=== PATIENT | female | born 1945 | race Caucasian/White ===

== ENCOUNTER → 2017-12-15 | Outpatient (CLI) | payer MEDICARE, OTHER, MEDICAID | END | disposition home or self-care (01) | LOC: C/S 12:53 | DX: J96.90 Respiratory failure, unspecified, unspecified whether with hypoxia or hypercapnia (principal) | CPT/HCPCS: 70490 ==

== ENCOUNTER 2018-02-14 10:29 | Inpatient (IN) | payer MEDICARE, OTHER ==
[2018-02-14 11:18] LABS: ADD MAN DIFF? NO
[2018-02-14 11:20] LABS: WHITE BLOOD COUNT 5.8 10^3/ul (4.8-10.8)
[2018-02-14 11:20] LABS: BASOPHILS % 0.3 % (0.0-2.0); EOSINOPHILS # 0.1 10^3/ul (0.0-0.5); EOSINOPHILS % 2.4 % (0.0-7.0); HEMATOCRIT 27.5 % (37.0-47.0); HEMOGLOBIN 8.3 g/dl (12.0-16.0); LYMPHOCYTES # 1.5 10^3/ul (0.8-2.9); LYMPHOCYTES % 25.7 % (15.0-51.0); MEAN CORPUSCULAR HEMOGLOBIN 30.4 pg (29.0-33.0); MEAN CORPUSCULAR HGB CONC 30.2 g/dl (32.0-37.0); MEAN CORPUSCULAR VOLUME 100.7 fl (82.0-101.0); MEAN PLATELET VOLUME 8.3 fl (7.4-10.4); MONOCYTE # 0.4 10^3/ul (0.3-0.9); MONOCYTES % 7.1 % (0.0-11.0); NEUTROPHIL # 3.7 10^3/ul (1.6-7.5); PLATELET COUNT 342 10^3/UL (140-415); RED BLOOD COUNT 2.73 10^6/ul (4.20-5.40); RED CELL DISTRIBUTION WIDTH 16.8 % (11.5-14.5)
[2018-02-14] MEDS: ALBUTEROL 0.083% (NEB) 2.5 MG/3 ML AMP HHN (11:27)
[2018-02-14 11:41] LABS: ALANINE AMINOTRANSFERASE 24 IU/L (13-69); ALBUMIN/GLOBULIN RATIO 0.83; ALKALINE PHOSPHATASE 114 IU/L (42-121); ANION GAP 11 (8-16); ASPARTATE AMINO TRANSFERASE 12 IU/L (15-46); BILIRUBIN,INDIRECT 0.3 mg/dl (0-1.1); BILIRUBIN,TOTAL 0.3 mg/dl (0.2-1.3); BLOOD UREA NITROGEN 40 mg/dl (7-20); CALCIUM 8.8 mg/dl (8.4-10.2); CARBON DIOXIDE 29 mmol/L (21-31); CHLORIDE 106 mmol/L (97-110); CREATININE 1.46 mg/dl (0.44-1.00); GLUCOSE 114 mg/dl (70-220); POTASSIUM 5.1 mmol/L (3.5-5.1); SODIUM 141 mmol/L (135-144); TOTAL PROTEIN 6.6 g/dl (6.1-8.1)
[2018-02-14 11:51] LABS: B-TYPE NATRIURETIC PEPTIDE 2060 PG/ML (0-125)
[2018-02-14 11:52] LABS: TROPONIN-I < 0.012 ng/ml (0.00-0.12)
[2018-02-14] MEDS ORDERED: ONDANSETRON 4 MG INJ IV ×2 (13:30→17:30)
[2018-02-14] MEDS ORDERED: ACETAMINOPHEN 325 MG TAB PO ×2 (13:30→17:30)
[2018-02-14] MEDS: FUROSEMIDE 40 MG INJ IV (15:36)
[2018-02-14] MEDS ORDERED: NACL 0.9% 3 ML SYG IV (17:30)
[2018-02-14] MEDS ORDERED: morphine 2 MG INJ IV (17:30)
[2018-02-14] MEDS ORDERED: ACETAMINOPHEN 325 MG TAB GTB (17:30)
[2018-02-14] MEDS: RIVAROXABAN 20 MG TABLET GTB (18:50)
[2018-02-14] MEDS: ACETYLCYSTEINE 20% 4 ML VIAL NEB (20:27)
[2018-02-14] MEDS: ALBUTEROL 0.083% (NEB) 2.5 MG/3 ML AMP NEB (20:28)
[2018-02-14] MEDS: METOPROLOL 50 MG TAB GTB (21:00)
[2018-02-14] MEDS: ATORVASTATIN 20 MG TAB PO (21:22)
[2018-02-14] MEDS: DOCUSATE SODIUM 100 MG CAP PO (21:22)
[2018-02-15] MEDS: PANTOPRAZOLE (EC) 40 MG TAB PO (05:25)
[2018-02-15] MEDS: MULTIVITAMINS 30 ML CUP GTB (09:00)
[2018-02-15] MEDS: ACETYLCYSTEINE 20% 4 ML VIAL NEB ×2 (09:06→19:47)
[2018-02-15 09:25] LABS: ADD MAN DIFF? NO
[2018-02-15] MEDS: ASCORBIC ACID 500 MG TAB GTB (09:31)
[2018-02-15] MEDS: METOPROLOL 50 MG TAB GTB ×2 (09:31→21:02)
[2018-02-15] MEDS: FERROUS SULFATE (EC) 325 MG TAB PO (09:31)
[2018-02-15 09:33] LABS: BASOPHILS % 0.3 % (0.0-2.0); EOSINOPHILS # 0.2 10^3/ul (0.0-0.5); EOSINOPHILS % 2.9 % (0.0-7.0); HEMATOCRIT 29.4 % (37.0-47.0); HEMOGLOBIN 8.7 g/dl (12.0-16.0); LYMPHOCYTES # 1.5 10^3/ul (0.8-2.9); LYMPHOCYTES % 23.9 % (15.0-51.0); MEAN CORPUSCULAR HEMOGLOBIN 30.1 pg (29.0-33.0); MEAN CORPUSCULAR HGB CONC 29.6 g/dl (32.0-37.0); MEAN CORPUSCULAR VOLUME 101.7 fl (82.0-101.0); MEAN PLATELET VOLUME 8.4 fl (7.4-10.4); MONOCYTE # 0.5 10^3/ul (0.3-0.9); MONOCYTES % 7.1 % (0.0-11.0); NEUTROPHIL # 4.1 10^3/ul (1.6-7.5); NEUTROPHILS % 65.2 % (39.0-77.0); NUCLEATED RED BLOOD CELLS% 0.3 /100WBC (0.0-0.0); PLATELET COUNT 390 10^3/UL (140-415); RED BLOOD COUNT 2.89 10^6/ul (4.20-5.40); RED CELL DISTRIBUTION WIDTH 16.5 % (11.5-14.5)
[2018-02-15 09:33] LABS: WHITE BLOOD COUNT 6.3 10^3/ul (4.8-10.8)
[2018-02-15] MEDS: LEVALBUTEROL (NEB) 1.25 MG/0.5 ML AMP HHN ×3 (11:00→19:39)
[2018-02-15 11:55] LABS: ALANINE AMINOTRANSFERASE 20 IU/L (13-69); ALBUMIN 3.4 g/dl (3.3-4.9); ALBUMIN/GLOBULIN RATIO 0.87; ALKALINE PHOSPHATASE 134 IU/L (42-121); ANION GAP 15 (8-16); ASPARTATE AMINO TRANSFERASE 15 IU/L (15-46); BILIRUBIN,INDIRECT 0.2 mg/dl (0-1.1); BILIRUBIN,TOTAL 0.2 mg/dl (0.2-1.3); BLOOD UREA NITROGEN 38 mg/dl (7-20); CALCIUM 9.1 mg/dl (8.4-10.2); CARBON DIOXIDE 29 mmol/L (21-31); CHLORIDE 102 mmol/L (97-110); CREATININE 1.63 mg/dl (0.44-1.00); GLUCOSE 109 mg/dl (70-220); MAGNESIUM 1.8 mg/dl (1.7-2.5); POTASSIUM 5.1 mmol/L (3.5-5.1); SODIUM 141 mmol/L (135-144); TOTAL PROTEIN 7.3 g/dl (6.1-8.1)
[2018-02-15 12:14] LABS: AADO2 Arterial 93.9 mmHg (7.0-24.0); Allen Test ACCEPTAB; Arterial Base Excess -0.8 mmol/L (-3.0-3); Arterial Blood Gas Oxygen Sat 98.1 mmHG (95.0-100.0); Arterial COHb 0.9 % (0.0-3.0); Arterial HCO3 24.1 mmol/L (22.0-26.0); Arterial MetHb 0.2 % (0.0-1.5); Arterial Total Hemglobin 9.7 g/dl (12.0-18.0); Arterial pCO2 40.7 mmhg (35-45); MODE TRACH COLLAR; Site Right Radial
[2018-02-15] MEDS: IPRATROPIUM (NEB) 0.5 MG/2.5 ML AMP HHN ×2 (13:20→19:39)
[2018-02-15] MEDS: FUROSEMIDE 20 MG INJ IV (17:49)
[2018-02-15] MEDS: CEFTRIAXONE 1 GM/50 ML (PMX) 50 ML IVPB (18:46)
[2018-02-15] MEDS: RIVAROXABAN 20 MG TABLET GTB (18:46)
[2018-02-15 19:14] LABS: CREATINE KINASE < 20 IU/L (23-200)
[2018-02-15 19:20] LABS: CK-MB 0.51 ng/ml (0.0-2.4)
[2018-02-15 19:24] LABS: TROPONIN-I < 0.012 ng/ml (0.00-0.12)
[2018-02-15] MEDS: DOCUSATE SODIUM 100 MG CAP PO (21:02)
[2018-02-15] MEDS: ATORVASTATIN 20 MG TAB PO (21:02)
[2018-02-16] MEDS: LEVALBUTEROL (NEB) 1.25 MG/0.5 ML AMP HHN ×4 (01:23→20:05)
[2018-02-16 01:47] LABS: CK-MB 0.38 ng/ml (0.0-2.4)
[2018-02-16 01:50] LABS: CREATINE KINASE < 20 IU/L (23-200); TROPONIN-I < 0.012 ng/ml (0.00-0.12)
[2018-02-16] MEDS: FUROSEMIDE 20 MG INJ IV ×2 (05:49→17:53)
[2018-02-16] MEDS: PANTOPRAZOLE (EC) 40 MG TAB PO (05:49)
[2018-02-16] MEDS: IPRATROPIUM (NEB) 0.5 MG/2.5 ML AMP HHN ×3 (07:30→20:05)
[2018-02-16 07:57] LABS: ADD MAN DIFF? NO
[2018-02-16 08:05] LABS: WHITE BLOOD COUNT 6.9 10^3/ul (4.8-10.8)
[2018-02-16 08:05] LABS: BASOPHILS % 0.4 % (0.0-2.0); EOSINOPHILS # 0.2 10^3/ul (0.0-0.5); EOSINOPHILS % 2.6 % (0.0-7.0); HEMOGLOBIN 8.5 g/dl (12.0-16.0); LYMPHOCYTES % 29.8 % (15.0-51.0); MEAN CORPUSCULAR HGB CONC 29.3 g/dl (32.0-37.0); MEAN CORPUSCULAR VOLUME 102.5 fl (82.0-101.0); MEAN PLATELET VOLUME 8.4 fl (7.4-10.4); MONOCYTE # 0.5 10^3/ul (0.3-0.9); MONOCYTES % 7.2 % (0.0-11.0); NEUTROPHILS % 58.8 % (39.0-77.0); PLATELET COUNT 379 10^3/UL (140-415); RED BLOOD COUNT 2.83 10^6/ul (4.20-5.40); RED CELL DISTRIBUTION WIDTH 16.5 % (11.5-14.5)
[2018-02-16 08:20] LABS: CHOL/HDL RATIO 4.5 RATIO; HDL CHOLESTEROL 26 mg/dl (33-92); LDL CHOLESTEROL,CALCULATED 53 mg/dl; TRIGLYCERIDES 192 mg/dl (0-149)
[2018-02-16 08:20] LABS: CHOLESTEROL 117 mg/dl (100-200)
[2018-02-16 08:21] LABS: ANION GAP 14 (8-16); BLOOD UREA NITROGEN 44 mg/dl (7-20); CALCIUM 9.2 mg/dl (8.4-10.2); CARBON DIOXIDE 30 mmol/L (21-31); CHLORIDE 103 mmol/L (97-110); CREATININE 1.67 mg/dl (0.44-1.00); GLUCOSE 104 mg/dl (70-220); POTASSIUM 4.9 mmol/L (3.5-5.1); SODIUM 142 mmol/L (135-144)
[2018-02-16] MEDS: ASCORBIC ACID 500 MG TAB GTB (08:37)
[2018-02-16] MEDS: FERROUS SULFATE (EC) 325 MG TAB PO (08:37)
[2018-02-16] MEDS: MULTIVITAMINS 30 ML CUP GTB (08:37)
[2018-02-16] MEDS: METOPROLOL 50 MG TAB GTB ×2 (08:38→20:50)
[2018-02-16] MEDS: ACETYLCYSTEINE 20% 4 ML VIAL NEB ×2 (09:00→20:05)
[2018-02-16] MEDS: CEFTRIAXONE 1 GM/50 ML (PMX) 50 ML IVPB (17:01)
[2018-02-16] MEDS: RIVAROXABAN 20 MG TABLET GTB (17:53)
[2018-02-16] MEDS: ATORVASTATIN 20 MG TAB PO (20:49)
[2018-02-16] MEDS: DOCUSATE SODIUM 100 MG CAP PO (20:50)
[2018-02-17] MEDS: LEVALBUTEROL (NEB) 1.25 MG/0.5 ML AMP HHN ×3 (02:56→19:27)
[2018-02-17] MEDS: PANTOPRAZOLE (EC) 40 MG TAB PO (05:37)
[2018-02-17] MEDS: FUROSEMIDE 20 MG INJ IV ×2 (05:37→17:00)
[2018-02-17 07:11] LABS: ADD MAN DIFF? NO
[2018-02-17 07:16] LABS: BASOPHILS % 0.5 % (0.0-2.0); EOSINOPHILS # 0.2 10^3/ul (0.0-0.5); EOSINOPHILS % 3.5 % (0.0-7.0); HEMATOCRIT 29.4 % (37.0-47.0); HEMOGLOBIN 8.8 g/dl (12.0-16.0); LYMPHOCYTES # 1.6 10^3/ul (0.8-2.9); LYMPHOCYTES % 25.7 % (15.0-51.0); MEAN CORPUSCULAR HEMOGLOBIN 30.2 pg (29.0-33.0); MEAN CORPUSCULAR HGB CONC 29.9 g/dl (32.0-37.0); MEAN PLATELET VOLUME 8.4 fl (7.4-10.4); MONOCYTE # 0.4 10^3/ul (0.3-0.9); MONOCYTES % 6.1 % (0.0-11.0); NEUTROPHIL # 3.9 10^3/ul (1.6-7.5); NEUTROPHILS % 63.2 % (39.0-77.0); PLATELET COUNT 376 10^3/UL (140-415); RED BLOOD COUNT 2.91 10^6/ul (4.20-5.40)
[2018-02-17 07:16] LABS: WHITE BLOOD COUNT 6.2 10^3/ul (4.8-10.8)
[2018-02-17 08:01] LABS: ANION GAP 17 (8-16); BLOOD UREA NITROGEN 49 mg/dl (7-20); CALCIUM 9.2 mg/dl (8.4-10.2); CARBON DIOXIDE 28 mmol/L (21-31); CHLORIDE 102 mmol/L (97-110); CREATININE 1.75 mg/dl (0.44-1.00); GLUCOSE 110 mg/dl (70-220); POTASSIUM 4.7 mmol/L (3.5-5.1); SODIUM 142 mmol/L (135-144)
[2018-02-17] MEDS: IPRATROPIUM (NEB) 0.5 MG/2.5 ML AMP HHN ×3 (08:17→19:27)
[2018-02-17] MEDS: ACETYLCYSTEINE 20% 4 ML VIAL NEB ×2 (08:28→19:27)
[2018-02-17] MEDS: METOPROLOL 50 MG TAB GTB ×2 (08:58→22:26)
[2018-02-17] MEDS: FERROUS SULFATE (EC) 325 MG TAB PO (08:58)
[2018-02-17] MEDS: ASCORBIC ACID 500 MG TAB GTB (08:58)
[2018-02-17] MEDS: MULTIVITAMINS 30 ML CUP GTB (08:59)
[2018-02-17 15:40] LABS: THYROID STIMULATING HORMONE 0.972 MIU/L (0.465-4.680)
[2018-02-17] MEDS: CEFTRIAXONE 1 GM/50 ML (PMX) 50 ML IVPB (16:52)
[2018-02-17] MEDS: RIVAROXABAN 20 MG TABLET GTB (17:05)
[2018-02-17] MEDS: DOCUSATE SODIUM 100 MG CAP PO (22:25)
[2018-02-17] MEDS: ATORVASTATIN 20 MG TAB PO (22:25)
[2018-02-18] MEDS: PANTOPRAZOLE (EC) 40 MG TAB PO (06:07)
[2018-02-18] MEDS: FUROSEMIDE 20 MG INJ IV ×2 (06:08→17:24)
[2018-02-18 06:52] LABS: ADD MAN DIFF? NO
[2018-02-18 07:36] LABS: ANION GAP 16 (8-16); BLOOD UREA NITROGEN 57 mg/dl (7-20); CALCIUM 9.4 mg/dl (8.4-10.2); CARBON DIOXIDE 29 mmol/L (21-31); CHLORIDE 102 mmol/L (97-110); CREATININE 1.64 mg/dl (0.44-1.00); GLUCOSE 116 mg/dl (70-220); POTASSIUM 5.1 mmol/L (3.5-5.1); SODIUM 142 mmol/L (135-144)
[2018-02-18] MEDS: IPRATROPIUM (NEB) 0.5 MG/2.5 ML AMP HHN ×3 (08:02→19:54)
[2018-02-18] MEDS: ACETYLCYSTEINE 20% 4 ML VIAL NEB ×2 (08:02→19:54)
[2018-02-18 08:30] LABS: BASOPHILS % 0.3 % (0.0-2.0); EOSINOPHILS # 0.3 10^3/ul (0.0-0.5); EOSINOPHILS % 3.5 % (0.0-7.0); HEMATOCRIT 30.7 % (37.0-47.0); HEMOGLOBIN 9.1 g/dl (12.0-16.0); LYMPHOCYTES # 1.9 10^3/ul (0.8-2.9); LYMPHOCYTES % 24.1 % (15.0-51.0); MEAN CORPUSCULAR HEMOGLOBIN 30.5 pg (29.0-33.0); MEAN CORPUSCULAR HGB CONC 29.6 g/dl (32.0-37.0); MEAN PLATELET VOLUME 8.6 fl (7.4-10.4); MONOCYTE # 0.6 10^3/ul (0.3-0.9); MONOCYTES % 6.9 % (0.0-11.0); NEUTROPHIL # 5.1 10^3/ul (1.6-7.5); NEUTROPHILS % 64.2 % (39.0-77.0); NUCLEATED RED BLOOD CELLS% 0.3 /100WBC (0.0-0.0); PLATELET COUNT 395 10^3/UL (140-415); RED BLOOD COUNT 2.98 10^6/ul (4.20-5.40)
[2018-02-18 08:30] LABS: WHITE BLOOD COUNT 7.9 10^3/ul (4.8-10.8)
[2018-02-18] MEDS: MULTIVITAMINS 30 ML CUP GTB (08:40)
[2018-02-18] MEDS: FERROUS SULFATE (EC) 325 MG TAB PO (08:40)
[2018-02-18] MEDS: ASCORBIC ACID 500 MG TAB GTB (08:40)
[2018-02-18] MEDS: METOPROLOL 50 MG TAB GTB ×2 (08:40→21:45)
[2018-02-18] MEDS: CEFEPIME 1GM/50 ML (PMX) 50 ML IVPB ×2 (12:16→21:45)
[2018-02-18] MEDS: LEVALBUTEROL (NEB) 1.25 MG/0.5 ML AMP HHN (13:22)
[2018-02-18] MEDS: RIVAROXABAN 20 MG TABLET GTB (17:24)
[2018-02-18] MEDS: CEFTRIAXONE 1 GM/50 ML (PMX) 50 ML IVPB (17:24)
[2018-02-18] MEDS: ATORVASTATIN 20 MG TAB PO (21:45)
[2018-02-18] MEDS: DOCUSATE SODIUM 100 MG CAP PO (21:45)
[2018-02-19] MEDS: PANTOPRAZOLE (EC) 40 MG TAB PO (06:01)
[2018-02-19] MEDS: FUROSEMIDE 20 MG INJ IV ×2 (06:02→17:43)
[2018-02-19] MEDS: IPRATROPIUM (NEB) 0.5 MG/2.5 ML AMP HHN ×3 (07:55→19:50)
[2018-02-19] MEDS: ACETYLCYSTEINE 20% 4 ML VIAL NEB ×2 (07:56→19:50)
[2018-02-19] MEDS: ASCORBIC ACID 500 MG TAB GTB (08:31)
[2018-02-19] MEDS: MULTIVITAMINS 30 ML CUP GTB (08:31)
[2018-02-19] MEDS: CEFEPIME 1GM/50 ML (PMX) 50 ML IVPB ×2 (08:31→21:30)
[2018-02-19] MEDS: FERROUS SULFATE (EC) 325 MG TAB PO (08:31)
[2018-02-19] MEDS: METOPROLOL 50 MG TAB GTB ×2 (08:32→21:29)
[2018-02-19] MEDS: RIVAROXABAN 20 MG TABLET GTB (17:43)
[2018-02-19] MEDS: ATORVASTATIN 20 MG TAB PO (21:29)
[2018-02-19] MEDS: DOCUSATE SODIUM 100 MG CAP PO (21:29)
[2018-02-20] MEDS: FUROSEMIDE 20 MG INJ IV ×2 (06:53→18:03)
[2018-02-20] MEDS: PANTOPRAZOLE (EC) 40 MG TAB PO (06:53)
[2018-02-20] MEDS: LEVALBUTEROL (NEB) 1.25 MG/0.5 ML AMP HHN ×3 (08:18→20:09)
[2018-02-20] MEDS: ACETYLCYSTEINE 20% 4 ML VIAL NEB ×2 (08:18→20:09)
[2018-02-20] MEDS: IPRATROPIUM (NEB) 0.5 MG/2.5 ML AMP HHN ×3 (08:18→20:12)
[2018-02-20] MEDS: FERROUS SULFATE (EC) 325 MG TAB PO (09:49)
[2018-02-20] MEDS: METOPROLOL 50 MG TAB GTB ×2 (09:49→21:06)
[2018-02-20] MEDS: ASCORBIC ACID 500 MG TAB GTB (09:49)
[2018-02-20] MEDS: MULTIVITAMINS 30 ML CUP GTB (09:49)
[2018-02-20] MEDS: CEFEPIME 1GM/50 ML (PMX) 50 ML IVPB ×2 (09:51→21:05)
[2018-02-20 10:50] LABS: ADD MAN DIFF? NO
[2018-02-20 10:58] LABS: BASOPHILS % 0.2 % (0.0-2.0); EOSINOPHILS # 0.3 10^3/ul (0.0-0.5); EOSINOPHILS % 3.7 % (0.0-7.0); HEMATOCRIT 30.7 % (37.0-47.0); LYMPHOCYTES # 1.7 10^3/ul (0.8-2.9); LYMPHOCYTES % 19.6 % (15.0-51.0); MEAN CORPUSCULAR HEMOGLOBIN 29.8 pg (29.0-33.0); MEAN CORPUSCULAR HGB CONC 29.3 g/dl (32.0-37.0); MEAN CORPUSCULAR VOLUME 101.7 fl (82.0-101.0); MEAN PLATELET VOLUME 8.2 fl (7.4-10.4); MONOCYTE # 0.5 10^3/ul (0.3-0.9); NEUTROPHIL # 6.1 10^3/ul (1.6-7.5); NEUTROPHILS % 69.9 % (39.0-77.0); PLATELET COUNT 329 10^3/UL (140-415); RED BLOOD COUNT 3.02 10^6/ul (4.20-5.40); RED CELL DISTRIBUTION WIDTH 16.6 % (11.5-14.5)
[2018-02-20 10:58] LABS: WHITE BLOOD COUNT 8.7 10^3/ul (4.8-10.8)
[2018-02-20 11:16] LABS: ANION GAP 17 (8-16); BLOOD UREA NITROGEN 63 mg/dl (7-20); CALCIUM 9.1 mg/dl (8.4-10.2); CARBON DIOXIDE 29 mmol/L (21-31); CHLORIDE 99 mmol/L (97-110); GLUCOSE 165 mg/dl (70-220); POTASSIUM 4.4 mmol/L (3.5-5.1); SODIUM 141 mmol/L (135-144)
[2018-02-20 17:58] LABS: FOLATE > 20.0 ng/ml (2.8-20.0)
[2018-02-20] MEDS: RIVAROXABAN 20 MG TABLET GTB (18:02)
[2018-02-20] MEDS: ATORVASTATIN 20 MG TAB PO (21:05)
[2018-02-20] MEDS: DOCUSATE SODIUM 100 MG CAP PO (21:05)
[2018-02-21] MEDS: PANTOPRAZOLE (EC) 40 MG TAB PO (05:46)
[2018-02-21] MEDS: FUROSEMIDE 20 MG INJ IV (05:48)
[2018-02-21 07:07] LABS: ADD MAN DIFF? NO
[2018-02-21 07:12] LABS: BASOPHILS % 0.3 % (0.0-2.0); EOSINOPHILS # 0.4 10^3/ul (0.0-0.5); EOSINOPHILS % 4.1 % (0.0-7.0); HEMATOCRIT 29.6 % (37.0-47.0); HEMOGLOBIN 8.9 g/dl (12.0-16.0); LYMPHOCYTES # 1.9 10^3/ul (0.8-2.9); LYMPHOCYTES % 18.5 % (15.0-51.0); MEAN CORPUSCULAR HEMOGLOBIN 30.1 pg (29.0-33.0); MEAN CORPUSCULAR HGB CONC 30.1 g/dl (32.0-37.0); MEAN PLATELET VOLUME 8.6 fl (7.4-10.4); MONOCYTE # 0.6 10^3/ul (0.3-0.9); MONOCYTES % 5.9 % (0.0-11.0); NEUTROPHIL # 7.1 10^3/ul (1.6-7.5); NEUTROPHILS % 70.5 % (39.0-77.0); PLATELET COUNT 336 10^3/UL (140-415); RED BLOOD COUNT 2.96 10^6/ul (4.20-5.40); RED CELL DISTRIBUTION WIDTH 16.7 % (11.5-14.5)
[2018-02-21 07:12] LABS: WHITE BLOOD COUNT 10.1 10^3/ul (4.8-10.8)
[2018-02-21 07:33] LABS: URIC ACID 12.1 mg/dl (3.1-7.9)
[2018-02-21 07:33] LABS: ANION GAP 17 (8-16); BLOOD UREA NITROGEN 72 mg/dl (7-20); CALCIUM 9.5 mg/dl (8.4-10.2); CARBON DIOXIDE 28 mmol/L (21-31); CHLORIDE 101 mmol/L (97-110); CREATINE KINASE < 20 IU/L (23-200); CREATININE 1.45 mg/dl (0.44-1.00); GLUCOSE 120 mg/dl (70-220); POTASSIUM 4.8 mmol/L (3.5-5.1); SODIUM 141 mmol/L (135-144)
[2018-02-21] MEDS: IPRATROPIUM (NEB) 0.5 MG/2.5 ML AMP HHN ×2 (08:03→19:28)
[2018-02-21] MEDS: ACETYLCYSTEINE 20% 4 ML VIAL NEB ×2 (08:03→19:28)
[2018-02-21] MEDS: LEVALBUTEROL (NEB) 1.25 MG/0.5 ML AMP HHN ×2 (08:08→19:29)
[2018-02-21] MEDS: CEFEPIME 1GM/50 ML (PMX) 50 ML IVPB ×2 (09:04→20:21)
[2018-02-21] MEDS: MULTIVITAMINS 30 ML CUP GTB (09:05)
[2018-02-21] MEDS: FERROUS SULFATE (EC) 325 MG TAB PO (09:05)
[2018-02-21] MEDS: METOPROLOL 50 MG TAB GTB ×2 (09:05→20:32)
[2018-02-21] MEDS: ASCORBIC ACID 500 MG TAB GTB (09:05)
[2018-02-21 09:41] LABS: SODIUM,URINE RANDOM 91 mmol/L (30-90)
[2018-02-21 09:45] LABS: PROTEIN/CREAT RATIO 2.21 RATIO
[2018-02-21] MEDS: RIVAROXABAN 20 MG TABLET GTB (17:42)
[2018-02-21] MEDS: ATORVASTATIN 20 MG TAB PO (20:21)
[2018-02-21] MEDS: DOCUSATE SODIUM 100 MG CAP PO (20:21)
[2018-02-21] MEDS: ALLOPURINOL 100 MG TAB PO (23:12)
[2018-02-22] MEDS: PANTOPRAZOLE (EC) 40 MG TAB PO (05:14)
[2018-02-22] MEDS: IPRATROPIUM (NEB) 0.5 MG/2.5 ML AMP HHN ×3 (08:31→20:35)
[2018-02-22] MEDS: ASCORBIC ACID 500 MG TAB GTB (08:54)
[2018-02-22] MEDS: METOPROLOL 50 MG TAB GTB ×2 (08:54→21:29)
[2018-02-22] MEDS: MULTIVITAMINS 30 ML CUP GTB (08:54)
[2018-02-22] MEDS: CEFEPIME 1GM/50 ML (PMX) 50 ML IVPB ×2 (08:54→21:30)
[2018-02-22] MEDS: ALLOPURINOL 100 MG TAB PO ×2 (08:54→21:30)
[2018-02-22] MEDS: FERROUS SULFATE (EC) 325 MG TAB PO (08:54)
[2018-02-22] MEDS: FUROSEMIDE 20 MG INJ IV (08:55)
[2018-02-22] MEDS: ACETYLCYSTEINE 20% 4 ML VIAL NEB ×2 (09:00→20:35)
[2018-02-22 13:02] LABS: HAPTOGLOBIN 335 mg/dL (43-212)
[2018-02-22] MEDS: RIVAROXABAN 20 MG TABLET GTB (17:25)
[2018-02-22] MEDS: DOCUSATE SODIUM 100 MG CAP PO (21:29)
[2018-02-22] MEDS: ATORVASTATIN 20 MG TAB PO (21:29)
[2018-02-23] MEDS: LEVALBUTEROL (NEB) 1.25 MG/0.5 ML AMP HHN ×2 (05:08→20:32)
[2018-02-23] MEDS: PANTOPRAZOLE (EC) 40 MG TAB PO (06:06)
[2018-02-23 06:23] LABS: ADD MAN DIFF? NO
[2018-02-23 06:24] LABS: BASOPHILS % 0.3 % (0.0-2.0); EOSINOPHILS # 0.3 10^3/ul (0.0-0.5); EOSINOPHILS % 4.2 % (0.0-7.0); HEMATOCRIT 28.6 % (37.0-47.0); HEMOGLOBIN 8.6 g/dl (12.0-16.0); LYMPHOCYTES # 2.1 10^3/ul (0.8-2.9); LYMPHOCYTES % 28.3 % (15.0-51.0); MEAN CORPUSCULAR HEMOGLOBIN 30.2 pg (29.0-33.0); MEAN CORPUSCULAR HGB CONC 30.1 g/dl (32.0-37.0); MEAN CORPUSCULAR VOLUME 100.4 fl (82.0-101.0); MEAN PLATELET VOLUME 8.8 fl (7.4-10.4); MONOCYTE # 0.4 10^3/ul (0.3-0.9); MONOCYTES % 5.5 % (0.0-11.0); NEUTROPHIL # 4.6 10^3/ul (1.6-7.5); NEUTROPHILS % 61.2 % (39.0-77.0); PLATELET COUNT 311 10^3/UL (140-415); RED BLOOD COUNT 2.85 10^6/ul (4.20-5.40); RED CELL DISTRIBUTION WIDTH 16.4 % (11.5-14.5)
[2018-02-23 06:24] LABS: WHITE BLOOD COUNT 7.5 10^3/ul (4.8-10.8)
[2018-02-23 06:45] LABS: ALANINE AMINOTRANSFERASE 21 IU/L (13-69); ALBUMIN 3.4 g/dl (3.3-4.9); ALBUMIN/GLOBULIN RATIO 0.89; ALKALINE PHOSPHATASE 115 IU/L (42-121); ANION GAP 12 (8-16); ASPARTATE AMINO TRANSFERASE 14 IU/L (15-46); BILIRUBIN,INDIRECT 0.1 mg/dl (0-1.1); BILIRUBIN,TOTAL 0.1 mg/dl (0.2-1.3); BLOOD UREA NITROGEN 73 mg/dl (7-20); CALCIUM 9.7 mg/dl (8.4-10.2); CARBON DIOXIDE 30 mmol/L (21-31); CHLORIDE 104 mmol/L (97-110); CREATININE 1.64 mg/dl (0.44-1.00); GLUCOSE 116 mg/dl (70-220); POTASSIUM 4.4 mmol/L (3.5-5.1); SODIUM 142 mmol/L (135-144); TOTAL PROTEIN 7.2 g/dl (6.1-8.1)
[2018-02-23 06:50] LABS: MAGNESIUM 2.4 mg/dl (1.7-2.5)
[2018-02-23 06:50] LABS: PHOSPHORUS 4.7 mg/dl (2.5-4.9)
[2018-02-23 07:15] LABS: PARTIAL THROMBOPLASTIN TIME 40.7 Sec (25.0-35.0)
[2018-02-23 07:38] LABS: INR 1.37; PROTIME 17.1 Sec (11.9-14.9); PT RATIO 1.3
[2018-02-23] MEDS: IPRATROPIUM (NEB) 0.5 MG/2.5 ML AMP HHN ×3 (07:52→20:32)
[2018-02-23] MEDS: ACETYLCYSTEINE 20% 4 ML VIAL NEB ×2 (08:00→20:32)
[2018-02-23 08:22] LABS: B-TYPE NATRIURETIC PEPTIDE 1190 PG/ML (0-125)
[2018-02-23] MEDS: FUROSEMIDE 20 MG INJ IV (09:46)
[2018-02-23] MEDS: MULTIVITAMINS 30 ML CUP GTB (09:46)
[2018-02-23] MEDS: METOPROLOL 50 MG TAB GTB ×2 (09:47→22:20)
[2018-02-23] MEDS: ALLOPURINOL 100 MG TAB PO ×2 (09:47→22:19)
[2018-02-23] MEDS: FERROUS SULFATE (EC) 325 MG TAB PO (09:47)
[2018-02-23] MEDS: ASCORBIC ACID 500 MG TAB GTB (09:47)
[2018-02-23] MEDS: CEFEPIME 1GM/50 ML (PMX) 50 ML IVPB ×2 (09:50→22:19)
[2018-02-23] MEDS: DEXTROSE 5%-0.45% NACL 1,000 ML IV (13:23)
[2018-02-23] MEDS: RIVAROXABAN 20 MG TABLET GTB (18:06)
[2018-02-23] MEDS: ATORVASTATIN 20 MG TAB PO (22:19)
[2018-02-23] MEDS: DOCUSATE SODIUM 100 MG CAP PO (22:20)
[2018-02-24] MEDS: PANTOPRAZOLE (EC) 40 MG TAB PO (06:16)
[2018-02-24] MEDS: DEXTROSE 5%-0.45% NACL 1,000 ML IV ×2 (06:17→23:16)
[2018-02-24] MEDS: IPRATROPIUM (NEB) 0.5 MG/2.5 ML AMP HHN ×3 (08:03→19:28)
[2018-02-24] MEDS: ACETYLCYSTEINE 20% 4 ML VIAL NEB ×2 (08:14→19:28)
[2018-02-24 08:43] LABS: ADD MAN DIFF? NO
[2018-02-24 08:45] LABS: WHITE BLOOD COUNT 7.2 10^3/ul (4.8-10.8)
[2018-02-24 08:45] LABS: BASOPHILS % 0.3 % (0.0-2.0); EOSINOPHILS # 0.3 10^3/ul (0.0-0.5); EOSINOPHILS % 3.5 % (0.0-7.0); HEMATOCRIT 27.8 % (37.0-47.0); HEMOGLOBIN 8.3 g/dl (12.0-16.0); LYMPHOCYTES # 1.9 10^3/ul (0.8-2.9); LYMPHOCYTES % 26.8 % (15.0-51.0); MEAN CORPUSCULAR HEMOGLOBIN 30.4 pg (29.0-33.0); MEAN CORPUSCULAR HGB CONC 29.9 g/dl (32.0-37.0); MEAN CORPUSCULAR VOLUME 101.8 fl (82.0-101.0); MEAN PLATELET VOLUME 8.8 fl (7.4-10.4); MONOCYTE # 0.4 10^3/ul (0.3-0.9); MONOCYTES % 6.1 % (0.0-11.0); NEUTROPHIL # 4.5 10^3/ul (1.6-7.5); NEUTROPHILS % 62.9 % (39.0-77.0); PLATELET COUNT 286 10^3/UL (140-415); RED BLOOD COUNT 2.73 10^6/ul (4.20-5.40); RED CELL DISTRIBUTION WIDTH 16.2 % (11.5-14.5)
[2018-02-24] MEDS: CEFEPIME 1GM/50 ML (PMX) 50 ML IVPB ×2 (08:48→21:47)
[2018-02-24] MEDS: MULTIVITAMINS 30 ML CUP GTB (08:49)
[2018-02-24] MEDS: ALLOPURINOL 100 MG TAB PO ×2 (08:49→21:47)
[2018-02-24] MEDS: FERROUS SULFATE (EC) 325 MG TAB PO (08:49)
[2018-02-24] MEDS: ASCORBIC ACID 500 MG TAB GTB (08:49)
[2018-02-24] MEDS: METOPROLOL 50 MG TAB GTB ×2 (09:00→21:48)
[2018-02-24 09:21] LABS: ANION GAP 15 (8-16); BLOOD UREA NITROGEN 68 mg/dl (7-20); CALCIUM 9.4 mg/dl (8.4-10.2); CARBON DIOXIDE 27 mmol/L (21-31); CHLORIDE 103 mmol/L (97-110); CREATININE 1.41 mg/dl (0.44-1.00); GLUCOSE 121 mg/dl (70-220); POTASSIUM 4.8 mmol/L (3.5-5.1); SODIUM 140 mmol/L (135-144)
[2018-02-24] MEDS: RIVAROXABAN 20 MG TABLET GTB (18:08)
[2018-02-24] MEDS: DOCUSATE SODIUM 100 MG CAP PO (21:47)
[2018-02-24] MEDS: ATORVASTATIN 20 MG TAB PO (21:47)
[2018-02-25] MEDS: PANTOPRAZOLE (EC) 40 MG TAB PO (06:07)
[2018-02-25] MEDS: IPRATROPIUM (NEB) 0.5 MG/2.5 ML AMP HHN ×3 (07:23→19:59)
[2018-02-25] MEDS: ACETYLCYSTEINE 20% 4 ML VIAL NEB ×2 (07:35→19:59)
[2018-02-25] MEDS: MULTIVITAMINS 30 ML CUP GTB (09:07)
[2018-02-25] MEDS: METOPROLOL 50 MG TAB GTB ×2 (09:07→20:31)
[2018-02-25] MEDS: FERROUS SULFATE (EC) 325 MG TAB PO (09:07)
[2018-02-25] MEDS: ALLOPURINOL 100 MG TAB PO ×2 (09:07→20:30)
[2018-02-25] MEDS: ASCORBIC ACID 500 MG TAB GTB (09:07)
[2018-02-25] MEDS: CEFEPIME 1GM/50 ML (PMX) 50 ML IVPB ×2 (09:07→20:31)
[2018-02-25] MEDS: DEXTROSE 5%-0.45% NACL 1,000 ML IV (16:25)
[2018-02-25] MEDS: RIVAROXABAN 20 MG TABLET GTB (18:32)
[2018-02-25] MEDS: DOCUSATE SODIUM 100 MG CAP PO (20:30)
[2018-02-25] MEDS: ATORVASTATIN 20 MG TAB PO (20:30)
[2018-02-26] MEDS: PANTOPRAZOLE (EC) 40 MG TAB PO (05:12)
[2018-02-26] MEDS: DEXTROSE 5%-0.45% NACL 1,000 ML IV ×3 (05:12→21:50)
[2018-02-26 06:15] LABS: ADD MAN DIFF? NO
[2018-02-26 06:18] LABS: BASOPHILS % 0.3 % (0.0-2.0); EOSINOPHILS # 0.3 10^3/ul (0.0-0.5); EOSINOPHILS % 4.5 % (0.0-7.0); HEMATOCRIT 27.7 % (37.0-47.0); HEMOGLOBIN 8.3 g/dl (12.0-16.0); LYMPHOCYTES # 1.9 10^3/ul (0.8-2.9); LYMPHOCYTES % 27.2 % (15.0-51.0); MEAN CORPUSCULAR HEMOGLOBIN 30.9 pg (29.0-33.0); MEAN PLATELET VOLUME 9.1 fl (7.4-10.4); MONOCYTE # 0.5 10^3/ul (0.3-0.9); MONOCYTES % 6.3 % (0.0-11.0); NEUTROPHIL # 4.4 10^3/ul (1.6-7.5); NEUTROPHILS % 61.4 % (39.0-77.0); PLATELET COUNT 260 10^3/UL (140-415); RED BLOOD COUNT 2.69 10^6/ul (4.20-5.40); RED CELL DISTRIBUTION WIDTH 15.9 % (11.5-14.5)
[2018-02-26 06:18] LABS: WHITE BLOOD COUNT 7.1 10^3/ul (4.8-10.8)
[2018-02-26 06:42] LABS: ANION GAP 13 (8-16); BLOOD UREA NITROGEN 50 mg/dl (7-20); CALCIUM 9.3 mg/dl (8.4-10.2); CARBON DIOXIDE 25 mmol/L (21-31); CHLORIDE 106 mmol/L (97-110); CREATININE 1.18 mg/dl (0.44-1.00); GLUCOSE 114 mg/dl (70-220); POTASSIUM 4.7 mmol/L (3.5-5.1); SODIUM 139 mmol/L (135-144)
[2018-02-26] MEDS: IPRATROPIUM (NEB) 0.5 MG/2.5 ML AMP HHN ×3 (07:22→20:05)
[2018-02-26] MEDS: ACETYLCYSTEINE 20% 4 ML VIAL NEB ×2 (07:36→20:05)
[2018-02-26] MEDS: METOPROLOL 50 MG TAB GTB ×2 (08:57→20:15)
[2018-02-26] MEDS: ALLOPURINOL 100 MG TAB PO ×2 (08:57→20:15)
[2018-02-26] MEDS: FERROUS SULFATE (EC) 325 MG TAB PO (08:57)
[2018-02-26] MEDS: ASCORBIC ACID 500 MG TAB GTB (08:57)
[2018-02-26] MEDS: MULTIVITAMINS 30 ML CUP GTB (08:57)
[2018-02-26] MEDS: CEFEPIME 1GM/50 ML (PMX) 50 ML IVPB ×2 (08:58→20:16)
[2018-02-26] MEDS: RIVAROXABAN 20 MG TABLET GTB (17:36)
[2018-02-26] MEDS: LEVALBUTEROL (NEB) 1.25 MG/0.5 ML AMP HHN (20:05)
[2018-02-26] MEDS: ATORVASTATIN 20 MG TAB PO (20:15)
[2018-02-26] MEDS: DOCUSATE SODIUM 100 MG CAP PO (20:16)
[2018-02-27] MEDS: PANTOPRAZOLE (EC) 40 MG TAB PO (05:48)
[2018-02-27] MEDS: IPRATROPIUM (NEB) 0.5 MG/2.5 ML AMP HHN ×3 (07:43→20:00)
[2018-02-27] MEDS: ACETYLCYSTEINE 20% 4 ML VIAL NEB ×2 (07:43→20:00)
[2018-02-27 08:48] LABS: ADD MAN DIFF? NO
[2018-02-27 08:53] LABS: WHITE BLOOD COUNT 6.4 10^3/ul (4.8-10.8)
[2018-02-27 08:53] LABS: BASOPHILS % 0.5 % (0.0-2.0); EOSINOPHILS # 0.3 10^3/ul (0.0-0.5); EOSINOPHILS % 4.6 % (0.0-7.0); HEMATOCRIT 28.1 % (37.0-47.0); HEMOGLOBIN 8.2 g/dl (12.0-16.0); LYMPHOCYTES # 1.8 10^3/ul (0.8-2.9); LYMPHOCYTES % 27.8 % (15.0-51.0); MEAN CORPUSCULAR HEMOGLOBIN 29.8 pg (29.0-33.0); MEAN CORPUSCULAR HGB CONC 29.2 g/dl (32.0-37.0); MEAN CORPUSCULAR VOLUME 102.2 fl (82.0-101.0); MEAN PLATELET VOLUME 9.2 fl (7.4-10.4); MONOCYTE # 0.4 10^3/ul (0.3-0.9); NEUTROPHIL # 3.9 10^3/ul (1.6-7.5); NEUTROPHILS % 60.6 % (39.0-77.0); PLATELET COUNT 258 10^3/UL (140-415); RED BLOOD COUNT 2.75 10^6/ul (4.20-5.40); RED CELL DISTRIBUTION WIDTH 15.9 % (11.5-14.5)
[2018-02-27 09:22] LABS: ANION GAP 14 (8-16); BLOOD UREA NITROGEN 40 mg/dl (7-20); CALCIUM 9.3 mg/dl (8.4-10.2); CARBON DIOXIDE 25 mmol/L (21-31); CHLORIDE 107 mmol/L (97-110); GLUCOSE 117 mg/dl (70-220); POTASSIUM 4.8 mmol/L (3.5-5.1); SODIUM 141 mmol/L (135-144)
[2018-02-27] MEDS: MULTIVITAMINS 30 ML CUP GTB (09:26)
[2018-02-27] MEDS: METOPROLOL 50 MG TAB GTB ×2 (09:27→21:00)
[2018-02-27] MEDS: ALLOPURINOL 100 MG TAB PO ×2 (09:27→21:30)
[2018-02-27] MEDS: CEFEPIME 1GM/50 ML (PMX) 50 ML IVPB ×2 (09:27→21:35)
[2018-02-27] MEDS: FERROUS SULFATE (EC) 325 MG TAB PO (09:27)
[2018-02-27] MEDS: ASCORBIC ACID 500 MG TAB GTB (09:27)
[2018-02-27] MEDS: DEXTROSE 5%-0.45% NACL 1,000 ML IV (14:30)
[2018-02-27] MEDS: RIVAROXABAN 20 MG TABLET GTB (18:36)
[2018-02-27] MEDS: ATORVASTATIN 20 MG TAB PO (21:30)
[2018-02-27] MEDS: DOCUSATE SODIUM 100 MG CAP PO (21:30)
[2018-02-28] MEDS: PANTOPRAZOLE (EC) 40 MG TAB PO (05:32)
[2018-02-28] MEDS: IPRATROPIUM (NEB) 0.5 MG/2.5 ML AMP HHN ×3 (08:11→19:43)
[2018-02-28] MEDS: ACETYLCYSTEINE 20% 4 ML VIAL NEB ×2 (08:13→19:43)
[2018-02-28] MEDS: METOPROLOL 50 MG TAB GTB (08:34)
[2018-02-28] MEDS: CEFEPIME 1GM/50 ML (PMX) 50 ML IVPB (08:34)
[2018-02-28] MEDS: MULTIVITAMINS 30 ML CUP GTB (08:34)
[2018-02-28] MEDS: ALLOPURINOL 100 MG TAB PO (08:34)
[2018-02-28] MEDS: ASCORBIC ACID 500 MG TAB GTB (08:34)
[2018-02-28] MEDS: FERROUS SULFATE (EC) 325 MG TAB PO (08:34)
[2018-02-28 09:02] LABS: ADD MAN DIFF? NO
[2018-02-28 09:10] LABS: BASOPHILS % 0.5 % (0.0-2.0); EOSINOPHILS # 0.4 10^3/ul (0.0-0.5); EOSINOPHILS % 6.1 % (0.0-7.0); HEMATOCRIT 27.7 % (37.0-47.0); HEMOGLOBIN 8.1 g/dl (12.0-16.0); LYMPHOCYTES # 1.7 10^3/ul (0.8-2.9); LYMPHOCYTES % 29.7 % (15.0-51.0); MEAN CORPUSCULAR HEMOGLOBIN 30.2 pg (29.0-33.0); MEAN CORPUSCULAR HGB CONC 29.2 g/dl (32.0-37.0); MEAN CORPUSCULAR VOLUME 103.4 fl (82.0-101.0); MEAN PLATELET VOLUME 9.3 fl (7.4-10.4); MONOCYTE # 0.4 10^3/ul (0.3-0.9); MONOCYTES % 6.6 % (0.0-11.0); NEUTROPHIL # 3.2 10^3/ul (1.6-7.5); NEUTROPHILS % 56.6 % (39.0-77.0); PLATELET COUNT 251 10^3/UL (140-415); RED BLOOD COUNT 2.68 10^6/ul (4.20-5.40)
[2018-02-28 09:10] LABS: WHITE BLOOD COUNT 5.7 10^3/ul (4.8-10.8)
[2018-02-28 11:18] LABS: ANION GAP 11 (8-16); BLOOD UREA NITROGEN 40 mg/dl (7-20); CALCIUM 9.4 mg/dl (8.4-10.2); CARBON DIOXIDE 26 mmol/L (21-31); CHLORIDE 111 mmol/L (97-110); CREATININE 1.16 mg/dl (0.44-1.00); GLUCOSE 103 mg/dl (70-220); POTASSIUM 4.9 mmol/L (3.5-5.1); SODIUM 143 mmol/L (135-144)
[2018-02-28] MEDS: RIVAROXABAN 20 MG TABLET GTB (17:13)
== END 2018-02-28 20:50 | DRG 177 ==
LOC: E/R 10:29 → MS4 13:12
DX: J15.1 Pneumonia due to Pseudomonas (principal); I50.33 Acute on chronic diastolic (congestive) heart failure; J96.21 Acute and chronic respiratory failure with hypoxia; I13.0 Hypertensive heart and chronic kidney disease with heart failure and stage 1 through stage 4 chronic kidney disease, or unspecified chronic kidney disease; J44.1 Chronic obstructive pulmonary disease with (acute) exacerbation; J96.10 Chronic respiratory failure, unspecified whether with hypoxia or hypercapnia; J44.0 Chronic obstructive pulmonary disease with (acute) lower respiratory infection; I47.1 Supraventricular tachycardia; N17.9 Acute kidney failure, unspecified; J20.9 Acute bronchitis, unspecified; N18.9 Chronic kidney disease, unspecified; Z93.0 Tracheostomy status; J84.10 Pulmonary fibrosis, unspecified; Z87.891 Personal history of nicotine dependence; I27.20 Pulmonary hypertension, unspecified
CPT/HCPCS: 36415; 36600; 71045; 71250; 76775; 80048; 80053; 80061; 81003; 82550; 82553; 82570; 82607; 82746; 82803; 82962; 83010; 83735; 83880; 84100; 84300; 84443; 84484; 84560; 85025; 85610; 85730; 86880; 87070; 89190; 89220; 93005; 93306; 94640; 94664; 96374; 97110; 97116; 97162; 97530; 99285-25

== ENCOUNTER 2018-04-21 12:54 | Inpatient (IN) | payer MEDICARE, OTHER ==
[2018-04-21] MEDS: METHYLPREDNISOLONE 125 MG INJ IV (13:31)
[2018-04-21] MEDS: SOD CHLORIDE 0.9% 500 ML IV (13:31)
[2018-04-21 13:38] LABS: ADD MAN DIFF? NO
[2018-04-21 13:39] LABS: WHITE BLOOD COUNT 7.1 10^3/ul (4.8-10.8)
[2018-04-21 13:39] LABS: ABNORMAL IP MESSAGE 1; BASOPHILS % 0.3 % (0.0-2.0); EOSINOPHILS # 0.1 10^3/ul (0.0-0.5); EOSINOPHILS % 1.3 % (0.0-7.0); HEMATOCRIT 27.3 % (37.0-47.0); HEMOGLOBIN 7.7 g/dl (12.0-16.0); LYMPHOCYTES # 1.3 10^3/ul (0.8-2.9); LYMPHOCYTES % 17.7 % (15.0-51.0); MEAN CORPUSCULAR HEMOGLOBIN 28.9 pg (29.0-33.0); MEAN CORPUSCULAR HGB CONC 28.2 g/dl (32.0-37.0); MEAN CORPUSCULAR VOLUME 102.6 fl (82.0-101.0); MEAN PLATELET VOLUME 9.1 fl (7.4-10.4); MONOCYTE # 0.4 10^3/ul (0.3-0.9); MONOCYTES % 5.2 % (0.0-11.0); NEUTROPHIL # 5.4 10^3/ul (1.6-7.5); NEUTROPHILS % 75.1 % (39.0-77.0); NUCLEATED RED BLOOD CELLS% 0.3 /100WBC (0.0-0.0); PLATELET COUNT 295 10^3/UL (140-415); RED BLOOD COUNT 2.66 10^6/ul (4.20-5.40)
[2018-04-21 13:41] LABS: POSITIVE DIFF @See below
[2018-04-21 13:46] LABS: ALANINE AMINOTRANSFERASE 18 IU/L (13-69); ALBUMIN 3.2 g/dl (3.3-4.9); ALBUMIN/GLOBULIN RATIO 0.86; ALKALINE PHOSPHATASE 92 IU/L (42-121); ANION GAP 14 (8-16); ASPARTATE AMINO TRANSFERASE 12 IU/L (15-46); BILIRUBIN,INDIRECT 0.2 mg/dl (0-1.1); BILIRUBIN,TOTAL 0.2 mg/dl (0.2-1.3); BLOOD UREA NITROGEN 51 mg/dl (7-20); CALCIUM 8.9 mg/dl (8.4-10.2); CARBON DIOXIDE 29 mmol/L (21-31); CHLORIDE 105 mmol/L (97-110); GLUCOSE 112 mg/dl (70-220); LIPASE 29 U/L (23-300); SODIUM 142 mmol/L (135-144); TOTAL PROTEIN 6.9 g/dl (6.1-8.1)
[2018-04-21] MEDS: ALBUTEROL 0.5% (NEB) 2.5 MG/0.5 ML AMP INH (13:47)
[2018-04-21] MEDS: IPRATROPIUM (NEB) 0.5 MG/2.5 ML AMP INH (13:48)
[2018-04-21 13:52] LABS: POTASSIUM 5.8 mmol/L (3.5-5.1)
[2018-04-21 13:57] LABS: TROPONIN-I 0.015 ng/ml (0.000-0.120)
[2018-04-21 14:24] LABS: B-TYPE NATRIURETIC PEPTIDE 11300 PG/ML (0-125)
[2018-04-21 14:56] LABS: INR 1.09; PROTIME 14.3 Sec (11.9-14.9); PT RATIO 1.1
[2018-04-21 14:57] LABS: PARTIAL THROMBOPLASTIN TIME 34.1 Sec (25.0-35.0)
[2018-04-21] MEDS: FUROSEMIDE 40 MG INJ IV (17:31)
[2018-04-21] MEDS ORDERED: ONDANSETRON 4 MG TAB PO (19:30)
[2018-04-21] MEDS ORDERED: MAGNESIUM HYDROXIDE 30ML CUP PO (19:30)
[2018-04-21] MEDS ORDERED: ACETAMINOPHEN 325 MG TAB PO (19:30)
[2018-04-21 19:54] LABS: IMMEDIATE SPIN CROSSMATCH 1 1
[2018-04-21] MEDS ORDERED: FUROSEMIDE 40 MG INJ IV (20:00)
[2018-04-21] MEDS: CYANOCOBALAMIN 500 MCG TAB PO (21:23)
[2018-04-21] MEDS: RIVAROXABAN 20 MG TABLET PO (21:23)
[2018-04-21] MEDS: ATORVASTATIN 20 MG TAB PO (21:23)
[2018-04-21] MEDS: ALLOPURINOL 100 MG TAB PO (21:23)
[2018-04-21] MEDS: DOCUSATE SODIUM 100 MG CAP PO (21:26)
[2018-04-21] MEDS: BISACODYL 10 MG SUPP PR (21:26)
[2018-04-21] MEDS: METOPROLOL 50 MG TAB PO (21:26)
[2018-04-22 05:35] LABS: ADD MAN DIFF? NO
[2018-04-22 05:45] LABS: WHITE BLOOD COUNT 4.6 10^3/ul (4.8-10.8)
[2018-04-22 05:45] LABS: HEMATOCRIT 28.2 % (37.0-47.0); HEMOGLOBIN 8.5 g/dl (12.0-16.0); LYMPHOCYTES # 0.7 10^3/ul (0.8-2.9); MEAN CORPUSCULAR HEMOGLOBIN 29.4 pg (29.0-33.0); MEAN CORPUSCULAR HGB CONC 30.1 g/dl (32.0-37.0); MEAN CORPUSCULAR VOLUME 97.6 fl (82.0-101.0); MEAN PLATELET VOLUME 9.1 fl (7.4-10.4); MONOCYTE # 0.1 10^3/ul (0.3-0.9); MONOCYTES % 2.6 % (0.0-11.0); NEUTROPHIL # 3.8 10^3/ul (1.6-7.5); NUCLEATED RED BLOOD CELLS% 0.4 /100WBC (0.0-0.0); PLATELET COUNT 283 10^3/UL (140-415); RED BLOOD COUNT 2.89 10^6/ul (4.20-5.40); RED CELL DISTRIBUTION WIDTH 16.7 % (11.5-14.5)
[2018-04-22 06:12] LABS: ALANINE AMINOTRANSFERASE 19 IU/L (13-69); ALBUMIN 3.2 g/dl (3.3-4.9); ALBUMIN/GLOBULIN RATIO 0.86; ALKALINE PHOSPHATASE 96 IU/L (42-121); ANION GAP 16 (8-16); ASPARTATE AMINO TRANSFERASE < 8 IU/L (15-46); BILIRUBIN,INDIRECT 0.4 mg/dl (0-1.1); BILIRUBIN,TOTAL 0.4 mg/dl (0.2-1.3); BLOOD UREA NITROGEN 50 mg/dl (7-20); CALCIUM 8.8 mg/dl (8.4-10.2); CARBON DIOXIDE 27 mmol/L (21-31); CHLORIDE 103 mmol/L (97-110); CREATININE 1.36 mg/dl (0.44-1.00); GLUCOSE 132 mg/dl (70-220); MAGNESIUM 1.9 mg/dl (1.7-2.5); PHOSPHORUS 5.1 mg/dl (2.5-4.9); POTASSIUM 5.2 mmol/L (3.5-5.1); SODIUM 141 mmol/L (135-144); TOTAL PROTEIN 6.9 g/dl (6.1-8.1)
[2018-04-22] MEDS: MULTIVITAMINS THERAPEUTIC TAB PO (08:06)
[2018-04-22] MEDS: ALLOPURINOL 100 MG TAB PO ×2 (08:07→20:50)
[2018-04-22] MEDS: FERROUS SULFATE (EC) 325 MG TAB PO (08:07)
[2018-04-22] MEDS: FOLIC ACID 1 MG TAB PO (08:07)
[2018-04-22] MEDS: BISACODYL 10 MG SUPP PR (08:07)
[2018-04-22] MEDS: ASCORBIC ACID 500 MG TAB PO (08:07)
[2018-04-22] MEDS: CYANOCOBALAMIN 500 MCG TAB PO ×2 (08:08→20:50)
[2018-04-22] MEDS: METOPROLOL 50 MG TAB PO ×2 (08:09→20:49)
[2018-04-22] MEDS: DOCUSATE SODIUM 10 MG/ML (10ML CUP) PO ×2 (08:21→20:49)
[2018-04-22] MEDS: LANSOPRAZOLE 30 MG CAP PO (08:21)
[2018-04-22] MEDS: L ACIDOPHIL/B LACTIS/B LONGUM CAPSULE PO (08:26)
[2018-04-22] MEDS ORDERED: PANTOPRAZOLE (EC) 40 MG TAB PO (09:00)
[2018-04-22] MEDS ORDERED: [UNRECOGNIZED DRUG - OTHER] PO (09:00)
[2018-04-22 09:59] LABS: AADO2 Arterial 48.3 mmHg (7.0-24.0); Allen Test ACCEPTAB; Arterial Base Excess 3.2 mmol/L (-3.0-3); Arterial Blood Gas Oxygen Sat 98.3 mmHG (95.0-100.0); Arterial COHb 0.7 % (0.0-3.0); Arterial Fraction of Oxyhgb 97.4 % (93.0-99.0); Arterial HCO3 28.1 mmol/L (22.0-26.0); Arterial MetHb 0.2 % (0.0-1.5); Arterial Total Hemglobin 10.1 g/dl (12.0-18.0); Arterial pCO2 44.5 mmhg (35-45); MODE VENT - AC; Site Right Radial
[2018-04-22] MEDS: RIVAROXABAN 20 MG TABLET PO (17:31)
[2018-04-22] MEDS: ATORVASTATIN 20 MG TAB PO (20:49)
[2018-04-22] MEDS: FUROSEMIDE 40 MG INJ IV (20:49)
[2018-04-23] MEDS: LANSOPRAZOLE 30 MG CAP PO (05:02)
[2018-04-23 05:34] LABS: ADD MAN DIFF? NO
[2018-04-23 05:43] LABS: WHITE BLOOD COUNT 7.3 10^3/ul (4.8-10.8)
[2018-04-23 05:43] LABS: BASOPHILS % 0.1 % (0.0-2.0); EOSINOPHILS % 0.4 % (0.0-7.0); HEMATOCRIT 27.6 % (37.0-47.0); HEMOGLOBIN 8.3 g/dl (12.0-16.0); LYMPHOCYTES # 1.6 10^3/ul (0.8-2.9); LYMPHOCYTES % 22.1 % (15.0-51.0); MEAN CORPUSCULAR HEMOGLOBIN 29.4 pg (29.0-33.0); MEAN CORPUSCULAR HGB CONC 30.1 g/dl (32.0-37.0); MEAN CORPUSCULAR VOLUME 97.9 fl (82.0-101.0); MEAN PLATELET VOLUME 9.1 fl (7.4-10.4); MONOCYTE # 0.4 10^3/ul (0.3-0.9); MONOCYTES % 5.9 % (0.0-11.0); NEUTROPHIL # 5.2 10^3/ul (1.6-7.5); NEUTROPHILS % 70.8 % (39.0-77.0); PLATELET COUNT 296 10^3/UL (140-415); RED BLOOD COUNT 2.82 10^6/ul (4.20-5.40); RED CELL DISTRIBUTION WIDTH 16.5 % (11.5-14.5)
[2018-04-23 06:03] LABS: MAGNESIUM 1.8 mg/dl (1.7-2.5)
[2018-04-23 06:26] LABS: ANION GAP 14 (8-16); BLOOD UREA NITROGEN 56 mg/dl (7-20); CALCIUM 8.6 mg/dl (8.4-10.2); CARBON DIOXIDE 28 mmol/L (21-31); CHLORIDE 102 mmol/L (97-110); CREATININE 1.39 mg/dl (0.44-1.00); GLUCOSE 98 mg/dl (70-220); POTASSIUM 4.3 mmol/L (3.5-5.1); SODIUM 140 mmol/L (135-144)
[2018-04-23] MEDS: L ACIDOPHIL/B LACTIS/B LONGUM CAPSULE PO (08:51)
[2018-04-23] MEDS: DOCUSATE SODIUM 10 MG/ML (10ML CUP) PO ×2 (08:51→20:53)
[2018-04-23] MEDS: FERROUS SULFATE (EC) 325 MG TAB PO (08:52)
[2018-04-23] MEDS: FUROSEMIDE 40 MG INJ IV (08:52)
[2018-04-23] MEDS: CYANOCOBALAMIN 500 MCG TAB PO ×2 (08:52→20:54)
[2018-04-23] MEDS: MULTIVITAMINS THERAPEUTIC TAB PO (08:52)
[2018-04-23] MEDS: BISACODYL 10 MG SUPP PR (08:52)
[2018-04-23] MEDS: ASCORBIC ACID 500 MG TAB PO (08:52)
[2018-04-23] MEDS: FOLIC ACID 1 MG TAB PO (08:52)
[2018-04-23] MEDS: ALLOPURINOL 100 MG TAB PO ×2 (08:54→20:54)
[2018-04-23] MEDS: METOPROLOL 50 MG TAB PO ×2 (09:14→20:55)
[2018-04-23] MEDS: RIVAROXABAN 20 MG TABLET PO (17:55)
[2018-04-23] MEDS: ATORVASTATIN 20 MG TAB PO (20:54)
[2018-04-24 05:40] LABS: ADD MAN DIFF? NO
[2018-04-24 05:47] LABS: BASOPHILS % 0.1 % (0.0-2.0); EOSINOPHILS % 0.4 % (0.0-7.0); HEMATOCRIT 29.5 % (37.0-47.0); HEMOGLOBIN 8.7 g/dl (12.0-16.0); LYMPHOCYTES # 1.3 10^3/ul (0.8-2.9); LYMPHOCYTES % 17.3 % (15.0-51.0); MEAN CORPUSCULAR HEMOGLOBIN 28.7 pg (29.0-33.0); MEAN CORPUSCULAR HGB CONC 29.5 g/dl (32.0-37.0); MEAN CORPUSCULAR VOLUME 97.4 fl (82.0-101.0); MEAN PLATELET VOLUME 9.2 fl (7.4-10.4); MONOCYTE # 0.5 10^3/ul (0.3-0.9); MONOCYTES % 5.9 % (0.0-11.0); NEUTROPHIL # 5.8 10^3/ul (1.6-7.5); NEUTROPHILS % 75.8 % (39.0-77.0); PLATELET COUNT 297 10^3/UL (140-415); RED BLOOD COUNT 3.03 10^6/ul (4.20-5.40); RED CELL DISTRIBUTION WIDTH 16.5 % (11.5-14.5)
[2018-04-24 05:47] LABS: WHITE BLOOD COUNT 7.7 10^3/ul (4.8-10.8)
[2018-04-24] MEDS: LANSOPRAZOLE 30 MG CAP PO (06:06)
[2018-04-24 06:26] LABS: ANION GAP 12 (8-16); BLOOD UREA NITROGEN 48 mg/dl (7-20); CALCIUM 8.6 mg/dl (8.4-10.2); CARBON DIOXIDE 30 mmol/L (21-31); CHLORIDE 103 mmol/L (97-110); CREATININE 1.36 mg/dl (0.44-1.00); GLUCOSE 110 mg/dl (70-220); POTASSIUM 4.1 mmol/L (3.5-5.1); SODIUM 141 mmol/L (135-144)
[2018-04-24] MEDS: DOCUSATE SODIUM 10 MG/ML (10ML CUP) PO ×2 (08:19→21:06)
[2018-04-24] MEDS: CYANOCOBALAMIN 500 MCG TAB PO ×2 (08:19→21:07)
[2018-04-24] MEDS: METOPROLOL 50 MG TAB PO ×2 (08:19→21:07)
[2018-04-24] MEDS: FOLIC ACID 1 MG TAB PO (08:19)
[2018-04-24] MEDS: ALLOPURINOL 100 MG TAB PO ×2 (08:19→21:07)
[2018-04-24] MEDS: MULTIVITAMINS THERAPEUTIC TAB PO (08:19)
[2018-04-24] MEDS: L ACIDOPHIL/B LACTIS/B LONGUM CAPSULE PO (08:19)
[2018-04-24] MEDS: FERROUS SULFATE (EC) 325 MG TAB PO (08:19)
[2018-04-24] MEDS: ASCORBIC ACID 500 MG TAB PO (08:19)
[2018-04-24] MEDS: FUROSEMIDE 40 MG INJ IV (08:20)
[2018-04-24] MEDS: BISACODYL 10 MG SUPP PR (08:20)
[2018-04-24] MEDS: EPOETIN 10000 UNITS/1 ML INJ (ESRD) SC (09:05)
[2018-04-24] MEDS: RIVAROXABAN 20 MG TABLET PO (18:22)
[2018-04-24] MEDS: ATORVASTATIN 20 MG TAB PO (21:06)
[2018-04-25] MEDS: LANSOPRAZOLE 30 MG CAP PO (05:28)
[2018-04-25] MEDS: METOPROLOL 50 MG TAB PO ×2 (09:00→20:20)
[2018-04-25] MEDS: FUROSEMIDE 40 MG INJ IV ×2 (09:00→13:50)
[2018-04-25] MEDS: BISACODYL 10 MG SUPP PR (09:00)
[2018-04-25] MEDS: MULTIVITAMINS THERAPEUTIC TAB PO (09:54)
[2018-04-25] MEDS: L ACIDOPHIL/B LACTIS/B LONGUM CAPSULE PO (09:54)
[2018-04-25] MEDS: FOLIC ACID 1 MG TAB PO (09:54)
[2018-04-25] MEDS: DOCUSATE SODIUM 10 MG/ML (10ML CUP) PO ×2 (09:54→20:19)
[2018-04-25] MEDS: ASCORBIC ACID 500 MG TAB PO (09:54)
[2018-04-25] MEDS: ALLOPURINOL 100 MG TAB PO ×2 (09:55→20:20)
[2018-04-25] MEDS: FERROUS SULFATE (EC) 325 MG TAB PO (09:55)
[2018-04-25] MEDS: CYANOCOBALAMIN 500 MCG TAB PO ×2 (09:55→20:20)
[2018-04-25 12:49] LABS: ANION GAP 13 (8-16); BLOOD UREA NITROGEN 42 mg/dl (7-20); CALCIUM 8.6 mg/dl (8.4-10.2); CARBON DIOXIDE 30 mmol/L (21-31); CHLORIDE 100 mmol/L (97-110); CREATININE 1.22 mg/dl (0.44-1.00); GLUCOSE 112 mg/dl (70-220); POTASSIUM 4.1 mmol/L (3.5-5.1); SODIUM 139 mmol/L (135-144)
[2018-04-25 16:44] LABS: ADD UMIC YES; UR ASCORBIC ACID NEGATIVE (NEGATIVE); UR BACTERIA MODERATE /HPF (NONE SEEN); UR BILIRUBIN (Dip) NEGATIVE (NEGATIVE); UR BLOOD (Dip) 1+ mg/dL (NEGATIVE); UR CLARITY TURBID (CLEAR); UR COLOR YELLOW (YELLOW); UR GLUCOSE (Dip) NEGATIVE (NEGATIVE); UR KETONES (Dip) NEGATIVE (NEGATIVE); UR LEUKOCYTE ESTERASE (Dip) 3+ Leu/ul (NEGATIVE); UR NITRITE (Dip) NEGATIVE (NEGATIVE); UR RBC 24 /HPF (0-5); UR SPECIFIC GRAVITY (Dip) 1.006 (1.003-1.030); UR SQUAMOUS EPITHELIAL CELL MODERATE /HPF (FEW); UR TOTAL PROTEIN (Dip) 2+ mg/dl (NEGATIVE); UR UROBILINOGEN (Dip) NEGATIVE (NEGATIVE); UR WBC > 182 /HPF (0-5)
[2018-04-25] MEDS: RIVAROXABAN 20 MG TABLET PO (17:51)
[2018-04-25] MEDS: LEVOFLOXACIN 500MG/D5W (PMX) 100 ML IVPB (18:24)
[2018-04-25] MEDS: ATORVASTATIN 20 MG TAB PO (20:20)
[2018-04-26] MEDS: LANSOPRAZOLE 30 MG CAP PO (06:37)
[2018-04-26 08:17] LABS: ADD MAN DIFF? NO
[2018-04-26 08:20] LABS: WHITE BLOOD COUNT 9.8 10^3/ul (4.8-10.8)
[2018-04-26 08:20] LABS: BASOPHILS % 0.2 % (0.0-2.0); EOSINOPHILS # 0.2 10^3/ul (0.0-0.5); EOSINOPHILS % 1.9 % (0.0-7.0); HEMATOCRIT 31.5 % (37.0-47.0); HEMOGLOBIN 9.3 g/dl (12.0-16.0); LYMPHOCYTES # 1.8 10^3/ul (0.8-2.9); LYMPHOCYTES % 18.3 % (15.0-51.0); MEAN CORPUSCULAR HEMOGLOBIN 28.7 pg (29.0-33.0); MEAN CORPUSCULAR HGB CONC 29.5 g/dl (32.0-37.0); MEAN CORPUSCULAR VOLUME 97.2 fl (82.0-101.0); MONOCYTE # 0.5 10^3/ul (0.3-0.9); MONOCYTES % 5.5 % (0.0-11.0); NEUTROPHIL # 7.2 10^3/ul (1.6-7.5); NEUTROPHILS % 73.5 % (39.0-77.0); PLATELET COUNT 319 10^3/UL (140-415); RED BLOOD COUNT 3.24 10^6/ul (4.20-5.40); RED CELL DISTRIBUTION WIDTH 16.1 % (11.5-14.5)
[2018-04-26] MEDS: DOCUSATE SODIUM 10 MG/ML (10ML CUP) PO ×2 (08:33→21:38)
[2018-04-26] MEDS: ALLOPURINOL 100 MG TAB PO ×2 (08:34→21:38)
[2018-04-26] MEDS: ASCORBIC ACID 500 MG TAB PO (08:34)
[2018-04-26] MEDS: L ACIDOPHIL/B LACTIS/B LONGUM CAPSULE PO (08:34)
[2018-04-26] MEDS: FERROUS SULFATE (EC) 325 MG TAB PO (08:34)
[2018-04-26] MEDS: FOLIC ACID 1 MG TAB PO (08:34)
[2018-04-26] MEDS: METOPROLOL 50 MG TAB PO ×2 (08:34→21:38)
[2018-04-26] MEDS: BISACODYL 10 MG SUPP PR (08:34)
[2018-04-26] MEDS: CYANOCOBALAMIN 500 MCG TAB PO ×2 (08:34→21:38)
[2018-04-26] MEDS: MULTIVITAMINS THERAPEUTIC TAB PO (08:34)
[2018-04-26 09:47] LABS: ANION GAP 16 (8-16); BLOOD UREA NITROGEN 43 mg/dl (7-20)
[2018-04-26 09:49] LABS: CARBON DIOXIDE 29 mmol/L (21-31); CHLORIDE 98 mmol/L (97-110); CREATININE 1.29 mg/dl (0.44-1.00); GLUCOSE 122 mg/dl (70-220); POTASSIUM 4.1 mmol/L (3.5-5.1); SODIUM 139 mmol/L (135-144)
[2018-04-26] MEDS: EPOETIN 10000 UNITS/1 ML INJ (ESRD) SC (17:05)
[2018-04-26] MEDS: LEVOFLOXACIN 250MG/D5W (PMX) 50 ML IVPB (17:05)
[2018-04-26] MEDS: RIVAROXABAN 20 MG TABLET PO (17:06)
[2018-04-26] MEDS: ATORVASTATIN 20 MG TAB PO (21:38)
[2018-04-26] MEDS: FUROSEMIDE 40 MG INJ IV (21:58)
[2018-04-27] MEDS: FUROSEMIDE 40 MG INJ IV ×2 (05:50→17:43)
[2018-04-27] MEDS: LANSOPRAZOLE 30 MG CAP PO (05:50)
[2018-04-27] MEDS: BISACODYL 10 MG SUPP PR (09:00)
[2018-04-27] MEDS: FOLIC ACID 1 MG TAB PO (09:04)
[2018-04-27] MEDS: FERROUS SULFATE (EC) 325 MG TAB PO (09:04)
[2018-04-27] MEDS: DOCUSATE SODIUM 10 MG/ML (10ML CUP) PO ×2 (09:04→21:19)
[2018-04-27] MEDS: MULTIVITAMINS THERAPEUTIC TAB PO (09:05)
[2018-04-27] MEDS: ALLOPURINOL 100 MG TAB PO ×2 (09:05→21:19)
[2018-04-27] MEDS: ASCORBIC ACID 500 MG TAB PO (09:06)
[2018-04-27] MEDS: CYANOCOBALAMIN 500 MCG TAB PO ×2 (09:06→21:19)
[2018-04-27] MEDS: L ACIDOPHIL/B LACTIS/B LONGUM CAPSULE PO (09:06)
[2018-04-27] MEDS: METOPROLOL 50 MG TAB PO ×2 (09:07→21:19)
[2018-04-27 11:39] LABS: Allen Test ACCEPTAB; Arterial Base Excess 7.2 mmol/L (-3.0-3); Arterial Blood Gas Oxygen Sat 97.4 mmHG (95.0-100.0); Arterial COHb 0.6 % (0.0-3.0); Arterial Fraction of Oxyhgb 96.7 % (93.0-99.0); Arterial HCO3 31.5 mmol/L (22.0-26.0); Arterial MetHb 0.1 % (0.0-1.5); Arterial Total Hemglobin 10.2 g/dl (12.0-18.0); MODE TRACH COLLAR; Site Right Radial
[2018-04-27] MEDS: LEVOFLOXACIN 250MG/D5W (PMX) 50 ML IVPB (17:43)
[2018-04-27] MEDS: RIVAROXABAN 20 MG TABLET PO (17:43)
[2018-04-27] MEDS: ATORVASTATIN 20 MG TAB PO (21:19)
[2018-04-28] MEDS: FUROSEMIDE 40 MG INJ IV ×3 (06:00→18:18)
[2018-04-28] MEDS: LANSOPRAZOLE 30 MG CAP PO (06:13)
[2018-04-28 06:38] LABS: ADD MAN DIFF? NO
[2018-04-28 06:42] LABS: BASOPHILS % 0.3 % (0.0-2.0); EOSINOPHILS # 0.4 10^3/ul (0.0-0.5); HEMOGLOBIN 9.3 g/dl (12.0-16.0); LYMPHOCYTES # 1.4 10^3/ul (0.8-2.9); LYMPHOCYTES % 17.7 % (15.0-51.0); MEAN CORPUSCULAR HEMOGLOBIN 27.8 pg (29.0-33.0); MEAN CORPUSCULAR HGB CONC 29.1 g/dl (32.0-37.0); MEAN CORPUSCULAR VOLUME 95.8 fl (82.0-101.0); MONOCYTE # 0.5 10^3/ul (0.3-0.9); MONOCYTES % 6.3 % (0.0-11.0); NEUTROPHIL # 5.4 10^3/ul (1.6-7.5); PLATELET COUNT 360 10^3/UL (140-415); RED BLOOD COUNT 3.34 10^6/ul (4.20-5.40); RED CELL DISTRIBUTION WIDTH 16.2 % (11.5-14.5)
[2018-04-28 06:42] LABS: WHITE BLOOD COUNT 7.6 10^3/ul (4.8-10.8)
[2018-04-28 07:35] LABS: ANION GAP 14 (8-16); BLOOD UREA NITROGEN 48 mg/dl (7-20); CARBON DIOXIDE 31 mmol/L (21-31); CHLORIDE 98 mmol/L (97-110); CREATININE 1.38 mg/dl (0.44-1.00); GLUCOSE 111 mg/dl (70-220); SODIUM 139 mmol/L (135-144)
[2018-04-28] MEDS: DOCUSATE SODIUM 10 MG/ML (10ML CUP) PO ×2 (08:14→21:00)
[2018-04-28] MEDS: CYANOCOBALAMIN 500 MCG TAB PO ×2 (08:15→21:07)
[2018-04-28] MEDS: L ACIDOPHIL/B LACTIS/B LONGUM CAPSULE PO (08:15)
[2018-04-28] MEDS: MULTIVITAMINS THERAPEUTIC TAB PO (08:16)
[2018-04-28] MEDS: ASCORBIC ACID 500 MG TAB PO (08:16)
[2018-04-28] MEDS: BISACODYL 10 MG SUPP PR (08:16)
[2018-04-28] MEDS: ALLOPURINOL 100 MG TAB PO ×2 (08:16→21:07)
[2018-04-28] MEDS: FERROUS SULFATE (EC) 325 MG TAB PO (08:16)
[2018-04-28] MEDS: METOPROLOL 50 MG TAB PO ×2 (08:17→21:07)
[2018-04-28] MEDS: FOLIC ACID 1 MG TAB PO (08:26)
[2018-04-28] MEDS: RIVAROXABAN 20 MG TABLET PO (17:36)
[2018-04-28] MEDS: EPOETIN 10000 UNITS/1 ML INJ (ESRD) SC (17:36)
[2018-04-28] MEDS: LEVOFLOXACIN 250MG/D5W (PMX) 50 ML IVPB (18:17)
[2018-04-28] MEDS: ATORVASTATIN 20 MG TAB PO (21:08)
[2018-04-29] MEDS: LANSOPRAZOLE 30 MG CAP PO (05:40)
[2018-04-29] MEDS: FUROSEMIDE 40 MG INJ IV (06:07)
[2018-04-29] MEDS: METOPROLOL 50 MG TAB PO ×2 (08:33→21:14)
[2018-04-29] MEDS: L ACIDOPHIL/B LACTIS/B LONGUM CAPSULE PO (08:34)
[2018-04-29] MEDS: ALLOPURINOL 100 MG TAB PO ×2 (08:34→21:13)
[2018-04-29] MEDS: CYANOCOBALAMIN 500 MCG TAB PO ×2 (08:34→21:13)
[2018-04-29] MEDS: FERROUS SULFATE (EC) 325 MG TAB PO (08:34)
[2018-04-29] MEDS: DOCUSATE SODIUM 10 MG/ML (10ML CUP) PO ×2 (08:34→21:13)
[2018-04-29] MEDS: BISACODYL 10 MG SUPP PR (08:35)
[2018-04-29] MEDS: FOLIC ACID 1 MG TAB PO (08:35)
[2018-04-29] MEDS: ASCORBIC ACID 500 MG TAB PO (08:35)
[2018-04-29] MEDS: MULTIVITAMINS THERAPEUTIC TAB PO (08:35)
[2018-04-29] MEDS: LEVOFLOXACIN 250MG/D5W (PMX) 50 ML IVPB (17:09)
[2018-04-29] MEDS: RIVAROXABAN 20 MG TABLET PO (17:09)
[2018-04-29] MEDS: FUROSEMIDE 20 MG INJ IV (17:09)
[2018-04-29] MEDS: ATORVASTATIN 20 MG TAB PO (21:13)
[2018-04-30] MEDS: FUROSEMIDE 20 MG INJ IV ×2 (06:00→17:33)
[2018-04-30] MEDS: LANSOPRAZOLE 30 MG CAP PO (06:15)
[2018-04-30] MEDS: L ACIDOPHIL/B LACTIS/B LONGUM CAPSULE PO (08:33)
[2018-04-30] MEDS: DOCUSATE SODIUM 10 MG/ML (10ML CUP) PO ×2 (08:33→21:22)
[2018-04-30] MEDS: FOLIC ACID 1 MG TAB PO (08:33)
[2018-04-30] MEDS: ALLOPURINOL 100 MG TAB PO ×2 (08:33→21:22)
[2018-04-30] MEDS: MULTIVITAMINS THERAPEUTIC TAB PO (08:33)
[2018-04-30] MEDS: FERROUS SULFATE (EC) 325 MG TAB PO (08:34)
[2018-04-30] MEDS: ASCORBIC ACID 500 MG TAB PO (08:34)
[2018-04-30] MEDS: CYANOCOBALAMIN 500 MCG TAB PO ×2 (08:34→21:22)
[2018-04-30] MEDS: METOPROLOL 50 MG TAB PO ×2 (08:35→21:23)
[2018-04-30] MEDS: BISACODYL 10 MG SUPP PR (08:36)
[2018-04-30 16:58] LABS: ADD MAN DIFF? NO
[2018-04-30 16:59] LABS: BASOPHILS % 0.2 % (0.0-2.0); EOSINOPHILS # 0.3 10^3/ul (0.0-0.5); EOSINOPHILS % 2.9 % (0.0-7.0); HEMOGLOBIN 9.8 g/dl (12.0-16.0); LYMPHOCYTES # 1.5 10^3/ul (0.8-2.9); LYMPHOCYTES % 15.8 % (15.0-51.0); MEAN CORPUSCULAR HEMOGLOBIN 28.8 pg (29.0-33.0); MEAN CORPUSCULAR HGB CONC 29.7 g/dl (32.0-37.0); MEAN CORPUSCULAR VOLUME 97.1 fl (82.0-101.0); MEAN PLATELET VOLUME 8.7 fl (7.4-10.4); MONOCYTE # 0.6 10^3/ul (0.3-0.9); MONOCYTES % 5.7 % (0.0-11.0); NEUTROPHIL # 7.3 10^3/ul (1.6-7.5); NEUTROPHILS % 74.8 % (39.0-77.0); PLATELET COUNT 388 10^3/UL (140-415); RED CELL DISTRIBUTION WIDTH 16.3 % (11.5-14.5)
[2018-04-30 16:59] LABS: WHITE BLOOD COUNT 9.8 10^3/ul (4.8-10.8)
[2018-04-30 17:20] LABS: ANION GAP 13 (8-16); BLOOD UREA NITROGEN 63 mg/dl (7-20); CALCIUM 8.9 mg/dl (8.4-10.2); CARBON DIOXIDE 31 mmol/L (21-31); CHLORIDE 95 mmol/L (97-110); GLUCOSE 126 mg/dl (70-220); POTASSIUM 4.3 mmol/L (3.5-5.1); SODIUM 135 mmol/L (135-144)
[2018-04-30] MEDS: LEVOFLOXACIN 250MG/D5W (PMX) 50 ML IVPB (17:33)
[2018-04-30] MEDS: RIVAROXABAN 20 MG TABLET PO (17:33)
[2018-04-30] MEDS: ATORVASTATIN 20 MG TAB PO (21:22)
[2018-05-01] MEDS: LORAZEPAM 2 MG INJ IV (03:11)
[2018-05-01 03:14] LABS: Arterial Base Excess 2.5 mmol/L (-3.0-3); Arterial Blood Gas Oxygen Sat 98.6 mmHG (95.0-100.0); Arterial COHb 1.1 % (0.0-3.0); Arterial Fraction of Oxyhgb 97.4 % (93.0-99.0); Arterial MetHb 0.1 % (0.0-1.5); Arterial pCO2 46.9 mmhg (35-45); MODE TRACH COLLAR; Site Right Radial
[2018-05-01] MEDS: FUROSEMIDE 20 MG INJ IV ×2 (06:21→18:09)
[2018-05-01] MEDS: LANSOPRAZOLE 30 MG CAP PO (06:21)
[2018-05-01 08:25] LABS: ADD MAN DIFF? NO; BASOPHILS % 0.5 % (0.0-2.0); EOSINOPHILS # 0.3 10^3/ul (0.0-0.5); EOSINOPHILS % 3.1 % (0.0-7.0); HEMATOCRIT 33.1 % (37.0-47.0); HEMOGLOBIN 9.7 g/dl (12.0-16.0); LYMPHOCYTES # 1.7 10^3/ul (0.8-2.9); LYMPHOCYTES % 20.5 % (15.0-51.0); MEAN CORPUSCULAR HEMOGLOBIN 28.5 pg (29.0-33.0); MEAN CORPUSCULAR HGB CONC 29.3 g/dl (32.0-37.0); MEAN CORPUSCULAR VOLUME 97.4 fl (82.0-101.0); MEAN PLATELET VOLUME 8.7 fl (7.4-10.4); MONOCYTE # 0.6 10^3/ul (0.3-0.9); MONOCYTES % 7.1 % (0.0-11.0); NEUTROPHIL # 5.5 10^3/ul (1.6-7.5); NEUTROPHILS % 68.2 % (39.0-77.0); PLATELET COUNT 430 10^3/UL (140-415); RED CELL DISTRIBUTION WIDTH 16.4 % (11.5-14.5)
[2018-05-01] MEDS: FOLIC ACID 1 MG TAB PO (08:33)
[2018-05-01] MEDS: L ACIDOPHIL/B LACTIS/B LONGUM CAPSULE PO (08:34)
[2018-05-01] MEDS: DOCUSATE SODIUM 10 MG/ML (10ML CUP) PO ×2 (08:34→22:43)
[2018-05-01] MEDS: FERROUS SULFATE (EC) 325 MG TAB PO (08:34)
[2018-05-01] MEDS: MULTIVITAMINS THERAPEUTIC TAB PO (08:34)
[2018-05-01] MEDS: CYANOCOBALAMIN 500 MCG TAB PO ×2 (08:34→22:43)
[2018-05-01] MEDS: ALLOPURINOL 100 MG TAB PO ×2 (08:34→22:43)
[2018-05-01] MEDS: ASCORBIC ACID 500 MG TAB PO (08:34)
[2018-05-01] MEDS: METOPROLOL 50 MG TAB PO ×2 (08:35→22:44)
[2018-05-01] MEDS: BISACODYL 10 MG SUPP PR (08:36)
[2018-05-01 08:49] LABS: ANION GAP 13 (8-16); BLOOD UREA NITROGEN 64 mg/dl (7-20); CALCIUM 9.4 mg/dl (8.4-10.2); CARBON DIOXIDE 33 mmol/L (21-31); CHLORIDE 96 mmol/L (97-110); CREATININE 1.28 mg/dl (0.44-1.00); GLUCOSE 112 mg/dl (70-220); POTASSIUM 4.3 mmol/L (3.5-5.1); SODIUM 138 mmol/L (135-144)
[2018-05-01] MEDS: LEVOFLOXACIN 250MG/D5W (PMX) 50 ML IVPB (18:08)
[2018-05-01] MEDS: RIVAROXABAN 20 MG TABLET PO (18:08)
[2018-05-01] MEDS: EPOETIN 10000 UNITS/1 ML INJ (ESRD) SC (18:09)
[2018-05-01] MEDS: ATORVASTATIN 20 MG TAB PO (22:43)
[2018-05-02] MEDS: LANSOPRAZOLE 30 MG CAP PO (05:35)
[2018-05-02] MEDS: FOLIC ACID 1 MG TAB PO (08:26)
[2018-05-02] MEDS: FERROUS SULFATE (EC) 325 MG TAB PO (08:26)
[2018-05-02] MEDS: MULTIVITAMINS THERAPEUTIC TAB PO (08:26)
[2018-05-02] MEDS: L ACIDOPHIL/B LACTIS/B LONGUM CAPSULE PO (08:26)
[2018-05-02] MEDS: DOCUSATE SODIUM 10 MG/ML (10ML CUP) PO (08:26)
[2018-05-02] MEDS: CYANOCOBALAMIN 500 MCG TAB PO (08:27)
[2018-05-02] MEDS: ASCORBIC ACID 500 MG TAB PO (08:27)
[2018-05-02] MEDS: ALLOPURINOL 100 MG TAB PO (08:27)
[2018-05-02] MEDS: FUROSEMIDE 20 MG INJ IV (08:28)
[2018-05-02] MEDS: METOPROLOL 50 MG TAB PO (08:28)
[2018-05-02] MEDS: BISACODYL 10 MG SUPP PR (08:29)
[2018-05-02 09:16] LABS: ADD MAN DIFF? NO
[2018-05-02 09:23] LABS: WHITE BLOOD COUNT 9.9 10^3/ul (4.8-10.8)
[2018-05-02 09:23] LABS: BASOPHILS % 0.4 % (0.0-2.0); EOSINOPHILS # 0.3 10^3/ul (0.0-0.5); HEMATOCRIT 36.4 % (37.0-47.0); HEMOGLOBIN 10.8 g/dl (12.0-16.0); LYMPHOCYTES # 1.7 10^3/ul (0.8-2.9); LYMPHOCYTES % 17.2 % (15.0-51.0); MEAN CORPUSCULAR HGB CONC 29.7 g/dl (32.0-37.0); MEAN CORPUSCULAR VOLUME 97.6 fl (82.0-101.0); MEAN PLATELET VOLUME 8.5 fl (7.4-10.4); MONOCYTE # 0.5 10^3/ul (0.3-0.9); MONOCYTES % 5.1 % (0.0-11.0); NEUTROPHIL # 7.3 10^3/ul (1.6-7.5); NEUTROPHILS % 73.8 % (39.0-77.0); PLATELET COUNT 447 10^3/UL (140-415); RED BLOOD COUNT 3.73 10^6/ul (4.20-5.40); RED CELL DISTRIBUTION WIDTH 16.8 % (11.5-14.5)
[2018-05-02 11:00] LABS: ANION GAP 14 (8-16); BLOOD UREA NITROGEN 62 mg/dl (7-20); CALCIUM 9.8 mg/dl (8.4-10.2); CARBON DIOXIDE 34 mmol/L (21-31); CHLORIDE 96 mmol/L (97-110); CREATININE 1.38 mg/dl (0.44-1.00); GLUCOSE 140 mg/dl (70-220); POTASSIUM 4.4 mmol/L (3.5-5.1); SODIUM 140 mmol/L (135-144)
[2018-05-02] MEDS ORDERED: LEVOFLOXACIN 250 MG TAB PO (18:00)
== END 2018-05-02 17:00 | DRG 207 ==
LOC: TEL 04-26 02:23 → ICU 23:40 → E/R 12:54 → ICU 14:25
PROC: 5A1955Z Respiratory Ventilation, Greater than 96 Consecutive Hours (ICD-10-PCS; principal; 2018-04-21)
DX: J96.21 Acute and chronic respiratory failure with hypoxia (principal); I50.33 Acute on chronic diastolic (congestive) heart failure; J18.9 Pneumonia, unspecified organism; I13.0 Hypertensive heart and chronic kidney disease with heart failure and stage 1 through stage 4 chronic kidney disease, or unspecified chronic kidney disease; N17.9 Acute kidney failure, unspecified; E87.5 Hyperkalemia; J84.10 Pulmonary fibrosis, unspecified; R13.10 Dysphagia, unspecified; J44.9 Chronic obstructive pulmonary disease, unspecified; I48.0 Paroxysmal atrial fibrillation; E86.0 Dehydration; Z93.1 Gastrostomy status; N18.3 Chronic kidney disease, stage 3 (moderate); D63.8 Anemia in other chronic diseases classified elsewhere; E78.5 Hyperlipidemia, unspecified; K21.9 Gastro-esophageal reflux disease without esophagitis; M1A.9XX0 Chronic gout, unspecified, without tophus (tophi); Z93.0 Tracheostomy status; Z87.891 Personal history of nicotine dependence
CPT/HCPCS: 36415; 36430; 36600; 71045; 80048; 80053; 81001; 82803; 82962; 83690; 83735; 83880; 84100; 84484; 85025; 85610; 85730; 86850; 86900; 86901; 86920; 87040; 87081; 87086; 92526; 92610; 93005; 94002; 94003; 94644; 96374; 96375; 99291-25

== ENCOUNTER 2018-07-04 21:35 | Inpatient (IN) | payer MEDICARE, OTHER ==
[2018-07-04] MEDS: SOD CHLORIDE 0.9% 250 ML IV
[2018-07-04] MEDS ORDERED: ACETAMINOPHEN 325 MG TAB PO (22:00)
[2018-07-04] MEDS ORDERED: ONDANSETRON 4 MG INJ IV (22:00)
[2018-07-04 22:05] LABS: ADD MAN DIFF? NO
[2018-07-04] MEDS: SODIUM CHLORIDE 0.9% 1L BAG IV* (22:15)
[2018-07-04] MEDS: ACETAMINOPHEN 650 MG SUPP PR (22:16)
[2018-07-04] MEDS: PIPER-TAZO 3.375 GM IV (PMX) 100 ML IVPB (22:16)
[2018-07-04 22:18] LABS: WHITE BLOOD COUNT 7.3 10^3/ul (4.8-10.8)
[2018-07-04 22:18] LABS: ABNORMAL IP MESSAGE 1; BASOPHILS % 0.1 % (0.0-2.0); EOSINOPHILS % 0.4 % (0.0-7.0); HEMATOCRIT 26.8 % (37.0-47.0); HEMOGLOBIN 7.5 g/dl (12.0-16.0); LYMPHOCYTES # 1.6 10^3/ul (0.8-2.9); LYMPHOCYTES % 21.5 % (15.0-51.0); MEAN CORPUSCULAR HEMOGLOBIN 29.6 pg (29.0-33.0); MEAN CORPUSCULAR VOLUME 105.9 fl (82.0-101.0); MEAN PLATELET VOLUME 9.1 fl (7.4-10.4); MONOCYTE # 0.4 10^3/ul (0.3-0.9); MONOCYTES % 5.3 % (0.0-11.0); NEUTROPHIL # 5.3 10^3/ul (1.6-7.5); NEUTROPHILS % 72.4 % (39.0-77.0); NUCLEATED RED BLOOD CELLS% 0.3 /100WBC (0.0-0.0); PLATELET COUNT 240 10^3/UL (140-415); RED BLOOD COUNT 2.53 10^6/ul (4.20-5.40); RED CELL DISTRIBUTION WIDTH 17.5 % (11.5-14.5)
[2018-07-04 22:21] LABS: POSITIVE DIFF @See below
[2018-07-04 22:38] LABS: ANION GAP 11 (8-16); BLOOD UREA NITROGEN 53 mg/dl (7-20); CALCIUM 8.9 mg/dl (8.4-10.2); CARBON DIOXIDE 32 mmol/L (21-31); CHLORIDE 101 mmol/L (97-110); CREATININE 1.36 mg/dl (0.44-1.00); GLUCOSE 123 mg/dl (70-220); INR 1.15; POTASSIUM 5.2 mmol/L (3.5-5.1); PROTIME 14.9 Sec (11.9-14.9); PT RATIO 1.2; SODIUM 139 mmol/L (135-144)
[2018-07-04 22:39] LABS: PARTIAL THROMBOPLASTIN TIME 38.4 Sec (25.0-35.0)
[2018-07-04 22:50] LABS: TROPONIN-I 0.034 ng/ml (0.000-0.120)
[2018-07-04 22:51] LABS: ADD UMIC YES; UR ASCORBIC ACID NEGATIVE (NEGATIVE); UR BILIRUBIN (Dip) NEGATIVE (NEGATIVE); UR BLOOD (Dip) NEGATIVE (NEGATIVE); UR CLARITY CLOUDY (CLEAR); UR COLOR YELLOW (YELLOW); UR GLUCOSE (Dip) NEGATIVE (NEGATIVE); UR KETONES (Dip) NEGATIVE (NEGATIVE); UR LEUKOCYTE ESTERASE (Dip) 3+ Leu/ul (NEGATIVE); UR NITRITE (Dip) NEGATIVE (NEGATIVE); UR RBC 2 /HPF (0-5); UR SPECIFIC GRAVITY (Dip) 1.009 (1.003-1.030); UR SQUAMOUS EPITHELIAL CELL FEW /HPF (FEW); UR TOTAL PROTEIN (Dip) 2+ mg/dl (NEGATIVE); UR UROBILINOGEN (Dip) NEGATIVE (NEGATIVE); UR WBC > 182 /HPF (0-5)
[2018-07-04] MEDS: VANCOMYCIN 1 GM (PMX) 250 ML IVPB (22:54)
[2018-07-04] MEDS ORDERED: METOPROLOL 5 MG INJ (23:23)
[2018-07-04] MEDS: METOPROLOL 5 MG INJ IV (23:29)
[2018-07-04] MEDS: SOD CHLORIDE 0.9% 1,000 ML IV (23:32)
[2018-07-05 00:15] LABS: LACTIC ACID 1.1 mmol/L (0.5-2.0)
[2018-07-05 01:53] LABS: LACTIC ACID 0.8 mmol/L (0.5-2.0)
[2018-07-05] MEDS ORDERED: ACETAMINOPHEN 500 MG TAB PO (02:00)
[2018-07-05] MEDS: IPRATROPIUM (NEB) 0.5 MG/2.5 ML AMP HHN ×4 (02:00→20:02)
[2018-07-05] MEDS ORDERED: BISACODYL 10 MG SUPP PR (02:00)
[2018-07-05] MEDS ORDERED: MAGNESIUM HYDROXIDE 30ML CUP PO (02:00)
[2018-07-05] MEDS ORDERED: ONDANSETRON 4 MG TAB PO (02:00)
[2018-07-05] MEDS: DILTIAZEM 25 MG INJ IV ×4 (02:49→17:34)
[2018-07-05 02:55] LABS: IMMEDIATE SPIN CROSSMATCH 1 2
[2018-07-05] MEDS ORDERED: PENDING SANTYL ORDER FOR WOUND CARE XX (05:30)
[2018-07-05] MEDS: PANTOPRAZOLE (EC) 40 MG TAB PO (06:00)
[2018-07-05] MEDS ORDERED: VANCOMYCIN IV PER PHARMACY XX (06:00)
[2018-07-05 08:58] LABS: ANION GAP 10 (8-16); BLOOD UREA NITROGEN 50 mg/dl (7-20); CALCIUM 8.4 mg/dl (8.4-10.2); CARBON DIOXIDE 29 mmol/L (21-31); CHLORIDE 106 mmol/L (97-110); CREATININE 1.29 mg/dl (0.44-1.00); GLUCOSE 110 mg/dl (70-220); POTASSIUM 5.2 mmol/L (3.5-5.1); SODIUM 140 mmol/L (135-144)
[2018-07-05] MEDS ORDERED: MINERAL OIL 133 ML ENEMA PR (09:00)
[2018-07-05] MEDS: CEFEPIME 1GM/50 ML (PMX) 50 ML IVPB ×2 (09:43→22:12)
[2018-07-05] MEDS: METOPROLOL 50 MG TAB PO ×2 (09:44→22:18)
[2018-07-05] MEDS: FOLIC ACID 1 MG TAB PO (09:44)
[2018-07-05] MEDS: ALLOPURINOL 100 MG TAB PO ×2 (09:45→22:15)
[2018-07-05] MEDS: DOCUSATE SODIUM 100 MG CAP PO ×2 (09:45→22:15)
[2018-07-05] MEDS: CYANOCOBALAMIN 500 MCG TAB PO ×2 (09:45→22:15)
[2018-07-05] MEDS: MULTIVITAMINS THERAPEUTIC TAB PO (09:45)
[2018-07-05] MEDS: ASCORBIC ACID 500 MG TAB PO (09:45)
[2018-07-05] MEDS: FERROUS SULFATE (EC) 325 MG TAB PO (09:45)
[2018-07-05] MEDS: BUDESONIDE (NEB) 0.5MG/2ML AMP HHN ×2 (13:00→20:02)
[2018-07-05] MEDS: NA POLYST SULFON 15 GM/60 ML BTL PO (13:29)
[2018-07-05] MEDS: FUROSEMIDE 20 MG INJ IV (14:06)
[2018-07-05] MEDS: DIGOXIN 500 MCG INJ IV ×2 (14:07→18:56)
[2018-07-05 14:32] LABS: Arterial Base Excess 1.2 mmol/L (-3.0-3); Arterial Blood Gas Oxygen Sat 97.1 mmHG (95.0-100.0); Arterial COHb 0.4 % (0.0-3.0); Arterial Fraction of Oxyhgb 96.6 % (93.0-99.0); Arterial HCO3 28.8 mmol/L (22.0-26.0); Arterial MetHb 0.1 % (0.0-1.5); Arterial Total Hemglobin 10.2 g/dl (12.0-18.0); Arterial pCO2 61.6 mmhg (35-45); MODE TRACH COLLAR; Site Right Brachial
[2018-07-05] MEDS: EPOETIN 10000 UNITS/1 ML INJ (ESRD) SC (17:33)
[2018-07-05] MEDS: RIVAROXABAN 15 MG TABLET PO (18:56)
[2018-07-05 19:01] LABS: RETICULOCYTE RBC 3.33
[2018-07-05 19:01] LABS: RETICULOCYTE COUNT # 0.088 X10^6 (0.020-0.110); RETICULOCYTE COUNT % 2.6 % (0.5-1.5)
[2018-07-05 19:23] LABS: IRON 41 ug/dl (35-150)
[2018-07-05 19:24] LABS: LACTATE DEHYDROGENASE 280 IU/L (313-618)
[2018-07-05 19:32] LABS: % IRON SATURATION 18 % SAT (22-52); TOTAL IRON BINDING CAPACITY 231 ug/dl (241-421)
[2018-07-05 19:37] LABS: CK-MB 0.45 ng/ml (0.0-2.4); TROPONIN-I 0.018 ng/ml (0.000-0.120)
[2018-07-05 19:40] LABS: CREATINE KINASE < 20 IU/L (23-200)
[2018-07-05 21:10] LABS: FOLATE > 20.0 ng/ml (2.8-20.0)
[2018-07-05] MEDS: ATORVASTATIN 20 MG TAB PO (22:15)
[2018-07-05] MEDS ORDERED: VANCOMYCIN 750 MG in SOD CHLORIDE 0.9% 150 ML IVPB (23:00)
[2018-07-05] MEDS: VANCOMYCIN 1 GM 250 ML IVPB (23:55)
[2018-07-06 00:44] LABS: AADO2 Arterial 146.6 mmHg (7.0-24.0); Allen Test ACCEPTAB; Arterial Blood Gas Oxygen Sat 99.1 mmHG (95.0-100.0); Arterial COHb 0.4 % (0.0-3.0); Arterial Fraction of Oxyhgb 98.6 % (93.0-99.0); Arterial HCO3 30.8 mmol/L (22.0-26.0); Arterial MetHb 0.1 % (0.0-1.5); Arterial Total Hemglobin 10.1 g/dl (12.0-18.0); Arterial pCO2 45.9 mmhg (35-45); MODE VENT - AC; Site Right Radial
[2018-07-06] MEDS: IPRATROPIUM (NEB) 0.5 MG/2.5 ML AMP HHN ×4 (01:16→20:14)
[2018-07-06 01:21] LABS: CREATINE KINASE < 20 IU/L (23-200)
[2018-07-06] MEDS ORDERED: VITAMIN A & D 5 GM OINT PACKET TOP (05:29)
[2018-07-06] MEDS: PANTOPRAZOLE 40 MG INJ IV (06:36)
[2018-07-06 06:39] LABS: ADD MAN DIFF? NO
[2018-07-06 07:01] LABS: BASOPHILS % 0.2 % (0.0-2.0); EOSINOPHILS % 0.4 % (0.0-7.0); HEMATOCRIT 28.7 % (37.0-47.0); HEMOGLOBIN 8.6 g/dl (12.0-16.0); LYMPHOCYTES % 18.3 % (15.0-51.0); MEAN CORPUSCULAR HEMOGLOBIN 30.1 pg (29.0-33.0); MEAN CORPUSCULAR VOLUME 100.3 fl (82.0-101.0); MEAN PLATELET VOLUME 9.1 fl (7.4-10.4); MONOCYTE # 0.3 10^3/ul (0.3-0.9); MONOCYTES % 5.1 % (0.0-11.0); NEUTROPHIL # 4.3 10^3/ul (1.6-7.5); NEUTROPHILS % 75.3 % (39.0-77.0); NUCLEATED RED BLOOD CELLS% 0.5 /100WBC (0.0-0.0); PLATELET COUNT 198 10^3/UL (140-415); RED BLOOD COUNT 2.86 10^6/ul (4.20-5.40); RED CELL DISTRIBUTION WIDTH 18.4 % (11.5-14.5)
[2018-07-06 07:01] LABS: WHITE BLOOD COUNT 5.6 10^3/ul (4.8-10.8)
[2018-07-06 07:13] LABS: ALANINE AMINOTRANSFERASE 20 IU/L (13-69); ALBUMIN 2.2 g/dl (3.3-4.9); ALBUMIN/GLOBULIN RATIO 0.84; ALKALINE PHOSPHATASE 71 IU/L (42-121); ANION GAP 9 (8-16); ASPARTATE AMINO TRANSFERASE < 8 IU/L (15-46); BILIRUBIN,INDIRECT 0.5 mg/dl (0-1.1); BILIRUBIN,TOTAL 0.5 mg/dl (0.2-1.3); BLOOD UREA NITROGEN 40 mg/dl (7-20); CALCIUM 8.1 mg/dl (8.4-10.2); CARBON DIOXIDE 29 mmol/L (21-31); CHLORIDE 106 mmol/L (97-110); CREATININE 1.13 mg/dl (0.44-1.00); GLUCOSE 87 mg/dl (70-220); POTASSIUM 4.2 mmol/L (3.5-5.1); SODIUM 140 mmol/L (135-144); TOTAL PROTEIN 4.8 g/dl (6.1-8.1)
[2018-07-06 07:28] LABS: CK-MB 0.38 ng/ml (0.0-2.4); TROPONIN-I 0.046 ng/ml (0.000-0.120)
[2018-07-06 07:34] LABS: CREATINE KINASE < 20 IU/L (23-200)
[2018-07-06] MEDS: BUDESONIDE (NEB) 0.5MG/2ML AMP HHN ×2 (08:46→20:14)
[2018-07-06] MEDS: FUROSEMIDE 20 MG INJ IV ×2 (09:06→21:27)
[2018-07-06] MEDS: CYANOCOBALAMIN 500 MCG TAB PO ×2 (09:06→21:26)
[2018-07-06] MEDS: CEFEPIME 1GM/50 ML (PMX) 50 ML IVPB ×2 (09:06→21:27)
[2018-07-06] MEDS: FERROUS SULFATE (EC) 325 MG TAB PO (09:06)
[2018-07-06] MEDS: ASCORBIC ACID 500 MG TAB PO (09:06)
[2018-07-06] MEDS: DOCUSATE SODIUM 100 MG CAP PO ×2 (09:06→21:00)
[2018-07-06] MEDS: ALLOPURINOL 100 MG TAB PO ×2 (09:06→21:26)
[2018-07-06] MEDS: METOPROLOL 50 MG TAB PO ×2 (09:07→21:26)
[2018-07-06] MEDS: MULTIVITAMINS THERAPEUTIC TAB PO (09:07)
[2018-07-06] MEDS: FOLIC ACID 1 MG TAB PO (09:07)
[2018-07-06] MEDS ORDERED: CEFEPIME 1GM/50 ML (PMX) 50 ML IVPB (11:30)
[2018-07-06 14:57] LABS: OCCULT BLOOD STOOL NEGATIVE (NEGATIVE)
[2018-07-06] MEDS: DILTIAZEM 25 MG INJ IV ×2 (15:17→21:33)
[2018-07-06] MEDS ORDERED: COLLAGENASE 5 GM (UD JAR) TOP (19:00)
[2018-07-06] MEDS ORDERED: DILTIAZEM (CD) 120 MG CAP PO (21:00)
[2018-07-06] MEDS: ATORVASTATIN 20 MG TAB PO (21:26)
[2018-07-06] MEDS: ACETAMINOPHEN 325 MG TAB PO (21:27)
[2018-07-06] MEDS: DILTIAZEM 30 MG TAB PO (21:44)
[2018-07-06] MEDS: VANCOMYCIN 1 GM 250 ML IVPB (22:30)
[2018-07-07 01:13] LABS: PROTEIN, TOTAL 5.9 g/dL (6.1-8.1)
[2018-07-07] MEDS: IPRATROPIUM (NEB) 0.5 MG/2.5 ML AMP HHN ×4 (01:32→20:55)
[2018-07-07] MEDS: DILTIAZEM 30 MG TAB PO ×3 (06:00→21:48)
[2018-07-07] MEDS: PANTOPRAZOLE 40 MG INJ IV (06:31)
[2018-07-07 07:31] LABS: ADD MAN DIFF? NO
[2018-07-07 07:43] LABS: BASOPHILS % 0.2 % (0.0-2.0); EOSINOPHILS % 0.5 % (0.0-7.0); HEMATOCRIT 30.2 % (37.0-47.0); HEMOGLOBIN 9.1 g/dl (12.0-16.0); LYMPHOCYTES # 1.2 10^3/ul (0.8-2.9); LYMPHOCYTES % 19.2 % (15.0-51.0); MEAN CORPUSCULAR HEMOGLOBIN 30.4 pg (29.0-33.0); MEAN CORPUSCULAR HGB CONC 30.1 g/dl (32.0-37.0); MONOCYTE # 0.3 10^3/ul (0.3-0.9); MONOCYTES % 4.6 % (0.0-11.0); NEUTROPHIL # 4.7 10^3/ul (1.6-7.5); NEUTROPHILS % 75.2 % (39.0-77.0); PLATELET COUNT 203 10^3/UL (140-415); RED BLOOD COUNT 2.99 10^6/ul (4.20-5.40); RED CELL DISTRIBUTION WIDTH 18.1 % (11.5-14.5)
[2018-07-07 07:43] LABS: WHITE BLOOD COUNT 6.3 10^3/ul (4.8-10.8)
[2018-07-07] MEDS: BUDESONIDE (NEB) 0.5MG/2ML AMP HHN ×2 (07:46→20:55)
[2018-07-07 08:11] LABS: ANION GAP 12 (8-16); BLOOD UREA NITROGEN 35 mg/dl (7-20); CALCIUM 8.1 mg/dl (8.4-10.2); CARBON DIOXIDE 30 mmol/L (21-31); CHLORIDE 103 mmol/L (97-110); CREATININE 1.14 mg/dl (0.44-1.00); GLUCOSE 82 mg/dl (70-220); POTASSIUM 3.6 mmol/L (3.5-5.1); SODIUM 141 mmol/L (135-144)
[2018-07-07] MEDS: CYANOCOBALAMIN 500 MCG TAB PO ×2 (09:00→21:49)
[2018-07-07] MEDS: MULTIVITAMINS THERAPEUTIC TAB PO (09:00)
[2018-07-07] MEDS: FERROUS SULFATE (EC) 325 MG TAB PO (09:00)
[2018-07-07] MEDS: FOLIC ACID 1 MG TAB PO (09:00)
[2018-07-07] MEDS: ASCORBIC ACID 500 MG TAB PO (09:00)
[2018-07-07] MEDS: METOPROLOL 50 MG TAB PO ×2 (09:00→21:50)
[2018-07-07] MEDS: DOCUSATE SODIUM 100 MG CAP PO ×2 (09:00→21:00)
[2018-07-07] MEDS: ALLOPURINOL 100 MG TAB PO ×2 (09:00→21:51)
[2018-07-07] MEDS: FUROSEMIDE 20 MG INJ IV ×2 (09:16→21:51)
[2018-07-07] MEDS: DILTIAZEM 25 MG INJ IV ×2 (09:17→20:46)
[2018-07-07] MEDS: CEFEPIME 1GM/50 ML (PMX) 50 ML IVPB ×2 (09:17→21:51)
[2018-07-07] MEDS: COLLAGENASE 5 GM (UD JAR) TOP (09:18)
[2018-07-07] MEDS: FLUCONAZOLE 100 MG TAB PO (11:00)
[2018-07-07] MEDS: DIGOXIN 500 MCG INJ IV (11:42)
[2018-07-07 11:43] LABS: Allen Test ACCEPTAB; Arterial Base Excess 4.2 mmol/L (-3.0-3); Arterial Blood Gas Oxygen Sat 93.9 mmHG (95.0-100.0); Arterial COHb 0.7 % (0.0-3.0); Arterial Fraction of Oxyhgb 93.2 % (93.0-99.0); Arterial HCO3 30.1 mmol/L (22.0-26.0); Arterial MetHb 0 % (0.0-1.5); Arterial Total Hemglobin 11.2 g/dl (12.0-18.0); Arterial pCO2 51.3 mmhg (35-45); MODE TRACH COLLAR; Site Left Radial
[2018-07-07] MEDS: METOPROLOL 5 MG INJ IV (11:56)
[2018-07-07] MEDS ORDERED: ROCURONIUM 50 MG INJ (15:10)
[2018-07-07] MEDS ORDERED: PHENYLephrine (100 MCG/ML) 5ML SYG (15:37)
[2018-07-07] MEDS: BUPIVACAINE 0.25% (MPF) 30 ML INJ (15:41)
[2018-07-07] MEDS: SILVER SULFADIAZINE 1% 25 GM CR TOP (16:00)
[2018-07-07] MEDS ORDERED: POVIDONE IODINE 10% 28.4 GM OINT (16:09)
[2018-07-07 16:27] LABS: ALBUMIN 2.7 g/dL (3.8-4.8); ALPHA-1-GLOBULINS 0.5 g/dL (0.2-0.3); ALPHA-2-GLOBULINS 0.8 g/dL (0.5-0.9); BETA 2 GLOBULINS 0.3 g/dL (0.2-0.5); BETA GLOBULINS 0.5 g/dL (0.4-0.6); GAMMA GLOBULINS 1.1 g/dL (0.8-1.7)
[2018-07-07] MEDS ORDERED: METOCLOPRAMIDE 10 MG INJ IV (17:00)
[2018-07-07] MEDS ORDERED: EPHEDrine SULFATE 50 MG/5 ML SYG IV (17:00)
[2018-07-07] MEDS ORDERED: EPOETIN 10000 UNITS/1 ML INJ (ESRD) SC (17:00)
[2018-07-07] MEDS ORDERED: LABETALOL HCL 20MG INJ IV (17:00)
[2018-07-07] MEDS ORDERED: DIPHENHYDRAMINE 50 MG INJ IV (17:00)
[2018-07-07] MEDS ORDERED: FENTAnyl 50 MCG/ML VIAL IV ×3 (17:00)
[2018-07-07] MEDS ORDERED: MEPERIDINE 25 MG INJ IV (17:00)
[2018-07-07] MEDS ORDERED: ONDANSETRON 4 MG INJ IV (17:00)
[2018-07-07] MEDS ORDERED: MIDAZOLAM 1 MG/ML 2 ML INJ IV (17:00)
[2018-07-07] MEDS ORDERED: hydrALAzine 20 MG INJ IV (17:00)
[2018-07-07] MEDS ORDERED: RIVAROXABAN 15 MG TABLET PO (17:55)
[2018-07-07] MEDS: EPOETIN 10000 UNITS/1 ML INJ (ESRD) SC (18:15)
[2018-07-07] MEDS: VANCOMYCIN 1 GM 250 ML IVPB ×2 (20:04→21:52)
[2018-07-07 20:12] LABS: HAPTOGLOBIN 260 mg/dL (43-212)
[2018-07-07] MEDS: ATORVASTATIN 20 MG TAB PO (21:49)
[2018-07-07] MEDS: ACETAMINOPHEN 325 MG TAB PO (21:50)
[2018-07-07] MEDS: DOCUSATE SODIUM 10 MG/ML (10ML CUP) PO (22:00)
[2018-07-07 22:41] LABS: VANCOMYCIN,TROUGH 29.5 ug/ml (10.0-20.0)
[2018-07-08] MEDS: IPRATROPIUM (NEB) 0.5 MG/2.5 ML AMP HHN ×4 (01:35→20:56)
[2018-07-08] MEDS: DILTIAZEM 25 MG INJ IV (02:51)
[2018-07-08] MEDS: PANTOPRAZOLE 40 MG INJ IV (05:01)
[2018-07-08] MEDS: DILTIAZEM 30 MG TAB PO ×3 (05:02→22:00)
[2018-07-08] MEDS: ACETAMINOPHEN 325 MG TAB PO (05:12)
[2018-07-08 07:16] LABS: ADD MAN DIFF? NO
[2018-07-08 07:22] LABS: WHITE BLOOD COUNT 5.8 10^3/ul (4.8-10.8)
[2018-07-08 07:22] LABS: BASOPHILS % 0.2 % (0.0-2.0); EOSINOPHILS # 0.1 10^3/ul (0.0-0.5); HEMATOCRIT 28.9 % (37.0-47.0); HEMOGLOBIN 8.7 g/dl (12.0-16.0); LYMPHOCYTES # 1.1 10^3/ul (0.8-2.9); LYMPHOCYTES % 18.9 % (15.0-51.0); MEAN CORPUSCULAR HEMOGLOBIN 30.4 pg (29.0-33.0); MEAN CORPUSCULAR HGB CONC 30.1 g/dl (32.0-37.0); MEAN PLATELET VOLUME 8.5 fl (7.4-10.4); MONOCYTE # 0.3 10^3/ul (0.3-0.9); MONOCYTES % 5.2 % (0.0-11.0); NEUTROPHIL # 4.3 10^3/ul (1.6-7.5); NEUTROPHILS % 74.2 % (39.0-77.0); PLATELET COUNT 160 10^3/UL (140-415); RED BLOOD COUNT 2.86 10^6/ul (4.20-5.40)
[2018-07-08 08:00] LABS: ANION GAP 10 (8-16); BLOOD UREA NITROGEN 32 mg/dl (7-20); CALCIUM 7.8 mg/dl (8.4-10.2); CARBON DIOXIDE 31 mmol/L (21-31); CHLORIDE 102 mmol/L (97-110); CREATININE 1.07 mg/dl (0.44-1.00); GLUCOSE 83 mg/dl (70-220); POTASSIUM 3.3 mmol/L (3.5-5.1); SODIUM 140 mmol/L (135-144)
[2018-07-08] MEDS: BUDESONIDE (NEB) 0.5MG/2ML AMP HHN ×2 (08:58→20:56)
[2018-07-08] MEDS: FERROUS SULFATE (EC) 325 MG TAB PO (09:21)
[2018-07-08] MEDS: FLUCONAZOLE 100 MG TAB PO (09:21)
[2018-07-08] MEDS: CEFEPIME 1GM/50 ML (PMX) 50 ML IVPB ×2 (09:21→22:30)
[2018-07-08] MEDS: DOCUSATE SODIUM 10 MG/ML (10ML CUP) PO ×2 (09:21→21:59)
[2018-07-08] MEDS: FUROSEMIDE 20 MG INJ IV ×2 (09:21→22:03)
[2018-07-08] MEDS: ASCORBIC ACID 500 MG TAB PO (09:21)
[2018-07-08] MEDS: METOPROLOL 50 MG TAB PO ×2 (09:22→22:04)
[2018-07-08] MEDS: ALLOPURINOL 100 MG TAB PO ×2 (09:22→22:00)
[2018-07-08] MEDS: MULTIVITAMINS THERAPEUTIC TAB PO (09:22)
[2018-07-08] MEDS: CYANOCOBALAMIN 500 MCG TAB PO ×2 (09:22→22:00)
[2018-07-08] MEDS: FOLIC ACID 1 MG TAB PO (09:22)
[2018-07-08] MEDS: COLLAGENASE 5 GM (UD JAR) TOP (09:23)
[2018-07-08] MEDS: SILVER SULFADIAZINE 1% 25 GM CR TOP ×2 (15:15→23:02)
[2018-07-08] MEDS: POTASSIUM CHLORIDE (SR) 20 MEQ TAB PO (17:05)
[2018-07-08] MEDS: POTASSIUM CHLORIDE 100 ML IVPB ×2 (17:06→22:06)
[2018-07-08] MEDS: NYSTATIN 30 GM POWDER BTL TOP (21:59)
[2018-07-08] MEDS: ATORVASTATIN 20 MG TAB PO (22:00)
[2018-07-09] MEDS: IPRATROPIUM (NEB) 0.5 MG/2.5 ML AMP HHN ×4 (01:23→21:03)
[2018-07-09] MEDS: DILTIAZEM 25 MG INJ IV (03:00)
[2018-07-09] MEDS: DIGOXIN 500 MCG INJ IV ×2 (05:17→13:57)
[2018-07-09] MEDS: PANTOPRAZOLE 40 MG INJ IV (05:17)
[2018-07-09] MEDS: DILTIAZEM 30 MG TAB PO ×3 (05:17→21:39)
[2018-07-09 07:15] LABS: ADD MAN DIFF? NO
[2018-07-09 07:21] LABS: WHITE BLOOD COUNT 6.2 10^3/ul (4.8-10.8)
[2018-07-09 07:21] LABS: BASOPHILS % 0.2 % (0.0-2.0); EOSINOPHILS # 0.1 10^3/ul (0.0-0.5); EOSINOPHILS % 1.5 % (0.0-7.0); HEMATOCRIT 28.6 % (37.0-47.0); HEMOGLOBIN 8.7 g/dl (12.0-16.0); LYMPHOCYTES # 1.7 10^3/ul (0.8-2.9); LYMPHOCYTES % 28.2 % (15.0-51.0); MEAN CORPUSCULAR HEMOGLOBIN 30.7 pg (29.0-33.0); MEAN CORPUSCULAR HGB CONC 30.4 g/dl (32.0-37.0); MEAN CORPUSCULAR VOLUME 101.1 fl (82.0-101.0); MEAN PLATELET VOLUME 9.2 fl (7.4-10.4); MONOCYTE # 0.3 10^3/ul (0.3-0.9); MONOCYTES % 5.3 % (0.0-11.0); NEUTROPHILS % 64.2 % (39.0-77.0); NUCLEATED RED BLOOD CELLS% 0.3 /100WBC (0.0-0.0); PLATELET COUNT 177 10^3/UL (140-415); RED BLOOD COUNT 2.83 10^6/ul (4.20-5.40); RED CELL DISTRIBUTION WIDTH 17.9 % (11.5-14.5)
[2018-07-09 07:56] LABS: VANCOMYCIN,RANDOM 18.4 ug/ml
[2018-07-09 08:01] LABS: ANION GAP 8 (8-16); BLOOD UREA NITROGEN 34 mg/dl (7-20); CALCIUM 7.5 mg/dl (8.4-10.2); CARBON DIOXIDE 31 mmol/L (21-31); CHLORIDE 104 mmol/L (97-110); CREATININE 1.14 mg/dl (0.44-1.00); GLUCOSE 87 mg/dl (70-220); SODIUM 139 mmol/L (135-144)
[2018-07-09] MEDS: FOLIC ACID 1 MG TAB PO (08:35)
[2018-07-09] MEDS: FERROUS SULFATE (EC) 325 MG TAB PO (08:35)
[2018-07-09] MEDS: CEFEPIME 1GM/50 ML (PMX) 50 ML IVPB ×2 (08:35→21:40)
[2018-07-09] MEDS: BUDESONIDE (NEB) 0.5MG/2ML AMP HHN ×2 (08:36→21:03)
[2018-07-09] MEDS: POTASSIUM CHLORIDE (SR) 20 MEQ TAB PO (08:36)
[2018-07-09] MEDS: MULTIVITAMINS THERAPEUTIC TAB PO (08:37)
[2018-07-09] MEDS: FUROSEMIDE 20 MG INJ IV (08:37)
[2018-07-09] MEDS: FLUCONAZOLE 100 MG TAB PO (08:38)
[2018-07-09] MEDS: METOPROLOL 50 MG TAB PO ×2 (08:38→21:39)
[2018-07-09] MEDS: CYANOCOBALAMIN 500 MCG TAB PO ×2 (08:38→21:38)
[2018-07-09] MEDS: SILVER SULFADIAZINE 1% 25 GM CR TOP ×2 (08:39→21:40)
[2018-07-09] MEDS: COLLAGENASE 5 GM (UD JAR) TOP (08:39)
[2018-07-09] MEDS: ASCORBIC ACID 500 MG TAB PO (08:39)
[2018-07-09] MEDS: DOCUSATE SODIUM 10 MG/ML (10ML CUP) PO ×2 (08:39→21:00)
[2018-07-09] MEDS: NYSTATIN 30 GM POWDER BTL TOP ×2 (08:39→21:40)
[2018-07-09] MEDS: ALLOPURINOL 100 MG TAB PO ×2 (08:39→21:39)
[2018-07-09] MEDS: SOD CHLORIDE 0.9% 500 ML IV (08:40)
[2018-07-09] MEDS: traMADol 50 MG TAB PO (18:32)
[2018-07-09] MEDS: ATORVASTATIN 20 MG TAB PO (21:38)
[2018-07-09] MEDS ORDERED: VITAMIN A & D 5 GM OINT PACKET TOP (22:10)
[2018-07-09] MEDS: VANCOMYCIN 750 MG in SOD CHLORIDE 0.9% 150 ML IVPB (22:11)
[2018-07-10] MEDS: IPRATROPIUM (NEB) 0.5 MG/2.5 ML AMP HHN ×4 (01:15→20:41)
[2018-07-10] MEDS: PANTOPRAZOLE 40 MG INJ IV (05:28)
[2018-07-10] MEDS: traMADol 50 MG TAB PO ×3 (05:28→15:56)
[2018-07-10] MEDS: DILTIAZEM 30 MG TAB PO ×3 (05:30→22:04)
[2018-07-10 05:41] LABS: ANION GAP 7 (8-16); BLOOD UREA NITROGEN 29 mg/dl (7-20); CALCIUM 7.6 mg/dl (8.4-10.2); CARBON DIOXIDE 31 mmol/L (21-31); CHLORIDE 106 mmol/L (97-110); CREATININE 1.12 mg/dl (0.44-1.00); GLUCOSE 79 mg/dl (70-220); MAGNESIUM 1.4 mg/dl (1.7-2.5); SODIUM 140 mmol/L (135-144)
[2018-07-10] MEDS: BUDESONIDE (NEB) 0.5MG/2ML AMP HHN ×2 (08:01→20:41)
[2018-07-10] MEDS: COLLAGENASE 5 GM (UD JAR) TOP (08:52)
[2018-07-10] MEDS: DOCUSATE SODIUM 10 MG/ML (10ML CUP) PO ×3 (08:52→22:02)
[2018-07-10] MEDS: FLUCONAZOLE 100 MG TAB PO (08:52)
[2018-07-10] MEDS: SILVER SULFADIAZINE 1% 25 GM CR TOP ×2 (08:52→22:06)
[2018-07-10] MEDS: CYANOCOBALAMIN 500 MCG TAB PO ×2 (08:53→22:03)
[2018-07-10] MEDS: FOLIC ACID 1 MG TAB PO (08:53)
[2018-07-10] MEDS: CEFEPIME 1GM/50 ML (PMX) 50 ML IVPB ×2 (08:53→22:02)
[2018-07-10] MEDS: FERROUS SULFATE (EC) 325 MG TAB PO (08:53)
[2018-07-10] MEDS: NYSTATIN 30 GM POWDER BTL TOP ×2 (08:53→22:05)
[2018-07-10] MEDS: ASCORBIC ACID 500 MG TAB PO (08:54)
[2018-07-10] MEDS: ALLOPURINOL 100 MG TAB PO ×2 (08:54→22:02)
[2018-07-10] MEDS: METOPROLOL 50 MG TAB PO ×2 (08:54→22:05)
[2018-07-10] MEDS: MULTIVITAMINS THERAPEUTIC TAB PO (08:54)
[2018-07-10] MEDS: FUROSEMIDE 20 MG INJ IV (08:55)
[2018-07-10] MEDS: MAGNESIUM SULFATE 3 GM in DEXTROSE 5% 100 ML IVPB (11:42)
[2018-07-10] MEDS: DIGOXIN 500 MCG INJ IV (12:44)
[2018-07-10] MEDS: HYDROGEN PEROXIDE 118 ML TOP ×2 (15:56→22:05)
[2018-07-10] MEDS ORDERED: HYDROCODONE/APAP (5/325) TAB PO (16:30)
[2018-07-10] MEDS: EPOETIN 10000 UNITS/1 ML INJ (ESRD) SC (18:07)
[2018-07-10] MEDS: ATORVASTATIN 20 MG TAB PO (22:02)
[2018-07-11] MEDS: IPRATROPIUM (NEB) 0.5 MG/2.5 ML AMP HHN ×4 (03:54→20:47)
[2018-07-11] MEDS: DILTIAZEM 30 MG TAB PO ×3 (06:23→21:44)
[2018-07-11] MEDS: PANTOPRAZOLE (EC) 40 MG TAB PO (06:23)
[2018-07-11] MEDS: traMADol 50 MG TAB PO ×2 (06:23→17:54)
[2018-07-11 06:35] LABS: ADD MAN DIFF? NO
[2018-07-11 06:46] LABS: BASOPHILS % 0.3 % (0.0-2.0); EOSINOPHILS # 0.1 10^3/ul (0.0-0.5); EOSINOPHILS % 2.1 % (0.0-7.0); HEMATOCRIT 31.4 % (37.0-47.0); HEMOGLOBIN 9.4 g/dl (12.0-16.0); LYMPHOCYTES # 1.6 10^3/ul (0.8-2.9); LYMPHOCYTES % 25.2 % (15.0-51.0); MEAN CORPUSCULAR HEMOGLOBIN 30.1 pg (29.0-33.0); MEAN CORPUSCULAR HGB CONC 29.9 g/dl (32.0-37.0); MEAN CORPUSCULAR VOLUME 100.6 fl (82.0-101.0); MEAN PLATELET VOLUME 8.9 fl (7.4-10.4); MONOCYTE # 0.3 10^3/ul (0.3-0.9); MONOCYTES % 4.5 % (0.0-11.0); NEUTROPHIL # 4.2 10^3/ul (1.6-7.5); NEUTROPHILS % 67.3 % (39.0-77.0); PLATELET COUNT 204 10^3/UL (140-415); RED BLOOD COUNT 3.12 10^6/ul (4.20-5.40); RED CELL DISTRIBUTION WIDTH 17.5 % (11.5-14.5)
[2018-07-11 06:46] LABS: WHITE BLOOD COUNT 6.2 10^3/ul (4.8-10.8)
[2018-07-11 07:11] LABS: ANION GAP 9 (8-16); BLOOD UREA NITROGEN 25 mg/dl (7-20); CARBON DIOXIDE 32 mmol/L (21-31); CHLORIDE 100 mmol/L (97-110); CREATININE 1.03 mg/dl (0.44-1.00); GLUCOSE 80 mg/dl (70-220); MAGNESIUM 1.8 mg/dl (1.7-2.5); POTASSIUM 4.3 mmol/L (3.5-5.1); SODIUM 137 mmol/L (135-144)
[2018-07-11] MEDS: BUDESONIDE (NEB) 0.5MG/2ML AMP HHN ×2 (08:32→20:47)
[2018-07-11] MEDS: MULTIVITAMINS THERAPEUTIC TAB PO (08:54)
[2018-07-11] MEDS: CEFEPIME 1GM/50 ML (PMX) 50 ML IVPB ×2 (08:54→21:01)
[2018-07-11] MEDS: COLLAGENASE 5 GM (UD JAR) TOP (08:55)
[2018-07-11] MEDS: FERROUS SULFATE (EC) 325 MG TAB PO (08:55)
[2018-07-11] MEDS: METOPROLOL 50 MG TAB PO ×2 (08:55→21:00)
[2018-07-11] MEDS: CYANOCOBALAMIN 500 MCG TAB PO ×2 (08:55→21:00)
[2018-07-11] MEDS: ASCORBIC ACID 500 MG TAB PO (08:56)
[2018-07-11] MEDS: ALLOPURINOL 100 MG TAB PO ×2 (08:56→21:01)
[2018-07-11] MEDS: FOLIC ACID 1 MG TAB PO (08:56)
[2018-07-11] MEDS: FLUCONAZOLE 100 MG TAB PO (08:56)
[2018-07-11] MEDS: FUROSEMIDE 20 MG INJ IV (08:56)
[2018-07-11] MEDS: DOCUSATE SODIUM 10 MG/ML (10ML CUP) PO ×2 (08:56→21:00)
[2018-07-11] MEDS: SILVER SULFADIAZINE 1% 25 GM CR TOP ×2 (08:57→21:01)
[2018-07-11] MEDS: HYDROGEN PEROXIDE 118 ML TOP ×2 (08:57→21:01)
[2018-07-11] MEDS: NYSTATIN 30 GM POWDER BTL TOP ×2 (08:57→21:01)
[2018-07-11] MEDS: DIGOXIN 500 MCG INJ IV (13:07)
[2018-07-11] MEDS: ALBUMIN HUMAN 25% 50 ML IV ×2 (13:08→21:02)
[2018-07-11] MEDS: ATORVASTATIN 20 MG TAB PO (21:01)
[2018-07-11] MEDS: VANCOMYCIN 750 MG in SOD CHLORIDE 0.9% 150 ML IVPB (21:44)
[2018-07-12] MEDS: IPRATROPIUM (NEB) 0.5 MG/2.5 ML AMP HHN ×4 (01:48→19:41)
[2018-07-12] MEDS: ALBUMIN HUMAN 25% 50 ML IV (05:37)
[2018-07-12] MEDS: PANTOPRAZOLE (EC) 40 MG TAB PO (05:37)
[2018-07-12] MEDS: DILTIAZEM 30 MG TAB PO ×2 (05:37→09:28)
[2018-07-12 07:15] LABS: ADD MAN DIFF? NO
[2018-07-12 07:18] LABS: BASOPHILS % 0.2 % (0.0-2.0); EOSINOPHILS # 0.1 10^3/ul (0.0-0.5); EOSINOPHILS % 2.1 % (0.0-7.0); HEMATOCRIT 28.6 % (37.0-47.0); HEMOGLOBIN 8.6 g/dl (12.0-16.0); LYMPHOCYTES # 1.6 10^3/ul (0.8-2.9); LYMPHOCYTES % 29.8 % (15.0-51.0); MEAN CORPUSCULAR HEMOGLOBIN 30.5 pg (29.0-33.0); MEAN CORPUSCULAR HGB CONC 30.1 g/dl (32.0-37.0); MEAN CORPUSCULAR VOLUME 101.4 fl (82.0-101.0); MEAN PLATELET VOLUME 9.2 fl (7.4-10.4); MONOCYTE # 0.3 10^3/ul (0.3-0.9); NEUTROPHIL # 3.3 10^3/ul (1.6-7.5); NEUTROPHILS % 62.1 % (39.0-77.0); PLATELET COUNT 208 10^3/UL (140-415); RED BLOOD COUNT 2.82 10^6/ul (4.20-5.40); RED CELL DISTRIBUTION WIDTH 17.5 % (11.5-14.5)
[2018-07-12 07:18] LABS: WHITE BLOOD COUNT 5.2 10^3/ul (4.8-10.8)
[2018-07-12 07:51] LABS: ANION GAP 9 (8-16); BLOOD UREA NITROGEN 25 mg/dl (7-20); CALCIUM 8.2 mg/dl (8.4-10.2); CARBON DIOXIDE 31 mmol/L (21-31); CHLORIDE 101 mmol/L (97-110); CREATININE 1.07 mg/dl (0.44-1.00); GLUCOSE 77 mg/dl (70-220); SODIUM 137 mmol/L (135-144)
[2018-07-12] MEDS: BUDESONIDE (NEB) 0.5MG/2ML AMP HHN ×2 (08:01→19:41)
[2018-07-12 08:09] LABS: OCCULT BLOOD STOOL NEGATIVE (NEGATIVE)
[2018-07-12] MEDS: FERROUS SULFATE (EC) 325 MG TAB PO (09:27)
[2018-07-12] MEDS: FOLIC ACID 1 MG TAB PO (09:28)
[2018-07-12] MEDS: MULTIVITAMINS THERAPEUTIC TAB PO (09:28)
[2018-07-12] MEDS: DOCUSATE SODIUM 10 MG/ML (10ML CUP) PO ×2 (09:28→20:43)
[2018-07-12] MEDS: FLUCONAZOLE 100 MG TAB PO (09:28)
[2018-07-12] MEDS: METOPROLOL 50 MG TAB PO ×2 (09:28→20:44)
[2018-07-12] MEDS: NYSTATIN 30 GM POWDER BTL TOP ×2 (09:29→20:45)
[2018-07-12] MEDS: FUROSEMIDE 20 MG INJ IV (09:29)
[2018-07-12] MEDS: ALLOPURINOL 100 MG TAB PO ×2 (09:29→20:44)
[2018-07-12] MEDS: HYDROGEN PEROXIDE 118 ML TOP ×2 (09:29→20:44)
[2018-07-12] MEDS: ASCORBIC ACID 500 MG TAB PO (09:29)
[2018-07-12] MEDS: CYANOCOBALAMIN 500 MCG TAB PO ×2 (09:29→20:43)
[2018-07-12] MEDS: COLLAGENASE 5 GM (UD JAR) TOP (09:30)
[2018-07-12] MEDS: SILVER SULFADIAZINE 1% 25 GM CR TOP ×2 (09:30→20:45)
[2018-07-12] MEDS: CEFEPIME 1GM/50 ML (PMX) 50 ML IVPB ×2 (09:32→20:44)
[2018-07-12] MEDS: traMADol 50 MG TAB PO (10:49)
[2018-07-12] MEDS: DIGOXIN 500 MCG INJ IV (12:38)
[2018-07-12] MEDS: EPOETIN 10000 UNITS/1 ML INJ (ESRD) SC (17:15)
[2018-07-12] MEDS: ATORVASTATIN 20 MG TAB PO (20:43)
[2018-07-13] MEDS ORDERED: DIGOXIN 0.125 MG TAB PO (13:00)
== END 2018-07-12 21:15 | DRG 853 ==
LOC: TEL 21:43 → E/R 21:35 → 6WM 07-05 08:04 → TEL 07-05 23:37
PROC: 0JB70ZZ Excision of Back Subcutaneous Tissue and Fascia, Open Approach (ICD-10-PCS; principal; 2018-07-07 15:14)
PROC: 5A1955Z Respiratory Ventilation, Greater than 96 Consecutive Hours (ICD-10-PCS; 2018-07-07 15:14)
PROC: 30233N1 Transfusion of Nonautologous Red Blood Cells into Peripheral Vein, Percutaneous Approach (ICD-10-PCS; 2018-07-07 15:14)
DX: A41.9 Sepsis, unspecified organism (principal); L89.153 Pressure ulcer of sacral region, stage 3; J18.9 Pneumonia, unspecified organism; J96.21 Acute and chronic respiratory failure with hypoxia; J96.22 Acute and chronic respiratory failure with hypercapnia; N17.9 Acute kidney failure, unspecified; I13.0 Hypertensive heart and chronic kidney disease with heart failure and stage 1 through stage 4 chronic kidney disease, or unspecified chronic kidney disease; I50.30 Unspecified diastolic (congestive) heart failure; L03.116 Cellulitis of left lower limb; L03.115 Cellulitis of right lower limb; N39.0 Urinary tract infection, site not specified; L02.212 Cutaneous abscess of back [any part, except buttock and flank]; E11.22 Type 2 diabetes mellitus with diabetic chronic kidney disease; N18.3 Chronic kidney disease, stage 3 (moderate); J44.9 Chronic obstructive pulmonary disease, unspecified; Z93.0 Tracheostomy status; D63.8 Anemia in other chronic diseases classified elsewhere; E87.5 Hyperkalemia; I48.0 Paroxysmal atrial fibrillation; J84.10 Pulmonary fibrosis, unspecified; Z87.891 Personal history of nicotine dependence; B96.5 Pseudomonas (aeruginosa) (mallei) (pseudomallei) as the cause of diseases classified elsewhere; B37.2 Candidiasis of skin and nail; E87.6 Hypokalemia; D23.5 Other benign neoplasm of skin of trunk
CPT/HCPCS: 36415; 36430; 36600; 71045; 74018; 80048; 80053; 80202; 81001; 82270; 82550; 82553; 82607; 82728; 82746; 82803; 83010; 83540; 83605; 83615; 83735; 84155; 84165; 84484; 85025; 85045; 85610; 85730; 86644; 86850; 86900; 86901; 86920; 87040; 87070; 87075; 87081; 87086; 87102; 87116; 88304; 89220; 92526; 92610; 93005; 93306; 94002; 94003; 94640; 94664; 99291-25

== ENCOUNTER 2018-10-02 21:50 | Inpatient (IN) | payer MEDICARE, OTHER ==
[2018-10-02 22:07] LABS: ADD MAN DIFF? NO
[2018-10-02 22:15] LABS: ABNORMAL IP MESSAGE 1; BASOPHILS % 0.1 % (0.0-2.0); EOSINOPHILS # 0.1 10^3/ul (0.0-0.5); EOSINOPHILS % 0.9 % (0.0-7.0); HEMATOCRIT 36.4 % (37.0-47.0); HEMOGLOBIN 10.4 g/dl (12.0-16.0); LYMPHOCYTES # 1.4 10^3/ul (0.8-2.9); LYMPHOCYTES % 19.7 % (15.0-51.0); MEAN CORPUSCULAR HEMOGLOBIN 30.4 pg (29.0-33.0); MEAN CORPUSCULAR HGB CONC 28.6 g/dl (32.0-37.0); MEAN CORPUSCULAR VOLUME 106.4 fl (82.0-101.0); MEAN PLATELET VOLUME 9.7 fl (7.4-10.4); MONOCYTE # 0.3 10^3/ul (0.3-0.9); MONOCYTES % 4.7 % (0.0-11.0); NEUTROPHIL # 5.2 10^3/ul (1.6-7.5); NEUTROPHILS % 74.3 % (39.0-77.0); NUCLEATED RED BLOOD CELLS% 0.3 /100WBC (0.0-0.0); PLATELET COUNT 162 10^3/UL (140-415); RED BLOOD COUNT 3.42 10^6/ul (4.20-5.40); RED CELL DISTRIBUTION WIDTH 16.5 % (11.5-14.5)
[2018-10-02 22:15] LABS: WHITE BLOOD COUNT 7.1 10^3/ul (4.8-10.8)
[2018-10-02 22:19] LABS: POSITIVE DIFF @See below
[2018-10-02 22:35] LABS: ALANINE AMINOTRANSFERASE 9 IU/L (13-69); ALBUMIN 2.4 g/dl (3.3-4.9); ALBUMIN/GLOBULIN RATIO 0.85; ALKALINE PHOSPHATASE 71 IU/L (42-121); ANION GAP 8 (5-13); ASPARTATE AMINO TRANSFERASE 11 IU/L (15-46); BILIRUBIN,INDIRECT 0.3 mg/dl (0-1.1); BILIRUBIN,TOTAL 0.3 mg/dl (0.2-1.3); BLOOD UREA NITROGEN 69 mg/dl (7-20); CALCIUM 7.4 mg/dl (8.4-10.2); CARBON DIOXIDE 24 mmol/L (21-31); CHLORIDE 108 mmol/L (97-110); CREATININE 2.16 mg/dl (0.44-1.00); GLUCOSE 111 mg/dl (70-220); POTASSIUM 4.1 mmol/L (3.5-5.1); SODIUM 140 mmol/L (135-144); TOTAL PROTEIN 5.2 g/dl (6.1-8.1)
[2018-10-02 22:47] LABS: TROPONIN-I 0.082 ng/ml (0.000-0.120)
[2018-10-02 23:03] LABS: B-TYPE NATRIURETIC PEPTIDE 36400 PG/ML (0-125)
[2018-10-03] MEDS ORDERED: NACL 0.9% 3 ML SYG IV
[2018-10-03] MEDS ORDERED: ONDANSETRON 4 MG INJ IV
[2018-10-03] MEDS: HYDROCORTISONE 2.5% 20 GM CR TOP (00:31)
[2018-10-03 06:19] LABS: ADD MAN DIFF? NO
[2018-10-03 06:37] LABS: ABNORMAL IP MESSAGE 1; BASOPHILS % 0.2 % (0.0-2.0); EOSINOPHILS # 0.1 10^3/ul (0.0-0.5); EOSINOPHILS % 1.4 % (0.0-7.0); HEMATOCRIT 34.2 % (37.0-47.0); HEMOGLOBIN 9.8 g/dl (12.0-16.0); LYMPHOCYTES # 1.4 10^3/ul (0.8-2.9); LYMPHOCYTES % 27.3 % (15.0-51.0); MEAN CORPUSCULAR HEMOGLOBIN 30.5 pg (29.0-33.0); MEAN CORPUSCULAR HGB CONC 28.7 g/dl (32.0-37.0); MEAN CORPUSCULAR VOLUME 106.5 fl (82.0-101.0); MEAN PLATELET VOLUME 9.7 fl (7.4-10.4); MONOCYTE # 0.3 10^3/ul (0.3-0.9); MONOCYTES % 6.1 % (0.0-11.0); NEUTROPHIL # 3.2 10^3/ul (1.6-7.5); NEUTROPHILS % 64.6 % (39.0-77.0); PLATELET COUNT 143 10^3/UL (140-415); RED BLOOD COUNT 3.21 10^6/ul (4.20-5.40); RED CELL DISTRIBUTION WIDTH 16.2 % (11.5-14.5)
[2018-10-03 06:39] LABS: POSITIVE DIFF @See below
[2018-10-03 07:47] LABS: ALANINE AMINOTRANSFERASE 13 IU/L (13-69); ALBUMIN 2.2 g/dl (3.3-4.9); ALBUMIN/GLOBULIN RATIO 0.84; ALKALINE PHOSPHATASE 60 IU/L (42-121); ANION GAP 6 (5-13); ASPARTATE AMINO TRANSFERASE 10 IU/L (15-46); BILIRUBIN,INDIRECT 0.4 mg/dl (0-1.1); BILIRUBIN,TOTAL 0.4 mg/dl (0.2-1.3); BLOOD UREA NITROGEN 66 mg/dl (7-20); CALCIUM 7.6 mg/dl (8.4-10.2); CARBON DIOXIDE 27 mmol/L (21-31); CHLORIDE 106 mmol/L (97-110); CREATININE 2.12 mg/dl (0.44-1.00); GLUCOSE 78 mg/dl (70-220); POTASSIUM 3.9 mmol/L (3.5-5.1); SODIUM 139 mmol/L (135-144); TOTAL PROTEIN 4.8 g/dl (6.1-8.1)
[2018-10-03 08:23] LABS: HEMOGLOBIN A1C 4.8 % (0-5.9)
[2018-10-03] MEDS: FAMOTIDINE 20 MG INJ IV (08:37)
[2018-10-03] MEDS: ENOXAPARIN 30 MG/0.3 ML SYG SC (08:39)
[2018-10-03] MEDS: METHYLPREDNISOLONE 40 MG INJ IV ×2 (14:10→22:10)
[2018-10-03 18:04] LABS: AADO2 Arterial 83.9 mmHg (7.0-24.0); Allen Test ACCEPTAB; Arterial Base Excess 0.8 mmol/L (-3.0-3); Arterial Blood Gas Oxygen Sat 96.9 mmHG (95.0-100.0); Arterial COHb 0.5 % (0.0-3.0); Arterial Fraction of Oxyhgb 96.4 % (93.0-99.0); Arterial HCO3 24.9 mmol/L (22.0-26.0); Arterial MetHb 0 % (0.0-1.5); Arterial pCO2 37.9 mmhg (35-45); MODE VENT - AC; Site Left Radial
[2018-10-03] MEDS: ACETAMINOPHEN 325 MG TAB PO ×2 (18:28→22:25)
[2018-10-03] MEDS: LEVALBUTEROL (NEB) 1.25 MG/0.5 ML AMP HHN (19:21)
[2018-10-03] MEDS: IPRATROPIUM (NEB) 0.5 MG/2.5 ML AMP HHN (19:21)
[2018-10-03] MEDS: BUDESONIDE (NEB) 0.5MG/2ML AMP HHN (19:21)
[2018-10-03] MEDS: DORNASE (NEB) 2.5 MG/2.5 ML AMP HHN (20:00)
[2018-10-03] MEDS: ALLOPURINOL 100 MG TAB PO (22:09)
[2018-10-03] MEDS: BETHANECHOL 25 MG TAB PO (22:09)
[2018-10-03] MEDS: APIXABAN 5 MG TABLET PO (22:10)
[2018-10-03] MEDS: ATORVASTATIN 20 MG TAB PO (22:10)
[2018-10-03] MEDS: morphine 2 MG INJ IV (22:18)
[2018-10-04] MEDS: LEVALBUTEROL (HFA) 15 GM INHALER INH ×4 (01:43→19:12)
[2018-10-04] MEDS: IPRATROPIUM (HFA) 12.9 GM INHALER INH ×4 (01:43→19:12)
[2018-10-04 05:35] LABS: ADD MAN DIFF? NO
[2018-10-04 05:41] LABS: WHITE BLOOD COUNT 2.7 10^3/ul (4.8-10.8)
[2018-10-04 05:41] LABS: ABNORMAL IP MESSAGE 1; HEMATOCRIT 34.8 % (37.0-47.0); HEMOGLOBIN 10.4 g/dl (12.0-16.0); LYMPHOCYTES # 0.5 10^3/ul (0.8-2.9); LYMPHOCYTES % 18.9 % (15.0-51.0); MEAN CORPUSCULAR HGB CONC 29.9 g/dl (32.0-37.0); MEAN CORPUSCULAR VOLUME 103.6 fl (82.0-101.0); MEAN PLATELET VOLUME 9.8 fl (7.4-10.4); MONOCYTE # 0.1 10^3/ul (0.3-0.9); MONOCYTES % 1.9 % (0.0-11.0); NEUTROPHIL # 2.1 10^3/ul (1.6-7.5); NEUTROPHILS % 78.5 % (39.0-77.0); PLATELET COUNT 141 10^3/UL (140-415); RED BLOOD COUNT 3.36 10^6/ul (4.20-5.40)
[2018-10-04 05:53] LABS: POSITIVE DIFF @See below
[2018-10-04] MEDS: METHYLPREDNISOLONE 40 MG INJ IV ×3 (06:11→21:19)
[2018-10-04 06:31] LABS: ANION GAP 6 (5-13); BLOOD UREA NITROGEN 60 mg/dl (7-20); CALCIUM 7.9 mg/dl (8.4-10.2); CARBON DIOXIDE 26 mmol/L (21-31); CHLORIDE 107 mmol/L (97-110); CREATININE 1.97 mg/dl (0.44-1.00); GLUCOSE 122 mg/dl (70-220); POTASSIUM 4.7 mmol/L (3.5-5.1); SODIUM 139 mmol/L (135-144)
[2018-10-04] MEDS: BUDESONIDE (NEB) 0.5MG/2ML AMP HHN ×2 (08:35→19:11)
[2018-10-04] MEDS: DORNASE (NEB) 2.5 MG/2.5 ML AMP HHN ×2 (08:36→19:12)
[2018-10-04] MEDS: FOLIC ACID 1 MG TAB PO (10:00)
[2018-10-04] MEDS: APIXABAN 5 MG TABLET PO (10:00)
[2018-10-04] MEDS: FAMOTIDINE 20 MG INJ IV (10:00)
[2018-10-04] MEDS: ALLOPURINOL 100 MG TAB PO ×2 (10:00→21:00)
[2018-10-04] MEDS: BETHANECHOL 25 MG TAB PO ×3 (10:00→21:00)
[2018-10-04] MEDS: ASCORBIC ACID 500 MG TAB PO (10:00)
[2018-10-04] MEDS: ENOXAPARIN 30 MG/0.3 ML SYG SC (10:11)
[2018-10-04 11:19] LABS: ADD UMIC YES; UR ASCORBIC ACID NEGATIVE (NEGATIVE); UR BACTERIA FEW /HPF (NONE SEEN); UR BILIRUBIN (Dip) NEGATIVE (NEGATIVE); UR BLOOD (Dip) 1+ mg/dL (NEGATIVE); UR CLARITY CLOUDY (CLEAR); UR COLOR YELLOW (YELLOW); UR GLUCOSE (Dip) NEGATIVE (NEGATIVE); UR KETONES (Dip) NEGATIVE (NEGATIVE); UR LEUKOCYTE ESTERASE (Dip) 3+ Leu/ul (NEGATIVE); UR NITRITE (Dip) NEGATIVE (NEGATIVE); UR RBC 8 /HPF (0-5); UR SQUAMOUS EPITHELIAL CELL FEW /HPF (FEW); UR TOTAL PROTEIN (Dip) 1+ mg/dl (NEGATIVE); UR UROBILINOGEN (Dip) NEGATIVE (NEGATIVE); UR WBC > 182 /HPF (0-5)
[2018-10-04 11:32] LABS: CREATININE,URINE RANDOM 49.91 mg/dl (20-320)
[2018-10-04 11:32] LABS: SODIUM,URINE RANDOM 87 mmol/L (30-90)
[2018-10-04] MEDS ORDERED: METOPROLOL 5 MG INJ IV (12:30)
[2018-10-04] MEDS ORDERED: FUROSEMIDE 40 MG INJ IV (12:30)
[2018-10-04] MEDS: DIGOXIN 0.125 MG TAB PO (13:00)
[2018-10-04 13:16] LABS: DIGOXIN 1.1 ng/ml (1.0-2.0)
[2018-10-04] MEDS: FUROSEMIDE 40 MG INJ IV (13:53)
[2018-10-04] MEDS: DEXTROSE 5%-0.45% NACL 1,000 ML IV (13:54)
[2018-10-04] MEDS: COLLAGENASE 5 GM (UD JAR) TOP (15:58)
[2018-10-04 18:18] LABS: CREATINE KINASE 21 IU/L (23-200)
[2018-10-04] MEDS ORDERED: morphine LIQ (10 MG/5 ML) CUP PO (18:30)
[2018-10-04 18:31] LABS: CK INDEX 2.5; CK-MB 0.53 ng/ml (0.0-2.4); TROPONIN-I 0.082 ng/ml (0.000-0.120)
[2018-10-04] MEDS: ATORVASTATIN 20 MG TAB PO (21:00)
[2018-10-04] MEDS: ENOXAPARIN 100 MG/ML SYG SC (21:23)
[2018-10-05] MEDS: LEVALBUTEROL (HFA) 15 GM INHALER INH ×2 (01:01→07:50)
[2018-10-05] MEDS: IPRATROPIUM (HFA) 12.9 GM INHALER INH ×2 (01:01→07:50)
[2018-10-05 01:30] LABS: CREATINE KINASE < 20 IU/L (23-200)
[2018-10-05 01:33] LABS: CK-MB 0.48 ng/ml (0.0-2.4); TROPONIN-I 0.079 ng/ml (0.000-0.120)
[2018-10-05] MEDS: METHYLPREDNISOLONE 40 MG INJ IV ×3 (05:59→21:30)
[2018-10-05] MEDS: DORNASE (NEB) 2.5 MG/2.5 ML AMP HHN (08:42)
[2018-10-05] MEDS: BUDESONIDE (NEB) 0.5MG/2ML AMP HHN ×2 (08:42→19:40)
[2018-10-05] MEDS: COLLAGENASE 5 GM (UD JAR) TOP (09:00)
[2018-10-05] MEDS: ASCORBIC ACID 500 MG TAB PO (09:00)
[2018-10-05] MEDS: FOLIC ACID 1 MG TAB PO (09:00)
[2018-10-05] MEDS: ALLOPURINOL 100 MG TAB PO ×2 (09:00→21:30)
[2018-10-05] MEDS: BETHANECHOL 25 MG TAB PO ×3 (09:00→21:30)
[2018-10-05 11:33] LABS: ADD MAN DIFF? NO
[2018-10-05 11:36] LABS: WHITE BLOOD COUNT 3.7 10^3/ul (4.8-10.8)
[2018-10-05 11:37] LABS: ABNORMAL IP MESSAGE 1; HEMOGLOBIN 10.9 g/dl (12.0-16.0); LYMPHOCYTES # 0.5 10^3/ul (0.8-2.9); LYMPHOCYTES % 13.6 % (15.0-51.0); MEAN CORPUSCULAR HEMOGLOBIN 30.6 pg (29.0-33.0); MEAN CORPUSCULAR HGB CONC 30.3 g/dl (32.0-37.0); MEAN CORPUSCULAR VOLUME 101.1 fl (82.0-101.0); MONOCYTE # 0.1 10^3/ul (0.3-0.9); MONOCYTES % 1.9 % (0.0-11.0); NEUTROPHIL # 3.1 10^3/ul (1.6-7.5); PLATELET COUNT 140 10^3/UL (140-415); RED BLOOD COUNT 3.56 10^6/ul (4.20-5.40); RED CELL DISTRIBUTION WIDTH 15.9 % (11.5-14.5)
[2018-10-05 11:47] LABS: POSITIVE DIFF @See below
[2018-10-05 11:55] LABS: ANION GAP 8 (5-13); BLOOD UREA NITROGEN 54 mg/dl (7-20); CALCIUM 8.5 mg/dl (8.4-10.2); CARBON DIOXIDE 26 mmol/L (21-31); CHLORIDE 105 mmol/L (97-110); CREATININE 1.72 mg/dl (0.44-1.00); GLUCOSE 112 mg/dl (70-220); MAGNESIUM 1.4 mg/dl (1.7-2.5); PHOSPHORUS 4.2 mg/dl (2.5-4.9); POTASSIUM 4.7 mmol/L (3.5-5.1); SODIUM 139 mmol/L (135-144)
[2018-10-05 11:59] LABS: CREATINE KINASE < 20 IU/L (23-200)
[2018-10-05 12:08] LABS: CK-MB 0.37 ng/ml (0.0-2.4)
[2018-10-05] MEDS: FAMOTIDINE 20 MG INJ IV (12:50)
[2018-10-05] MEDS: DEXTROSE 5%-0.45% NACL 1,000 ML IV (12:51)
[2018-10-05] MEDS: LEVALBUTEROL (NEB) 1.25 MG/0.5 ML AMP HHN ×2 (13:09→19:40)
[2018-10-05] MEDS: IPRATROPIUM (NEB) 0.5 MG/2.5 ML AMP HHN ×2 (13:09→19:40)
[2018-10-05 15:17] LABS: CREATININE, RANDOM URINE 53 mg/dL (20-275); MICROALBUMIN 13.7 mg/dL; MICROALBUMIN/CREATININE RATIO 258 (<30)
[2018-10-05] MEDS: APIXABAN 5 MG TABLET PO (21:29)
[2018-10-05] MEDS: ATORVASTATIN 20 MG TAB PO (21:29)
[2018-10-05] MEDS: METOPROLOL 25 MG TAB PO (21:30)
[2018-10-06] MEDS: IPRATROPIUM (NEB) 0.5 MG/2.5 ML AMP HHN ×4 (01:14→20:06)
[2018-10-06] MEDS: LEVALBUTEROL (NEB) 1.25 MG/0.5 ML AMP HHN ×4 (01:15→20:06)
[2018-10-06] MEDS: METHYLPREDNISOLONE 40 MG INJ IV ×3 (05:26→21:08)
[2018-10-06 05:39] LABS: ADD MAN DIFF? NO
[2018-10-06 05:47] LABS: ABNORMAL IP MESSAGE 1; HEMOGLOBIN 10.9 g/dl (12.0-16.0); LYMPHOCYTES # 0.4 10^3/ul (0.8-2.9); LYMPHOCYTES % 6.9 % (15.0-51.0); MEAN CORPUSCULAR HEMOGLOBIN 30.3 pg (29.0-33.0); MEAN CORPUSCULAR HGB CONC 29.5 g/dl (32.0-37.0); MEAN CORPUSCULAR VOLUME 102.8 fl (82.0-101.0); MEAN PLATELET VOLUME 10.1 fl (7.4-10.4); MONOCYTE # 0.2 10^3/ul (0.3-0.9); MONOCYTES % 3.2 % (0.0-11.0); NEUTROPHIL # 4.5 10^3/ul (1.6-7.5); NEUTROPHILS % 89.5 % (39.0-77.0); PLATELET COUNT 161 10^3/UL (140-415); RED CELL DISTRIBUTION WIDTH 15.7 % (11.5-14.5)
[2018-10-06 05:47] LABS: WHITE BLOOD COUNT 5.1 10^3/ul (4.8-10.8)
[2018-10-06 06:22] LABS: POSITIVE DIFF @See below
[2018-10-06 06:24] LABS: ANION GAP 9 (5-13); BLOOD UREA NITROGEN 52 mg/dl (7-20); CALCIUM 8.4 mg/dl (8.4-10.2); CARBON DIOXIDE 27 mmol/L (21-31); CHLORIDE 101 mmol/L (97-110); CREATININE 1.76 mg/dl (0.44-1.00); GLUCOSE 130 mg/dl (70-220); MAGNESIUM 1.4 mg/dl (1.7-2.5); PHOSPHORUS 3.7 mg/dl (2.5-4.9); POTASSIUM 4.8 mmol/L (3.5-5.1); SODIUM 137 mmol/L (135-144)
[2018-10-06] MEDS: BUDESONIDE (NEB) 0.5MG/2ML AMP HHN ×2 (07:52→20:06)
[2018-10-06] MEDS: FAMOTIDINE 20 MG INJ IV (08:36)
[2018-10-06] MEDS: ALLOPURINOL 100 MG TAB PO ×2 (08:36→21:08)
[2018-10-06] MEDS: ASCORBIC ACID 500 MG TAB PO (08:36)
[2018-10-06] MEDS: COLLAGENASE 5 GM (UD JAR) TOP (08:36)
[2018-10-06] MEDS: APIXABAN 5 MG TABLET PO ×2 (08:36→21:09)
[2018-10-06] MEDS: BETHANECHOL 25 MG TAB PO ×3 (08:36→21:08)
[2018-10-06] MEDS: FOLIC ACID 1 MG TAB PO (08:37)
[2018-10-06] MEDS: METOPROLOL 25 MG TAB PO ×2 (08:37→21:09)
[2018-10-06] MEDS: CEFTRIAXONE 1 GM/50 ML (PMX) 50 ML IVPB (08:41)
[2018-10-06] MEDS: MAGNESIUM SULFATE 2 GM/50 ML 50 ML IVPB (10:01)
[2018-10-06] MEDS: DIGOXIN 0.125 MG TAB PO (13:05)
[2018-10-06] MEDS: DEXTROSE 5%-0.45% NACL 1,000 ML IV (13:09)
[2018-10-06] MEDS: ATORVASTATIN 20 MG TAB PO (21:08)
[2018-10-07] MEDS: LEVALBUTEROL (NEB) 1.25 MG/0.5 ML AMP HHN ×3 (01:19→13:22)
[2018-10-07] MEDS: IPRATROPIUM (NEB) 0.5 MG/2.5 ML AMP HHN ×3 (01:19→13:21)
[2018-10-07] MEDS: METHYLPREDNISOLONE 40 MG INJ IV ×2 (05:22→09:09)
[2018-10-07 05:58] LABS: ADD MAN DIFF? NO
[2018-10-07 06:04] LABS: ABNORMAL IP MESSAGE 1; HEMATOCRIT 35.9 % (37.0-47.0); HEMOGLOBIN 10.6 g/dl (12.0-16.0); LYMPHOCYTES # 0.4 10^3/ul (0.8-2.9); LYMPHOCYTES % 6.6 % (15.0-51.0); MEAN CORPUSCULAR HEMOGLOBIN 30.3 pg (29.0-33.0); MEAN CORPUSCULAR HGB CONC 29.5 g/dl (32.0-37.0); MEAN CORPUSCULAR VOLUME 102.6 fl (82.0-101.0); MEAN PLATELET VOLUME 10.8 fl (7.4-10.4); MONOCYTE # 0.2 10^3/ul (0.3-0.9); MONOCYTES % 3.5 % (0.0-11.0); NEUTROPHIL # 5.1 10^3/ul (1.6-7.5); NEUTROPHILS % 89.6 % (39.0-77.0); PLATELET COUNT 152 10^3/UL (140-415); RED CELL DISTRIBUTION WIDTH 15.8 % (11.5-14.5)
[2018-10-07 06:04] LABS: WHITE BLOOD COUNT 5.7 10^3/ul (4.8-10.8)
[2018-10-07 06:25] LABS: POSITIVE DIFF @See below
[2018-10-07 06:29] LABS: ANION GAP 7 (5-13); BLOOD UREA NITROGEN 52 mg/dl (7-20); CALCIUM 8.3 mg/dl (8.4-10.2); CARBON DIOXIDE 25 mmol/L (21-31); CHLORIDE 101 mmol/L (97-110); CREATININE 1.53 mg/dl (0.44-1.00); GLUCOSE 131 mg/dl (70-220); MAGNESIUM 1.7 mg/dl (1.7-2.5); PHOSPHORUS 3.6 mg/dl (2.5-4.9); SODIUM 133 mmol/L (135-144)
[2018-10-07] MEDS: BETHANECHOL 25 MG TAB PO (09:08)
[2018-10-07] MEDS: FOLIC ACID 1 MG TAB PO (09:08)
[2018-10-07] MEDS: CEFTRIAXONE 1 GM/50 ML (PMX) 50 ML IVPB (09:08)
[2018-10-07] MEDS: ASCORBIC ACID 500 MG TAB PO (09:09)
[2018-10-07] MEDS: FAMOTIDINE 20 MG TAB PO (09:09)
[2018-10-07] MEDS: APIXABAN 5 MG TABLET PO (09:09)
[2018-10-07] MEDS: FUROSEMIDE 20 MG INJ IV (09:09)
[2018-10-07] MEDS: ALLOPURINOL 100 MG TAB PO (09:09)
[2018-10-07] MEDS: COLLAGENASE 5 GM (UD JAR) TOP (09:10)
[2018-10-07] MEDS: METOPROLOL 25 MG TAB PO (09:10)
[2018-10-07] MEDS: BUDESONIDE (NEB) 0.5MG/2ML AMP HHN (09:30)
== END 2018-10-07 14:14 | DRG 291 ==
LOC: E/R 21:50 → 6WM 23:44
PROC: 5A1955Z Respiratory Ventilation, Greater than 96 Consecutive Hours (ICD-10-PCS; principal; 2018-10-03)
DX: I13.0 Hypertensive heart and chronic kidney disease with heart failure and stage 1 through stage 4 chronic kidney disease, or unspecified chronic kidney disease (principal); I50.33 Acute on chronic diastolic (congestive) heart failure; J96.20 Acute and chronic respiratory failure, unspecified whether with hypoxia or hypercapnia; J18.9 Pneumonia, unspecified organism; N17.9 Acute kidney failure, unspecified; J44.1 Chronic obstructive pulmonary disease with (acute) exacerbation; E87.2 Acidosis; J84.10 Pulmonary fibrosis, unspecified; Z93.0 Tracheostomy status; Z99.81 Dependence on supplemental oxygen; I48.0 Paroxysmal atrial fibrillation; R13.10 Dysphagia, unspecified; D63.8 Anemia in other chronic diseases classified elsewhere; N18.3 Chronic kidney disease, stage 3 (moderate); E78.5 Hyperlipidemia, unspecified; Z79.02 Long term (current) use of antithrombotics/antiplatelets
CPT/HCPCS: 36415; 36600; 71045; 80048; 80053; 80162; 81001; 81003; 82043; 82550; 82553; 82803; 83036; 83735; 83880; 84100; 84155; 84300; 84443; 84484; 85025; 87070; 87081; 89220; 92526; 92610; 93005; 94002; 94003; 94640; 94664; 99285-25; G0378

== ENCOUNTER 2018-10-08 07:39 | Inpatient (IN) | payer MEDICARE, OTHER ==
[2018-10-08] MEDS: SOD CHLORIDE 0.9% 1,000 ML IV ×2 (07:58→12:19)
[2018-10-08] MEDS: DILTIAZEM 25 MG INJ IV (07:59)
[2018-10-08 08:27] LABS: ADD MAN DIFF? NO
[2018-10-08 08:31] LABS: BASOPHILS % 0.1 % (0.0-2.0); HEMATOCRIT 44.7 % (37.0-47.0); HEMOGLOBIN 13.1 g/dl (12.0-16.0); LYMPHOCYTES # 1.5 10^3/ul (0.8-2.9); LYMPHOCYTES % 7.5 % (15.0-51.0); MEAN CORPUSCULAR HEMOGLOBIN 30.1 pg (29.0-33.0); MEAN CORPUSCULAR HGB CONC 29.3 g/dl (32.0-37.0); MEAN CORPUSCULAR VOLUME 102.8 fl (82.0-101.0); MONOCYTE # 0.5 10^3/ul (0.3-0.9); MONOCYTES % 2.4 % (0.0-11.0); NEUTROPHIL # 17.8 10^3/ul (1.6-7.5); NEUTROPHILS % 89.2 % (39.0-77.0); NUCLEATED RED BLOOD CELLS% 0.1 /100WBC (0.0-0.0); PLATELET COUNT 301 10^3/UL (140-415); RED BLOOD COUNT 4.35 10^6/ul (4.20-5.40); RED CELL DISTRIBUTION WIDTH 15.3 % (11.5-14.5)
[2018-10-08] MEDS: DIPHENHYDRAMINE 50 MG INJ IV (08:38)
[2018-10-08] MEDS: LORAZEPAM 2 MG INJ IV ×2 (08:39→20:17)
[2018-10-08] MEDS: DILTIAZEM-D5W 125MG/125ML DRIP 125 ML IV (08:46)
[2018-10-08 08:48] LABS: ALANINE AMINOTRANSFERASE 45 IU/L (13-69); ALBUMIN 3.5 g/dl (3.3-4.9); ALBUMIN/GLOBULIN RATIO 1.12; ALKALINE PHOSPHATASE 81 IU/L (42-121); ANION GAP 13 (5-13); ASPARTATE AMINO TRANSFERASE 32 IU/L (15-46); BILIRUBIN,INDIRECT 0.3 mg/dl (0-1.1); BILIRUBIN,TOTAL 0.3 mg/dl (0.2-1.3); BLOOD UREA NITROGEN 48 mg/dl (7-20); CALCIUM 8.8 mg/dl (8.4-10.2); CARBON DIOXIDE 26 mmol/L (21-31); CHLORIDE 101 mmol/L (97-110); CREATININE 1.55 mg/dl (0.44-1.00); GLUCOSE 215 mg/dl (70-220); POTASSIUM 4.6 mmol/L (3.5-5.1); SODIUM 140 mmol/L (135-144); TOTAL PROTEIN 6.6 g/dl (6.1-8.1)
[2018-10-08 08:49] LABS: INR 1.09; PARTIAL THROMBOPLASTIN TIME 22.3 Sec (23.0-35.0); PROTIME 14.2 Sec (11.9-14.9); PT RATIO 1.1
[2018-10-08 08:51] LABS: CREATINE KINASE < 20 IU/L (23-200)
[2018-10-08 08:59] LABS: CK-MB 0.74 ng/ml (0.0-2.4); TROPONIN-I 0.092 ng/ml (0.000-0.120)
[2018-10-08 09:05] LABS: DIGOXIN 0.9 ng/ml (1.0-2.0)
[2018-10-08 09:17] LABS: B-TYPE NATRIURETIC PEPTIDE 35800 PG/ML (0-450)
[2018-10-08] MEDS ORDERED: DIGOXIN 0.125 MG TAB PO (09:30)
[2018-10-08] MEDS: NITROGLYCERIN 2% 1 GM OINT PKT TD (09:30)
[2018-10-08] MEDS: AMIODARONE 150MG/D5W BOLUS IV* (09:38)
[2018-10-08] MEDS: CEFEPIME 2GM/50 ML (PMX) 50 ML IVPB (09:49)
[2018-10-08] MEDS: SODIUM CHLORIDE 0.9% 1L BAG IV* (09:49)
[2018-10-08] MEDS ORDERED: DIGOXIN 500 MCG INJ IV (12:00)
[2018-10-08 12:09] LABS: ADD UMIC YES; UR ASCORBIC ACID NEGATIVE (NEGATIVE); UR BACTERIA MANY /HPF (NONE SEEN); UR BILIRUBIN (Dip) NEGATIVE (NEGATIVE); UR BLOOD (Dip) 1+ mg/dL (NEGATIVE); UR CLARITY SLIGHTLY CLOUDY (CLEAR); UR COLOR YELLOW (YELLOW); UR GLUCOSE (Dip) NEGATIVE (NEGATIVE); UR KETONES (Dip) NEGATIVE (NEGATIVE); UR LEUKOCYTE ESTERASE (Dip) 3+ Leu/ul (NEGATIVE); UR MUCUS MANY /HPF (NONE SEEN); UR NITRITE (Dip) NEGATIVE (NEGATIVE); UR RBC 8 /HPF (0-5); UR SPECIFIC GRAVITY (Dip) 1.008 (1.003-1.030); UR TOTAL PROTEIN (Dip) NEGATIVE (NEGATIVE); UR UROBILINOGEN (Dip) NEGATIVE (NEGATIVE); UR WBC 92 /HPF (0-5)
[2018-10-08] MEDS: VANCOMYCIN 1 GM (PMX) 250 ML IVPB (12:19)
[2018-10-08] MEDS: DIGOXIN 500 MCG INJ IV ×3 (12:35→17:25)
[2018-10-08] MEDS: ENOXAPARIN 60 MG/0.6 ML SYG SC (14:12)
[2018-10-09] MEDS: SOD CHLORIDE 0.9% 1,000 ML IV ×2 (01:28→21:15)
[2018-10-09] MEDS: ACETAMINOPHEN 650 MG SUPP PR (03:07)
[2018-10-09] MEDS: PANTOPRAZOLE 40 MG INJ IV (05:35)
[2018-10-09] MEDS: METOPROLOL 5 MG INJ IV (05:38)
[2018-10-09 08:36] LABS: AADO2 Arterial 143.6 mmHg (7.0-24.0); Allen Test ACCEPTAB; Arterial Base Excess 0.1 mmol/L (-3.0-3); Arterial Blood Gas Oxygen Sat 96.8 mmHG (95.0-100.0); Arterial COHb 0.2 % (0.0-3.0); Arterial Fraction of Oxyhgb 96.3 % (93.0-99.0); Arterial HCO3 25.6 mmol/L (22.0-26.0); Arterial MetHb 0.3 % (0.0-1.5); Arterial pCO2 44.9 mmhg (35-45); MODE VENT - AC; Site Right Radial
[2018-10-09 08:50] LABS: ANION GAP 8 (5-13); BLOOD UREA NITROGEN 48 mg/dl (7-20); CALCIUM 8.4 mg/dl (8.4-10.2); CARBON DIOXIDE 27 mmol/L (21-31); CHLORIDE 103 mmol/L (97-110); CREATININE 1.46 mg/dl (0.44-1.00); GLUCOSE 89 mg/dl (70-220); POTASSIUM 4.5 mmol/L (3.5-5.1); SODIUM 138 mmol/L (135-144)
[2018-10-09] MEDS ORDERED: ENOXAPARIN 30 MG/0.3 ML SYG SC (09:00)
[2018-10-09] MEDS: CEFEPIME 1GM/50 ML (PMX) 50 ML IVPB (09:20)
[2018-10-09] MEDS: ENOXAPARIN 60 MG/0.6 ML SYG SC (09:27)
[2018-10-09 09:48] LABS: ADD UMIC YES; UR AMORPHOUS CRYSTAL FEW /HPF (NONE SEEN); UR ASCORBIC ACID 40 mg/dL (NEGATIVE); UR BACTERIA FEW /HPF (NONE SEEN); UR BILIRUBIN (Dip) NEGATIVE (NEGATIVE); UR BLOOD (Dip) 2+ mg/dL (NEGATIVE); UR CALCIUM OXALATE CRYSTAL MANY /HPF (NONE SEEN); UR CLARITY CLOUDY (CLEAR); UR COLOR YELLOW (YELLOW); UR GLUCOSE (Dip) NEGATIVE (NEGATIVE); UR KETONES (Dip) NEGATIVE (NEGATIVE); UR LEUKOCYTE ESTERASE (Dip) 2+ Leu/ul (NEGATIVE); UR NITRITE (Dip) NEGATIVE (NEGATIVE); UR RBC 47 /HPF (0-5); UR SPECIFIC GRAVITY (Dip) 1.016 (1.003-1.030); UR SQUAMOUS EPITHELIAL CELL MANY /HPF (FEW); UR TOTAL PROTEIN (Dip) 1+ mg/dl (NEGATIVE); UR UROBILINOGEN (Dip) NEGATIVE (NEGATIVE); UR WBC > 182 /HPF (0-5)
[2018-10-09 10:01] LABS: SODIUM,URINE RANDOM 44 mmol/L (30-90)
[2018-10-09 10:01] LABS: CREATININE,URINE RANDOM 68.73 mg/dl (20-320)
[2018-10-09] MEDS ORDERED: hydrALAzine 20 MG INJ IV (11:00)
[2018-10-09] MEDS ORDERED: VANCOMYCIN IV PER PHARMACY XX (13:00)
[2018-10-09] MEDS: VANCOMYCIN 1 GM 250 ML IVPB (14:10)
[2018-10-09] MEDS: MIDAZOLAM 1 MG/ML 2 ML INJ IV (16:35)
[2018-10-09] MEDS ORDERED: PHENYTOIN 1,000 MG in SOD CHLORIDE 0.9% 100 ML IV (18:30)
[2018-10-09] MEDS: PHENYTOIN 1,000 MG in SOD CHLORIDE 0.9% 100 ML IV (19:29)
[2018-10-09] MEDS: MUPIROCIN 2% 22 GM OINT TOP (21:15)
[2018-10-09 21:28] LABS: PHENYTOIN (DILANTIN) 10.3 ug/ml (10.0-20.0)
[2018-10-10 05:22] LABS: ADD MAN DIFF? NO
[2018-10-10 06:11] LABS: PHENYTOIN (DILANTIN) 7.4 ug/ml (10.0-20.0)
[2018-10-10 06:20] LABS: ANION GAP 7 (5-13); BLOOD UREA NITROGEN 44 mg/dl (7-20); CALCIUM 8.2 mg/dl (8.4-10.2); CARBON DIOXIDE 26 mmol/L (21-31); CHLORIDE 106 mmol/L (97-110); CREATININE 1.51 mg/dl (0.44-1.00); GLUCOSE 78 mg/dl (70-220); MAGNESIUM 1.5 mg/dl (1.7-2.5); PHOSPHORUS 3.7 mg/dl (2.5-4.9); POTASSIUM 3.7 mmol/L (3.5-5.1); SODIUM 139 mmol/L (135-144)
[2018-10-10] MEDS: PANTOPRAZOLE 40 MG INJ IV (06:27)
[2018-10-10] MEDS: PHENYTOIN 100 MG INJ IV ×2 (06:27→14:07)
[2018-10-10 08:17] LABS: HEMOGLOBIN 10.2 g/dl (12.0-16.0); LYMPHOCYTES # 0.7 10^3/ul (0.8-2.9); LYMPHOCYTES % 8.1 % (15.0-51.0); MEAN CORPUSCULAR VOLUME 103.3 fl (82.0-101.0); MEAN PLATELET VOLUME 10.3 fl (7.4-10.4); MONOCYTE # 0.3 10^3/ul (0.3-0.9); MONOCYTES % 3.8 % (0.0-11.0); NEUTROPHIL # 7.3 10^3/ul (1.6-7.5); NEUTROPHILS % 87.5 % (39.0-77.0); PLATELET COUNT 150 10^3/UL (140-415); RED BLOOD COUNT 3.29 10^6/ul (4.20-5.40); RED CELL DISTRIBUTION WIDTH 15.7 % (11.5-14.5)
[2018-10-10 08:17] LABS: WHITE BLOOD COUNT 8.4 10^3/ul (4.8-10.8)
[2018-10-10] MEDS: CEFEPIME 1GM/50 ML (PMX) 50 ML IVPB (09:29)
[2018-10-10] MEDS: ENOXAPARIN 60 MG/0.6 ML SYG SC (09:33)
[2018-10-10] MEDS: LEVALBUTEROL (NEB) 1.25 MG/0.5 ML AMP HHN ×3 (09:48→19:17)
[2018-10-10] MEDS: IPRATROPIUM (NEB) 0.5 MG/2.5 ML AMP HHN ×3 (09:48→19:17)
[2018-10-10] MEDS: BUDESONIDE (NEB) 0.5MG/2ML AMP HHN ×2 (09:49→19:17)
[2018-10-10] MEDS: MAGNESIUM SULFATE 2 GM/50 ML 50 ML IVPB (10:00)
[2018-10-10] MEDS: MUPIROCIN 2% 22 GM OINT TOP ×2 (10:00→20:14)
[2018-10-10] MEDS: ASPIRIN 81 MG TAB PO (10:00)
[2018-10-10] MEDS ORDERED: MIDAZOLAM 1 MG/ML 2 ML INJ IV (11:30)
[2018-10-10 15:21] LABS: CREATININE, RANDOM URINE 70 mg/dL (20-275); MICROALBUMIN 12.5 mg/dL; MICROALBUMIN/CREATININE RATIO 179 (<30)
[2018-10-10 17:14] LABS: RAPID PLASMA REAGIN NONREACTIVE (NR)
[2018-10-10] MEDS: PHENYTOIN 500 MG in SOD CHLORIDE 0.9% 100 ML IV (20:14)
[2018-10-10] MEDS: SOD CHLORIDE 0.9% 1,000 ML IV (22:34)
[2018-10-11] MEDS: LEVALBUTEROL (NEB) 1.25 MG/0.5 ML AMP HHN ×4 (01:24→19:43)
[2018-10-11] MEDS: IPRATROPIUM (NEB) 0.5 MG/2.5 ML AMP HHN ×4 (01:24→19:43)
[2018-10-11] MEDS: MIDAZOLAM 1 MG/ML 2 ML INJ IV (02:40)
[2018-10-11 05:12] LABS: ADD MAN DIFF? NO
[2018-10-11 05:18] LABS: WHITE BLOOD COUNT 8.4 10^3/ul (4.8-10.8)
[2018-10-11 05:18] LABS: ABNORMAL IP MESSAGE 1; HEMATOCRIT 34.9 % (37.0-47.0); HEMOGLOBIN 10.5 g/dl (12.0-16.0); LYMPHOCYTES # 0.4 10^3/ul (0.8-2.9); LYMPHOCYTES % 5.2 % (15.0-51.0); MEAN CORPUSCULAR HEMOGLOBIN 30.3 pg (29.0-33.0); MEAN CORPUSCULAR HGB CONC 30.1 g/dl (32.0-37.0); MEAN CORPUSCULAR VOLUME 100.9 fl (82.0-101.0); MEAN PLATELET VOLUME 10.5 fl (7.4-10.4); MONOCYTE # 0.2 10^3/ul (0.3-0.9); MONOCYTES % 2.8 % (0.0-11.0); NEUTROPHIL # 7.7 10^3/ul (1.6-7.5); NEUTROPHILS % 91.4 % (39.0-77.0); PLATELET COUNT 132 10^3/UL (140-415); RED BLOOD COUNT 3.46 10^6/ul (4.20-5.40); RED CELL DISTRIBUTION WIDTH 15.9 % (11.5-14.5)
[2018-10-11 05:28] LABS: POSITIVE DIFF @See below
[2018-10-11] MEDS: PANTOPRAZOLE 40 MG INJ IV (05:44)
[2018-10-11] MEDS: PHENYTOIN 100 MG INJ IV ×2 (05:44→18:55)
[2018-10-11 05:48] LABS: ALANINE AMINOTRANSFERASE 22 IU/L (13-69); ALBUMIN 2.4 g/dl (3.3-4.9); ALBUMIN/GLOBULIN RATIO 0.96; ALKALINE PHOSPHATASE 48 IU/L (42-121); ANION GAP 6 (5-13); ASPARTATE AMINO TRANSFERASE 14 IU/L (15-46); BILIRUBIN,INDIRECT 0.4 mg/dl (0-1.1); BILIRUBIN,TOTAL 0.4 mg/dl (0.2-1.3); BLOOD UREA NITROGEN 41 mg/dl (7-20); CARBON DIOXIDE 26 mmol/L (21-31); CHLORIDE 110 mmol/L (97-110); GLUCOSE 123 mg/dl (70-220); POTASSIUM 3.5 mmol/L (3.5-5.1); SODIUM 142 mmol/L (135-144); TOTAL PROTEIN 4.9 g/dl (6.1-8.1)
[2018-10-11 05:49] LABS: MAGNESIUM 1.8 mg/dl (1.7-2.5)
[2018-10-11 05:52] LABS: PHENYTOIN (DILANTIN) 8.2 ug/ml (10.0-20.0)
[2018-10-11] MEDS: BALSAM PERU/CASTOR OIL 60 GM TUBE TOP (08:32)
[2018-10-11] MEDS: CEFEPIME 1GM/50 ML (PMX) 50 ML IVPB (08:32)
[2018-10-11] MEDS: MUPIROCIN 2% 22 GM OINT TOP ×2 (08:32→20:41)
[2018-10-11] MEDS: ASPIRIN 81 MG TAB PO (08:32)
[2018-10-11] MEDS: ENOXAPARIN 60 MG/0.6 ML SYG SC (08:41)
[2018-10-11] MEDS: BUDESONIDE (NEB) 0.5MG/2ML AMP HHN ×2 (08:58→19:43)
[2018-10-11] MEDS: VANCOMYCIN 1 GM 250 ML IVPB (15:00)
[2018-10-11] MEDS: SOD CHLORIDE 0.9% 1,000 ML IV (21:56)
[2018-10-11] MEDS: PHENYTOIN 300 MG in SOD CHLORIDE 0.9% 50 ML IV (23:04)
[2018-10-12] MEDS: IPRATROPIUM (NEB) 0.5 MG/2.5 ML AMP HHN ×4 (01:18→19:20)
[2018-10-12] MEDS: LEVALBUTEROL (NEB) 1.25 MG/0.5 ML AMP HHN ×4 (01:18→19:20)
[2018-10-12 05:35] LABS: ADD MAN DIFF? NO
[2018-10-12] MEDS: LANSOPRAZOLE 30 MG CAP GTB (05:36)
[2018-10-12] MEDS: PHENYTOIN 100 MG INJ IV ×3 (05:37→17:58)
[2018-10-12] MEDS: SOD CHLORIDE 0.9% 1,000 ML IV (05:50)
[2018-10-12 05:58] LABS: EOSINOPHILS % 0.5 % (0.0-7.0); HEMATOCRIT 33.6 % (37.0-47.0); HEMOGLOBIN 9.9 g/dl (12.0-16.0); LYMPHOCYTES # 0.6 10^3/ul (0.8-2.9); LYMPHOCYTES % 9.9 % (15.0-51.0); MEAN CORPUSCULAR HEMOGLOBIN 30.1 pg (29.0-33.0); MEAN CORPUSCULAR HGB CONC 29.5 g/dl (32.0-37.0); MEAN CORPUSCULAR VOLUME 102.1 fl (82.0-101.0); MEAN PLATELET VOLUME 10.4 fl (7.4-10.4); MONOCYTE # 0.2 10^3/ul (0.3-0.9); MONOCYTES % 3.7 % (0.0-11.0); NEUTROPHIL # 5.3 10^3/ul (1.6-7.5); NEUTROPHILS % 85.4 % (39.0-77.0); PLATELET COUNT 110 10^3/UL (140-415); RED BLOOD COUNT 3.29 10^6/ul (4.20-5.40); RED CELL DISTRIBUTION WIDTH 15.9 % (11.5-14.5)
[2018-10-12 05:58] LABS: WHITE BLOOD COUNT 6.2 10^3/ul (4.8-10.8)
[2018-10-12 06:38] LABS: ANION GAP 5 (5-13); BLOOD UREA NITROGEN 38 mg/dl (7-20); CALCIUM 7.8 mg/dl (8.4-10.2); CARBON DIOXIDE 29 mmol/L (21-31); CHLORIDE 111 mmol/L (97-110); CREATININE 1.22 mg/dl (0.44-1.00); GLUCOSE 104 mg/dl (70-220); MAGNESIUM 1.7 mg/dl (1.7-2.5); PHOSPHORUS 2.2 mg/dl (2.5-4.9); POTASSIUM 3.7 mmol/L (3.5-5.1); SODIUM 145 mmol/L (135-144)
[2018-10-12 06:41] LABS: PHENYTOIN (DILANTIN) 8.8 ug/ml (10.0-20.0)
[2018-10-12] MEDS: BUDESONIDE (NEB) 0.5MG/2ML AMP HHN ×2 (08:10→19:20)
[2018-10-12] MEDS: BALSAM PERU/CASTOR OIL 60 GM TUBE TOP (09:34)
[2018-10-12] MEDS: MUPIROCIN 2% 22 GM OINT TOP ×2 (09:34→22:25)
[2018-10-12] MEDS: ASPIRIN 81 MG TAB PO (09:34)
[2018-10-12] MEDS: ENOXAPARIN 60 MG/0.6 ML SYG SC (09:38)
[2018-10-12] MEDS: CEFEPIME 1GM/50 ML (PMX) 50 ML IVPB (11:02)
[2018-10-12] MEDS: METOPROLOL 25 MG TAB PO ×2 (13:32→22:24)
[2018-10-12] MEDS: PHENYTOIN 300 MG in SOD CHLORIDE 0.9% 50 ML IV (16:52)
[2018-10-12] MEDS: MIDAZOLAM 1 MG/ML 2 ML INJ IV (22:28)
[2018-10-13] MEDS: LEVALBUTEROL (NEB) 1.25 MG/0.5 ML AMP HHN ×4 (01:50→20:22)
[2018-10-13] MEDS: IPRATROPIUM (NEB) 0.5 MG/2.5 ML AMP HHN ×4 (01:50→20:22)
[2018-10-13 05:23] LABS: ADD MAN DIFF? NO
[2018-10-13] MEDS: LANSOPRAZOLE 30 MG CAP GTB (05:34)
[2018-10-13] MEDS: PHENYTOIN 100 MG INJ IV ×2 (05:34→21:30)
[2018-10-13 05:40] LABS: WHITE BLOOD COUNT 6.5 10^3/ul (4.8-10.8)
[2018-10-13 05:40] LABS: ABNORMAL IP MESSAGE 1; EOSINOPHILS # 0.1 10^3/ul (0.0-0.5); EOSINOPHILS % 1.4 % (0.0-7.0); HEMATOCRIT 34.5 % (37.0-47.0); HEMOGLOBIN 10.3 g/dl (12.0-16.0); LYMPHOCYTES # 0.6 10^3/ul (0.8-2.9); LYMPHOCYTES % 9.8 % (15.0-51.0); MEAN CORPUSCULAR HEMOGLOBIN 30.7 pg (29.0-33.0); MEAN CORPUSCULAR HGB CONC 29.9 g/dl (32.0-37.0); MEAN CORPUSCULAR VOLUME 102.7 fl (82.0-101.0); MEAN PLATELET VOLUME 10.7 fl (7.4-10.4); MONOCYTE # 0.2 10^3/ul (0.3-0.9); MONOCYTES % 3.1 % (0.0-11.0); NEUTROPHIL # 5.6 10^3/ul (1.6-7.5); NEUTROPHILS % 85.2 % (39.0-77.0); PLATELET COUNT 93 10^3/UL (140-415); RED BLOOD COUNT 3.36 10^6/ul (4.20-5.40); RED CELL DISTRIBUTION WIDTH 16.3 % (11.5-14.5)
[2018-10-13 05:42] LABS: POSITIVE DIFF @See below
[2018-10-13 06:00] LABS: PHENYTOIN (DILANTIN) 8.9 ug/ml (10.0-20.0)
[2018-10-13 06:07] LABS: ANION GAP 7 (5-13); BLOOD UREA NITROGEN 36 mg/dl (7-20); CALCIUM 7.7 mg/dl (8.4-10.2); CARBON DIOXIDE 28 mmol/L (21-31); CHLORIDE 111 mmol/L (97-110); CREATININE 1.12 mg/dl (0.44-1.00); GLUCOSE 100 mg/dl (70-220); MAGNESIUM 1.6 mg/dl (1.7-2.5); POTASSIUM 3.6 mmol/L (3.5-5.1); SODIUM 146 mmol/L (135-144)
[2018-10-13] MEDS: BUDESONIDE (NEB) 0.5MG/2ML AMP HHN ×2 (08:34→20:22)
[2018-10-13] MEDS: METOPROLOL 25 MG TAB PO ×2 (08:43→21:31)
[2018-10-13] MEDS: NEUTRA-PHOS 250 MG PACKET PO ×2 (08:43→21:31)
[2018-10-13] MEDS: ASPIRIN 81 MG TAB PO (08:43)
[2018-10-13] MEDS: ENOXAPARIN 60 MG/0.6 ML SYG SC (08:51)
[2018-10-13] MEDS: BALSAM PERU/CASTOR OIL 60 GM TUBE TOP (09:24)
[2018-10-13] MEDS: CEFEPIME 1GM/50 ML (PMX) 50 ML IVPB (09:24)
[2018-10-13] MEDS: MUPIROCIN 2% 22 GM OINT TOP ×2 (09:24→21:31)
[2018-10-13] MEDS: MAGNESIUM SULFATE 2 GM/50 ML 50 ML IVPB (11:23)
[2018-10-13] MEDS: LORAZEPAM 4 MG/ML VIAL IV (15:01)
[2018-10-13 15:15] LABS: VANCOMYCIN,TROUGH 9.9 ug/ml (10.0-20.0)
[2018-10-13] MEDS: PHENYTOIN 750 MG in SOD CHLORIDE 0.9% 100 ML IV (15:45)
[2018-10-13] MEDS: VANCOMYCIN 1 GM 250 ML IVPB (16:40)
[2018-10-13 18:48] LABS: PHENYTOIN (DILANTIN) 9.9 ug/ml (10.0-20.0)
[2018-10-14] MEDS: IPRATROPIUM (NEB) 0.5 MG/2.5 ML AMP HHN ×4 (01:17→19:34)
[2018-10-14] MEDS: LEVALBUTEROL (NEB) 1.25 MG/0.5 ML AMP HHN ×4 (01:18→19:34)
[2018-10-14] MEDS: LANSOPRAZOLE 30 MG CAP GTB (05:34)
[2018-10-14 06:13] LABS: ADD MAN DIFF? NO
[2018-10-14 06:21] LABS: ABNORMAL IP MESSAGE 1; BASOPHILS % 0.1 % (0.0-2.0); EOSINOPHILS # 0.1 10^3/ul (0.0-0.5); EOSINOPHILS % 1.3 % (0.0-7.0); HEMATOCRIT 35.1 % (37.0-47.0); LYMPHOCYTES # 0.9 10^3/ul (0.8-2.9); LYMPHOCYTES % 11.2 % (15.0-51.0); MEAN CORPUSCULAR HEMOGLOBIN 30.3 pg (29.0-33.0); MEAN CORPUSCULAR HGB CONC 28.5 g/dl (32.0-37.0); MEAN CORPUSCULAR VOLUME 106.4 fl (82.0-101.0); MEAN PLATELET VOLUME 11.8 fl (7.4-10.4); MONOCYTE # 0.3 10^3/ul (0.3-0.9); MONOCYTES % 4.2 % (0.0-11.0); NEUTROPHIL # 6.3 10^3/ul (1.6-7.5); NEUTROPHILS % 82.7 % (39.0-77.0); PLATELET COUNT 87 10^3/UL (140-415); RED CELL DISTRIBUTION WIDTH 16.1 % (11.5-14.5)
[2018-10-14 06:21] LABS: WHITE BLOOD COUNT 7.6 10^3/ul (4.8-10.8)
[2018-10-14 06:34] LABS: POSITIVE DIFF @See below
[2018-10-14 06:45] LABS: ANION GAP 9 (5-13); BLOOD UREA NITROGEN 36 mg/dl (7-20); CALCIUM 7.8 mg/dl (8.4-10.2); CARBON DIOXIDE 29 mmol/L (21-31); CHLORIDE 108 mmol/L (97-110); CREATININE 0.97 mg/dl (0.44-1.00); GLUCOSE 95 mg/dl (70-220); MAGNESIUM 1.9 mg/dl (1.7-2.5); PHOSPHORUS 1.8 mg/dl (2.5-4.9); POTASSIUM 4.2 mmol/L (3.5-5.1); SODIUM 146 mmol/L (135-144)
[2018-10-14] MEDS: BUDESONIDE (NEB) 0.5MG/2ML AMP HHN ×2 (08:21→19:34)
[2018-10-14] MEDS: CEFEPIME 1GM/50 ML (PMX) 50 ML IVPB (09:17)
[2018-10-14] MEDS: NEUTRA-PHOS 250 MG PACKET PO ×2 (09:17→23:39)
[2018-10-14] MEDS: APIXABAN 5 MG TABLET PO ×2 (09:18→23:40)
[2018-10-14] MEDS: METOPROLOL 25 MG TAB PO ×2 (09:18→23:40)
[2018-10-14] MEDS: PHENYTOIN 100 MG INJ IV ×3 (09:18→23:41)
[2018-10-14] MEDS: BALSAM PERU/CASTOR OIL 60 GM TUBE TOP (09:19)
[2018-10-14] MEDS: MUPIROCIN 2% 22 GM OINT TOP ×2 (09:19→23:41)
[2018-10-14 11:10] LABS: PHENYTOIN (DILANTIN) 9.8 ug/ml (10.0-20.0)
[2018-10-14] MEDS: PHENYTOIN 500 MG in SOD CHLORIDE 0.9% 100 ML IV (17:53)
[2018-10-14] MEDS: FUROSEMIDE 20 MG INJ IV (17:53)
[2018-10-15] MEDS: IPRATROPIUM (NEB) 0.5 MG/2.5 ML AMP HHN ×4 (01:10→19:40)
[2018-10-15] MEDS: LEVALBUTEROL (NEB) 1.25 MG/0.5 ML AMP HHN ×4 (01:10→19:40)
[2018-10-15] MEDS: LANSOPRAZOLE 30 MG CAP GTB (05:06)
[2018-10-15] MEDS: FUROSEMIDE 20 MG INJ IV ×2 (05:59→18:40)
[2018-10-15 06:37] LABS: ADD MAN DIFF? NO
[2018-10-15 06:42] LABS: WHITE BLOOD COUNT 6.4 10^3/ul (4.8-10.8)
[2018-10-15 06:42] LABS: ABNORMAL IP MESSAGE 1; BASOPHILS % 0.2 % (0.0-2.0); EOSINOPHILS # 0.1 10^3/ul (0.0-0.5); EOSINOPHILS % 1.1 % (0.0-7.0); HEMATOCRIT 33.4 % (37.0-47.0); HEMOGLOBIN 9.6 g/dl (12.0-16.0); LYMPHOCYTES # 0.8 10^3/ul (0.8-2.9); LYMPHOCYTES % 12.3 % (15.0-51.0); MEAN CORPUSCULAR HGB CONC 28.7 g/dl (32.0-37.0); MEAN CORPUSCULAR VOLUME 104.4 fl (82.0-101.0); MEAN PLATELET VOLUME 11.9 fl (7.4-10.4); MONOCYTE # 0.2 10^3/ul (0.3-0.9); MONOCYTES % 3.7 % (0.0-11.0); NEUTROPHIL # 5.3 10^3/ul (1.6-7.5); NEUTROPHILS % 82.1 % (39.0-77.0); PLATELET COUNT 95 10^3/UL (140-415); RED CELL DISTRIBUTION WIDTH 16.3 % (11.5-14.5)
[2018-10-15 06:44] LABS: POSITIVE DIFF @See below
[2018-10-15 07:15] LABS: PHENYTOIN (DILANTIN) 13.3 ug/ml (10.0-20.0)
[2018-10-15 07:25] LABS: ANION GAP 7 (5-13); BLOOD UREA NITROGEN 36 mg/dl (7-20); CALCIUM 7.3 mg/dl (8.4-10.2); CARBON DIOXIDE 28 mmol/L (21-31); CHLORIDE 106 mmol/L (97-110); CREATININE 0.92 mg/dl (0.44-1.00); GLUCOSE 104 mg/dl (70-220); MAGNESIUM 1.8 mg/dl (1.7-2.5); PHOSPHORUS 2.5 mg/dl (2.5-4.9); SODIUM 141 mmol/L (135-144)
[2018-10-15] MEDS: BUDESONIDE (NEB) 0.5MG/2ML AMP HHN ×2 (08:02→19:40)
[2018-10-15] MEDS: PHENYTOIN 100 MG INJ IV ×2 (09:00→21:55)
[2018-10-15] MEDS: METOPROLOL 25 MG TAB PO ×2 (09:00→21:56)
[2018-10-15] MEDS: BALSAM PERU/CASTOR OIL 60 GM TUBE TOP (09:00)
[2018-10-15] MEDS: MUPIROCIN 2% 22 GM OINT TOP ×2 (09:00→21:55)
[2018-10-15] MEDS: NEUTRA-PHOS 250 MG PACKET PO ×2 (10:20→21:57)
[2018-10-15] MEDS: CEFEPIME 1GM/50 ML (PMX) 50 ML IVPB (10:20)
[2018-10-15] MEDS: APIXABAN 5 MG TABLET PO ×2 (10:20→21:57)
[2018-10-15] MEDS: PHENYTOIN 250 MG INJ IV (13:00)
[2018-10-15] MEDS ORDERED: PHENYTOIN 100 MG INJ IV (13:00)
[2018-10-15] MEDS ORDERED: VANCOMYCIN 1.25 GM in SOD CHLORIDE 0.9% 250 ML IVPB (16:00)
[2018-10-15] MEDS: TRIMETHOPRIM/SULFAMETHOX (DS) TAB NGT (21:57)
[2018-10-16] MEDS: LEVALBUTEROL (NEB) 1.25 MG/0.5 ML AMP HHN ×4 (01:14→20:09)
[2018-10-16] MEDS: IPRATROPIUM (NEB) 0.5 MG/2.5 ML AMP HHN ×4 (01:14→20:09)
[2018-10-16] MEDS: LANSOPRAZOLE 30 MG CAP GTB (06:22)
[2018-10-16] MEDS: FUROSEMIDE 20 MG INJ IV ×2 (06:23→18:25)
[2018-10-16 06:46] LABS: ANION GAP 4 (5-13); BLOOD UREA NITROGEN 37 mg/dl (7-20); CALCIUM 7.3 mg/dl (8.4-10.2); CARBON DIOXIDE 31 mmol/L (21-31); CHLORIDE 103 mmol/L (97-110); CREATININE 0.98 mg/dl (0.44-1.00); GLUCOSE 101 mg/dl (70-220); MAGNESIUM 1.6 mg/dl (1.7-2.5); PHOSPHORUS 2.5 mg/dl (2.5-4.9); POTASSIUM 4.3 mmol/L (3.5-5.1); SODIUM 138 mmol/L (135-144)
[2018-10-16] MEDS: BUDESONIDE (NEB) 0.5MG/2ML AMP HHN ×2 (08:16→20:09)
[2018-10-16] MEDS: NEUTRA-PHOS 250 MG PACKET PO ×2 (09:00→20:56)
[2018-10-16] MEDS: BALSAM PERU/CASTOR OIL 60 GM TUBE TOP (09:00)
[2018-10-16] MEDS: PHENYTOIN 100 MG INJ IV ×2 (09:00→20:54)
[2018-10-16] MEDS: MUPIROCIN 2% 22 GM OINT TOP ×2 (09:00→20:56)
[2018-10-16] MEDS: APIXABAN 5 MG TABLET PO ×2 (12:22→20:55)
[2018-10-16] MEDS: TRIMETHOPRIM/SULFAMETHOX (DS) TAB NGT ×2 (12:22→20:54)
[2018-10-16] MEDS: MAGNESIUM SULFATE 2 GM/50 ML 50 ML IVPB (12:23)
[2018-10-16] MEDS: CEFEPIME 1GM/50 ML (PMX) 50 ML IVPB (12:23)
[2018-10-16] MEDS: METOPROLOL 25 MG TAB PO ×2 (12:23→20:56)
[2018-10-16] MEDS: PHENYTOIN 250 MG INJ IV (12:24)
[2018-10-16] MEDS ORDERED: morphine LIQ (10 MG/5 ML) CUP PO (14:30)
[2018-10-16] MEDS ORDERED: LORAZEPAM 4 MG/ML VIAL IV ×2 (15:00)
[2018-10-16] MEDS: DOCUSATE SODIUM 10 MG/ML (10ML CUP) NGT (20:54)
[2018-10-16] MEDS ORDERED: DOCUSATE SODIUM 100 MG CAP PO (21:00)
[2018-10-17] MEDS: IPRATROPIUM (NEB) 0.5 MG/2.5 ML AMP HHN ×4 (01:17→20:36)
[2018-10-17] MEDS: LEVALBUTEROL (NEB) 1.25 MG/0.5 ML AMP HHN ×4 (01:17→20:36)
[2018-10-17] MEDS: LANSOPRAZOLE 30 MG CAP GTB (06:08)
[2018-10-17] MEDS: FUROSEMIDE 20 MG INJ IV ×2 (06:10→18:00)
[2018-10-17 06:17] LABS: ADD MAN DIFF? NO
[2018-10-17 06:45] LABS: ANION GAP 10 (5-13); BLOOD UREA NITROGEN 38 mg/dl (7-20); CALCIUM 7.8 mg/dl (8.4-10.2); CARBON DIOXIDE 29 mmol/L (21-31); CHLORIDE 101 mmol/L (97-110); CREATININE 1.07 mg/dl (0.44-1.00); GLUCOSE 96 mg/dl (70-220); MAGNESIUM 1.7 mg/dl (1.7-2.5); PHOSPHORUS 3.1 mg/dl (2.5-4.9); POTASSIUM 4.3 mmol/L (3.5-5.1); SODIUM 140 mmol/L (135-144)
[2018-10-17 06:48] LABS: ABNORMAL IP MESSAGE 1; BASOPHILS % 0.2 % (0.0-2.0); EOSINOPHILS # 0.1 10^3/ul (0.0-0.5); EOSINOPHILS % 0.9 % (0.0-7.0); HEMATOCRIT 33.7 % (37.0-47.0); HEMOGLOBIN 9.9 g/dl (12.0-16.0); LYMPHOCYTES # 0.7 10^3/ul (0.8-2.9); LYMPHOCYTES % 12.3 % (15.0-51.0); MEAN CORPUSCULAR HEMOGLOBIN 30.2 pg (29.0-33.0); MEAN CORPUSCULAR HGB CONC 29.4 g/dl (32.0-37.0); MEAN CORPUSCULAR VOLUME 102.7 fl (82.0-101.0); MEAN PLATELET VOLUME 12.2 fl (7.4-10.4); MONOCYTE # 0.2 10^3/ul (0.3-0.9); MONOCYTES % 3.6 % (0.0-11.0); NEUTROPHIL # 4.8 10^3/ul (1.6-7.5); NEUTROPHILS % 82.3 % (39.0-77.0); PLATELET COUNT 78 10^3/UL (140-415); RED BLOOD COUNT 3.28 10^6/ul (4.20-5.40); RED CELL DISTRIBUTION WIDTH 15.9 % (11.5-14.5)
[2018-10-17 06:48] LABS: WHITE BLOOD COUNT 5.8 10^3/ul (4.8-10.8)
[2018-10-17 06:50] LABS: POSITIVE DIFF @See below
[2018-10-17 06:56] LABS: PHENYTOIN (DILANTIN) 6.4 ug/ml (10.0-20.0)
[2018-10-17] MEDS: BUDESONIDE (NEB) 0.5MG/2ML AMP HHN ×2 (08:30→20:36)
[2018-10-17] MEDS: TRIMETHOPRIM/SULFAMETHOX (DS) TAB NGT ×2 (09:48→21:11)
[2018-10-17] MEDS: PHENYTOIN 100 MG INJ IV ×2 (09:48→21:14)
[2018-10-17] MEDS: APIXABAN 5 MG TABLET PO ×2 (09:48→21:13)
[2018-10-17] MEDS: DOCUSATE SODIUM 10 MG/ML (10ML CUP) NGT ×2 (09:48→21:14)
[2018-10-17] MEDS: CEFEPIME 1GM/50 ML (PMX) 50 ML IVPB (09:48)
[2018-10-17] MEDS: METOPROLOL 25 MG TAB PO ×2 (09:48→21:12)
[2018-10-17] MEDS: NEUTRA-PHOS 250 MG PACKET PO ×2 (09:49→21:11)
[2018-10-17] MEDS: BALSAM PERU/CASTOR OIL 60 GM TUBE TOP (09:49)
[2018-10-17] MEDS: MUPIROCIN 2% 22 GM OINT TOP ×2 (09:49→21:13)
[2018-10-17] MEDS: BISACODYL 10 MG SUPP PR (12:21)
[2018-10-17] MEDS: PHENYTOIN 250 MG INJ IV (13:00)
[2018-10-17] MEDS: FUROSEMIDE 20 MG TAB NGT (19:30)
[2018-10-17] MEDS: PHENYTOIN (100 MG/4 ML) CUP NGT (21:00)
[2018-10-18] MEDS: IPRATROPIUM (NEB) 0.5 MG/2.5 ML AMP HHN ×4 (02:45→19:30)
[2018-10-18] MEDS: LEVALBUTEROL (NEB) 1.25 MG/0.5 ML AMP HHN ×4 (02:45→19:31)
[2018-10-18] MEDS: LANSOPRAZOLE 30 MG CAP GTB (05:24)
[2018-10-18] MEDS: FUROSEMIDE 20 MG INJ IV ×2 (05:31→17:11)
[2018-10-18] MEDS: BUDESONIDE (NEB) 0.5MG/2ML AMP HHN ×2 (08:10→19:30)
[2018-10-18] MEDS: NEUTRA-PHOS 250 MG PACKET PO ×2 (08:53→22:49)
[2018-10-18] MEDS: CEFEPIME 1GM/50 ML (PMX) 50 ML IVPB (08:53)
[2018-10-18] MEDS: PHENYTOIN 100 MG INJ IV ×2 (08:53→21:00)
[2018-10-18] MEDS: METOPROLOL 25 MG TAB PO ×2 (08:54→21:00)
[2018-10-18] MEDS: DOCUSATE SODIUM 10 MG/ML (10ML CUP) NGT ×2 (08:54→22:49)
[2018-10-18] MEDS: TRIMETHOPRIM/SULFAMETHOX (DS) TAB NGT (08:54)
[2018-10-18] MEDS: APIXABAN 5 MG TABLET PO ×2 (08:54→22:50)
[2018-10-18] MEDS: MUPIROCIN 2% 22 GM OINT TOP ×2 (08:55→21:00)
[2018-10-18] MEDS: BALSAM PERU/CASTOR OIL 60 GM TUBE TOP (08:55)
[2018-10-18 11:07] LABS: ANION GAP 8 (5-13); BLOOD UREA NITROGEN 40 mg/dl (7-20); CALCIUM 7.6 mg/dl (8.4-10.2); CARBON DIOXIDE 27 mmol/L (21-31); CHLORIDE 102 mmol/L (97-110); CREATININE 1.13 mg/dl (0.44-1.00); GLUCOSE 102 mg/dl (70-220); PHOSPHORUS 3.7 mg/dl (2.5-4.9); POTASSIUM 4.7 mmol/L (3.5-5.1); SODIUM 137 mmol/L (135-144)
[2018-10-18 11:25] LABS: PHENYTOIN (DILANTIN) 6.9 ug/ml (10.0-20.0)
[2018-10-18] MEDS ORDERED: PHENYTOIN (100 MG/4 ML) CUP NGT (13:00)
[2018-10-18] MEDS: PHENYTOIN 250 MG INJ IV (15:51)
[2018-10-18] MEDS: PHENYTOIN 1,000 MG in SOD CHLORIDE 0.9% 100 ML IV (17:12)
[2018-10-18 23:26] LABS: HEPARIN INDUCED PLATELET AB NEGATIVE (NEGATIVE)
[2018-10-19] MEDS: LEVALBUTEROL (NEB) 1.25 MG/0.5 ML AMP HHN ×4 (01:00→20:12)
[2018-10-19] MEDS: IPRATROPIUM (NEB) 0.5 MG/2.5 ML AMP HHN ×4 (01:00→20:12)
[2018-10-19 06:49] LABS: PHENYTOIN (DILANTIN) 5.1 ug/ml (10.0-20.0)
[2018-10-19] MEDS: FUROSEMIDE 20 MG INJ IV (06:56)
[2018-10-19] MEDS: LANSOPRAZOLE 30 MG CAP GTB (06:56)
[2018-10-19] MEDS: BUDESONIDE (NEB) 0.5MG/2ML AMP HHN ×2 (08:14→20:12)
[2018-10-19] MEDS: NEUTRA-PHOS 250 MG PACKET PO ×2 (08:47→22:14)
[2018-10-19] MEDS: DOCUSATE SODIUM 10 MG/ML (10ML CUP) NGT ×2 (08:47→22:12)
[2018-10-19] MEDS: PHENYTOIN 100 MG INJ IV ×2 (08:47→22:13)
[2018-10-19] MEDS: APIXABAN 5 MG TABLET PO ×2 (08:48→22:13)
[2018-10-19] MEDS: MUPIROCIN 2% 22 GM OINT TOP ×2 (08:48→22:15)
[2018-10-19] MEDS: BALSAM PERU/CASTOR OIL 60 GM TUBE TOP (08:49)
[2018-10-19] MEDS: METOPROLOL 25 MG TAB PO ×2 (08:51→21:00)
[2018-10-19] MEDS: LIDOCAINE 1% (MPF) 5 ML VIAL SC (14:20)
[2018-10-19] MEDS: PHENYTOIN 250 MG INJ IV (15:00)
[2018-10-20] MEDS: IPRATROPIUM (NEB) 0.5 MG/2.5 ML AMP HHN ×4 (02:01→20:02)
[2018-10-20] MEDS: LEVALBUTEROL (NEB) 1.25 MG/0.5 ML AMP HHN ×4 (02:01→20:02)
[2018-10-20] MEDS: LANSOPRAZOLE 30 MG CAP GTB (04:54)
[2018-10-20] MEDS: LEVETIRACETAM 1000 MG (PMX) 100 ML IVPB (05:32)
[2018-10-20 06:10] LABS: ADD MAN DIFF? NO
[2018-10-20 06:14] LABS: WHITE BLOOD COUNT 4.1 10^3/ul (4.8-10.8)
[2018-10-20 06:14] LABS: BASOPHILS % 0.2 % (0.0-2.0); EOSINOPHILS # 0.1 10^3/ul (0.0-0.5); EOSINOPHILS % 1.7 % (0.0-7.0); HEMATOCRIT 29.7 % (37.0-47.0); HEMOGLOBIN 8.6 g/dl (12.0-16.0); LYMPHOCYTES # 0.8 10^3/ul (0.8-2.9); LYMPHOCYTES % 19.2 % (15.0-51.0); MEAN CORPUSCULAR HEMOGLOBIN 30.1 pg (29.0-33.0); MEAN CORPUSCULAR VOLUME 103.8 fl (82.0-101.0); MONOCYTE # 0.2 10^3/ul (0.3-0.9); MONOCYTES % 3.9 % (0.0-11.0); NEUTROPHIL # 3.1 10^3/ul (1.6-7.5); NEUTROPHILS % 74.5 % (39.0-77.0); PLATELET COUNT 149 10^3/UL (140-415); RED BLOOD COUNT 2.86 10^6/ul (4.20-5.40); RED CELL DISTRIBUTION WIDTH 16.1 % (11.5-14.5)
[2018-10-20 06:56] LABS: ANION GAP 9 (5-13); BLOOD UREA NITROGEN 44 mg/dl (7-20); CALCIUM 8.1 mg/dl (8.4-10.2); CARBON DIOXIDE 30 mmol/L (21-31); CHLORIDE 100 mmol/L (97-110); CREATININE 1.23 mg/dl (0.44-1.00); GLUCOSE 91 mg/dl (70-220); POTASSIUM 4.6 mmol/L (3.5-5.1); SODIUM 139 mmol/L (135-144)
[2018-10-20] MEDS: BUDESONIDE (NEB) 0.5MG/2ML AMP HHN ×2 (08:01→20:02)
[2018-10-20] MEDS: DOCUSATE SODIUM 10 MG/ML (10ML CUP) NGT ×2 (08:29→20:44)
[2018-10-20] MEDS: NEUTRA-PHOS 250 MG PACKET PO ×2 (08:29→20:44)
[2018-10-20] MEDS: APIXABAN 5 MG TABLET PO ×2 (08:29→20:45)
[2018-10-20] MEDS: METOPROLOL 25 MG TAB PO ×2 (08:29→20:45)
[2018-10-20] MEDS: LEVETIRACETAM 500 MG TAB PO (08:29)
[2018-10-20] MEDS: MUPIROCIN 2% 22 GM OINT TOP ×2 (08:30→20:44)
[2018-10-20] MEDS: BALSAM PERU/CASTOR OIL 60 GM TUBE TOP (08:30)
[2018-10-20] MEDS: FUROSEMIDE 20 MG INJ IV (08:31)
[2018-10-20] MEDS: LEVETIRACETAM (100 MG/ML) 5ML CUP GTB (20:44)
[2018-10-21] MEDS: IPRATROPIUM (NEB) 0.5 MG/2.5 ML AMP HHN ×4 (01:23→19:18)
[2018-10-21] MEDS: LEVALBUTEROL (NEB) 1.25 MG/0.5 ML AMP HHN ×4 (01:23→19:18)
[2018-10-21] MEDS: LANSOPRAZOLE 30 MG CAP GTB (05:39)
[2018-10-21] MEDS: METOPROLOL 25 MG TAB PO ×2 (09:17→21:57)
[2018-10-21] MEDS: NEUTRA-PHOS 250 MG PACKET PO ×2 (09:17→21:56)
[2018-10-21] MEDS: APIXABAN 5 MG TABLET PO ×2 (09:17→21:57)
[2018-10-21] MEDS: LEVETIRACETAM (100 MG/ML) 5ML CUP GTB ×2 (09:17→21:56)
[2018-10-21] MEDS: FUROSEMIDE 20 MG INJ IV (09:17)
[2018-10-21] MEDS: DOCUSATE SODIUM 10 MG/ML (10ML CUP) NGT ×2 (09:17→21:56)
[2018-10-21] MEDS: MUPIROCIN 2% 22 GM OINT TOP ×2 (09:18→21:57)
[2018-10-21] MEDS: BALSAM PERU/CASTOR OIL 60 GM TUBE TOP (09:18)
[2018-10-21] MEDS: BUDESONIDE (NEB) 0.5MG/2ML AMP HHN ×2 (09:36→19:18)
[2018-10-22] MEDS: IPRATROPIUM (NEB) 0.5 MG/2.5 ML AMP HHN ×4 (01:00→19:51)
[2018-10-22] MEDS: LEVALBUTEROL (NEB) 1.25 MG/0.5 ML AMP HHN ×4 (01:00→19:51)
[2018-10-22] MEDS: LANSOPRAZOLE 30 MG CAP GTB (06:42)
[2018-10-22] MEDS: LEVETIRACETAM (100 MG/ML) 5ML CUP GTB ×2 (08:53→21:24)
[2018-10-22] MEDS: NEUTRA-PHOS 250 MG PACKET PO ×2 (08:53→21:25)
[2018-10-22] MEDS: DOCUSATE SODIUM 10 MG/ML (10ML CUP) NGT ×2 (08:53→21:25)
[2018-10-22] MEDS: METOPROLOL 25 MG TAB PO ×2 (08:54→21:25)
[2018-10-22] MEDS: APIXABAN 5 MG TABLET PO ×2 (08:54→21:26)
[2018-10-22] MEDS: FUROSEMIDE 20 MG INJ IV (08:54)
[2018-10-22] MEDS: BALSAM PERU/CASTOR OIL 60 GM TUBE TOP (08:55)
[2018-10-22] MEDS: MUPIROCIN 2% 22 GM OINT TOP ×2 (08:55→21:28)
[2018-10-22] MEDS: BUDESONIDE (NEB) 0.5MG/2ML AMP HHN ×2 (09:12→19:57)
[2018-10-23] MEDS: LEVALBUTEROL (NEB) 1.25 MG/0.5 ML AMP HHN ×4 (01:16→19:36)
[2018-10-23] MEDS: IPRATROPIUM (NEB) 0.5 MG/2.5 ML AMP HHN ×4 (01:16→19:36)
[2018-10-23] MEDS: LANSOPRAZOLE 30 MG CAP GTB (05:34)
[2018-10-23] MEDS: BUDESONIDE (NEB) 0.5MG/2ML AMP HHN ×2 (08:05→19:36)
[2018-10-23] MEDS: NEUTRA-PHOS 250 MG PACKET PO ×2 (09:34→21:38)
[2018-10-23] MEDS: LEVETIRACETAM (100 MG/ML) 5ML CUP GTB ×2 (09:34→21:36)
[2018-10-23] MEDS: DOCUSATE SODIUM 10 MG/ML (10ML CUP) NGT ×2 (09:34→21:36)
[2018-10-23] MEDS: FUROSEMIDE 20 MG INJ IV (09:35)
[2018-10-23] MEDS: APIXABAN 5 MG TABLET PO ×2 (09:35→21:38)
[2018-10-23] MEDS: METOPROLOL 25 MG TAB PO ×2 (09:36→21:38)
[2018-10-23] MEDS: BALSAM PERU/CASTOR OIL 60 GM TUBE TOP (09:38)
[2018-10-23] MEDS: MUPIROCIN 2% 22 GM OINT TOP ×2 (09:38→21:39)
[2018-10-24] MEDS: LEVALBUTEROL (NEB) 1.25 MG/0.5 ML AMP HHN ×4 (02:07→20:48)
[2018-10-24] MEDS: IPRATROPIUM (NEB) 0.5 MG/2.5 ML AMP HHN ×4 (02:07→20:48)
[2018-10-24] MEDS: LANSOPRAZOLE 30 MG CAP GTB (05:27)
[2018-10-24 08:14] LABS: ADD MAN DIFF? NO
[2018-10-24 08:15] LABS: BASOPHILS % 0.5 % (0.0-2.0); EOSINOPHILS # 0.1 10^3/ul (0.0-0.5); EOSINOPHILS % 1.9 % (0.0-7.0); HEMATOCRIT 27.6 % (37.0-47.0); HEMOGLOBIN 8.2 g/dl (12.0-16.0); LYMPHOCYTES # 0.8 10^3/ul (0.8-2.9); LYMPHOCYTES % 20.9 % (15.0-51.0); MEAN CORPUSCULAR HEMOGLOBIN 30.8 pg (29.0-33.0); MEAN CORPUSCULAR HGB CONC 29.7 g/dl (32.0-37.0); MEAN CORPUSCULAR VOLUME 103.8 fl (82.0-101.0); MEAN PLATELET VOLUME 10.1 fl (7.4-10.4); MONOCYTE # 0.1 10^3/ul (0.3-0.9); MONOCYTES % 3.8 % (0.0-11.0); NEUTROPHIL # 2.6 10^3/ul (1.6-7.5); NEUTROPHILS % 72.1 % (39.0-77.0); PLATELET COUNT 188 10^3/UL (140-415); RED BLOOD COUNT 2.66 10^6/ul (4.20-5.40); RED CELL DISTRIBUTION WIDTH 15.8 % (11.5-14.5)
[2018-10-24 08:15] LABS: WHITE BLOOD COUNT 3.6 10^3/ul (4.8-10.8)
[2018-10-24] MEDS: BUDESONIDE (NEB) 0.5MG/2ML AMP HHN ×2 (08:39→20:48)
[2018-10-24 08:44] LABS: ANION GAP 6 (5-13); BLOOD UREA NITROGEN 33 mg/dl (7-20); CALCIUM 8.3 mg/dl (8.4-10.2); CARBON DIOXIDE 30 mmol/L (21-31); CHLORIDE 102 mmol/L (97-110); CREATININE 0.84 mg/dl (0.44-1.00); GLUCOSE 104 mg/dl (70-220); MAGNESIUM 1.7 mg/dl (1.7-2.5); PHOSPHORUS 3.9 mg/dl (2.5-4.9); POTASSIUM 4.3 mmol/L (3.5-5.1); SODIUM 138 mmol/L (135-144)
[2018-10-24] MEDS: NEUTRA-PHOS 250 MG PACKET PO ×2 (09:33→21:30)
[2018-10-24] MEDS: LEVETIRACETAM (100 MG/ML) 5ML CUP GTB ×2 (09:33→21:30)
[2018-10-24] MEDS: DOCUSATE SODIUM 10 MG/ML (10ML CUP) NGT ×2 (09:33→21:30)
[2018-10-24] MEDS: APIXABAN 5 MG TABLET PO ×2 (09:33→21:58)
[2018-10-24] MEDS: METOPROLOL 25 MG TAB PO ×2 (09:34→21:31)
[2018-10-24] MEDS: MUPIROCIN 2% 22 GM OINT TOP ×2 (09:35→21:31)
[2018-10-24] MEDS: BALSAM PERU/CASTOR OIL 60 GM TUBE TOP (09:35)
[2018-10-25] MEDS: LEVALBUTEROL (NEB) 1.25 MG/0.5 ML AMP HHN ×4 (02:10→19:25)
[2018-10-25] MEDS: IPRATROPIUM (NEB) 0.5 MG/2.5 ML AMP HHN ×4 (02:10→19:25)
[2018-10-25 05:06] LABS: ADD MAN DIFF? NO
[2018-10-25 05:12] LABS: BASOPHILS % 0.3 % (0.0-2.0); EOSINOPHILS # 0.1 10^3/ul (0.0-0.5); EOSINOPHILS % 2.7 % (0.0-7.0); HEMATOCRIT 27.7 % (37.0-47.0); HEMOGLOBIN 8.3 g/dl (12.0-16.0); LYMPHOCYTES # 0.8 10^3/ul (0.8-2.9); LYMPHOCYTES % 22.6 % (15.0-51.0); MEAN CORPUSCULAR HEMOGLOBIN 30.6 pg (29.0-33.0); MEAN CORPUSCULAR VOLUME 102.2 fl (82.0-101.0); MEAN PLATELET VOLUME 9.8 fl (7.4-10.4); MONOCYTE # 0.2 10^3/ul (0.3-0.9); NEUTROPHIL # 2.6 10^3/ul (1.6-7.5); NEUTROPHILS % 69.6 % (39.0-77.0); PLATELET COUNT 207 10^3/UL (140-415); RED BLOOD COUNT 2.71 10^6/ul (4.20-5.40); RED CELL DISTRIBUTION WIDTH 15.9 % (11.5-14.5)
[2018-10-25 05:12] LABS: WHITE BLOOD COUNT 3.7 10^3/ul (4.8-10.8)
[2018-10-25 05:48] LABS: ANION GAP 7 (5-13); BLOOD UREA NITROGEN 31 mg/dl (7-20); CALCIUM 8.4 mg/dl (8.4-10.2); CARBON DIOXIDE 31 mmol/L (21-31); CHLORIDE 103 mmol/L (97-110); CREATININE 0.83 mg/dl (0.44-1.00); GLUCOSE 105 mg/dl (70-220); MAGNESIUM 1.7 mg/dl (1.7-2.5); PHOSPHORUS 3.6 mg/dl (2.5-4.9); POTASSIUM 4.6 mmol/L (3.5-5.1); SODIUM 141 mmol/L (135-144)
[2018-10-25] MEDS: LANSOPRAZOLE 30 MG CAP GTB (06:23)
[2018-10-25] MEDS: BUDESONIDE (NEB) 0.5MG/2ML AMP HHN ×2 (07:57→19:25)
[2018-10-25] MEDS: LEVETIRACETAM (100 MG/ML) 5ML CUP GTB ×2 (10:25→21:56)
[2018-10-25] MEDS: APIXABAN 5 MG TABLET PO ×2 (10:25→21:57)
[2018-10-25] MEDS: NEUTRA-PHOS 250 MG PACKET PO ×2 (10:25→21:56)
[2018-10-25] MEDS: METOPROLOL 25 MG TAB PO ×2 (10:26→21:57)
[2018-10-25] MEDS: DOCUSATE SODIUM 10 MG/ML (10ML CUP) NGT ×2 (10:26→21:56)
[2018-10-25] MEDS: BALSAM PERU/CASTOR OIL 60 GM TUBE TOP (10:28)
[2018-10-25] MEDS: MUPIROCIN 2% 22 GM OINT TOP ×2 (10:28→21:58)
[2018-10-26] MEDS: LEVALBUTEROL (NEB) 1.25 MG/0.5 ML AMP HHN ×4 (01:20→20:29)
[2018-10-26] MEDS: IPRATROPIUM (NEB) 0.5 MG/2.5 ML AMP HHN ×4 (01:20→20:29)
[2018-10-26 05:36] LABS: ADD MAN DIFF? NO
[2018-10-26 05:38] LABS: BASOPHILS % 0.5 % (0.0-2.0); EOSINOPHILS # 0.1 10^3/ul (0.0-0.5); EOSINOPHILS % 2.2 % (0.0-7.0); HEMATOCRIT 27.8 % (37.0-47.0); HEMOGLOBIN 8.3 g/dl (12.0-16.0); LYMPHOCYTES % 24.7 % (15.0-51.0); MEAN CORPUSCULAR HEMOGLOBIN 30.6 pg (29.0-33.0); MEAN CORPUSCULAR HGB CONC 29.9 g/dl (32.0-37.0); MEAN CORPUSCULAR VOLUME 102.6 fl (82.0-101.0); MEAN PLATELET VOLUME 9.8 fl (7.4-10.4); MONOCYTE # 0.2 10^3/ul (0.3-0.9); MONOCYTES % 4.2 % (0.0-11.0); NEUTROPHIL # 2.7 10^3/ul (1.6-7.5); NEUTROPHILS % 67.7 % (39.0-77.0); PLATELET COUNT 228 10^3/UL (140-415); RED BLOOD COUNT 2.71 10^6/ul (4.20-5.40); RED CELL DISTRIBUTION WIDTH 15.9 % (11.5-14.5)
[2018-10-26] MEDS: LANSOPRAZOLE 30 MG CAP GTB (06:01)
[2018-10-26 06:03] LABS: ANION GAP 4 (5-13); BLOOD UREA NITROGEN 29 mg/dl (7-20); CALCIUM 8.5 mg/dl (8.4-10.2); CARBON DIOXIDE 30 mmol/L (21-31); CHLORIDE 104 mmol/L (97-110); GLUCOSE 126 mg/dl (70-220); POTASSIUM 4.4 mmol/L (3.5-5.1); SODIUM 138 mmol/L (135-144)
[2018-10-26] MEDS: LEVETIRACETAM (100 MG/ML) 5ML CUP GTB ×2 (08:50→22:27)
[2018-10-26] MEDS: DOCUSATE SODIUM 10 MG/ML (10ML CUP) NGT ×2 (08:50→22:28)
[2018-10-26] MEDS: NEUTRA-PHOS 250 MG PACKET PO ×2 (08:50→22:27)
[2018-10-26] MEDS: APIXABAN 5 MG TABLET PO ×2 (08:51→22:27)
[2018-10-26] MEDS: METOPROLOL 25 MG TAB PO ×2 (08:52→22:28)
[2018-10-26] MEDS: BALSAM PERU/CASTOR OIL 60 GM TUBE TOP (08:56)
[2018-10-26] MEDS: MUPIROCIN 2% 22 GM OINT TOP ×2 (08:56→22:28)
[2018-10-26] MEDS: BUDESONIDE (NEB) 0.5MG/2ML AMP HHN ×2 (09:05→20:29)
[2018-10-27] MEDS: LEVALBUTEROL (NEB) 1.25 MG/0.5 ML AMP HHN ×4 (01:41→20:20)
[2018-10-27] MEDS: IPRATROPIUM (NEB) 0.5 MG/2.5 ML AMP HHN ×4 (01:41→20:19)
[2018-10-27] MEDS: LANSOPRAZOLE 30 MG CAP GTB (05:37)
[2018-10-27 06:05] LABS: ADD MAN DIFF? NO
[2018-10-27 06:10] LABS: WHITE BLOOD COUNT 5.2 10^3/ul (4.8-10.8)
[2018-10-27 06:10] LABS: BASOPHILS % 0.4 % (0.0-2.0); EOSINOPHILS # 0.1 10^3/ul (0.0-0.5); EOSINOPHILS % 1.9 % (0.0-7.0); HEMATOCRIT 29.7 % (37.0-47.0); HEMOGLOBIN 8.7 g/dl (12.0-16.0); LYMPHOCYTES # 1.2 10^3/ul (0.8-2.9); LYMPHOCYTES % 22.7 % (15.0-51.0); MEAN CORPUSCULAR HEMOGLOBIN 30.5 pg (29.0-33.0); MEAN CORPUSCULAR HGB CONC 29.3 g/dl (32.0-37.0); MEAN CORPUSCULAR VOLUME 104.2 fl (82.0-101.0); MEAN PLATELET VOLUME 9.7 fl (7.4-10.4); MONOCYTE # 0.2 10^3/ul (0.3-0.9); MONOCYTES % 3.7 % (0.0-11.0); NEUTROPHIL # 3.7 10^3/ul (1.6-7.5); NEUTROPHILS % 70.7 % (39.0-77.0); PLATELET COUNT 265 10^3/UL (140-415); RED BLOOD COUNT 2.85 10^6/ul (4.20-5.40); RED CELL DISTRIBUTION WIDTH 15.9 % (11.5-14.5)
[2018-10-27 06:32] LABS: ANION GAP 4 (5-13); BLOOD UREA NITROGEN 27 mg/dl (7-20); CALCIUM 8.8 mg/dl (8.4-10.2); CARBON DIOXIDE 32 mmol/L (21-31); CHLORIDE 104 mmol/L (97-110); CREATININE 0.84 mg/dl (0.44-1.00); GLUCOSE 115 mg/dl (70-220); POTASSIUM 4.6 mmol/L (3.5-5.1); SODIUM 140 mmol/L (135-144)
[2018-10-27] MEDS: LORAZEPAM 1 MG TAB PO (06:53)
[2018-10-27] MEDS: METOPROLOL 5 MG INJ IV (07:59)
[2018-10-27] MEDS ORDERED: ONDANSETRON 4 MG INJ IV (08:00)
[2018-10-27] MEDS: LEVETIRACETAM (100 MG/ML) 5ML CUP GTB ×2 (08:03→21:07)
[2018-10-27] MEDS: ACETAMINOPHEN 650MG/20.3ML CUP NGT (08:03)
[2018-10-27] MEDS: METOPROLOL 25 MG TAB PO (08:04)
[2018-10-27] MEDS: DOCUSATE SODIUM 10 MG/ML (10ML CUP) NGT ×2 (08:04→21:07)
[2018-10-27] MEDS: NEUTRA-PHOS 250 MG PACKET PO ×2 (08:04→21:07)
[2018-10-27] MEDS: APIXABAN 5 MG TABLET PO ×2 (08:04→21:08)
[2018-10-27] MEDS: BALSAM PERU/CASTOR OIL 60 GM TUBE TOP (08:05)
[2018-10-27] MEDS: MUPIROCIN 2% 22 GM OINT TOP ×2 (08:05→21:09)
[2018-10-27] MEDS: BUDESONIDE (NEB) 0.5MG/2ML AMP HHN ×2 (09:00→20:19)
[2018-10-27] MEDS: DILTIAZEM-D5W 125MG/125ML DRIP 125 ML IV (09:17)
[2018-10-27 11:28] LABS: ADD UMIC YES; UR ASCORBIC ACID 40 mg/dL (NEGATIVE); UR BACTERIA FEW /HPF (NONE SEEN); UR BILIRUBIN (Dip) NEGATIVE (NEGATIVE); UR BLOOD (Dip) NEGATIVE (NEGATIVE); UR CLARITY CLOUDY (CLEAR); UR COLOR YELLOW (YELLOW); UR GLUCOSE (Dip) NEGATIVE (NEGATIVE); UR KETONES (Dip) NEGATIVE (NEGATIVE); UR LEUKOCYTE ESTERASE (Dip) 2+ Leu/ul (NEGATIVE); UR NITRITE (Dip) POSITIVE (NEGATIVE); UR NONSQUAMOUS EPITHELIAL CELL 2 /HPF (NONE SEEN); UR RBC 9 /HPF (0-5); UR SPECIFIC GRAVITY (Dip) 1.011 (1.003-1.030); UR SQUAMOUS EPITHELIAL CELL MODERATE /HPF (FEW); UR TOTAL PROTEIN (Dip) 1+ mg/dl (NEGATIVE); UR UROBILINOGEN (Dip) 1+ mg/dL (NEGATIVE); UR WBC 38 /HPF (0-5)
[2018-10-27] MEDS: LEVOFLOXACIN 750MG/D5W (PMX) 150 ML IVPB (11:44)
[2018-10-27] MEDS: CEFEPIME 2GM/50 ML (PMX) 50 ML IVPB ×2 (13:38→21:07)
[2018-10-27] MEDS ORDERED: VANCOMYCIN IV PER PHARMACY XX (14:00)
[2018-10-27] MEDS: VANCOMYCIN 1.75 GM in SOD CHLORIDE 0.9% 500 ML IVPB (16:27)
[2018-10-27] MEDS ORDERED: DILTIAZEM 25 MG INJ IV (18:30)
[2018-10-27] MEDS: METOPROLOL 50 MG TAB PO (21:08)
[2018-10-28] MEDS: IPRATROPIUM (NEB) 0.5 MG/2.5 ML AMP HHN ×4 (02:17→20:01)
[2018-10-28] MEDS: LEVALBUTEROL (NEB) 1.25 MG/0.5 ML AMP HHN ×4 (02:18→20:01)
[2018-10-28 06:01] LABS: ADD MAN DIFF? NO; BASOPHILS % 0.2 % (0.0-2.0); EOSINOPHILS # 0.1 10^3/ul (0.0-0.5); EOSINOPHILS % 1.1 % (0.0-7.0); HEMATOCRIT 25.8 % (37.0-47.0); HEMOGLOBIN 7.7 g/dl (12.0-16.0); LYMPHOCYTES # 1.1 10^3/ul (0.8-2.9); LYMPHOCYTES % 22.4 % (15.0-51.0); MEAN CORPUSCULAR HEMOGLOBIN 30.9 pg (29.0-33.0); MEAN CORPUSCULAR HGB CONC 29.8 g/dl (32.0-37.0); MEAN CORPUSCULAR VOLUME 103.6 fl (82.0-101.0); MEAN PLATELET VOLUME 9.7 fl (7.4-10.4); MONOCYTE # 0.2 10^3/ul (0.3-0.9); MONOCYTES % 4.4 % (0.0-11.0); NEUTROPHIL # 3.4 10^3/ul (1.6-7.5); NEUTROPHILS % 70.8 % (39.0-77.0); PLATELET COUNT 229 10^3/UL (140-415); RED BLOOD COUNT 2.49 10^6/ul (4.20-5.40); RED CELL DISTRIBUTION WIDTH 15.9 % (11.5-14.5)
[2018-10-28 06:01] LABS: WHITE BLOOD COUNT 4.7 10^3/ul (4.8-10.8)
[2018-10-28 06:43] LABS: ANION GAP 6 (5-13); BLOOD UREA NITROGEN 27 mg/dl (7-20); CALCIUM 8.4 mg/dl (8.4-10.2); CARBON DIOXIDE 29 mmol/L (21-31); CHLORIDE 105 mmol/L (97-110); CREATININE 0.92 mg/dl (0.44-1.00); GLUCOSE 127 mg/dl (70-220); POTASSIUM 4.6 mmol/L (3.5-5.1); SODIUM 140 mmol/L (135-144)
[2018-10-28] MEDS: LANSOPRAZOLE 30 MG CAP GTB (06:52)
[2018-10-28] MEDS: BUDESONIDE (NEB) 0.5MG/2ML AMP HHN ×2 (08:06→19:52)
[2018-10-28] MEDS: CEFEPIME 2GM/50 ML (PMX) 50 ML IVPB ×2 (08:45→21:24)
[2018-10-28] MEDS: NEUTRA-PHOS 250 MG PACKET PO ×2 (08:46→21:24)
[2018-10-28] MEDS: LEVETIRACETAM (100 MG/ML) 5ML CUP GTB ×2 (08:46→21:23)
[2018-10-28] MEDS: APIXABAN 5 MG TABLET PO ×2 (08:46→21:24)
[2018-10-28] MEDS: METOPROLOL 50 MG TAB PO ×2 (08:46→21:24)
[2018-10-28] MEDS: MUPIROCIN 2% 22 GM OINT TOP ×2 (08:46→21:25)
[2018-10-28] MEDS: BALSAM PERU/CASTOR OIL 60 GM TUBE TOP (08:47)
[2018-10-28] MEDS: DOCUSATE SODIUM 10 MG/ML (10ML CUP) NGT ×2 (08:47→21:23)
[2018-10-28] MEDS: LEVOFLOXACIN 750MG/D5W (PMX) 150 ML IVPB (11:22)
[2018-10-28] MEDS: COLLAGENASE 5 GM (UD JAR) TOP (21:23)
[2018-10-29] MEDS: LEVALBUTEROL (NEB) 1.25 MG/0.5 ML AMP HHN ×4 (01:28→20:01)
[2018-10-29] MEDS: IPRATROPIUM (NEB) 0.5 MG/2.5 ML AMP HHN ×4 (01:28→20:01)
[2018-10-29 05:35] LABS: ADD MAN DIFF? NO
[2018-10-29] MEDS: LANSOPRAZOLE 30 MG CAP GTB (05:38)
[2018-10-29 05:43] LABS: WHITE BLOOD COUNT 4.3 10^3/ul (4.8-10.8)
[2018-10-29 05:43] LABS: EOSINOPHILS # 0.1 10^3/ul (0.0-0.5); EOSINOPHILS % 2.3 % (0.0-7.0); HEMATOCRIT 24.6 % (37.0-47.0); HEMOGLOBIN 7.4 g/dl (12.0-16.0); LYMPHOCYTES % 23.3 % (15.0-51.0); MEAN CORPUSCULAR HGB CONC 30.1 g/dl (32.0-37.0); MEAN CORPUSCULAR VOLUME 102.9 fl (82.0-101.0); MEAN PLATELET VOLUME 9.9 fl (7.4-10.4); MONOCYTE # 0.2 10^3/ul (0.3-0.9); MONOCYTES % 5.6 % (0.0-11.0); NEUTROPHIL # 2.9 10^3/ul (1.6-7.5); NEUTROPHILS % 66.9 % (39.0-77.0); PLATELET COUNT 230 10^3/UL (140-415); RED BLOOD COUNT 2.39 10^6/ul (4.20-5.40)
[2018-10-29 05:59] LABS: ANION GAP 6 (5-13); BLOOD UREA NITROGEN 26 mg/dl (7-20); CALCIUM 8.6 mg/dl (8.4-10.2); CARBON DIOXIDE 29 mmol/L (21-31); CHLORIDE 104 mmol/L (97-110); GLUCOSE 104 mg/dl (70-220); POTASSIUM 4.4 mmol/L (3.5-5.1); SODIUM 139 mmol/L (135-144)
[2018-10-29] MEDS: BUDESONIDE (NEB) 0.5MG/2ML AMP HHN ×2 (08:23→20:01)
[2018-10-29] MEDS: CEFEPIME 2GM/50 ML (PMX) 50 ML IVPB ×2 (09:08→21:48)
[2018-10-29] MEDS: DOCUSATE SODIUM 10 MG/ML (10ML CUP) NGT ×2 (09:09→21:48)
[2018-10-29] MEDS: APIXABAN 5 MG TABLET PO ×2 (09:09→21:48)
[2018-10-29] MEDS: LEVETIRACETAM (100 MG/ML) 5ML CUP GTB ×2 (09:09→21:48)
[2018-10-29] MEDS: METOPROLOL 50 MG TAB PO ×2 (09:09→21:49)
[2018-10-29] MEDS: BALSAM PERU/CASTOR OIL 60 GM TUBE TOP (09:10)
[2018-10-29] MEDS: NEUTRA-PHOS 250 MG PACKET PO ×2 (09:10→21:49)
[2018-10-29] MEDS: COLLAGENASE 5 GM (UD JAR) TOP ×2 (09:10→21:49)
[2018-10-29] MEDS: MUPIROCIN 2% 22 GM OINT TOP ×2 (09:11→21:53)
[2018-10-29] MEDS: LEVOFLOXACIN 750MG/D5W (PMX) 150 ML IVPB (10:27)
[2018-10-29] MEDS: VANCOMYCIN 1.25 GM in SOD CHLORIDE 0.9% 250 ML IVPB ×2 (14:36→15:29)
[2018-10-30] MEDS: IPRATROPIUM (NEB) 0.5 MG/2.5 ML AMP HHN ×4 (01:42→20:51)
[2018-10-30] MEDS: LEVALBUTEROL (NEB) 1.25 MG/0.5 ML AMP HHN ×4 (01:42→20:50)
[2018-10-30 05:37] LABS: ADD MAN DIFF? NO
[2018-10-30 05:46] LABS: WHITE BLOOD COUNT 5.6 10^3/ul (4.8-10.8)
[2018-10-30 05:46] LABS: BASOPHILS % 0.5 % (0.0-2.0); EOSINOPHILS # 0.1 10^3/ul (0.0-0.5); EOSINOPHILS % 1.8 % (0.0-7.0); HEMATOCRIT 25.9 % (37.0-47.0); HEMOGLOBIN 7.8 g/dl (12.0-16.0); LYMPHOCYTES # 1.2 10^3/ul (0.8-2.9); LYMPHOCYTES % 21.1 % (15.0-51.0); MEAN CORPUSCULAR HEMOGLOBIN 30.8 pg (29.0-33.0); MEAN CORPUSCULAR HGB CONC 30.1 g/dl (32.0-37.0); MEAN CORPUSCULAR VOLUME 102.4 fl (82.0-101.0); MEAN PLATELET VOLUME 9.7 fl (7.4-10.4); MONOCYTE # 0.3 10^3/ul (0.3-0.9); MONOCYTES % 5.9 % (0.0-11.0); NEUTROPHIL # 3.9 10^3/ul (1.6-7.5); NEUTROPHILS % 69.1 % (39.0-77.0); PLATELET COUNT 252 10^3/UL (140-415); RED BLOOD COUNT 2.53 10^6/ul (4.20-5.40); RED CELL DISTRIBUTION WIDTH 15.9 % (11.5-14.5)
[2018-10-30 05:58] LABS: ANION GAP 11 (5-13); BLOOD UREA NITROGEN 26 mg/dl (7-20); CALCIUM 8.8 mg/dl (8.4-10.2); CARBON DIOXIDE 29 mmol/L (21-31); CHLORIDE 102 mmol/L (97-110); CREATININE 0.92 mg/dl (0.44-1.00); GLUCOSE 113 mg/dl (70-220); POTASSIUM 4.6 mmol/L (3.5-5.1); SODIUM 142 mmol/L (135-144)
[2018-10-30] MEDS: LANSOPRAZOLE 30 MG CAP GTB (06:14)
[2018-10-30] MEDS: BUDESONIDE (NEB) 0.5MG/2ML AMP HHN ×2 (08:34→20:51)
[2018-10-30] MEDS: APIXABAN 5 MG TABLET PO ×2 (09:07→21:09)
[2018-10-30] MEDS: LEVETIRACETAM (100 MG/ML) 5ML CUP GTB ×2 (09:07→21:08)
[2018-10-30] MEDS: NEUTRA-PHOS 250 MG PACKET PO ×2 (09:07→21:09)
[2018-10-30] MEDS: COLLAGENASE 5 GM (UD JAR) TOP ×2 (09:07→21:09)
[2018-10-30] MEDS: CEFEPIME 2GM/50 ML (PMX) 50 ML IVPB ×2 (09:07→21:20)
[2018-10-30] MEDS: DOCUSATE SODIUM 10 MG/ML (10ML CUP) NGT ×2 (09:07→21:09)
[2018-10-30] MEDS: METOPROLOL 50 MG TAB PO ×2 (09:08→21:10)
[2018-10-30] MEDS: BALSAM PERU/CASTOR OIL 60 GM TUBE TOP (09:08)
[2018-10-30] MEDS: MUPIROCIN 2% 22 GM OINT TOP ×2 (09:09→21:11)
[2018-10-30] MEDS: LEVOFLOXACIN 750MG/D5W (PMX) 150 ML IVPB (12:11)
[2018-10-30] MEDS: LORAZEPAM 1 MG TAB PO (21:08)
[2018-10-31] MEDS: LEVALBUTEROL (NEB) 1.25 MG/0.5 ML AMP HHN ×4 (01:53→20:17)
[2018-10-31] MEDS: IPRATROPIUM (NEB) 0.5 MG/2.5 ML AMP HHN ×4 (01:53→20:17)
[2018-10-31] MEDS: LANSOPRAZOLE 30 MG CAP GTB (05:22)
[2018-10-31 05:42] LABS: ADD MAN DIFF? NO
[2018-10-31 05:50] LABS: WHITE BLOOD COUNT 5.4 10^3/ul (4.8-10.8)
[2018-10-31 05:50] LABS: BASOPHILS % 0.2 % (0.0-2.0); EOSINOPHILS # 0.1 10^3/ul (0.0-0.5); EOSINOPHILS % 1.5 % (0.0-7.0); HEMATOCRIT 24.1 % (37.0-47.0); HEMOGLOBIN 7.2 g/dl (12.0-16.0); LYMPHOCYTES # 1.1 10^3/ul (0.8-2.9); LYMPHOCYTES % 20.7 % (15.0-51.0); MEAN CORPUSCULAR HEMOGLOBIN 31.2 pg (29.0-33.0); MEAN CORPUSCULAR HGB CONC 29.9 g/dl (32.0-37.0); MEAN CORPUSCULAR VOLUME 104.3 fl (82.0-101.0); MEAN PLATELET VOLUME 10.1 fl (7.4-10.4); MONOCYTE # 0.3 10^3/ul (0.3-0.9); MONOCYTES % 6.3 % (0.0-11.0); NEUTROPHIL # 3.8 10^3/ul (1.6-7.5); NEUTROPHILS % 69.6 % (39.0-77.0); PLATELET COUNT 231 10^3/UL (140-415); RED BLOOD COUNT 2.31 10^6/ul (4.20-5.40); RED CELL DISTRIBUTION WIDTH 16.1 % (11.5-14.5)
[2018-10-31 06:32] LABS: ANION GAP 5 (5-13); BLOOD UREA NITROGEN 27 mg/dl (7-20); CALCIUM 8.9 mg/dl (8.4-10.2); CARBON DIOXIDE 29 mmol/L (21-31); CHLORIDE 106 mmol/L (97-110); CREATININE 0.92 mg/dl (0.44-1.00); GLUCOSE 109 mg/dl (70-220); POTASSIUM 4.5 mmol/L (3.5-5.1); SODIUM 140 mmol/L (135-144)
[2018-10-31] MEDS: BUDESONIDE (NEB) 0.5MG/2ML AMP HHN ×2 (08:53→20:17)
[2018-10-31] MEDS: CEFEPIME 2GM/50 ML (PMX) 50 ML IVPB ×2 (09:40→21:17)
[2018-10-31] MEDS: LEVETIRACETAM (100 MG/ML) 5ML CUP GTB ×2 (09:40→21:17)
[2018-10-31] MEDS: DOCUSATE SODIUM 10 MG/ML (10ML CUP) NGT ×2 (09:40→21:17)
[2018-10-31] MEDS: COLLAGENASE 5 GM (UD JAR) TOP ×2 (09:41→21:19)
[2018-10-31] MEDS: APIXABAN 5 MG TABLET PO ×2 (09:41→21:17)
[2018-10-31] MEDS: MUPIROCIN 2% 22 GM OINT TOP ×2 (09:41→21:19)
[2018-10-31] MEDS: NEUTRA-PHOS 250 MG PACKET PO ×2 (09:41→21:18)
[2018-10-31] MEDS: BALSAM PERU/CASTOR OIL 60 GM TUBE TOP (09:41)
[2018-10-31] MEDS: METOPROLOL 50 MG TAB PO ×2 (09:44→21:18)
[2018-10-31] MEDS: LEVOFLOXACIN 750MG/D5W (PMX) 150 ML IVPB (10:06)
[2018-10-31] MEDS: VANCOMYCIN 1.25 GM in SOD CHLORIDE 0.9% 250 ML IVPB (15:51)
[2018-10-31 17:51] LABS: IMMEDIATE SPIN CROSSMATCH 1 1
[2018-10-31] MEDS: SOD CHLORIDE 0.9% 250 ML IV* (18:00)
[2018-11-01] MEDS: LEVALBUTEROL (NEB) 1.25 MG/0.5 ML AMP HHN ×4 (02:18→19:35)
[2018-11-01] MEDS: IPRATROPIUM (NEB) 0.5 MG/2.5 ML AMP HHN ×4 (02:18→19:35)
[2018-11-01] MEDS: LANSOPRAZOLE 30 MG CAP GTB (05:28)
[2018-11-01 05:41] LABS: ADD MAN DIFF? NO
[2018-11-01 05:50] LABS: BASOPHILS % 0.3 % (0.0-2.0); EOSINOPHILS # 0.1 10^3/ul (0.0-0.5); EOSINOPHILS % 1.2 % (0.0-7.0); HEMATOCRIT 27.1 % (37.0-47.0); HEMOGLOBIN 8.2 g/dl (12.0-16.0); LYMPHOCYTES # 1.2 10^3/ul (0.8-2.9); LYMPHOCYTES % 20.6 % (15.0-51.0); MEAN CORPUSCULAR HEMOGLOBIN 30.6 pg (29.0-33.0); MEAN CORPUSCULAR HGB CONC 30.3 g/dl (32.0-37.0); MEAN CORPUSCULAR VOLUME 101.1 fl (82.0-101.0); MEAN PLATELET VOLUME 9.9 fl (7.4-10.4); MONOCYTE # 0.4 10^3/ul (0.3-0.9); MONOCYTES % 5.9 % (0.0-11.0); NEUTROPHILS % 67.9 % (39.0-77.0); PLATELET COUNT 234 10^3/UL (140-415); RED BLOOD COUNT 2.68 10^6/ul (4.20-5.40); RED CELL DISTRIBUTION WIDTH 17.6 % (11.5-14.5)
[2018-11-01 05:50] LABS: WHITE BLOOD COUNT 5.9 10^3/ul (4.8-10.8)
[2018-11-01 06:17] LABS: ANION GAP 8 (5-13); BLOOD UREA NITROGEN 26 mg/dl (7-20); CARBON DIOXIDE 26 mmol/L (21-31); CHLORIDE 107 mmol/L (97-110); CREATININE 0.91 mg/dl (0.44-1.00); GLUCOSE 102 mg/dl (70-220); POTASSIUM 4.2 mmol/L (3.5-5.1); SODIUM 141 mmol/L (135-144)
[2018-11-01] MEDS: BUDESONIDE (NEB) 0.5MG/2ML AMP HHN ×2 (08:02→19:35)
[2018-11-01] MEDS: APIXABAN 5 MG TABLET PO (08:53)
[2018-11-01] MEDS: CEFEPIME 2GM/50 ML (PMX) 50 ML IVPB (08:53)
[2018-11-01] MEDS: DOCUSATE SODIUM 10 MG/ML (10ML CUP) NGT (08:53)
[2018-11-01] MEDS: METOPROLOL 50 MG TAB PO (08:53)
[2018-11-01] MEDS: NEUTRA-PHOS 250 MG PACKET PO (08:53)
[2018-11-01] MEDS: LEVETIRACETAM (100 MG/ML) 5ML CUP GTB (08:53)
[2018-11-01] MEDS: COLLAGENASE 5 GM (UD JAR) TOP (08:54)
[2018-11-01] MEDS: BALSAM PERU/CASTOR OIL 60 GM TUBE TOP (08:54)
[2018-11-01] MEDS: MUPIROCIN 2% 22 GM OINT TOP (08:54)
[2018-11-01] MEDS: LEVOFLOXACIN 750MG/D5W (PMX) 150 ML IVPB (09:48)
[2018-11-01] MEDS: DILTIAZEM 30 MG TAB PO (14:43)
== END 2018-11-01 20:22 | disposition short-term general hospital (02) | DRG 870 ==
LOC: 6WM 10-13 05:45 → E/R 07:39 → ICU 08:14
PROC: 5A1955Z Respiratory Ventilation, Greater than 96 Consecutive Hours (ICD-10-PCS; principal; 2018-10-08)
PROC: 02HV33Z Insertion of Infusion Device into Superior Vena Cava, Percutaneous Approach (ICD-10-PCS; 2018-10-19)
PROC: B548ZZA Ultrasonography of Superior Vena Cava, Guidance (ICD-10-PCS; 2018-10-19)
PROC: 30233N1 Transfusion of Nonautologous Red Blood Cells into Peripheral Vein, Percutaneous Approach (ICD-10-PCS; 2018-10-31)
DX: A41.9 Sepsis, unspecified organism (principal); I50.33 Acute on chronic diastolic (congestive) heart failure; G92 Toxic encephalopathy; J18.9 Pneumonia, unspecified organism; I63.9 Cerebral infarction, unspecified; J96.20 Acute and chronic respiratory failure, unspecified whether with hypoxia or hypercapnia; N18.6 End stage renal disease; N39.0 Urinary tract infection, site not specified; N17.9 Acute kidney failure, unspecified; E87.0 Hyperosmolality and hypernatremia; Z99.11 Dependence on respirator [ventilator] status; I42.9 Cardiomyopathy, unspecified; I13.2 Hypertensive heart and chronic kidney disease with heart failure and with stage 5 chronic kidney disease, or end stage renal disease; I82.613 Acute embolism and thrombosis of superficial veins of upper extremity, bilateral; L03.116 Cellulitis of left lower limb; L03.115 Cellulitis of right lower limb; Z93.0 Tracheostomy status; E78.5 Hyperlipidemia, unspecified; Z93.1 Gastrostomy status; Z99.81 Dependence on supplemental oxygen; R13.10 Dysphagia, unspecified; N18.9 Chronic kidney disease, unspecified; G40.901 Epilepsy, unspecified, not intractable, with status epilepticus; I48.0 Paroxysmal atrial fibrillation; I25.10 Atherosclerotic heart disease of native coronary artery without angina pectoris; D63.1 Anemia in chronic kidney disease; E83.42 Hypomagnesemia; E83.39 Other disorders of phosphorus metabolism; E83.89 Other disorders of mineral metabolism; M54.5 Low back pain; G89.29 Other chronic pain; F29 Unspecified psychosis not due to a substance or known physiological condition; D64.9 Anemia, unspecified; D69.6 Thrombocytopenia, unspecified; E11.22 Type 2 diabetes mellitus with diabetic chronic kidney disease; B96.1 Klebsiella pneumoniae [K. pneumoniae] as the cause of diseases classified elsewhere; J43.9 Emphysema, unspecified; E66.01 Morbid (severe) obesity due to excess calories; Z68.35 Body mass index [BMI] 35.0-35.9, adult
CPT/HCPCS: 36430; 36569; 36600; 70450; 70551; 71045; 76937; 80048; 80053; 80162; 80185; 80202; 81001; 81003; 82043; 82550; 82553; 82803; 82962; 83605; 83735; 83880; 84100; 84155; 84300; 84443; 84484; 85025; 85610; 85651; 85730; 86022; 86592; 86850; 86900; 86901; 86920; 87040; 87070; 87075; 87081; 87086; 92526; 92610; 93005; 93308; 93970; 94002; 94003; 94640; 95819; 96374; 97163; 97530; 99291-25

== ENCOUNTER 2018-11-09 14:20 | Day surgery (SDC) | payer OTHER ==
[~2018-11-09 14:20] MED LIST: CEFAZOLIN 1 GM INJ
[2018-11-09] MEDS ORDERED: FENTAnyl 50 MCG/ML VIAL (17:00)
== END 2018-11-09 18:25 | disposition other institution (70) ==
LOC: SDS 14:20
DX: Z43.1 Encounter for attention to gastrostomy (principal); I11.0 Hypertensive heart disease with heart failure; I50.32 Chronic diastolic (congestive) heart failure; J44.9 Chronic obstructive pulmonary disease, unspecified
CPT/HCPCS: 43246; 94002

== ENCOUNTER 2019-02-26 12:05 | Inpatient (IN) | payer MEDICARE, OTHER ==
[2019-02-26 13:06] LABS: ADD MAN DIFF? NO
[2019-02-26 13:11] LABS: WHITE BLOOD COUNT 9.3 10^3/ul (4.8-10.8)
[2019-02-26 13:11] LABS: BASOPHILS % 0.1 % (0.0-2.0); EOSINOPHILS # 0.1 10^3/ul (0.0-0.5); EOSINOPHILS % 1.4 % (0.0-7.0); HEMATOCRIT 26.1 % (37.0-47.0); HEMOGLOBIN 7.8 g/dl (12.0-16.0); LYMPHOCYTES # 1.7 10^3/ul (0.8-2.9); LYMPHOCYTES % 18.4 % (15.0-51.0); MEAN CORPUSCULAR HEMOGLOBIN 31.2 pg (29.0-33.0); MEAN CORPUSCULAR HGB CONC 29.9 g/dl (32.0-37.0); MEAN CORPUSCULAR VOLUME 104.4 fl (82.0-101.0); MEAN PLATELET VOLUME 9.5 fl (7.4-10.4); MONOCYTE # 0.4 10^3/ul (0.3-0.9); MONOCYTES % 4.3 % (0.0-11.0); NEUTROPHILS % 74.5 % (39.0-77.0); NUCLEATED RED BLOOD CELLS% 0.2 /100WBC (0.0-0.0); PLATELET COUNT 481 10^3/UL (140-415); RED CELL DISTRIBUTION WIDTH 18.8 % (11.5-14.5)
[2019-02-26 13:28] LABS: ALANINE AMINOTRANSFERASE 19 IU/L (13-69); ALBUMIN 3.2 g/dl (3.3-4.9); ALBUMIN/GLOBULIN RATIO 0.76; ALKALINE PHOSPHATASE 192 IU/L (42-121); ANION GAP 9 (5-13); ASPARTATE AMINO TRANSFERASE 20 IU/L (15-46); BILIRUBIN,INDIRECT 0.2 mg/dl (0-1.1); BILIRUBIN,TOTAL 0.2 mg/dl (0.2-1.3); BLOOD UREA NITROGEN 81 mg/dl (7-20); CALCIUM 9.4 mg/dl (8.4-10.2); CARBON DIOXIDE 32 mmol/L (21-31); CHLORIDE 98 mmol/L (97-110); CREATININE 1.01 mg/dl (0.44-1.00); GLUCOSE 121 mg/dl (70-220); POTASSIUM 4.7 mmol/L (3.5-5.1); SODIUM 139 mmol/L (135-144); TOTAL PROTEIN 7.4 g/dl (6.1-8.1)
[2019-02-26 13:35] LABS: INR 1.08; PROTIME 14.1 Sec (11.9-14.9); PT RATIO 1.1
[2019-02-26 13:39] LABS: TROPONIN-I 0.036 ng/ml (0.000-0.120)
[2019-02-26] MEDS ORDERED: BISACODYL 10 MG SUPP PR (21:00)
[2019-02-26] MEDS ORDERED: MAGNESIUM HYDROXIDE 30ML CUP GTB (21:00)
[2019-02-26] MEDS ORDERED: ACETAMINOPHEN 325 MG TAB GTB (21:00)
[2019-02-26] MEDS: LEVALBUTEROL (NEB) 0.63 MG/3 ML AMP HHN (22:11)
[2019-02-26] MEDS: SOD CHLORIDE 0.45% 1,000 ML IV (22:18)
[2019-02-26] MEDS: LEVETIRACETAM (100 MG/ML) 5ML CUP GTB (22:53)
[2019-02-26] MEDS: METOPROLOL 25 MG TAB GTB (22:53)
[2019-02-26] MEDS: ASCORBIC ACID 500 MG TAB GTB (22:59)
[2019-02-26] MEDS: CHLORHEXIDINE GLUCONATE 15 ML UD CUP MM (22:59)
[2019-02-27] MEDS: LEVALBUTEROL (NEB) 0.63 MG/3 ML AMP HHN ×4 (01:50→19:40)
[2019-02-27] MEDS: LANSOPRAZOLE 30 MG CAP GTB (06:24)
[2019-02-27 06:31] LABS: ADD MAN DIFF? NO
[2019-02-27 06:35] LABS: WHITE BLOOD COUNT 8.2 10^3/ul (4.8-10.8)
[2019-02-27 06:35] LABS: BASOPHILS % 0.4 % (0.0-2.0); EOSINOPHILS # 0.1 10^3/ul (0.0-0.5); EOSINOPHILS % 1.2 % (0.0-7.0); HEMATOCRIT 24.7 % (37.0-47.0); HEMOGLOBIN 7.2 g/dl (12.0-16.0); LYMPHOCYTES # 1.8 10^3/ul (0.8-2.9); MEAN CORPUSCULAR HEMOGLOBIN 31.2 pg (29.0-33.0); MEAN CORPUSCULAR HGB CONC 29.1 g/dl (32.0-37.0); MEAN CORPUSCULAR VOLUME 106.9 fl (82.0-101.0); MEAN PLATELET VOLUME 9.5 fl (7.4-10.4); MONOCYTE # 0.4 10^3/ul (0.3-0.9); NEUTROPHIL # 5.7 10^3/ul (1.6-7.5); NEUTROPHILS % 70.3 % (39.0-77.0); PLATELET COUNT 449 10^3/UL (140-415); RED BLOOD COUNT 2.31 10^6/ul (4.20-5.40); RED CELL DISTRIBUTION WIDTH 18.6 % (11.5-14.5)
[2019-02-27 07:07] LABS: ANION GAP 8 (5-13); BLOOD UREA NITROGEN 73 mg/dl (7-20); CALCIUM 8.9 mg/dl (8.4-10.2); CARBON DIOXIDE 31 mmol/L (21-31); CHLORIDE 103 mmol/L (97-110); CREATININE 1.04 mg/dl (0.44-1.00); GLUCOSE 103 mg/dl (70-220); POTASSIUM 4.3 mmol/L (3.5-5.1); SODIUM 142 mmol/L (135-144)
[2019-02-27] MEDS: CHLORHEXIDINE GLUCONATE 15 ML UD CUP MM ×2 (08:43→21:53)
[2019-02-27] MEDS: ASCORBIC ACID 500 MG TAB GTB (08:43)
[2019-02-27] MEDS: DOCUSATE SODIUM 100 MG CAP PO (08:43)
[2019-02-27] MEDS: ASPIRIN 81 MG TAB NGT (08:43)
[2019-02-27] MEDS: METOPROLOL 25 MG TAB GTB ×2 (08:44→21:54)
[2019-02-27] MEDS: LEVETIRACETAM (100 MG/ML) 5ML CUP GTB ×2 (08:44→21:53)
[2019-02-27] MEDS: MULTIVITAMINS 30 ML CUP GTB (08:46)
[2019-02-27 10:53] LABS: IMMEDIATE SPIN CROSSMATCH 1 1
[2019-02-27] MEDS: DIGOXIN 0.125 MG TAB PO (13:00)
[2019-02-27 14:41] LABS: RETICULOCYTE COUNT # 0.104 X10^6 (0.020-0.110); RETICULOCYTE COUNT % 3.8 % (0.5-1.5)
[2019-02-27 14:41] LABS: RETICULOCYTE RBC 2.75
[2019-02-27 14:53] LABS: LACTATE DEHYDROGENASE 354 IU/L (313-618)
[2019-02-27 16:31] LABS: AADO2 Arterial 81.7 mmHg (7.0-24.0); Arterial Base Excess 5.7 mmol/L (-3.0-3); Arterial COHb 1.1 % (0.0-3.0); Arterial Fraction of Oxyhgb 95.9 % (93.0-99.0); Arterial HCO3 28.7 mmol/L (22.0-26.0); Arterial MetHb 0 % (0.0-1.5); Arterial pCO2 35.5 mmhg (35-45); MODE VENT - AC; Site Right Brachial
[2019-02-27] MEDS: SOD CHLORIDE 0.45% 1,000 ML IV (17:00)
[2019-02-27] MEDS ORDERED: EPOETIN 4000 UNITS/ML VIAL (ONCOLOGY) SC (17:00)
[2019-02-27] MEDS: BISACODYL (EC) 5 MG TAB PO (18:41)
[2019-02-27] MEDS: NA PHOSPHATE/BIPHOS 133 ML ENEMA PR (21:54)
[2019-02-28] MEDS: MAGNESIUM CITRATE 300 ML BTL PO (00:35)
[2019-02-28] MEDS: LEVALBUTEROL (NEB) 0.63 MG/3 ML AMP HHN ×4 (01:27→20:17)
[2019-02-28 05:31] LABS: ADD MAN DIFF? NO
[2019-02-28 05:35] LABS: BASOPHILS % 0.3 % (0.0-2.0); EOSINOPHILS # 0.1 10^3/ul (0.0-0.5); EOSINOPHILS % 0.6 % (0.0-7.0); HEMATOCRIT 29.2 % (37.0-47.0); HEMOGLOBIN 8.8 g/dl (12.0-16.0); LYMPHOCYTES # 1.8 10^3/ul (0.8-2.9); LYMPHOCYTES % 15.3 % (15.0-51.0); MEAN CORPUSCULAR HGB CONC 30.1 g/dl (32.0-37.0); MEAN CORPUSCULAR VOLUME 102.8 fl (82.0-101.0); MEAN PLATELET VOLUME 9.4 fl (7.4-10.4); MONOCYTE # 0.5 10^3/ul (0.3-0.9); MONOCYTES % 4.2 % (0.0-11.0); NEUTROPHILS % 78.2 % (39.0-77.0); PLATELET COUNT 453 10^3/UL (140-415); RED BLOOD COUNT 2.84 10^6/ul (4.20-5.40); RED CELL DISTRIBUTION WIDTH 19.8 % (11.5-14.5)
[2019-02-28 05:35] LABS: WHITE BLOOD COUNT 11.5 10^3/ul (4.8-10.8)
[2019-02-28 05:58] LABS: ANION GAP 7 (5-13); BLOOD UREA NITROGEN 62 mg/dl (7-20); CALCIUM 8.6 mg/dl (8.4-10.2); CARBON DIOXIDE 28 mmol/L (21-31); CHLORIDE 108 mmol/L (97-110); CREATININE 1.03 mg/dl (0.44-1.00); GLUCOSE 110 mg/dl (70-220); POTASSIUM 3.8 mmol/L (3.5-5.1); SODIUM 143 mmol/L (135-144)
[2019-02-28] MEDS: LANSOPRAZOLE 30 MG CAP GTB (06:40)
[2019-02-28] MEDS ORDERED: GLUCAGON 1 MG INJ (07:00)
[2019-02-28] MEDS: MULTIVITAMINS 30 ML CUP GTB (08:54)
[2019-02-28] MEDS: CHLORHEXIDINE GLUCONATE 15 ML UD CUP MM ×2 (08:55→20:51)
[2019-02-28] MEDS: ASCORBIC ACID 500 MG TAB GTB (08:55)
[2019-02-28] MEDS: LEVETIRACETAM (100 MG/ML) 5ML CUP GTB ×2 (08:55→20:52)
[2019-02-28] MEDS: ASPIRIN 81 MG TAB NGT (08:55)
[2019-02-28] MEDS: DOCUSATE SODIUM 100 MG CAP PO (08:55)
[2019-02-28] MEDS: METOPROLOL 25 MG TAB GTB ×2 (08:57→20:52)
[2019-02-28 10:28] LABS: OCCULT BLOOD STOOL NEGATIVE (NEGATIVE)
[2019-02-28] MEDS: DIGOXIN 0.125 MG TAB PO (12:49)
[2019-02-28] MEDS: SOD CHLORIDE 0.45% 1,000 ML IV (13:00)
[2019-02-28] MEDS: PROPOFOL 0 ML (13:53)
[2019-02-28] MEDS: ETOMIDATE 20 MG INJ (13:57)
[2019-02-28] MEDS ORDERED: FENTAnyl 50 MCG/ML VIAL (14:04)
[2019-02-28] MEDS: PROPOFOL 60 ML (14:25)
[2019-02-28 15:02] LABS: HAPTOGLOBIN 444 mg/dL (43-212)
[2019-02-28 15:23] LABS: IRON 22 ug/dl (35-150)
[2019-02-28 15:32] LABS: % IRON SATURATION 12 % SAT (22-52); TOTAL IRON BINDING CAPACITY 179 ug/dl (241-421)
[2019-02-28 16:35] LABS: FOLATE > 20.0 ng/ml (2.8-20.0)
[2019-02-28] MEDS: EPHEDrine 25 MG/5 ML SYG (17:17)
[2019-02-28] MEDS: EPOETIN ALFA-EPBX (NON-ESRD 10,000 UNIT/ML VIAL SC (17:25)
[2019-02-28 22:58] LABS: ERYTHROPOIETIN 30.1 mIU/mL (2.6-18.5)
[2019-03-01] MEDS: LEVALBUTEROL (NEB) 0.63 MG/3 ML AMP HHN ×4 (01:39→19:03)
[2019-03-01 06:31] LABS: ADD MAN DIFF? NO
[2019-03-01 06:33] LABS: WHITE BLOOD COUNT 7.6 10^3/ul (4.8-10.8)
[2019-03-01 06:33] LABS: BASOPHILS % 0.3 % (0.0-2.0); EOSINOPHILS # 0.1 10^3/ul (0.0-0.5); EOSINOPHILS % 1.2 % (0.0-7.0); HEMATOCRIT 28.4 % (37.0-47.0); HEMOGLOBIN 8.5 g/dl (12.0-16.0); LYMPHOCYTES # 1.6 10^3/ul (0.8-2.9); LYMPHOCYTES % 21.3 % (15.0-51.0); MEAN CORPUSCULAR HEMOGLOBIN 30.7 pg (29.0-33.0); MEAN CORPUSCULAR HGB CONC 29.9 g/dl (32.0-37.0); MEAN CORPUSCULAR VOLUME 102.5 fl (82.0-101.0); MEAN PLATELET VOLUME 9.5 fl (7.4-10.4); MONOCYTE # 0.3 10^3/ul (0.3-0.9); MONOCYTES % 4.2 % (0.0-11.0); NEUTROPHIL # 5.4 10^3/ul (1.6-7.5); NEUTROPHILS % 71.7 % (39.0-77.0); PLATELET COUNT 379 10^3/UL (140-415); RED BLOOD COUNT 2.77 10^6/ul (4.20-5.40); RED CELL DISTRIBUTION WIDTH 19.2 % (11.5-14.5)
[2019-03-01] MEDS: LANSOPRAZOLE 30 MG CAP GTB (06:49)
[2019-03-01 07:08] LABS: ANION GAP 7 (5-13); BLOOD UREA NITROGEN 46 mg/dl (7-20); CALCIUM 8.5 mg/dl (8.4-10.2); CARBON DIOXIDE 26 mmol/L (21-31); CHLORIDE 111 mmol/L (97-110); CREATININE 0.95 mg/dl (0.44-1.00); GLUCOSE 106 mg/dl (70-220); MAGNESIUM 3.3 mg/dl (1.7-2.5); POTASSIUM 3.8 mmol/L (3.5-5.1); SODIUM 144 mmol/L (135-144)
[2019-03-01] MEDS: SOD CHLORIDE 0.45% 1,000 ML IV ×2 (09:00→13:27)
[2019-03-01] MEDS: LEVETIRACETAM (100 MG/ML) 5ML CUP GTB ×2 (10:07→22:41)
[2019-03-01] MEDS: CHLORHEXIDINE GLUCONATE 15 ML UD CUP MM ×2 (10:07→22:41)
[2019-03-01] MEDS: MULTIVITAMINS 30 ML CUP GTB (10:07)
[2019-03-01] MEDS: ASCORBIC ACID 500 MG TAB GTB (10:08)
[2019-03-01] MEDS: METOPROLOL 25 MG TAB GTB ×2 (10:08→22:41)
[2019-03-01] MEDS: DOCUSATE SODIUM 100 MG CAP PO (10:08)
[2019-03-01] MEDS: SOD FERRIC GLUC COMPLX 125 MG in SOD CHLORIDE 0.9% 100 ML IVPB (13:26)
[2019-03-01] MEDS: DIGOXIN 0.125 MG TAB PO (13:26)
[2019-03-01] MEDS: COLLAGENASE 5 GM (UD JAR) TOP ×2 (17:01→22:41)
[2019-03-01] MEDS ORDERED: COLLAGENASE 5 GM (UD JAR) TOP (21:00)
[2019-03-02] MEDS: LEVALBUTEROL (NEB) 0.63 MG/3 ML AMP HHN ×4 (01:16→19:20)
[2019-03-02] MEDS: LANSOPRAZOLE 30 MG CAP GTB (05:33)
[2019-03-02] MEDS: DOCUSATE SODIUM 100 MG CAP PO (09:28)
[2019-03-02] MEDS: CHLORHEXIDINE GLUCONATE 15 ML UD CUP MM ×2 (09:28→20:24)
[2019-03-02] MEDS: SOD CHLORIDE 0.45% 1,000 ML IV (09:28)
[2019-03-02] MEDS: COLLAGENASE 5 GM (UD JAR) TOP ×2 (09:28→20:24)
[2019-03-02] MEDS: MULTIVIT/CA CARB/B CMPLX/FA TAB GTB (09:28)
[2019-03-02] MEDS: ZINC SULFATE 220 MG CAP GTB (09:28)
[2019-03-02] MEDS: LEVETIRACETAM (100 MG/ML) 5ML CUP GTB ×2 (09:29→20:21)
[2019-03-02] MEDS: METOPROLOL 25 MG TAB GTB ×2 (09:29→20:24)
[2019-03-02 11:04] LABS: ADD UMIC YES; UR AMORPHOUS CRYSTAL FEW /HPF (NONE SEEN); UR ASCORBIC ACID NEGATIVE (NEGATIVE); UR BACTERIA MANY /HPF (NONE SEEN); UR BILIRUBIN (Dip) NEGATIVE (NEGATIVE); UR BLOOD (Dip) NEGATIVE (NEGATIVE); UR CLARITY TURBID (CLEAR); UR COLOR AMBER (YELLOW); UR GLUCOSE (Dip) NEGATIVE (NEGATIVE); UR KETONES (Dip) NEGATIVE (NEGATIVE); UR LEUKOCYTE ESTERASE (Dip) 3+ Leu/ul (NEGATIVE); UR MUCUS FEW /HPF (NONE SEEN); UR NITRITE (Dip) NEGATIVE (NEGATIVE); UR RBC 30 /HPF (0-5); UR SPECIFIC GRAVITY (Dip) 1.015 (1.003-1.030); UR SQUAMOUS EPITHELIAL CELL FEW /HPF (FEW); UR TOTAL PROTEIN (Dip) 2+ mg/dl (NEGATIVE); UR UROBILINOGEN (Dip) NEGATIVE (NEGATIVE); UR WBC 62 /HPF (0-5)
[2019-03-02] MEDS: IOHEXOL 14.3 MG(I)/ML (ADULT) BTL PO (13:10)
[2019-03-02] MEDS: SOD FERRIC GLUC COMPLX 125 MG in SOD CHLORIDE 0.9% 100 ML IVPB (13:36)
[2019-03-02] MEDS: DIGOXIN 0.125 MG TAB PO (13:36)
[2019-03-03 00:02] LABS: ERYTHROPOIETIN 15.1 mIU/mL (2.6-18.5)
[2019-03-03] MEDS: LEVALBUTEROL (NEB) 0.63 MG/3 ML AMP HHN ×4 (02:04→20:29)
[2019-03-03] MEDS: LANSOPRAZOLE 30 MG CAP GTB (05:16)
[2019-03-03] MEDS: COLLAGENASE 5 GM (UD JAR) TOP ×2 (09:17→20:58)
[2019-03-03] MEDS: MULTIVIT/CA CARB/B CMPLX/FA TAB GTB (09:17)
[2019-03-03] MEDS: LEVETIRACETAM (100 MG/ML) 5ML CUP GTB ×2 (09:17→20:56)
[2019-03-03] MEDS: ZINC SULFATE 220 MG CAP GTB (09:17)
[2019-03-03] MEDS: CHLORHEXIDINE GLUCONATE 15 ML UD CUP MM ×2 (09:17→20:57)
[2019-03-03] MEDS: METOPROLOL 25 MG TAB GTB ×2 (09:17→20:58)
[2019-03-03] MEDS: DOCUSATE SODIUM 100 MG CAP PO (09:17)
[2019-03-03 12:47] LABS: ANION GAP 5 (5-13); BLOOD UREA NITROGEN 35 mg/dl (7-20); CALCIUM 8.5 mg/dl (8.4-10.2); CARBON DIOXIDE 25 mmol/L (21-31); CHLORIDE 109 mmol/L (97-110); CREATININE 0.89 mg/dl (0.44-1.00); GLUCOSE 106 mg/dl (70-220); MAGNESIUM 2.7 mg/dl (1.7-2.5); POTASSIUM 4.2 mmol/L (3.5-5.1); SODIUM 139 mmol/L (135-144)
[2019-03-03] MEDS: SOD FERRIC GLUC COMPLX 125 MG in SOD CHLORIDE 0.9% 100 ML IVPB (13:16)
[2019-03-03] MEDS: DIGOXIN 0.125 MG TAB PO (13:17)
[2019-03-03] MEDS: SOD CHLORIDE 0.45% 1,000 ML IV (13:18)
[2019-03-04] MEDS: LEVALBUTEROL (NEB) 0.63 MG/3 ML AMP HHN ×4 (02:26→19:30)
[2019-03-04] MEDS: LANSOPRAZOLE 30 MG CAP GTB (05:11)
[2019-03-04] MEDS: PIPER-TAZO 3.375 GM IV (PMX) 100 ML IVPB ×4 (06:22→23:43)
[2019-03-04] MEDS ORDERED: VANCOMYCIN IV PER PHARMACY XX (06:30)
[2019-03-04 08:17] LABS: ADD MAN DIFF? NO
[2019-03-04 08:20] LABS: WHITE BLOOD COUNT 9.1 10^3/ul (4.8-10.8)
[2019-03-04 08:20] LABS: BASOPHILS % 0.3 % (0.0-2.0); EOSINOPHILS # 0.1 10^3/ul (0.0-0.5); HEMATOCRIT 28.8 % (37.0-47.0); HEMOGLOBIN 8.5 g/dl (12.0-16.0); LYMPHOCYTES # 1.6 10^3/ul (0.8-2.9); LYMPHOCYTES % 17.8 % (15.0-51.0); MEAN CORPUSCULAR HGB CONC 29.5 g/dl (32.0-37.0); MEAN CORPUSCULAR VOLUME 105.1 fl (82.0-101.0); MEAN PLATELET VOLUME 9.3 fl (7.4-10.4); MONOCYTE # 0.3 10^3/ul (0.3-0.9); MONOCYTES % 3.5 % (0.0-11.0); NEUTROPHIL # 6.9 10^3/ul (1.6-7.5); NEUTROPHILS % 76.4 % (39.0-77.0); PLATELET COUNT 362 10^3/UL (140-415); RED BLOOD COUNT 2.74 10^6/ul (4.20-5.40); RED CELL DISTRIBUTION WIDTH 18.5 % (11.5-14.5)
[2019-03-04] MEDS: METOPROLOL 25 MG TAB GTB ×2 (08:32→20:45)
[2019-03-04] MEDS: LEVETIRACETAM (100 MG/ML) 5ML CUP GTB ×2 (08:32→20:45)
[2019-03-04] MEDS: MULTIVIT/CA CARB/B CMPLX/FA TAB GTB (08:32)
[2019-03-04] MEDS: DOCUSATE SODIUM 100 MG CAP PO (08:33)
[2019-03-04] MEDS: ZINC SULFATE 220 MG CAP GTB (08:33)
[2019-03-04] MEDS: CHLORHEXIDINE GLUCONATE 15 ML UD CUP MM ×2 (08:35→20:44)
[2019-03-04] MEDS: VANCOMYCIN HCL 1.25 GM in SOD CHLORIDE 0.9% 250 ML IVPB (08:35)
[2019-03-04] MEDS: COLLAGENASE 5 GM (UD JAR) TOP ×2 (08:35→20:49)
[2019-03-04 08:50] LABS: ANION GAP 5 (5-13); BLOOD UREA NITROGEN 31 mg/dl (7-20); CALCIUM 8.6 mg/dl (8.4-10.2); CARBON DIOXIDE 24 mmol/L (21-31); CHLORIDE 109 mmol/L (97-110); CREATININE 0.88 mg/dl (0.44-1.00); GLUCOSE 86 mg/dl (70-220); POTASSIUM 4.3 mmol/L (3.5-5.1); SODIUM 138 mmol/L (135-144)
[2019-03-04] MEDS: DIGOXIN 0.125 MG TAB PO (13:00)
[2019-03-04] MEDS: SOD FERRIC GLUC COMPLX 125 MG in SOD CHLORIDE 0.9% 100 ML IVPB (14:46)
[2019-03-04] MEDS: SOD CHLORIDE 0.45% 1,000 ML IV (14:49)
[2019-03-04] MEDS: DEXTROSE 5%-0.45% NACL 1,000 ML IV (20:44)
[2019-03-05] MEDS: LEVALBUTEROL (NEB) 0.63 MG/3 ML AMP HHN ×2 (01:34→08:12)
[2019-03-05 06:11] LABS: ADD MAN DIFF? NO
[2019-03-05] MEDS: LANSOPRAZOLE 30 MG CAP GTB (06:43)
[2019-03-05] MEDS: PIPER-TAZO 3.375 GM IV (PMX) 100 ML IVPB ×5 (06:43→23:41)
[2019-03-05 07:36] LABS: ANION GAP 9 (5-13); BLOOD UREA NITROGEN 27 mg/dl (7-20); CALCIUM 8.5 mg/dl (8.4-10.2); CARBON DIOXIDE 19 mmol/L (21-31); CHLORIDE 111 mmol/L (97-110); CREATININE 0.84 mg/dl (0.44-1.00); GLUCOSE 94 mg/dl (70-220); POTASSIUM 4.6 mmol/L (3.5-5.1); SODIUM 139 mmol/L (135-144)
[2019-03-05] MEDS: DEXTROSE 5%-0.45% NACL 1,000 ML IV ×2 (08:50→22:10)
[2019-03-05] MEDS: CHLORHEXIDINE GLUCONATE 15 ML UD CUP MM ×2 (09:25→21:31)
[2019-03-05] MEDS: LEVETIRACETAM (100 MG/ML) 5ML CUP GTB ×2 (09:26→21:29)
[2019-03-05] MEDS: COLLAGENASE 5 GM (UD JAR) TOP ×2 (09:26→21:31)
[2019-03-05 09:27] LABS: WHITE BLOOD COUNT 8.6 10^3/ul (4.8-10.8)
[2019-03-05 09:27] LABS: BASOPHILS % 0.3 % (0.0-2.0); EOSINOPHILS # 0.1 10^3/ul (0.0-0.5); EOSINOPHILS % 1.2 % (0.0-7.0); HEMATOCRIT 30.6 % (37.0-47.0); HEMOGLOBIN 9.2 g/dl (12.0-16.0); LYMPHOCYTES # 1.6 10^3/ul (0.8-2.9); LYMPHOCYTES % 18.5 % (15.0-51.0); MEAN CORPUSCULAR HEMOGLOBIN 30.8 pg (29.0-33.0); MEAN CORPUSCULAR HGB CONC 30.1 g/dl (32.0-37.0); MEAN CORPUSCULAR VOLUME 102.3 fl (82.0-101.0); MEAN PLATELET VOLUME 9.2 fl (7.4-10.4); MONOCYTE # 0.4 10^3/ul (0.3-0.9); MONOCYTES % 4.3 % (0.0-11.0); NEUTROPHIL # 6.4 10^3/ul (1.6-7.5); NEUTROPHILS % 74.7 % (39.0-77.0); PLATELET COUNT 323 10^3/UL (140-415); RED BLOOD COUNT 2.99 10^6/ul (4.20-5.40); RED CELL DISTRIBUTION WIDTH 18.6 % (11.5-14.5)
[2019-03-05] MEDS: DOCUSATE SODIUM 100 MG CAP PO (09:27)
[2019-03-05] MEDS: ZINC SULFATE 220 MG CAP GTB (09:27)
[2019-03-05] MEDS: MULTIVIT/CA CARB/B CMPLX/FA TAB GTB (09:27)
[2019-03-05] MEDS: METOPROLOL 25 MG TAB GTB ×2 (09:34→21:31)
[2019-03-05] MEDS: ACETYLCYSTEINE 20% 4 ML VIAL NEB ×3 (11:00→20:08)
[2019-03-05] MEDS: LEVALBUTEROL (HFA) 15 GM INHALER INH ×2 (14:45→19:57)
[2019-03-05] MEDS: SOD FERRIC GLUC COMPLX 125 MG in SOD CHLORIDE 0.9% 100 ML IVPB (15:02)
[2019-03-05] MEDS: DIGOXIN 0.125 MG TAB PO (15:14)
[2019-03-06] MEDS: LEVALBUTEROL (HFA) 15 GM INHALER INH ×4 (01:36→19:10)
[2019-03-06] MEDS: ACETYLCYSTEINE 20% 4 ML VIAL NEB ×4 (01:44→19:10)
[2019-03-06] MEDS: LANSOPRAZOLE 30 MG CAP GTB (06:15)
[2019-03-06] MEDS: PIPER-TAZO 3.375 GM IV (PMX) 100 ML IVPB ×4 (06:16→23:46)
[2019-03-06] MEDS: DEXTROSE 5%-0.45% NACL 1,000 ML IV (06:18)
[2019-03-06 06:46] LABS: ALANINE AMINOTRANSFERASE 7 IU/L (13-69); ALBUMIN 2.5 g/dl (3.3-4.9); ALKALINE PHOSPHATASE 89 IU/L (42-121); ANION GAP 8 (5-13); ASPARTATE AMINO TRANSFERASE 13 IU/L (15-46); BILIRUBIN,INDIRECT 0.4 mg/dl (0-1.1); BILIRUBIN,TOTAL 0.4 mg/dl (0.2-1.3); BLOOD UREA NITROGEN 22 mg/dl (7-20); CALCIUM 8.5 mg/dl (8.4-10.2); CARBON DIOXIDE 19 mmol/L (21-31); CHLORIDE 113 mmol/L (97-110); CREATININE 1.05 mg/dl (0.44-1.00); GLUCOSE 97 mg/dl (70-220); POTASSIUM 3.8 mmol/L (3.5-5.1); SODIUM 140 mmol/L (135-144); TOTAL PROTEIN 5.6 g/dl (6.1-8.1)
[2019-03-06] MEDS: METOPROLOL 25 MG TAB GTB ×2 (09:00→21:50)
[2019-03-06] MEDS: VANCOMYCIN 1 GM 250 ML IVPB (09:53)
[2019-03-06] MEDS: LEVETIRACETAM (100 MG/ML) 5ML CUP GTB ×2 (09:55→21:49)
[2019-03-06] MEDS: DOCUSATE SODIUM 100 MG CAP PO (09:56)
[2019-03-06] MEDS: ZINC SULFATE 220 MG CAP GTB (09:56)
[2019-03-06] MEDS: CHLORHEXIDINE GLUCONATE 15 ML UD CUP MM ×2 (09:56→21:50)
[2019-03-06] MEDS: MULTIVIT/CA CARB/B CMPLX/FA TAB GTB (09:56)
[2019-03-06] MEDS: COLLAGENASE 5 GM (UD JAR) TOP ×2 (09:57→21:50)
[2019-03-06] MEDS: DIGOXIN 0.125 MG TAB PO (12:30)
[2019-03-07] MEDS: DEXTROSE 5%-0.45% NACL 1,000 ML IV ×2 (01:03→14:31)
[2019-03-07] MEDS: ACETYLCYSTEINE 20% 4 ML VIAL NEB ×4 (01:13→19:23)
[2019-03-07] MEDS: LEVALBUTEROL (HFA) 15 GM INHALER INH ×4 (01:13→19:23)
[2019-03-07] MEDS: LANSOPRAZOLE 30 MG CAP GTB (05:38)
[2019-03-07] MEDS: PIPER-TAZO 3.375 GM IV (PMX) 100 ML IVPB ×4 (05:38→23:15)
[2019-03-07] MEDS: METOPROLOL 25 MG TAB GTB ×2 (09:00→20:54)
[2019-03-07] MEDS: LEVETIRACETAM (100 MG/ML) 5ML CUP GTB ×2 (10:04→20:54)
[2019-03-07] MEDS: DOCUSATE SODIUM 100 MG CAP PO (10:04)
[2019-03-07] MEDS: CHLORHEXIDINE GLUCONATE 15 ML UD CUP MM ×2 (10:04→20:54)
[2019-03-07] MEDS: MULTIVIT/CA CARB/B CMPLX/FA TAB GTB (10:04)
[2019-03-07] MEDS: ZINC SULFATE 220 MG CAP GTB (10:04)
[2019-03-07] MEDS: COLLAGENASE 5 GM (UD JAR) TOP ×2 (10:04→20:55)
[2019-03-07] MEDS: DIGOXIN 0.125 MG TAB PO (12:55)
[2019-03-07 15:49] LABS: DIGOXIN 0.4 ng/ml (1.0-2.0)
[2019-03-07 16:14] LABS: THYROID STIMULATING HORMONE 0.822 MIU/L (0.465-4.680)
[2019-03-07] MEDS: EPOETIN ALFA-EPBX (NON-ESRD 10,000 UNIT/ML VIAL SC (17:30)
[2019-03-07 18:31] LABS: TROPONIN-I 0.013 ng/ml (0.000-0.120)
[2019-03-08] MEDS: ACETYLCYSTEINE 20% 4 ML VIAL NEB ×4 (01:06→20:55)
[2019-03-08] MEDS: LEVALBUTEROL (HFA) 15 GM INHALER INH ×4 (01:06→20:55)
[2019-03-08] MEDS: DEXTROSE 5%-0.45% NACL 1,000 ML IV ×2 (03:30→05:14)
[2019-03-08] MEDS: PIPER-TAZO 3.375 GM IV (PMX) 100 ML IVPB ×3 (05:13→18:54)
[2019-03-08] MEDS: LANSOPRAZOLE 30 MG CAP GTB (05:13)
[2019-03-08 06:15] LABS: ADD MAN DIFF? NO
[2019-03-08 06:26] LABS: WHITE BLOOD COUNT 5.7 10^3/ul (4.8-10.8)
[2019-03-08 06:26] LABS: BASOPHILS % 0.4 % (0.0-2.0); EOSINOPHILS # 0.1 10^3/ul (0.0-0.5); EOSINOPHILS % 1.9 % (0.0-7.0); HEMATOCRIT 28.3 % (37.0-47.0); HEMOGLOBIN 8.6 g/dl (12.0-16.0); LYMPHOCYTES # 1.4 10^3/ul (0.8-2.9); LYMPHOCYTES % 25.2 % (15.0-51.0); MEAN CORPUSCULAR HEMOGLOBIN 31.2 pg (29.0-33.0); MEAN CORPUSCULAR HGB CONC 30.4 g/dl (32.0-37.0); MEAN CORPUSCULAR VOLUME 102.5 fl (82.0-101.0); MEAN PLATELET VOLUME 8.8 fl (7.4-10.4); MONOCYTE # 0.3 10^3/ul (0.3-0.9); MONOCYTES % 4.6 % (0.0-11.0); NEUTROPHIL # 3.8 10^3/ul (1.6-7.5); PLATELET COUNT 320 10^3/UL (140-415); RED BLOOD COUNT 2.76 10^6/ul (4.20-5.40); RED CELL DISTRIBUTION WIDTH 18.3 % (11.5-14.5)
[2019-03-08 06:43] LABS: ANION GAP 6 (5-13); BLOOD UREA NITROGEN 11 mg/dl (7-20); CALCIUM 8.1 mg/dl (8.4-10.2); CARBON DIOXIDE 18 mmol/L (21-31); CHLORIDE 117 mmol/L (97-110); CREATININE 0.81 mg/dl (0.44-1.00); GLUCOSE 80 mg/dl (70-220); SODIUM 141 mmol/L (135-144)
[2019-03-08 06:55] LABS: POTASSIUM 2.9 mmol/L (3.5-5.1)
[2019-03-08] MEDS: COLLAGENASE 5 GM (UD JAR) TOP ×2 (10:20→20:26)
[2019-03-08] MEDS: LEVETIRACETAM (100 MG/ML) 5ML CUP GTB ×2 (10:20→20:25)
[2019-03-08] MEDS: DOCUSATE SODIUM 100 MG CAP PO (10:20)
[2019-03-08] MEDS: CHLORHEXIDINE GLUCONATE 15 ML UD CUP MM ×2 (10:20→20:26)
[2019-03-08] MEDS: MULTIVIT/CA CARB/B CMPLX/FA TAB GTB (10:20)
[2019-03-08] MEDS: VANCOMYCIN 1 GM 250 ML IVPB (10:20)
[2019-03-08] MEDS: ZINC SULFATE 220 MG CAP GTB (10:21)
[2019-03-08] MEDS: TRIAMCINOLONE ACET 0.1% 15 GM CR TOP ×2 (10:22→20:27)
[2019-03-08] MEDS: METOPROLOL 25 MG TAB GTB ×2 (10:22→20:26)
[2019-03-08] MEDS: POTASSIUM CHLORIDE 100 ML IVPB ×2 (10:50→10:51)
[2019-03-08] MEDS: D5W-0.45 NACL + KCL 40 MEQ 1,000 ML IV ×2 (12:07→21:20)
[2019-03-08] MEDS: DIGOXIN 0.125 MG TAB PO (13:16)
[2019-03-09] MEDS: PIPER-TAZO 3.375 GM IV (PMX) 100 ML IVPB ×5 (00:32→23:43)
[2019-03-09] MEDS: ACETYLCYSTEINE 20% 4 ML VIAL NEB ×4 (01:03→19:12)
[2019-03-09] MEDS: LEVALBUTEROL (HFA) 15 GM INHALER INH ×4 (01:03→19:12)
[2019-03-09] MEDS: LANSOPRAZOLE 30 MG CAP GTB (05:21)
[2019-03-09 05:43] LABS: ADD MAN DIFF? NO
[2019-03-09 05:48] LABS: BASOPHILS % 0.5 % (0.0-2.0); EOSINOPHILS # 0.1 10^3/ul (0.0-0.5); EOSINOPHILS % 1.1 % (0.0-7.0); HEMATOCRIT 31.5 % (37.0-47.0); HEMOGLOBIN 9.4 g/dl (12.0-16.0); LYMPHOCYTES # 1.2 10^3/ul (0.8-2.9); LYMPHOCYTES % 17.7 % (15.0-51.0); MEAN CORPUSCULAR HEMOGLOBIN 30.8 pg (29.0-33.0); MEAN CORPUSCULAR HGB CONC 29.8 g/dl (32.0-37.0); MEAN CORPUSCULAR VOLUME 103.3 fl (82.0-101.0); MEAN PLATELET VOLUME 8.6 fl (7.4-10.4); MONOCYTE # 0.2 10^3/ul (0.3-0.9); MONOCYTES % 2.6 % (0.0-11.0); NEUTROPHIL # 5.1 10^3/ul (1.6-7.5); NEUTROPHILS % 77.2 % (39.0-77.0); PLATELET COUNT 293 10^3/UL (140-415); RED BLOOD COUNT 3.05 10^6/ul (4.20-5.40); RED CELL DISTRIBUTION WIDTH 18.2 % (11.5-14.5)
[2019-03-09 05:48] LABS: WHITE BLOOD COUNT 6.6 10^3/ul (4.8-10.8)
[2019-03-09 06:10] LABS: MAGNESIUM 1.6 mg/dl (1.7-2.5)
[2019-03-09 06:17] LABS: ANION GAP 6 (5-13); BLOOD UREA NITROGEN 8 mg/dl (7-20); CALCIUM 8.7 mg/dl (8.4-10.2); CARBON DIOXIDE 18 mmol/L (21-31); CHLORIDE 118 mmol/L (97-110); CREATININE 0.82 mg/dl (0.44-1.00); GLUCOSE 89 mg/dl (70-220); POTASSIUM 3.6 mmol/L (3.5-5.1); SODIUM 142 mmol/L (135-144)
[2019-03-09 07:15] LABS: PHOSPHORUS 3.2 mg/dl (2.5-4.9)
[2019-03-09] MEDS: LEVETIRACETAM (100 MG/ML) 5ML CUP GTB ×2 (08:06→20:46)
[2019-03-09] MEDS: COLLAGENASE 5 GM (UD JAR) TOP ×2 (08:06→20:46)
[2019-03-09] MEDS: CHLORHEXIDINE GLUCONATE 15 ML UD CUP MM ×2 (08:06→20:46)
[2019-03-09] MEDS: MULTIVIT/CA CARB/B CMPLX/FA TAB GTB (08:07)
[2019-03-09] MEDS: METOPROLOL 25 MG TAB GTB ×2 (08:07→20:45)
[2019-03-09] MEDS: ZINC SULFATE 220 MG CAP GTB (08:07)
[2019-03-09] MEDS: DOCUSATE SODIUM 100 MG CAP PO (08:07)
[2019-03-09] MEDS: TRIAMCINOLONE ACET 0.1% 15 GM CR TOP ×2 (08:08→20:46)
[2019-03-09] MEDS: D5W-0.45 NACL + KCL 40 MEQ 1,000 ML IV ×2 (08:08→23:42)
[2019-03-09] MEDS: MAGNESIUM SULFATE 2 GM/50 ML 50 ML IVPB (10:06)
[2019-03-09] MEDS: DIGOXIN 0.125 MG TAB PO (13:00)
[2019-03-10] MEDS: ACETYLCYSTEINE 20% 4 ML VIAL NEB ×4 (01:06→20:14)
[2019-03-10] MEDS: LEVALBUTEROL (HFA) 15 GM INHALER INH ×4 (01:07→20:07)
[2019-03-10] MEDS: LANSOPRAZOLE 30 MG CAP GTB (05:52)
[2019-03-10] MEDS: PIPER-TAZO 3.375 GM IV (PMX) 100 ML IVPB ×3 (05:52→17:46)
[2019-03-10 06:15] LABS: ADD MAN DIFF? NO
[2019-03-10 06:25] LABS: WHITE BLOOD COUNT 7.2 10^3/ul (4.8-10.8)
[2019-03-10 06:25] LABS: BASOPHILS % 0.3 % (0.0-2.0); EOSINOPHILS # 0.1 10^3/ul (0.0-0.5); EOSINOPHILS % 1.5 % (0.0-7.0); HEMATOCRIT 29.5 % (37.0-47.0); HEMOGLOBIN 8.7 g/dl (12.0-16.0); LYMPHOCYTES # 1.6 10^3/ul (0.8-2.9); LYMPHOCYTES % 22.2 % (15.0-51.0); MEAN CORPUSCULAR HEMOGLOBIN 30.7 pg (29.0-33.0); MEAN CORPUSCULAR HGB CONC 29.5 g/dl (32.0-37.0); MEAN CORPUSCULAR VOLUME 104.2 fl (82.0-101.0); MEAN PLATELET VOLUME 8.8 fl (7.4-10.4); MONOCYTE # 0.3 10^3/ul (0.3-0.9); MONOCYTES % 4.3 % (0.0-11.0); NEUTROPHIL # 5.1 10^3/ul (1.6-7.5); PLATELET COUNT 280 10^3/UL (140-415); RED BLOOD COUNT 2.83 10^6/ul (4.20-5.40); RED CELL DISTRIBUTION WIDTH 18.4 % (11.5-14.5)
[2019-03-10 06:50] LABS: ANION GAP 6 (5-13); BLOOD UREA NITROGEN 8 mg/dl (7-20); CARBON DIOXIDE 16 mmol/L (21-31); CHLORIDE 119 mmol/L (97-110); CREATININE 0.73 mg/dl (0.44-1.00); GLUCOSE 108 mg/dl (70-220); POTASSIUM 4.1 mmol/L (3.5-5.1); SODIUM 141 mmol/L (135-144)
[2019-03-10 08:08] LABS: VANCOMYCIN,TROUGH 10.3 ug/ml (10.0-20.0)
[2019-03-10] MEDS: MULTIVIT/CA CARB/B CMPLX/FA TAB GTB (08:54)
[2019-03-10] MEDS: METOPROLOL 25 MG TAB GTB ×2 (08:54→20:47)
[2019-03-10] MEDS: DOCUSATE SODIUM 100 MG CAP PO (08:54)
[2019-03-10] MEDS: ZINC SULFATE 220 MG CAP GTB (08:54)
[2019-03-10] MEDS: CHLORHEXIDINE GLUCONATE 15 ML UD CUP MM ×2 (08:55→20:46)
[2019-03-10] MEDS: VANCOMYCIN 1 GM 250 ML IVPB (08:55)
[2019-03-10] MEDS: COLLAGENASE 5 GM (UD JAR) TOP ×2 (08:55→20:46)
[2019-03-10] MEDS: LEVETIRACETAM (100 MG/ML) 5ML CUP GTB ×2 (08:55→20:46)
[2019-03-10] MEDS: TRIAMCINOLONE ACET 0.1% 15 GM CR TOP ×2 (08:55→20:47)
[2019-03-10] MEDS: DIGOXIN 0.125 MG TAB PO (12:39)
[2019-03-10] MEDS: D5W-0.45 NACL + KCL 40 MEQ 1,000 ML IV (13:20)
[2019-03-11] MEDS: PIPER-TAZO 3.375 GM IV (PMX) 100 ML IVPB ×4 (00:22→17:37)
[2019-03-11] MEDS: LEVALBUTEROL (HFA) 15 GM INHALER INH ×4 (01:22→19:36)
[2019-03-11] MEDS: ACETYLCYSTEINE 20% 4 ML VIAL NEB ×4 (01:27→19:36)
[2019-03-11] MEDS: D5W-0.45 NACL + KCL 40 MEQ 1,000 ML IV (06:00)
[2019-03-11] MEDS: LANSOPRAZOLE 30 MG CAP GTB (06:00)
[2019-03-11] MEDS: DOCUSATE SODIUM 100 MG CAP PO (09:00)
[2019-03-11] MEDS: LEVETIRACETAM (100 MG/ML) 5ML CUP GTB ×2 (09:03→21:13)
[2019-03-11] MEDS: MULTIVIT/CA CARB/B CMPLX/FA TAB GTB (09:03)
[2019-03-11] MEDS: ZINC SULFATE 220 MG CAP GTB (09:03)
[2019-03-11] MEDS: METOPROLOL 25 MG TAB GTB ×2 (09:03→21:13)
[2019-03-11] MEDS: CHLORHEXIDINE GLUCONATE 15 ML UD CUP MM ×2 (09:04→21:12)
[2019-03-11] MEDS: COLLAGENASE 5 GM (UD JAR) TOP ×2 (09:16→21:12)
[2019-03-11] MEDS: TRIAMCINOLONE ACET 0.1% 15 GM CR TOP ×2 (09:17→21:12)
[2019-03-11] MEDS: DIGOXIN 0.125 MG TAB PO (12:41)
[2019-03-12] MEDS: PIPER-TAZO 3.375 GM IV (PMX) 100 ML IVPB ×4 (00:06→18:06)
[2019-03-12] MEDS: ACETYLCYSTEINE 20% 4 ML VIAL NEB ×4 (01:22→20:50)
[2019-03-12] MEDS: LEVALBUTEROL (HFA) 15 GM INHALER INH ×4 (01:22→20:47)
[2019-03-12 05:00] LABS: ADD MAN DIFF? NO
[2019-03-12 05:03] LABS: BASOPHILS % 0.3 % (0.0-2.0); EOSINOPHILS # 0.2 10^3/ul (0.0-0.5); EOSINOPHILS % 1.5 % (0.0-7.0); HEMATOCRIT 35.5 % (37.0-47.0); HEMOGLOBIN 10.3 g/dl (12.0-16.0); LYMPHOCYTES # 1.6 10^3/ul (0.8-2.9); LYMPHOCYTES % 13.4 % (15.0-51.0); MEAN CORPUSCULAR HEMOGLOBIN 30.6 pg (29.0-33.0); MEAN CORPUSCULAR VOLUME 105.3 fl (82.0-101.0); MEAN PLATELET VOLUME 8.8 fl (7.4-10.4); MONOCYTE # 0.4 10^3/ul (0.3-0.9); NEUTROPHIL # 9.3 10^3/ul (1.6-7.5); NEUTROPHILS % 80.9 % (39.0-77.0); PLATELET COUNT 287 10^3/UL (140-415); RED BLOOD COUNT 3.37 10^6/ul (4.20-5.40); RED CELL DISTRIBUTION WIDTH 18.5 % (11.5-14.5)
[2019-03-12 05:03] LABS: WHITE BLOOD COUNT 11.5 10^3/ul (4.8-10.8)
[2019-03-12 05:38] LABS: ANION GAP 5 (5-13); BLOOD UREA NITROGEN 13 mg/dl (7-20); CALCIUM 8.6 mg/dl (8.4-10.2); CARBON DIOXIDE 19 mmol/L (21-31); CHLORIDE 115 mmol/L (97-110); CREATININE 0.74 mg/dl (0.44-1.00); GLUCOSE 121 mg/dl (70-220); MAGNESIUM 1.9 mg/dl (1.7-2.5); PHOSPHORUS 2.1 mg/dl (2.5-4.9); POTASSIUM 5.1 mmol/L (3.5-5.1); SODIUM 139 mmol/L (135-144)
[2019-03-12] MEDS: LANSOPRAZOLE 30 MG CAP GTB (06:16)
[2019-03-12] MEDS: VANCOMYCIN HCL 1.25 GM in SOD CHLORIDE 0.9% 250 ML IVPB (06:59)
[2019-03-12 07:52] LABS: OCCULT BLOOD STOOL NEGATIVE (NEGATIVE)
[2019-03-12] MEDS: DOCUSATE SODIUM 100 MG CAP PO (09:00)
[2019-03-12] MEDS: COLLAGENASE 5 GM (UD JAR) TOP ×2 (09:15→21:52)
[2019-03-12] MEDS: CHLORHEXIDINE GLUCONATE 15 ML UD CUP MM ×2 (09:15→21:51)
[2019-03-12] MEDS: NEUTRA-PHOS 250 MG PACKET GTB ×2 (09:15→21:50)
[2019-03-12] MEDS: LEVETIRACETAM (100 MG/ML) 5ML CUP GTB ×2 (09:15→21:50)
[2019-03-12] MEDS: METOPROLOL 25 MG TAB GTB ×3 (09:16→23:00)
[2019-03-12] MEDS: MULTIVIT/CA CARB/B CMPLX/FA TAB GTB (09:16)
[2019-03-12] MEDS: TRIAMCINOLONE ACET 0.1% 15 GM CR TOP ×2 (09:19→21:52)
[2019-03-12] MEDS: ZINC SULFATE 220 MG CAP GTB (11:44)
[2019-03-12] MEDS: DIGOXIN 0.125 MG TAB PO (13:52)
[2019-03-12] MEDS: BENAZEPRIL 10 MG TAB PO (21:51)
[2019-03-13] MEDS: PIPER-TAZO 3.375 GM IV (PMX) 100 ML IVPB ×4 (00:57→17:30)
[2019-03-13] MEDS: ACETYLCYSTEINE 20% 4 ML VIAL NEB ×4 (01:06→20:47)
[2019-03-13] MEDS: LEVALBUTEROL (HFA) 15 GM INHALER INH ×5 (01:06→20:47)
[2019-03-13 05:38] LABS: ADD MAN DIFF? NO
[2019-03-13 05:56] LABS: BASOPHILS % 0.5 % (0.0-2.0); EOSINOPHILS # 0.2 10^3/ul (0.0-0.5); EOSINOPHILS % 3.3 % (0.0-7.0); HEMATOCRIT 30.4 % (37.0-47.0); HEMOGLOBIN 8.9 g/dl (12.0-16.0); LYMPHOCYTES # 1.6 10^3/ul (0.8-2.9); MEAN CORPUSCULAR HGB CONC 29.3 g/dl (32.0-37.0); MEAN CORPUSCULAR VOLUME 105.9 fl (82.0-101.0); MONOCYTE # 0.3 10^3/ul (0.3-0.9); MONOCYTES % 5.2 % (0.0-11.0); NEUTROPHIL # 3.8 10^3/ul (1.6-7.5); NEUTROPHILS % 63.2 % (39.0-77.0); PLATELET COUNT 229 10^3/UL (140-415); RED BLOOD COUNT 2.87 10^6/ul (4.20-5.40); RED CELL DISTRIBUTION WIDTH 18.1 % (11.5-14.5)
[2019-03-13] MEDS: METOPROLOL 25 MG TAB GTB ×3 (06:03→22:00)
[2019-03-13] MEDS: LANSOPRAZOLE 30 MG CAP GTB (06:03)
[2019-03-13 06:19] LABS: ANION GAP 5 (5-13); BLOOD UREA NITROGEN 16 mg/dl (7-20); CALCIUM 8.4 mg/dl (8.4-10.2); CARBON DIOXIDE 21 mmol/L (21-31); CHLORIDE 117 mmol/L (97-110); CREATININE 0.79 mg/dl (0.44-1.00); GLUCOSE 98 mg/dl (70-220); POTASSIUM 4.6 mmol/L (3.5-5.1); SODIUM 143 mmol/L (135-144)
[2019-03-13] MEDS: CHLORHEXIDINE GLUCONATE 15 ML UD CUP MM ×2 (09:06→21:42)
[2019-03-13] MEDS: DOCUSATE SODIUM 100 MG CAP PO (09:07)
[2019-03-13] MEDS: TRIAMCINOLONE ACET 0.1% 15 GM CR TOP ×2 (09:07→21:42)
[2019-03-13] MEDS: MULTIVIT/CA CARB/B CMPLX/FA TAB GTB (09:07)
[2019-03-13] MEDS: BENAZEPRIL 10 MG TAB PO ×2 (09:07→21:41)
[2019-03-13] MEDS: LEVETIRACETAM (100 MG/ML) 5ML CUP GTB ×2 (09:07→21:40)
[2019-03-13] MEDS: ZINC SULFATE 220 MG CAP GTB (09:07)
[2019-03-13] MEDS: COLLAGENASE 5 GM (UD JAR) TOP ×2 (09:07→21:41)
[2019-03-13] MEDS: NEUTRA-PHOS 250 MG PACKET GTB ×2 (09:08→21:40)
[2019-03-13] MEDS: DIGOXIN 0.125 MG TAB PO (13:00)
[2019-03-14] MEDS: PIPER-TAZO 3.375 GM IV (PMX) 100 ML IVPB ×5 (00:40→23:26)
[2019-03-14] MEDS: ACETYLCYSTEINE 20% 4 ML VIAL NEB ×4 (01:31→21:30)
[2019-03-14] MEDS: LEVALBUTEROL (HFA) 15 GM INHALER INH ×4 (01:31→21:27)
[2019-03-14] MEDS: METOPROLOL 25 MG TAB GTB ×3 (05:38→22:00)
[2019-03-14] MEDS: LANSOPRAZOLE 30 MG CAP GTB (05:38)
[2019-03-14] MEDS: VANCOMYCIN HCL 1.25 GM in SOD CHLORIDE 0.9% 250 ML IVPB (06:27)
[2019-03-14] MEDS: CHLORHEXIDINE GLUCONATE 15 ML UD CUP MM ×2 (09:41→21:45)
[2019-03-14] MEDS: LEVETIRACETAM (100 MG/ML) 5ML CUP GTB ×2 (09:41→21:45)
[2019-03-14] MEDS: COLLAGENASE 5 GM (UD JAR) TOP ×2 (09:41→21:45)
[2019-03-14] MEDS: MULTIVIT/CA CARB/B CMPLX/FA TAB GTB (09:41)
[2019-03-14] MEDS: ZINC SULFATE 220 MG CAP GTB (09:42)
[2019-03-14] MEDS: DOCUSATE SODIUM 100 MG CAP PO (09:42)
[2019-03-14] MEDS: BENAZEPRIL 10 MG TAB PO ×2 (09:42→21:46)
[2019-03-14] MEDS: NEUTRA-PHOS 250 MG PACKET GTB ×2 (09:42→21:45)
[2019-03-14] MEDS: TRIAMCINOLONE ACET 0.1% 15 GM CR TOP ×2 (09:43→21:52)
[2019-03-14] MEDS: DIGOXIN 0.125 MG TAB PO (13:26)
[2019-03-14] MEDS: EPOETIN ALFA-EPBX (NON-ESRD 10,000 UNIT/ML VIAL SC (17:08)
[2019-03-15] MEDS: LEVALBUTEROL (HFA) 15 GM INHALER INH ×4 (02:51→19:35)
[2019-03-15] MEDS: ACETYLCYSTEINE 20% 4 ML VIAL NEB ×4 (02:53→19:35)
[2019-03-15] MEDS: PIPER-TAZO 3.375 GM IV (PMX) 100 ML IVPB ×3 (05:26→17:30)
[2019-03-15] MEDS: LANSOPRAZOLE 30 MG CAP GTB (05:26)
[2019-03-15] MEDS: METOPROLOL 25 MG TAB GTB ×3 (05:27→21:00)
[2019-03-15] MEDS: NEUTRA-PHOS 250 MG PACKET GTB ×2 (08:29→20:55)
[2019-03-15] MEDS: LEVETIRACETAM (100 MG/ML) 5ML CUP GTB ×2 (08:29→20:55)
[2019-03-15] MEDS: MULTIVIT/CA CARB/B CMPLX/FA TAB GTB (08:29)
[2019-03-15] MEDS: CHLORHEXIDINE GLUCONATE 15 ML UD CUP MM ×2 (08:29→20:55)
[2019-03-15] MEDS: BENAZEPRIL 10 MG TAB PO ×2 (08:29→09:39)
[2019-03-15] MEDS: DOCUSATE SODIUM 100 MG CAP PO (08:29)
[2019-03-15] MEDS: ZINC SULFATE 220 MG CAP GTB (08:29)
[2019-03-15] MEDS: COLLAGENASE 5 GM (UD JAR) TOP ×2 (08:29→20:56)
[2019-03-15] MEDS: TRIAMCINOLONE ACET 0.1% 15 GM CR TOP ×2 (08:30→20:56)
[2019-03-15] MEDS: DIGOXIN 0.125 MG TAB PO (13:00)
[2019-03-15] MEDS: BENAZEPRIL 20 MG TAB PO (20:55)
[2019-03-16] MEDS: LEVALBUTEROL (HFA) 15 GM INHALER INH ×4 (01:54→19:35)
[2019-03-16] MEDS: ACETYLCYSTEINE 20% 4 ML VIAL NEB ×4 (01:54→19:35)
[2019-03-16] MEDS: PIPER-TAZO 3.375 GM IV (PMX) 100 ML IVPB ×5 (03:08→21:07)
[2019-03-16 05:59] LABS: VANCOMYCIN,TROUGH 12.1 ug/ml (10.0-20.0)
[2019-03-16 06:05] LABS: CREATININE 0.75 mg/dl (0.44-1.00)
[2019-03-16 06:05] LABS: BLOOD UREA NITROGEN 17 mg/dl (7-20)
[2019-03-16] MEDS: VANCOMYCIN HCL 1.25 GM in SOD CHLORIDE 0.9% 250 ML IVPB (06:16)
[2019-03-16] MEDS: LANSOPRAZOLE 30 MG CAP GTB (06:17)
[2019-03-16] MEDS: METOPROLOL 25 MG TAB GTB ×3 (06:17→21:07)
[2019-03-16] MEDS: CHLORHEXIDINE GLUCONATE 15 ML UD CUP MM ×2 (09:00→21:06)
[2019-03-16] MEDS: COLLAGENASE 5 GM (UD JAR) TOP ×2 (09:00→21:06)
[2019-03-16] MEDS: NEUTRA-PHOS 250 MG PACKET GTB ×2 (09:00→21:06)
[2019-03-16] MEDS: DOCUSATE SODIUM 100 MG CAP PO (09:00)
[2019-03-16] MEDS: ZINC SULFATE 220 MG CAP GTB (09:00)
[2019-03-16] MEDS: MULTIVIT/CA CARB/B CMPLX/FA TAB GTB (09:00)
[2019-03-16] MEDS: LEVETIRACETAM (100 MG/ML) 5ML CUP GTB ×2 (09:00→21:06)
[2019-03-16] MEDS: BENAZEPRIL 20 MG TAB PO ×2 (09:01→21:08)
[2019-03-16] MEDS: TRIAMCINOLONE ACET 0.1% 15 GM CR TOP ×2 (09:14→21:07)
[2019-03-16] MEDS: DIGOXIN 0.125 MG TAB PO (12:50)
[2019-03-17] MEDS: ACETYLCYSTEINE 20% 4 ML VIAL NEB ×4 (01:17→20:26)
[2019-03-17] MEDS: LEVALBUTEROL (HFA) 15 GM INHALER INH ×4 (01:17→20:26)
[2019-03-17] MEDS: PIPER-TAZO 3.375 GM IV (PMX) 100 ML IVPB ×3 (05:43→17:03)
[2019-03-17] MEDS: LANSOPRAZOLE 30 MG CAP GTB (05:43)
[2019-03-17] MEDS: METOPROLOL 25 MG TAB GTB ×4 (05:43→23:42)
[2019-03-17 06:05] LABS: ADD MAN DIFF? NO
[2019-03-17 06:16] LABS: BASOPHILS % 0.4 % (0.0-2.0); EOSINOPHILS # 0.3 10^3/ul (0.0-0.5); EOSINOPHILS % 3.4 % (0.0-7.0); HEMATOCRIT 35.2 % (37.0-47.0); HEMOGLOBIN 10.7 g/dl (12.0-16.0); LYMPHOCYTES # 1.5 10^3/ul (0.8-2.9); LYMPHOCYTES % 19.2 % (15.0-51.0); MEAN CORPUSCULAR HEMOGLOBIN 31.5 pg (29.0-33.0); MEAN CORPUSCULAR HGB CONC 30.4 g/dl (32.0-37.0); MEAN CORPUSCULAR VOLUME 103.5 fl (82.0-101.0); MEAN PLATELET VOLUME 9.3 fl (7.4-10.4); MONOCYTE # 0.3 10^3/ul (0.3-0.9); MONOCYTES % 4.3 % (0.0-11.0); NEUTROPHIL # 5.7 10^3/ul (1.6-7.5); NEUTROPHILS % 72.1 % (39.0-77.0); PLATELET COUNT 231 10^3/UL (140-415); RED CELL DISTRIBUTION WIDTH 18.1 % (11.5-14.5)
[2019-03-17 06:16] LABS: WHITE BLOOD COUNT 7.9 10^3/ul (4.8-10.8)
[2019-03-17 06:29] LABS: ANION GAP 6 (5-13); BLOOD UREA NITROGEN 16 mg/dl (7-20); CALCIUM 8.6 mg/dl (8.4-10.2); CARBON DIOXIDE 24 mmol/L (21-31); CHLORIDE 108 mmol/L (97-110); CREATININE 0.78 mg/dl (0.44-1.00); GLUCOSE 84 mg/dl (70-220); POTASSIUM 4.5 mmol/L (3.5-5.1); SODIUM 138 mmol/L (135-144)
[2019-03-17 07:05] LABS: PHOSPHORUS 4.1 mg/dl (2.5-4.9)
[2019-03-17] MEDS: CHLORHEXIDINE GLUCONATE 15 ML UD CUP MM ×2 (09:09→21:11)
[2019-03-17] MEDS: MULTIVIT/CA CARB/B CMPLX/FA TAB GTB (09:09)
[2019-03-17] MEDS: NEUTRA-PHOS 250 MG PACKET GTB ×2 (09:09→20:54)
[2019-03-17] MEDS: LEVETIRACETAM (100 MG/ML) 5ML CUP GTB ×2 (09:09→20:53)
[2019-03-17] MEDS: COLLAGENASE 5 GM (UD JAR) TOP ×2 (09:09→21:11)
[2019-03-17] MEDS: TRIAMCINOLONE ACET 0.1% 15 GM CR TOP ×2 (09:10→21:12)
[2019-03-17] MEDS: DOCUSATE SODIUM 100 MG CAP PO (09:10)
[2019-03-17] MEDS: ZINC SULFATE 220 MG CAP GTB (09:10)
[2019-03-17] MEDS: BENAZEPRIL 20 MG TAB PO ×2 (09:15→20:56)
[2019-03-17] MEDS: DIGOXIN 0.125 MG TAB PO (12:28)
[2019-03-18] MEDS: PIPER-TAZO 3.375 GM IV (PMX) 100 ML IVPB ×5 (00:48→23:13)
[2019-03-18] MEDS: ACETYLCYSTEINE 20% 4 ML VIAL NEB ×5 (01:25→21:37)
[2019-03-18] MEDS: LEVALBUTEROL (HFA) 15 GM INHALER INH ×5 (01:25→21:37)
[2019-03-18] MEDS: VANCOMYCIN HCL 1.25 GM in SOD CHLORIDE 0.9% 250 ML IVPB (06:13)
[2019-03-18] MEDS: LANSOPRAZOLE 30 MG CAP GTB (06:13)
[2019-03-18 06:18] LABS: ADD MAN DIFF? NO
[2019-03-18 06:19] LABS: BASOPHILS % 0.4 % (0.0-2.0); EOSINOPHILS # 0.3 10^3/ul (0.0-0.5); EOSINOPHILS % 4.4 % (0.0-7.0); HEMATOCRIT 32.5 % (37.0-47.0); HEMOGLOBIN 9.7 g/dl (12.0-16.0); LYMPHOCYTES # 1.5 10^3/ul (0.8-2.9); LYMPHOCYTES % 26.7 % (15.0-51.0); MEAN CORPUSCULAR HEMOGLOBIN 30.8 pg (29.0-33.0); MEAN CORPUSCULAR HGB CONC 29.8 g/dl (32.0-37.0); MEAN CORPUSCULAR VOLUME 103.2 fl (82.0-101.0); MEAN PLATELET VOLUME 9.3 fl (7.4-10.4); MONOCYTE # 0.3 10^3/ul (0.3-0.9); NEUTROPHIL # 3.5 10^3/ul (1.6-7.5); PLATELET COUNT 231 10^3/UL (140-415); RED BLOOD COUNT 3.15 10^6/ul (4.20-5.40); RED CELL DISTRIBUTION WIDTH 18.1 % (11.5-14.5)
[2019-03-18 06:19] LABS: WHITE BLOOD COUNT 5.7 10^3/ul (4.8-10.8)
[2019-03-18] MEDS: METOPROLOL 25 MG TAB GTB ×3 (06:20→23:09)
[2019-03-18 07:02] LABS: ANION GAP 5 (5-13); BLOOD UREA NITROGEN 17 mg/dl (7-20); CALCIUM 8.6 mg/dl (8.4-10.2); CARBON DIOXIDE 25 mmol/L (21-31); CHLORIDE 109 mmol/L (97-110); CREATININE 0.82 mg/dl (0.44-1.00); GLUCOSE 93 mg/dl (70-220); POTASSIUM 4.1 mmol/L (3.5-5.1); SODIUM 139 mmol/L (135-144)
[2019-03-18] MEDS: MULTIVIT/CA CARB/B CMPLX/FA TAB GTB (09:10)
[2019-03-18] MEDS: NEUTRA-PHOS 250 MG PACKET GTB ×2 (09:11→20:52)
[2019-03-18] MEDS: COLLAGENASE 5 GM (UD JAR) TOP ×2 (09:11→20:56)
[2019-03-18] MEDS: BENAZEPRIL 20 MG TAB PO ×2 (09:11→20:56)
[2019-03-18] MEDS: DOCUSATE SODIUM 100 MG CAP PO (09:11)
[2019-03-18] MEDS: ZINC SULFATE 220 MG CAP GTB (09:11)
[2019-03-18] MEDS: CHLORHEXIDINE GLUCONATE 15 ML UD CUP MM ×2 (09:12→23:09)
[2019-03-18] MEDS: TRIAMCINOLONE ACET 0.1% 15 GM CR TOP ×2 (09:14→23:09)
[2019-03-18] MEDS: LEVETIRACETAM (100 MG/ML) 5ML CUP GTB ×2 (09:24→20:51)
[2019-03-18] MEDS: DIGOXIN 0.125 MG TAB PO (12:19)
[2019-03-19] MEDS: LEVALBUTEROL (HFA) 15 GM INHALER INH ×4 (01:17→21:03)
[2019-03-19] MEDS: ACETYLCYSTEINE 20% 4 ML VIAL NEB ×4 (01:17→20:45)
[2019-03-19] MEDS: PIPER-TAZO 3.375 GM IV (PMX) 100 ML IVPB ×3 (05:26→17:43)
[2019-03-19] MEDS: LANSOPRAZOLE 30 MG CAP GTB (05:26)
[2019-03-19] MEDS: METOPROLOL 25 MG TAB GTB ×3 (05:42→21:24)
[2019-03-19] MEDS: BENAZEPRIL 20 MG TAB PO ×2 (08:55→21:25)
[2019-03-19] MEDS: MULTIVIT/CA CARB/B CMPLX/FA TAB GTB (08:55)
[2019-03-19] MEDS: CHLORHEXIDINE GLUCONATE 15 ML UD CUP MM ×2 (08:55→21:21)
[2019-03-19] MEDS: DOCUSATE SODIUM 100 MG CAP PO (08:55)
[2019-03-19] MEDS: NEUTRA-PHOS 250 MG PACKET GTB ×2 (08:55→21:21)
[2019-03-19] MEDS: LEVETIRACETAM (100 MG/ML) 5ML CUP GTB ×2 (08:55→21:21)
[2019-03-19] MEDS: COLLAGENASE 5 GM (UD JAR) TOP ×2 (08:55→21:22)
[2019-03-19] MEDS: ZINC SULFATE 220 MG CAP GTB (08:55)
[2019-03-19] MEDS: TRIAMCINOLONE ACET 0.1% 15 GM CR TOP ×2 (08:56→21:22)
[2019-03-19] MEDS: DIGOXIN 0.125 MG TAB PO (13:01)
[2019-03-20] MEDS: PIPER-TAZO 3.375 GM IV (PMX) 100 ML IVPB ×4 (00:17→17:57)
[2019-03-20] MEDS: LEVALBUTEROL (HFA) 15 GM INHALER INH ×4 (01:15→19:14)
[2019-03-20] MEDS: ACETYLCYSTEINE 20% 4 ML VIAL NEB ×4 (01:46→19:13)
[2019-03-20] MEDS: VANCOMYCIN HCL 1.25 GM in SOD CHLORIDE 0.9% 250 ML IVPB (05:41)
[2019-03-20] MEDS: LANSOPRAZOLE 30 MG CAP GTB (05:43)
[2019-03-20] MEDS: METOPROLOL 25 MG TAB GTB ×3 (05:43→22:01)
[2019-03-20 06:25] LABS: ADD MAN DIFF? NO
[2019-03-20 06:26] LABS: BASOPHILS % 0.4 % (0.0-2.0); EOSINOPHILS # 0.3 10^3/ul (0.0-0.5); EOSINOPHILS % 4.7 % (0.0-7.0); HEMATOCRIT 32.9 % (37.0-47.0); HEMOGLOBIN 9.8 g/dl (12.0-16.0); LYMPHOCYTES # 1.9 10^3/ul (0.8-2.9); LYMPHOCYTES % 26.7 % (15.0-51.0); MEAN CORPUSCULAR HEMOGLOBIN 30.8 pg (29.0-33.0); MEAN CORPUSCULAR HGB CONC 29.8 g/dl (32.0-37.0); MEAN CORPUSCULAR VOLUME 103.5 fl (82.0-101.0); MEAN PLATELET VOLUME 9.6 fl (7.4-10.4); MONOCYTE # 0.4 10^3/ul (0.3-0.9); NEUTROPHIL # 4.3 10^3/ul (1.6-7.5); NEUTROPHILS % 61.8 % (39.0-77.0); PLATELET COUNT 251 10^3/UL (140-415); RED BLOOD COUNT 3.18 10^6/ul (4.20-5.40); RED CELL DISTRIBUTION WIDTH 17.5 % (11.5-14.5)
[2019-03-20 06:57] LABS: ANION GAP 6 (5-13); BLOOD UREA NITROGEN 22 mg/dl (7-20); CALCIUM 8.6 mg/dl (8.4-10.2); CARBON DIOXIDE 25 mmol/L (21-31); CHLORIDE 109 mmol/L (97-110); CREATININE 0.86 mg/dl (0.44-1.00); GLUCOSE 96 mg/dl (70-220); POTASSIUM 4.2 mmol/L (3.5-5.1); SODIUM 140 mmol/L (135-144)
[2019-03-20] MEDS: NEUTRA-PHOS 250 MG PACKET GTB ×2 (08:58→22:01)
[2019-03-20] MEDS: COLLAGENASE 5 GM (UD JAR) TOP ×2 (08:58→22:02)
[2019-03-20] MEDS: CHLORHEXIDINE GLUCONATE 15 ML UD CUP MM ×2 (08:58→22:01)
[2019-03-20] MEDS: LEVETIRACETAM (100 MG/ML) 5ML CUP GTB ×2 (08:58→22:01)
[2019-03-20] MEDS: DOCUSATE SODIUM 100 MG CAP PO (08:59)
[2019-03-20] MEDS: MULTIVIT/CA CARB/B CMPLX/FA TAB GTB (08:59)
[2019-03-20] MEDS: TRIAMCINOLONE ACET 0.1% 15 GM CR TOP ×2 (08:59→22:02)
[2019-03-20] MEDS: ZINC SULFATE 220 MG CAP GTB (08:59)
[2019-03-20] MEDS: BENAZEPRIL 20 MG TAB PO ×2 (08:59→22:01)
[2019-03-20] MEDS: DIGOXIN 0.125 MG TAB PO (14:00)
[2019-03-21] MEDS: PIPER-TAZO 3.375 GM IV (PMX) 100 ML IVPB ×4 (00:25→18:38)
[2019-03-21] MEDS: ACETYLCYSTEINE 20% 4 ML VIAL NEB ×4 (01:25→19:40)
[2019-03-21] MEDS: LEVALBUTEROL (HFA) 15 GM INHALER INH ×4 (01:25→19:40)
[2019-03-21] MEDS: LANSOPRAZOLE 30 MG CAP GTB (06:18)
[2019-03-21] MEDS: METOPROLOL 25 MG TAB GTB ×3 (06:19→21:28)
[2019-03-21] MEDS: DOCUSATE SODIUM 100 MG CAP PO (09:31)
[2019-03-21] MEDS: COLLAGENASE 5 GM (UD JAR) TOP ×2 (09:31→21:27)
[2019-03-21] MEDS: CHLORHEXIDINE GLUCONATE 15 ML UD CUP MM ×2 (09:31→21:27)
[2019-03-21] MEDS: MULTIVIT/CA CARB/B CMPLX/FA TAB GTB (09:32)
[2019-03-21] MEDS: LEVETIRACETAM (100 MG/ML) 5ML CUP GTB ×2 (09:32→21:28)
[2019-03-21] MEDS: ZINC SULFATE 220 MG CAP GTB (09:32)
[2019-03-21] MEDS: NEUTRA-PHOS 250 MG PACKET GTB ×2 (09:32→21:28)
[2019-03-21] MEDS: ACETAMINOPHEN 650MG/20.3ML CUP GTB (09:32)
[2019-03-21] MEDS: TRIAMCINOLONE ACET 0.1% 15 GM CR TOP ×2 (09:34→21:30)
[2019-03-21] MEDS: BENAZEPRIL 20 MG TAB PO (09:34)
[2019-03-21] MEDS: DIGOXIN 0.125 MG TAB PO (12:10)
[2019-03-21] MEDS: EPOETIN ALFA-EPBX (NON-ESRD 10,000 UNIT/ML VIAL SC (17:00)
[2019-03-21] MEDS: BENAZEPRIL 10 MG TAB PO (21:29)
[2019-03-22] MEDS: PIPER-TAZO 3.375 GM IV (PMX) 100 ML IVPB ×4 (00:05→17:41)
[2019-03-22] MEDS: ACETYLCYSTEINE 20% 4 ML VIAL NEB ×3 (01:23→15:07)
[2019-03-22] MEDS: LEVALBUTEROL (HFA) 15 GM INHALER INH ×3 (01:24→15:06)
[2019-03-22] MEDS: VANCOMYCIN HCL 1.25 GM in SOD CHLORIDE 0.9% 250 ML IVPB (05:59)
[2019-03-22] MEDS: LANSOPRAZOLE 30 MG CAP GTB (05:59)
[2019-03-22] MEDS: METOPROLOL 25 MG TAB GTB ×2 (06:00→13:20)
[2019-03-22] MEDS: NEUTRA-PHOS 250 MG PACKET GTB (07:58)
[2019-03-22] MEDS: MULTIVIT/CA CARB/B CMPLX/FA TAB GTB (07:58)
[2019-03-22] MEDS: LEVETIRACETAM (100 MG/ML) 5ML CUP GTB (07:58)
[2019-03-22] MEDS: ZINC SULFATE 220 MG CAP GTB (07:58)
[2019-03-22] MEDS: CHLORHEXIDINE GLUCONATE 15 ML UD CUP MM (08:08)
[2019-03-22] MEDS: DOCUSATE SODIUM 100 MG CAP PO (08:09)
[2019-03-22] MEDS: TRIAMCINOLONE ACET 0.1% 15 GM CR TOP (08:10)
[2019-03-22] MEDS: COLLAGENASE 5 GM (UD JAR) TOP (08:10)
[2019-03-22] MEDS: BENAZEPRIL 10 MG TAB PO (11:10)
[2019-03-22] MEDS: DIGOXIN 0.125 MG TAB PO (12:03)
== END 2019-03-22 18:39 | DRG 811 ==
LOC: E/R 12:05 → 6WM 14:33
PROC: 30233N1 Transfusion of Nonautologous Red Blood Cells into Peripheral Vein, Percutaneous Approach (ICD-10-PCS; principal; 2019-02-28 12:47)
PROC: 0DJD8ZZ Inspection of Lower Intestinal Tract, Via Natural or Artificial Opening Endoscopic (ICD-10-PCS; 2019-02-28 12:47)
PROC: 5A1955Z Respiratory Ventilation, Greater than 96 Consecutive Hours (ICD-10-PCS; 2019-02-28 12:47)
DX: D46.9 Myelodysplastic syndrome, unspecified (principal); L89.153 Pressure ulcer of sacral region, stage 3; J18.1 Lobar pneumonia, unspecified organism; J96.10 Chronic respiratory failure, unspecified whether with hypoxia or hypercapnia; I13.0 Hypertensive heart and chronic kidney disease with heart failure and stage 1 through stage 4 chronic kidney disease, or unspecified chronic kidney disease; I50.30 Unspecified diastolic (congestive) heart failure; N17.9 Acute kidney failure, unspecified; G93.49 Other encephalopathy; E46 Unspecified protein-calorie malnutrition; I47.1 Supraventricular tachycardia; K57.20 Diverticulitis of large intestine with perforation and abscess without bleeding; Z99.11 Dependence on respirator [ventilator] status; J98.11 Atelectasis; D63.0 Anemia in neoplastic disease; D63.1 Anemia in chronic kidney disease; D32.9 Benign neoplasm of meninges, unspecified; E87.6 Hypokalemia; E83.42 Hypomagnesemia; E78.5 Hyperlipidemia, unspecified; E86.0 Dehydration; G40.909 Epilepsy, unspecified, not intractable, without status epilepticus; I95.9 Hypotension, unspecified; I25.10 Atherosclerotic heart disease of native coronary artery without angina pectoris; J44.9 Chronic obstructive pulmonary disease, unspecified; I48.0 Paroxysmal atrial fibrillation; J84.10 Pulmonary fibrosis, unspecified; N18.3 Chronic kidney disease, stage 3 (moderate); R13.10 Dysphagia, unspecified; R21 Rash and other nonspecific skin eruption; Z22.322 Carrier or suspected carrier of Methicillin resistant Staphylococcus aureus; Z86.73 Personal history of transient ischemic attack (TIA), and cerebral infarction without residual deficits; Z68.25 Body mass index [BMI] 25.0-25.9, adult; Z86.74 Personal history of sudden cardiac arrest; Z87.891 Personal history of nicotine dependence; Z93.0 Tracheostomy status; Z93.1 Gastrostomy status; Z79.01 Long term (current) use of anticoagulants
CPT/HCPCS: 36415; 36430; 36600; 70450; 71045; 74176; 80048; 80053; 80162; 80202; 81001; 82270; 82565; 82607; 82668; 82728; 82746; 82803; 82962; 83010; 83540; 83605; 83615; 83735; 84100; 84443; 84484; 84520; 85025; 85045; 85610; 85730; 86850; 86900; 86901; 86920; 87040-91; 87075; 93005; 94002; 94003; 94640; 94664; 94667; 94668; 99285-25

== ENCOUNTER 2019-04-28 08:29 | Inpatient (IN) | payer MEDICARE, OTHER ==
[2019-04-28 09:40] LABS: WHITE BLOOD COUNT 8.9 10^3/ul (4.8-10.8)
[2019-04-28 09:40] LABS: ADD MAN DIFF? NO; BASOPHIL # 0.1 10^3/ul (0.0-0.1); BASOPHILS % 0.7 % (0.0-2.0); EOSINOPHILS # 0.2 10^3/ul (0.0-0.5); EOSINOPHILS % 1.8 % (0.0-7.0); HEMATOCRIT 26.5 % (37.0-47.0); HEMOGLOBIN 7.9 g/dl (12.0-16.0); LYMPHOCYTES # 1.5 10^3/ul (0.8-2.9); LYMPHOCYTES % 16.8 % (15.0-51.0); MEAN CORPUSCULAR HEMOGLOBIN 31.3 pg (29.0-33.0); MEAN CORPUSCULAR HGB CONC 29.8 g/dl (32.0-37.0); MEAN CORPUSCULAR VOLUME 105.2 fl (82.0-101.0); MEAN PLATELET VOLUME 10.4 fl (7.4-10.4); MONOCYTE # 0.5 10^3/ul (0.3-0.9); MONOCYTES % 5.4 % (0.0-11.0); NEUTROPHIL # 6.3 10^3/ul (1.6-7.5); NUCLEATED RED BLOOD CELLS% 0.2 /100WBC (0.0-0.0); PLATELET COUNT 332 10^3/UL (140-415); RED BLOOD COUNT 2.52 10^6/ul (4.20-5.40); RED CELL DISTRIBUTION WIDTH 17.8 % (11.5-14.5)
[2019-04-28] MEDS: SODIUM CHLORIDE 0.9% 1L BAG IV* (09:44)
[2019-04-28] MEDS: CEFEPIME 2GM/50 ML (PMX) 50 ML IVPB (09:45)
[2019-04-28 09:59] LABS: INR 1.17; PT RATIO 1.2
[2019-04-28 10:00] LABS: PARTIAL THROMBOPLASTIN TIME 43.2 Sec (23.0-35.0)
[2019-04-28 10:03] LABS: ADD UMIC YES; UR ASCORBIC ACID 40 mg/dL (NEGATIVE); UR BACTERIA FEW /HPF (NONE SEEN); UR BILIRUBIN (Dip) NEGATIVE (NEGATIVE); UR BLOOD (Dip) NEGATIVE (NEGATIVE); UR BUDDING YEAST MANY /HPF (NONE SEEN); UR CLARITY CLOUDY (CLEAR); UR COLOR YELLOW (YELLOW); UR GLUCOSE (Dip) NEGATIVE (NEGATIVE); UR KETONES (Dip) NEGATIVE (NEGATIVE); UR LEUKOCYTE ESTERASE (Dip) 1+ Leu/ul (NEGATIVE); UR NITRITE (Dip) NEGATIVE (NEGATIVE); UR RBC 20 /HPF (0-5); UR SPECIFIC GRAVITY (Dip) 1.016 (1.003-1.030); UR SQUAMOUS EPITHELIAL CELL FEW /HPF (FEW); UR TOTAL PROTEIN (Dip) NEGATIVE (NEGATIVE); UR UROBILINOGEN (Dip) NEGATIVE (NEGATIVE); UR WBC 24 /HPF (0-5)
[2019-04-28 10:10] LABS: ALANINE AMINOTRANSFERASE 9 IU/L (13-69); ALBUMIN 3.1 g/dl (3.3-4.9); ALBUMIN/GLOBULIN RATIO 0.79; ALKALINE PHOSPHATASE 87 IU/L (42-121); ANION GAP 9 (5-13); ASPARTATE AMINO TRANSFERASE 21 IU/L (15-46); BILIRUBIN,INDIRECT 0.1 mg/dl (0-1.1); BILIRUBIN,TOTAL 0.1 mg/dl (0.2-1.3); BLOOD UREA NITROGEN 97 mg/dl (7-20); CALCIUM 9.3 mg/dl (8.4-10.2); CARBON DIOXIDE 27 mmol/L (21-31); CHLORIDE 111 mmol/L (97-110); CREATININE 0.85 mg/dl (0.44-1.00); GLUCOSE 142 mg/dl (70-220); SODIUM 147 mmol/L (135-144)
[2019-04-28] MEDS: VANCOMYCIN 1 GM (PMX) 250 ML IVPB (10:22)
[2019-04-28 10:25] LABS: TROPONIN-I 0.158 ng/ml (0.000-0.120)
[2019-04-28] MEDS: ALTEPLASE (CATHFLO) 2 MG INJ CATHETER (10:46)
[2019-04-28] MEDS ORDERED: ONDANSETRON 4 MG INJ IV (11:00)
[2019-04-28] MEDS ORDERED: ACETAMINOPHEN 325 MG TAB PO (11:00)
[2019-04-28 11:38] LABS: LACTIC ACID 2.1 mmol/L (0.5-2.0)
[2019-04-28 13:33] LABS: LACTIC ACID 1.6 mmol/L (0.5-2.0)
[2019-04-29] MEDS ORDERED: PENDING SANTYL ORDER FOR WOUND CARE XX (01:00)
[2019-04-29] MEDS ORDERED: DIGOXIN 0.125 MG TAB GTB (01:30)
[2019-04-29] MEDS: LEVALBUTEROL (HFA) 15 GM INHALER INH ×4 (02:00→19:35)
[2019-04-29] MEDS ORDERED: LEVALBUTEROL (NEB) 0.63 MG/3 ML AMP HHN (02:00)
[2019-04-29] MEDS: DEXTROSE 5% 1,000 ML IV ×2 (02:30→18:23)
[2019-04-29] MEDS ORDERED: ACETAMINOPHEN 650MG/20.3ML CUP GTB (05:00)
[2019-04-29] MEDS: MEROPENEM 1 GM/50ML(PMX) 50 ML IVPB (06:06)
[2019-04-29 07:02] LABS: HEMATOCRIT 24.5 % (37.0-47.0); HEMOGLOBIN 7.3 g/dl (12.0-16.0); MEAN CORPUSCULAR HEMOGLOBIN 31.1 pg (29.0-33.0); MEAN CORPUSCULAR HGB CONC 29.8 g/dl (32.0-37.0); MEAN CORPUSCULAR VOLUME 104.3 fl (82.0-101.0); MEAN PLATELET VOLUME 10.1 fl (7.4-10.4); PLATELET COUNT 327 10^3/UL (140-415); RED BLOOD COUNT 2.35 10^6/ul (4.20-5.40); RED CELL DISTRIBUTION WIDTH 17.8 % (11.5-14.5)
[2019-04-29 07:02] LABS: WHITE BLOOD COUNT 8.4 10^3/ul (4.8-10.8)
[2019-04-29 07:09] LABS: ADD MAN DIFF? YES; POSITIVE DIFF @See below
[2019-04-29 07:21] LABS: ANION GAP 7 (5-13); BLOOD UREA NITROGEN 72 mg/dl (7-20); CALCIUM 8.9 mg/dl (8.4-10.2); CARBON DIOXIDE 25 mmol/L (21-31); CHLORIDE 118 mmol/L (97-110); CREATININE 0.72 mg/dl (0.44-1.00); GLUCOSE 142 mg/dl (70-220); POTASSIUM 3.5 mmol/L (3.5-5.1); SODIUM 150 mmol/L (135-144)
[2019-04-29 07:33] LABS: LACTIC ACID 2.2 mmol/L (0.5-2.0)
[2019-04-29] MEDS: BUDESONIDE (NEB) 0.5MG/2ML AMP INH ×3 (08:10→19:35)
[2019-04-29 08:23] LABS: ANISOCYTOSIS 3+ (0-0); BAND NEUTROPHILS % (M) 13 % (0-4); EOSINOPHILS % (M) 3 % (0-7); LYMPHOCYTES % (M) 13 % (15-51); MONOCYTE #M 0.1 10^3/ul (0.3-0.9); MONOCYTES % (M) 2 % (0-11); MYELOCYTES #M 0.2 10^3/ul (0.0-0.0); MYELOCYTES % (M) 3 % (0-0); PLATELET ESTIMATE NORMAL; POLYCHROMASIA 3+ (0-0); PROMYELOCYTES % (M) 1 % (0-0); SEG NEUT #M 5.5 10^3/ul (1.6-7.5); SEGMENTED NEUTROPHILS (M) % 65 % (39-77); SMUDGE%M 4 % (0-0)
[2019-04-29] MEDS ORDERED: [UNRECOGNIZED DRUG - OTHER] GTB (09:00)
[2019-04-29] MEDS: L ACIDOPHIL/B LACTIS/B LONGUM CAPSULE GTB (09:29)
[2019-04-29] MEDS: ASCORBIC ACID 500 MG TAB GTB ×2 (09:29→20:18)
[2019-04-29] MEDS: ZINC SULFATE 220 MG CAP GTB (09:29)
[2019-04-29] MEDS: BALSAM PERU/CASTOR OIL 60 GM TUBE TOP (09:29)
[2019-04-29] MEDS: CHLORHEXIDINE GLUCONATE 15 ML UD CUP MM ×2 (09:29→20:17)
[2019-04-29] MEDS: APIXABAN 5 MG TABLET GTB ×2 (09:30→20:18)
[2019-04-29] MEDS: DIGOXIN 0.125 MG TAB GTB (09:30)
[2019-04-29] MEDS: METOPROLOL 50 MG TAB GTB ×2 (09:30→20:18)
[2019-04-29 13:40] LABS: PROCALCITONIN 0.45 ng/mL (0.00-0.10)
[2019-04-29] MEDS: CEFEPIME 1GM/50 ML (PMX) 50 ML IVPB ×2 (16:07→20:19)
[2019-04-30] MEDS: LEVALBUTEROL (HFA) 15 GM INHALER INH ×4 (01:13→20:08)
[2019-04-30 08:35] LABS: ADD MAN DIFF? NO
[2019-04-30 08:49] LABS: ABNORMAL IP MESSAGE 1; BASOPHILS % 0.4 % (0.0-2.0); EOSINOPHILS # 0.5 10^3/ul (0.0-0.5); HEMATOCRIT 21.7 % (37.0-47.0); LYMPHOCYTES # 1.5 10^3/ul (0.8-2.9); LYMPHOCYTES % 17.9 % (15.0-51.0); MEAN CORPUSCULAR HEMOGLOBIN 31.3 pg (29.0-33.0); MEAN CORPUSCULAR VOLUME 104.3 fl (82.0-101.0); MEAN PLATELET VOLUME 10.3 fl (7.4-10.4); MONOCYTE # 0.4 10^3/ul (0.3-0.9); MONOCYTES % 4.8 % (0.0-11.0); NEUTROPHIL # 5.3 10^3/ul (1.6-7.5); NEUTROPHILS % 64.3 % (39.0-77.0); NUCLEATED RED BLOOD CELLS% 0.4 /100WBC (0.0-0.0); PLATELET COUNT 330 10^3/UL (140-415); RED BLOOD COUNT 2.08 10^6/ul (4.20-5.40); RED CELL DISTRIBUTION WIDTH 17.5 % (11.5-14.5)
[2019-04-30 08:49] LABS: WHITE BLOOD COUNT 8.3 10^3/ul (4.8-10.8)
[2019-04-30 08:59] LABS: HEMOGLOBIN 6.5 g/dl (12.0-16.0); POSITIVE DIFF @See below
[2019-04-30 09:00] LABS: PATH REVIEW? YES
[2019-04-30] MEDS: BUDESONIDE (NEB) 0.5MG/2ML AMP INH ×2 (09:00→19:56)
[2019-04-30 09:04] LABS: ANION GAP 7 (5-13); BLOOD UREA NITROGEN 59 mg/dl (7-20); CALCIUM 8.7 mg/dl (8.4-10.2); CARBON DIOXIDE 25 mmol/L (21-31); CHLORIDE 113 mmol/L (97-110); CREATININE 0.71 mg/dl (0.44-1.00); GLUCOSE 132 mg/dl (70-220); MAGNESIUM 2.3 mg/dl (1.7-2.5); PHOSPHORUS 2.3 mg/dl (2.5-4.9); POTASSIUM 3.2 mmol/L (3.5-5.1); SODIUM 145 mmol/L (135-144)
[2019-04-30 10:08] LABS: ANISOCYTOSIS 2+ (0-0); BAND NEUTROPHILS #M 1.2 10^3/ul (0.0-0.6); BAND NEUTROPHILS % (M) 15 % (0-4); BASOPHIL #M 0.2 10^3/ul (0.0-0.0); BASOPHILS % (M) 3 % (0-2); EOSINOPHILS % (M) 8 % (0-7); LYMPHOCYTES #M 0.5 10^3/ul (0.8-2.9); LYMPHOCYTES % (M) 7 % (15-51); MICROCYTOSIS 1+ (0-0); MONOCYTES % (M) 1 % (0-11); MYELOCYTES % (M) 1 % (0-0); PLATELET ESTIMATE NORMAL; POIKILOCYTOSIS 1+ (0-0); POLYCHROMASIA 3+ (0-0); PROMYELOCYTES % (M) 1 % (0-0); SEG NEUT #M 5.4 10^3/ul (1.6-7.5); SEGMENTED NEUTROPHILS (M) % 64 % (39-77); SMUDGE%M 9 % (0-0)
[2019-04-30] MEDS: CEFEPIME 1GM/50 ML (PMX) 50 ML IVPB ×2 (10:22→20:17)
[2019-04-30] MEDS: L ACIDOPHIL/B LACTIS/B LONGUM CAPSULE GTB (10:22)
[2019-04-30] MEDS: ASCORBIC ACID 500 MG TAB GTB ×2 (10:22→20:16)
[2019-04-30] MEDS: DIGOXIN 0.125 MG TAB GTB (10:23)
[2019-04-30] MEDS: CHLORHEXIDINE GLUCONATE 15 ML UD CUP MM ×2 (10:23→20:17)
[2019-04-30] MEDS: APIXABAN 5 MG TABLET GTB ×2 (10:23→20:17)
[2019-04-30] MEDS: ZINC SULFATE 220 MG CAP GTB (10:26)
[2019-04-30] MEDS: METOPROLOL 50 MG TAB GTB ×2 (10:27→20:17)
[2019-04-30] MEDS: BALSAM PERU/CASTOR OIL 60 GM TUBE TOP (10:30)
[2019-04-30] MEDS: DEXTROSE 5% 1,000 ML IV (10:35)
[2019-04-30 14:35] LABS: IMMEDIATE SPIN CROSSMATCH 1 2
[2019-04-30] MEDS: POTASSIUM CHLORIDE 20 MEQ POWDER FOR ORAL SOLN GTB (15:08)
[2019-04-30] MEDS: VANCOMYCIN HCL 250 MG/5ML POSYG PO ×2 (16:45→17:55)
[2019-04-30] MEDS: DIGOXIN 500 MCG INJ IV (17:56)
[2019-04-30] MEDS: CASPOFUNGIN 70 MG in SOD CHLORIDE 0.9% 250 ML IVPB (18:20)
[2019-05-01] MEDS: VANCOMYCIN HCL 250 MG/5ML POSYG PO ×4 (00:17→18:28)
[2019-05-01] MEDS: LEVALBUTEROL (HFA) 15 GM INHALER INH ×4 (01:53→19:30)
[2019-05-01] MEDS: DEXTROSE 5% 1,000 ML IV ×3 (05:35→20:10)
[2019-05-01 06:25] LABS: WHITE BLOOD COUNT 12.3 10^3/ul (4.8-10.8)
[2019-05-01 06:25] LABS: ABNORMAL IP MESSAGE 1; HEMATOCRIT 29.7 % (37.0-47.0); HEMOGLOBIN 9.5 g/dl (12.0-16.0); MEAN CORPUSCULAR HEMOGLOBIN 30.9 pg (29.0-33.0); MEAN CORPUSCULAR VOLUME 96.7 fl (82.0-101.0); MEAN PLATELET VOLUME 9.9 fl (7.4-10.4); NUCLEATED RED BLOOD CELLS% 0.3 /100WBC (0.0-0.0); PLATELET COUNT 334 10^3/UL (140-415); RED BLOOD COUNT 3.07 10^6/ul (4.20-5.40); RED CELL DISTRIBUTION WIDTH 19.6 % (11.5-14.5)
[2019-05-01 06:26] LABS: POSITIVE DIFF @See below
[2019-05-01 06:27] LABS: ADD MAN DIFF? YES
[2019-05-01 07:31] LABS: ANISOCYTOSIS 1+ (0-0); BAND NEUTROPHILS % (M) 17 % (0-4); EOSINOPHILS % (M) 5 % (0-7); GIANT THROMBO% (M) 2 % (0-0); LYMPHOCYTES #M 1.3 10^3/ul (0.8-2.9); LYMPHOCYTES % (M) 11 % (15-51); METAMYELOCYTES #M 0.1 10^3/ul (0.0-0.0); METAMYELOCYTES %M 1 % (0-0); MONOCYTE #M 0.4 10^3/ul (0.3-0.9); MONOCYTES % (M) 4 % (0-11); MYELOCYTES #M 0.2 10^3/ul (0.0-0.0); MYELOCYTES % (M) 2 % (0-0); PLATELET ESTIMATE NORMAL; PLATELET MORPHOLOGY COMMENT @See below; POLYCHROMASIA 1+ (0-0); SEG NEUT #M 7.6 10^3/ul (1.6-7.5); SEGMENTED NEUTROPHILS (M) % 60 % (39-77); SMUDGE%M 41 % (0-0)
[2019-05-01] MEDS: BUDESONIDE (NEB) 0.5MG/2ML AMP INH ×2 (08:26→19:30)
[2019-05-01] MEDS: CEFEPIME 1GM/50 ML (PMX) 50 ML IVPB (09:24)
[2019-05-01] MEDS: L ACIDOPHIL/B LACTIS/B LONGUM CAPSULE GTB (09:24)
[2019-05-01] MEDS: ASCORBIC ACID 500 MG TAB GTB ×2 (09:24→20:40)
[2019-05-01] MEDS: ZINC SULFATE 220 MG CAP GTB (09:25)
[2019-05-01] MEDS: METOPROLOL 50 MG TAB GTB ×2 (09:26→20:42)
[2019-05-01] MEDS: DIGOXIN 0.125 MG TAB GTB (09:26)
[2019-05-01] MEDS: APIXABAN 5 MG TABLET GTB ×2 (09:26→20:40)
[2019-05-01] MEDS: BALSAM PERU/CASTOR OIL 60 GM TUBE TOP (09:27)
[2019-05-01] MEDS: CHLORHEXIDINE GLUCONATE 15 ML UD CUP MM ×2 (09:27→20:41)
[2019-05-01 13:38] LABS: AADO2 Arterial 65.1 mmHg (7.0-24.0); Allen Test ACCEPTAB; Arterial Base Excess -2.4 mmol/L (-3.0-3); Arterial Blood Gas Oxygen Sat 98.5 mmHG (95.0-100.0); Arterial COHb 0.3 % (0.0-3.0); Arterial Fraction of Oxyhgb 98.1 % (93.0-99.0); Arterial HCO3 22.3 mmol/L (22.0-26.0); Arterial MetHb 0.1 % (0.0-1.5); Arterial pCO2 38.2 mmhg (35-45); MODE VENT - AC; Site Left Radial
[2019-05-01] MEDS: CASPOFUNGIN 50 MG in SOD CHLORIDE 0.9% 250 ML IVPB (18:28)
[2019-05-01] MEDS: COLISTIMETHATE (25 MG/ML INHAL SYG) NEB (19:41)
[2019-05-02] MEDS ORDERED: EPOETIN ALFA-EPBX (ESRD) 10,000 UNIT/ML VIAL SC (17:00)
== END 2019-05-01 22:00 | disposition short-term general hospital (02) | DRG 871 ==
LOC: TEL 10:35 → E/R 08:29
PROC: 5A1945Z Respiratory Ventilation, 24-96 Consecutive Hours (ICD-10-PCS; principal; 2019-04-28)
PROC: 30233N1 Transfusion of Nonautologous Red Blood Cells into Peripheral Vein, Percutaneous Approach (ICD-10-PCS; 2019-04-30)
DX: A41.9 Sepsis, unspecified organism (principal); J18.9 Pneumonia, unspecified organism; T83.511A Infection and inflammatory reaction due to indwelling urethral catheter, initial encounter; Z99.11 Dependence on respirator [ventilator] status; N39.0 Urinary tract infection, site not specified; J96.10 Chronic respiratory failure, unspecified whether with hypoxia or hypercapnia; G93.40 Encephalopathy, unspecified; L03.116 Cellulitis of left lower limb; L03.115 Cellulitis of right lower limb; E46 Unspecified protein-calorie malnutrition; E87.2 Acidosis; A04.72 Enterocolitis due to Clostridium difficile, not specified as recurrent; E87.0 Hyperosmolality and hypernatremia; I50.30 Unspecified diastolic (congestive) heart failure; I48.2 Chronic atrial fibrillation; J44.9 Chronic obstructive pulmonary disease, unspecified; J84.10 Pulmonary fibrosis, unspecified; R13.10 Dysphagia, unspecified; D64.9 Anemia, unspecified; G40.909 Epilepsy, unspecified, not intractable, without status epilepticus; I10 Essential (primary) hypertension; I49.3 Ventricular premature depolarization; E78.5 Hyperlipidemia, unspecified; I25.10 Atherosclerotic heart disease of native coronary artery without angina pectoris; N18.9 Chronic kidney disease, unspecified; D63.1 Anemia in chronic kidney disease; Z79.02 Long term (current) use of antithrombotics/antiplatelets
CPT/HCPCS: 36430; 36600; 71045; 80048; 80053; 81001; 82803; 83605; 83735; 84100; 84145; 84484; 85025; 85610; 85730; 86850; 86900; 86901; 86920; 87040-91; 87070; 87075; 87081; 87086; 89220; 93005; 94002; 94003; 94640; 94664; 94667; 94668; 94799; 96374; 96375; 99285-25

== ENCOUNTER 2019-06-23 13:25 | Inpatient (IN) | payer MEDICARE, OTHER ==
[2019-06-23 13:57] LABS: ADD MAN DIFF? NO
[2019-06-23] MEDS: SOD CHLORIDE 0.9% 500 ML IV (13:59)
[2019-06-23 14:04] LABS: WHITE BLOOD COUNT 8.8 10^3/ul (4.8-10.8)
[2019-06-23 14:04] LABS: BASOPHILS % 0.1 % (0.0-2.0); EOSINOPHILS # 0.5 10^3/ul (0.0-0.5); EOSINOPHILS % 5.2 % (0.0-7.0); HEMATOCRIT 24.4 % (37.0-47.0); HEMOGLOBIN 7.3 g/dl (12.0-16.0); LYMPHOCYTES % 10.8 % (15.0-51.0); MEAN CORPUSCULAR HEMOGLOBIN 31.6 pg (29.0-33.0); MEAN CORPUSCULAR HGB CONC 29.9 g/dl (32.0-37.0); MEAN CORPUSCULAR VOLUME 105.6 fl (82.0-101.0); MEAN PLATELET VOLUME 10.4 fl (7.4-10.4); MONOCYTE # 0.4 10^3/ul (0.3-0.9); MONOCYTES % 4.6 % (0.0-11.0); NEUTROPHIL # 6.9 10^3/ul (1.6-7.5); NEUTROPHILS % 78.3 % (39.0-77.0); PLATELET COUNT 268 10^3/UL (140-415); RED BLOOD COUNT 2.31 10^6/ul (4.20-5.40)
[2019-06-23 14:22] LABS: ALANINE AMINOTRANSFERASE 14 IU/L (13-69); ALBUMIN 2.6 g/dl (3.3-4.9); ALBUMIN/GLOBULIN RATIO 0.78; ALKALINE PHOSPHATASE 61 IU/L (42-121); ANION GAP 9 (5-13); ASPARTATE AMINO TRANSFERASE 13 IU/L (15-46); CALCIUM 8.7 mg/dl (8.4-10.2); CARBON DIOXIDE 13 mmol/L (21-31); CHLORIDE 108 mmol/L (97-110); GLUCOSE 101 mg/dl (70-220); SODIUM 130 mmol/L (135-144); TOTAL PROTEIN 5.9 g/dl (6.1-8.1)
[2019-06-23 14:33] LABS: POTASSIUM 5.3 mmol/L (3.5-5.1)
[2019-06-23 14:37] LABS: BLOOD UREA NITROGEN 127 mg/dl (7-20)
[2019-06-23 14:43] LABS: AADO2 Arterial 194.2 mmHg (7.0-24.0); Allen Test ACCEPTAB; Arterial Base Excess -15.9 mmol/L (-3.0-3); Arterial Blood Gas Oxygen Sat 98.3 mmHG (95.0-100.0); Arterial COHb 0.1 % (0.0-3.0); Arterial Fraction of Oxyhgb 97.8 % (93.0-99.0); Arterial HCO3 10.8 mmol/L (22.0-26.0); Arterial MetHb 0.4 % (0.0-1.5); Arterial pCO2 28.4 mmhg (35-45); MODE VENT - AC; Site Left Radial
[2019-06-23] MEDS ORDERED: ONDANSETRON 4 MG INJ IV ×2 (15:00→17:30)
[2019-06-23] MEDS ORDERED: NACL 0.9% 3 ML SYG IV (15:00)
[2019-06-23] MEDS ORDERED: morphine 2 MG INJ IV (15:00)
[2019-06-23] MEDS: ALBUTEROL 0.5% (NEB) 2.5 MG/0.5 ML AMP INH (15:06)
[2019-06-23 15:17] LABS: DIGOXIN 3.5 ng/ml (1.0-2.0)
[2019-06-23 15:39] LABS: ADD UMIC YES; UR ASCORBIC ACID NEGATIVE (NEGATIVE); UR BACTERIA FEW /HPF (NONE SEEN); UR BILIRUBIN (Dip) NEGATIVE (NEGATIVE); UR BLOOD (Dip) 3+ mg/dL (NEGATIVE); UR BUDDING YEAST MODERATE /HPF (NONE SEEN); UR CLARITY TURBID (CLEAR); UR COLOR AMBER (YELLOW); UR GLUCOSE (Dip) NEGATIVE (NEGATIVE); UR KETONES (Dip) NEGATIVE (NEGATIVE); UR LEUKOCYTE ESTERASE (Dip) 3+ Leu/ul (NEGATIVE); UR NITRITE (Dip) NEGATIVE (NEGATIVE); UR RBC 178 /HPF (0-5); UR SPECIFIC GRAVITY (Dip) 1.012 (1.003-1.030); UR SQUAMOUS EPITHELIAL CELL FEW /HPF (FEW); UR TOTAL PROTEIN (Dip) 2+ mg/dl (NEGATIVE); UR TRANSITIONAL EPI CELL FEW /HPF (NONE SEEN); UR UROBILINOGEN (Dip) NEGATIVE (NEGATIVE); UR WBC > 182 /HPF (0-5)
[2019-06-23] MEDS: CEFEPIME 2GM/50 ML (PMX) 50 ML IVPB (16:05)
[2019-06-23] MEDS: SODIUM CHLORIDE 0.9% 1L BAG IV* (16:13)
[2019-06-23] MEDS ORDERED: ACETAMINOPHEN 325 MG TAB PO (17:30)
[2019-06-23] MEDS: FAMOTIDINE 20 MG INJ IV (21:43)
[2019-06-24 05:37] LABS: WHITE BLOOD COUNT 6.6 10^3/ul (4.8-10.8)
[2019-06-24 05:37] LABS: HEMATOCRIT 25.1 % (37.0-47.0); HEMOGLOBIN 7.4 g/dl (12.0-16.0); MEAN CORPUSCULAR HEMOGLOBIN 31.2 pg (29.0-33.0); MEAN CORPUSCULAR HGB CONC 29.5 g/dl (32.0-37.0); MEAN CORPUSCULAR VOLUME 105.9 fl (82.0-101.0); MEAN PLATELET VOLUME 10.7 fl (7.4-10.4); PLATELET COUNT 289 10^3/UL (140-415); RED BLOOD COUNT 2.37 10^6/ul (4.20-5.40); RED CELL DISTRIBUTION WIDTH 20.6 % (11.5-14.5)
[2019-06-24 05:42] LABS: ADD MAN DIFF? YES; POSITIVE DIFF @See below
[2019-06-24 05:58] LABS: ALANINE AMINOTRANSFERASE 17 IU/L (13-69); ALBUMIN 2.2 g/dl (3.3-4.9); ALBUMIN/GLOBULIN RATIO 0.66; ALKALINE PHOSPHATASE 58 IU/L (42-121); ANION GAP 10 (5-13); ASPARTATE AMINO TRANSFERASE 12 IU/L (15-46); BILIRUBIN,INDIRECT 0.1 mg/dl (0-1.1); BILIRUBIN,TOTAL 0.1 mg/dl (0.2-1.3); CALCIUM 8.7 mg/dl (8.4-10.2); CARBON DIOXIDE 11 mmol/L (21-31); CHLORIDE 113 mmol/L (97-110); CREATININE 2.81 mg/dl (0.44-1.00); GLUCOSE 83 mg/dl (70-220); POTASSIUM 5.4 mmol/L (3.5-5.1); SODIUM 134 mmol/L (135-144); TOTAL PROTEIN 5.5 g/dl (6.1-8.1)
[2019-06-24 06:17] LABS: BLOOD UREA NITROGEN 134 mg/dl (7-20)
[2019-06-24 09:29] LABS: ANISOCYTOSIS 1+ (0-0); BAND NEUTROPHILS #M 0.2 10^3/ul (0.0-0.6); BAND NEUTROPHILS % (M) 4 % (0-4); BASOPHIL #M 0.1 10^3/ul (0.0-0.0); BASOPHILS % (M) 2 % (0-2); EOSINOPHILS % (M) 10 % (0-7); LYMPHOCYTES #M 0.7 10^3/ul (0.8-2.9); LYMPHOCYTES % (M) 11 % (15-51); MONOCYTE #M 0.2 10^3/ul (0.3-0.9); MONOCYTES % (M) 4 % (0-11); MYELOCYTES % (M) 1 % (0-0); PLATELET ESTIMATE NORMAL; POLYCHROMASIA 1+ (0-0); SEG NEUT #M 4.5 10^3/ul (1.6-7.5); SEGMENTED NEUTROPHILS (M) % 68 % (39-77); SMUDGE%M 4 % (0-0)
[2019-06-24] MEDS: ENOXAPARIN 30 MG/0.3 ML SYG SC (09:44)
[2019-06-24] MEDS ORDERED: SOD CHLORIDE 0.9% 1,000 ML IV (13:00)
[2019-06-24 13:48] LABS: ADD UMIC YES; UR ASCORBIC ACID NEGATIVE (NEGATIVE); UR BACTERIA MODERATE /HPF (NONE SEEN); UR BILIRUBIN (Dip) NEGATIVE (NEGATIVE); UR BLOOD (Dip) 2+ mg/dL (NEGATIVE); UR CLARITY TURBID (CLEAR); UR COLOR YELLOW (YELLOW); UR GLUCOSE (Dip) NEGATIVE (NEGATIVE); UR KETONES (Dip) NEGATIVE (NEGATIVE); UR LEUKOCYTE ESTERASE (Dip) 2+ Leu/ul (NEGATIVE); UR NITRITE (Dip) NEGATIVE (NEGATIVE); UR RBC 18 /HPF (0-5); UR SQUAMOUS EPITHELIAL CELL FEW /HPF (FEW); UR TOTAL PROTEIN (Dip) 2+ mg/dl (NEGATIVE); UR UROBILINOGEN (Dip) NEGATIVE (NEGATIVE); UR WBC > 182 /HPF (0-5)
[2019-06-24 14:01] LABS: SODIUM,URINE RANDOM 58 mmol/L (30-90)
[2019-06-24 14:01] LABS: CREATININE,URINE RANDOM 13.87 mg/dl (20-320)
[2019-06-24] MEDS: SODIUM BICARBONATE (IV ADD) 150 MEQ in DEXTROSE 5% 1,000 ML IV (14:47)
[2019-06-24 20:35] LABS: IMMEDIATE SPIN CROSSMATCH 1 1
[2019-06-24] MEDS: FAMOTIDINE 20 MG INJ IV (22:16)
[2019-06-25] MEDS: SODIUM BICARBONATE (IV ADD) 150 MEQ in DEXTROSE 5% 1,000 ML IV ×2 (05:50→10:58)
[2019-06-25 06:12] LABS: ADD MAN DIFF? NO
[2019-06-25 06:18] LABS: BASOPHILS % 0.3 % (0.0-2.0); EOSINOPHILS # 0.4 10^3/ul (0.0-0.5); EOSINOPHILS % 6.1 % (0.0-7.0); HEMATOCRIT 28.1 % (37.0-47.0); HEMOGLOBIN 8.6 g/dl (12.0-16.0); LYMPHOCYTES # 0.6 10^3/ul (0.8-2.9); MEAN CORPUSCULAR HEMOGLOBIN 30.9 pg (29.0-33.0); MEAN CORPUSCULAR HGB CONC 30.6 g/dl (32.0-37.0); MEAN CORPUSCULAR VOLUME 101.1 fl (82.0-101.0); MEAN PLATELET VOLUME 10.3 fl (7.4-10.4); MONOCYTE # 0.3 10^3/ul (0.3-0.9); MONOCYTES % 4.4 % (0.0-11.0); NEUTROPHILS % 77.8 % (39.0-77.0); PLATELET COUNT 312 10^3/UL (140-415); RED BLOOD COUNT 2.78 10^6/ul (4.20-5.40)
[2019-06-25 06:18] LABS: WHITE BLOOD COUNT 6.4 10^3/ul (4.8-10.8)
[2019-06-25 06:41] LABS: ANION GAP 10 (5-13); CALCIUM 8.5 mg/dl (8.4-10.2); CARBON DIOXIDE 13 mmol/L (21-31); CHLORIDE 113 mmol/L (97-110); GLUCOSE 106 mg/dl (70-220); MAGNESIUM 1.9 mg/dl (1.7-2.5); PHOSPHORUS 3.8 mg/dl (2.5-4.9); POTASSIUM 4.4 mmol/L (3.5-5.1); SODIUM 136 mmol/L (135-144)
[2019-06-25 06:50] LABS: BLOOD UREA NITROGEN 133 mg/dl (7-20)
[2019-06-25] MEDS: ENOXAPARIN 30 MG/0.3 ML SYG SC (09:27)
[2019-06-25] MEDS: EPOETIN ALFA-EPBX (NON-ESRD 10,000 UNIT/ML VIAL SC (10:58)
[2019-06-25] MEDS: FAMOTIDINE 20 MG INJ IV (20:43)
[2019-06-26] MEDS: SODIUM BICARBONATE (IV ADD) 150 MEQ in DEXTROSE 5% 1,000 ML IV ×2 (01:28→12:04)
[2019-06-26 05:09] LABS: ADD MAN DIFF? NO
[2019-06-26 05:12] LABS: WHITE BLOOD COUNT 5.8 10^3/ul (4.8-10.8)
[2019-06-26 05:12] LABS: BASOPHILS % 0.3 % (0.0-2.0); EOSINOPHILS # 0.3 10^3/ul (0.0-0.5); EOSINOPHILS % 4.8 % (0.0-7.0); HEMATOCRIT 24.8 % (37.0-47.0); HEMOGLOBIN 7.9 g/dl (12.0-16.0); LYMPHOCYTES # 0.9 10^3/ul (0.8-2.9); LYMPHOCYTES % 14.9 % (15.0-51.0); MEAN CORPUSCULAR HEMOGLOBIN 32.2 pg (29.0-33.0); MEAN CORPUSCULAR HGB CONC 31.9 g/dl (32.0-37.0); MEAN CORPUSCULAR VOLUME 101.2 fl (82.0-101.0); MEAN PLATELET VOLUME 9.9 fl (7.4-10.4); MONOCYTE # 0.3 10^3/ul (0.3-0.9); MONOCYTES % 4.3 % (0.0-11.0); NEUTROPHIL # 4.3 10^3/ul (1.6-7.5); NEUTROPHILS % 73.6 % (39.0-77.0); PLATELET COUNT 302 10^3/UL (140-415); RED BLOOD COUNT 2.45 10^6/ul (4.20-5.40); RED CELL DISTRIBUTION WIDTH 20.2 % (11.5-14.5)
[2019-06-26 05:45] LABS: ANION GAP 10 (5-13); CALCIUM 8.4 mg/dl (8.4-10.2); CARBON DIOXIDE 20 mmol/L (21-31); CHLORIDE 111 mmol/L (97-110); CREATININE 2.72 mg/dl (0.44-1.00); GLUCOSE 114 mg/dl (70-220); MAGNESIUM 1.7 mg/dl (1.7-2.5); PHOSPHORUS 2.6 mg/dl (2.5-4.9); POTASSIUM 3.6 mmol/L (3.5-5.1); SODIUM 141 mmol/L (135-144)
[2019-06-26 06:00] LABS: BLOOD UREA NITROGEN 122 mg/dl (7-20)
[2019-06-26] MEDS: ENOXAPARIN 30 MG/0.3 ML SYG SC (08:51)
[2019-06-26 09:20] LABS: AADO2 Arterial 127.2 mmHg (7.0-24.0); Allen Test ACCEPTAB; Arterial Base Excess -4.9 mmol/L (-3.0-3); Arterial Blood Gas Oxygen Sat 98.9 mmHG (95.0-100.0); Arterial COHb 0.3 % (0.0-3.0); Arterial Fraction of Oxyhgb 98.3 % (93.0-99.0); Arterial HCO3 19.4 mmol/L (22.0-26.0); Arterial MetHb 0.3 % (0.0-1.5); Arterial pCO2 32.4 mmhg (35-45); MODE VENT - AC; Site Right Radial
[2019-06-26] MEDS: BUDESONIDE (NEB) 0.5MG/2ML AMP HHN ×2 (11:30→19:35)
[2019-06-26] MEDS: DAKINS 0.0125%(1/40) 473 ML SOLUTION TP (12:04)
[2019-06-26] MEDS: IPRATROPIUM (NEB) 0.5 MG/2.5 ML AMP HHN ×2 (13:04→19:35)
[2019-06-26] MEDS: LEVALBUTEROL (NEB) 0.63 MG/3 ML AMP HHN ×2 (13:04→19:36)
[2019-06-26] MEDS: BALSAM PERU/CASTOR OIL 60 GM TUBE TOP (13:23)
[2019-06-26] MEDS: FLUCONAZOLE 200 MG TAB GTB (16:54)
[2019-06-26] MEDS: FAMOTIDINE 20 MG TAB GTB (16:54)
[2019-06-26 17:41] LABS: CREATININE, RANDOM URINE 16 mg/dL (20-275); MICROALBUMIN 39.1 mg/dL; MICROALBUMIN/CREATININE RATIO 2444 (<30)
[2019-06-26] MEDS ORDERED: LEVETIRACETAM (100 MG/ML PO SYG) GTB (21:00)
[2019-06-26] MEDS: LEVETIRACETAM (100 MG/ML) 5ML CUP GTB (21:53)
[2019-06-27] MEDS: LEVALBUTEROL (NEB) 0.63 MG/3 ML AMP HHN ×4 (01:34→19:22)
[2019-06-27] MEDS: SODIUM BICARBONATE (IV ADD) 150 MEQ in DEXTROSE 5% 1,000 ML IV (04:37)
[2019-06-27 05:52] LABS: ADD MAN DIFF? NO
[2019-06-27 06:01] LABS: WHITE BLOOD COUNT 6.2 10^3/ul (4.8-10.8)
[2019-06-27 06:01] LABS: BASOPHILS % 0.3 % (0.0-2.0); EOSINOPHILS # 0.2 10^3/ul (0.0-0.5); EOSINOPHILS % 3.2 % (0.0-7.0); HEMATOCRIT 26.8 % (37.0-47.0); HEMOGLOBIN 8.2 g/dl (12.0-16.0); LYMPHOCYTES % 15.7 % (15.0-51.0); MEAN CORPUSCULAR HEMOGLOBIN 31.1 pg (29.0-33.0); MEAN CORPUSCULAR HGB CONC 30.6 g/dl (32.0-37.0); MEAN CORPUSCULAR VOLUME 101.5 fl (82.0-101.0); MONOCYTE # 0.3 10^3/ul (0.3-0.9); MONOCYTES % 4.7 % (0.0-11.0); NEUTROPHIL # 4.5 10^3/ul (1.6-7.5); NEUTROPHILS % 72.4 % (39.0-77.0); NUCLEATED RED BLOOD CELLS% 0.5 /100WBC (0.0-0.0); PLATELET COUNT 294 10^3/UL (140-415); RED BLOOD COUNT 2.64 10^6/ul (4.20-5.40); RED CELL DISTRIBUTION WIDTH 20.9 % (11.5-14.5)
[2019-06-27 06:13] LABS: ANION GAP 8 (5-13); CALCIUM 8.1 mg/dl (8.4-10.2); CARBON DIOXIDE 27 mmol/L (21-31); CHLORIDE 106 mmol/L (97-110); CREATININE 2.27 mg/dl (0.44-1.00); GLUCOSE 128 mg/dl (70-220); MAGNESIUM 1.6 mg/dl (1.7-2.5); PHOSPHORUS 2.1 mg/dl (2.5-4.9); POTASSIUM 3.3 mmol/L (3.5-5.1); SODIUM 141 mmol/L (135-144)
[2019-06-27 06:34] LABS: BLOOD UREA NITROGEN 127 mg/dl (7-20)
[2019-06-27] MEDS: MAGNESIUM SULFATE 2 GM/50 ML 50 ML IVPB (07:43)
[2019-06-27] MEDS: POTASSIUM CHLORIDE 100 ML IVPB ×2 (07:43→09:48)
[2019-06-27] MEDS: IPRATROPIUM (NEB) 0.5 MG/2.5 ML AMP HHN ×3 (08:38→19:22)
[2019-06-27] MEDS: BUDESONIDE (NEB) 0.5MG/2ML AMP HHN ×2 (08:38→19:22)
[2019-06-27] MEDS: LEVETIRACETAM (100 MG/ML) 5ML CUP GTB ×2 (08:42→20:41)
[2019-06-27] MEDS: FLUCONAZOLE 200 MG TAB GTB (08:42)
[2019-06-27] MEDS: MULTIVIT/CA CARB/B CMPLX/FA TAB GTB (08:42)
[2019-06-27] MEDS: FAMOTIDINE 20 MG TAB GTB (08:42)
[2019-06-27] MEDS: DAKINS 0.0125%(1/40) 473 ML SOLUTION TP (08:43)
[2019-06-27] MEDS: BALSAM PERU/CASTOR OIL 60 GM TUBE TOP (08:43)
[2019-06-27] MEDS: ENOXAPARIN 30 MG/0.3 ML SYG SC (08:46)
[2019-06-27] MEDS ORDERED: DILTIAZEM 25 MG INJ IV (12:30)
[2019-06-27] MEDS: FERROUS SULFATE 60 MG/ML 5ML CUP GTB (13:17)
[2019-06-27] MEDS ORDERED: VANCOMYCIN IV PER PHARMACY XX (14:00)
[2019-06-27] MEDS: AZTREONAM 1 GM/NS (PMX) 50 ML IVPB ×2 (15:17→20:41)
[2019-06-27] MEDS: VANCOMYCIN 1.25 GM/NS 250 ML 250 ML IVPB (15:17)
[2019-06-27] MEDS: EPOETIN ALFA 20,000 UNIT/ML VIAL SQ (16:03)
[2019-06-27 19:06] LABS: CK-MB 0.56 ng/ml (0.0-2.4); TROPONIN-I 0.054 ng/ml (0.000-0.120)
[2019-06-27 19:19] LABS: CREATINE KINASE < 20 IU/L (23-200)
[2019-06-27] MEDS: METOPROLOL 25 MG TAB GTB (20:42)
[2019-06-28] MEDS: LEVALBUTEROL (NEB) 0.63 MG/3 ML AMP HHN ×4 (01:11→19:49)
[2019-06-28 01:46] LABS: CREATINE KINASE < 20 IU/L (23-200)
[2019-06-28 01:58] LABS: TROPONIN-I 0.055 ng/ml (0.000-0.120)
[2019-06-28 05:54] LABS: ABNORMAL IP MESSAGE 1; HEMATOCRIT 25.3 % (37.0-47.0); HEMOGLOBIN 7.6 g/dl (12.0-16.0); MEAN CORPUSCULAR HEMOGLOBIN 31.5 pg (29.0-33.0); MEAN PLATELET VOLUME 9.8 fl (7.4-10.4); NUCLEATED RED BLOOD CELLS% 0.6 /100WBC (0.0-0.0); PLATELET COUNT 305 10^3/UL (140-415); RED BLOOD COUNT 2.41 10^6/ul (4.20-5.40); RED CELL DISTRIBUTION WIDTH 20.9 % (11.5-14.5)
[2019-06-28 05:54] LABS: WHITE BLOOD COUNT 6.8 10^3/ul (4.8-10.8)
[2019-06-28 06:10] LABS: ADD MAN DIFF? YES; POSITIVE DIFF @See below
[2019-06-28] MEDS: PANTOPRAZOLE (EC) 40 MG TAB PO (06:16)
[2019-06-28 06:28] LABS: ANION GAP 8 (5-13); CALCIUM 8.2 mg/dl (8.4-10.2); CARBON DIOXIDE 28 mmol/L (21-31); CHLORIDE 106 mmol/L (97-110); CREATININE 2.27 mg/dl (0.44-1.00); GLUCOSE 115 mg/dl (70-220); PHOSPHORUS 1.8 mg/dl (2.5-4.9); POTASSIUM 4.2 mmol/L (3.5-5.1); SODIUM 142 mmol/L (135-144)
[2019-06-28 06:36] LABS: BLOOD UREA NITROGEN 124 mg/dl (7-20); CREATINE KINASE < 20 IU/L (23-200)
[2019-06-28 06:38] LABS: CK-MB 0.57 ng/ml (0.0-2.4); TROPONIN-I 0.062 ng/ml (0.000-0.120)
[2019-06-28 07:16] LABS: ANISOCYTOSIS 1+ (0-0); BAND NEUTROPHILS #M 1.1 10^3/ul (0.0-0.6); BAND NEUTROPHILS % (M) 17 % (0-4); EOSINOPHILS % (M) 7 % (0-7); ERYTHROBLAST% (NRBC) (M) 1 % (0-0); LYMPHOCYTES #M 0.9 10^3/ul (0.8-2.9); LYMPHOCYTES % (M) 14 % (15-51); METAMYELOCYTES #M 0.1 10^3/ul (0.0-0.0); METAMYELOCYTES %M 2 % (0-0); MICROCYTOSIS 1+ (0-0); MONOCYTE #M 0.1 10^3/ul (0.3-0.9); MONOCYTES % (M) 2 % (0-11); MYELOCYTES #M 0.2 10^3/ul (0.0-0.0); MYELOCYTES % (M) 3 % (0-0); PLATELET ESTIMATE NORMAL; POIKILOCYTOSIS 1+ (0-0); POLYCHROMASIA 3+ (0-0); SEG NEUT #M 3.8 10^3/ul (1.6-7.5); SEGMENTED NEUTROPHILS (M) % 55 % (39-77); SMUDGE%M 10 % (0-0)
[2019-06-28] MEDS: IPRATROPIUM (NEB) 0.5 MG/2.5 ML AMP HHN ×3 (07:49→19:49)
[2019-06-28] MEDS: FERROUS SULFATE 60 MG/ML 5ML CUP GTB (08:54)
[2019-06-28] MEDS: LEVETIRACETAM (100 MG/ML) 5ML CUP GTB ×2 (08:54→22:07)
[2019-06-28] MEDS: MULTIVIT/CA CARB/B CMPLX/FA TAB GTB (08:55)
[2019-06-28] MEDS: FLUCONAZOLE 200 MG TAB GTB (08:55)
[2019-06-28] MEDS: NEUTRA-PHOS 250 MG PACKET GTB ×2 (08:55→22:06)
[2019-06-28] MEDS: METOPROLOL 25 MG TAB GTB ×2 (08:56→22:08)
[2019-06-28] MEDS: FUROSEMIDE 20 MG INJ IV (08:56)
[2019-06-28] MEDS: DAKINS 0.0125%(1/40) 473 ML SOLUTION TP (09:00)
[2019-06-28] MEDS: BALSAM PERU/CASTOR OIL 60 GM TUBE TOP (09:00)
[2019-06-28] MEDS: AZTREONAM 1 GM/NS (PMX) 50 ML IVPB ×2 (09:00→22:06)
[2019-06-28] MEDS: ENOXAPARIN 30 MG/0.3 ML SYG SC (09:10)
[2019-06-28] MEDS: BUDESONIDE (NEB) 0.5MG/2ML AMP HHN ×2 (09:57→19:49)
[2019-06-29] MEDS: LEVALBUTEROL (NEB) 0.63 MG/3 ML AMP HHN ×4 (01:36→19:48)
[2019-06-29 06:46] LABS: ABNORMAL IP MESSAGE 1; HEMATOCRIT 25.3 % (37.0-47.0); HEMOGLOBIN 7.4 g/dl (12.0-16.0); MEAN CORPUSCULAR HEMOGLOBIN 31.1 pg (29.0-33.0); MEAN CORPUSCULAR HGB CONC 29.2 g/dl (32.0-37.0); MEAN CORPUSCULAR VOLUME 106.3 fl (82.0-101.0); MEAN PLATELET VOLUME 9.8 fl (7.4-10.4); NUCLEATED RED BLOOD CELLS% 0.9 /100WBC (0.0-0.0); PLATELET COUNT 298 10^3/UL (140-415); RED BLOOD COUNT 2.38 10^6/ul (4.20-5.40); RED CELL DISTRIBUTION WIDTH 20.7 % (11.5-14.5)
[2019-06-29 06:46] LABS: WHITE BLOOD COUNT 6.7 10^3/ul (4.8-10.8)
[2019-06-29 06:47] LABS: ADD MAN DIFF? YES; POSITIVE DIFF @See below
[2019-06-29] MEDS: PANTOPRAZOLE (EC) 40 MG TAB PO (06:55)
[2019-06-29 07:10] LABS: ANION GAP 8 (5-13); CALCIUM 8.7 mg/dl (8.4-10.2); CARBON DIOXIDE 30 mmol/L (21-31); CHLORIDE 106 mmol/L (97-110); CREATININE 2.28 mg/dl (0.44-1.00); GLUCOSE 121 mg/dl (70-220); PHOSPHORUS 2.1 mg/dl (2.5-4.9); POTASSIUM 3.5 mmol/L (3.5-5.1); SODIUM 144 mmol/L (135-144)
[2019-06-29 07:24] LABS: BLOOD UREA NITROGEN 132 mg/dl (7-20)
[2019-06-29] MEDS: IPRATROPIUM (NEB) 0.5 MG/2.5 ML AMP HHN ×3 (07:52→19:48)
[2019-06-29] MEDS: BUDESONIDE (NEB) 0.5MG/2ML AMP HHN ×2 (08:04→19:48)
[2019-06-29 09:04] LABS: ANISOCYTOSIS 1+ (0-0); BAND NEUTROPHILS #M 0.7 10^3/ul (0.0-0.6); BAND NEUTROPHILS % (M) 11 % (0-4); EOSINOPHILS % (M) 7 % (0-7); ERYTHROBLAST% (NRBC) (M) 2 % (0-0); LYMPHOCYTES % (M) 15 % (15-51); METAMYELOCYTES #M 0.2 10^3/ul (0.0-0.0); METAMYELOCYTES %M 4 % (0-0); MICROCYTOSIS 1+ (0-0); MONOCYTES % (M) 1 % (0-11); MYELOCYTES #M 0.1 10^3/ul (0.0-0.0); MYELOCYTES % (M) 2 % (0-0); PLATELET ESTIMATE NORMAL; POIKILOCYTOSIS 1+ (0-0); POLYCHROMASIA 2+ (0-0); SEG NEUT #M 4.1 10^3/ul (1.6-7.5); SEGMENTED NEUTROPHILS (M) % 60 % (39-77); SMUDGE%M 1 % (0-0); STOMATOCYTES 1+ (0-0)
[2019-06-29] MEDS: LEVETIRACETAM (100 MG/ML) 5ML CUP GTB ×2 (09:21→21:17)
[2019-06-29] MEDS: FERROUS SULFATE 60 MG/ML 5ML CUP GTB (09:21)
[2019-06-29] MEDS: FLUCONAZOLE 200 MG TAB GTB (09:21)
[2019-06-29] MEDS: METOPROLOL 25 MG TAB GTB ×2 (09:22→21:23)
[2019-06-29] MEDS: NEUTRA-PHOS 250 MG PACKET GTB ×2 (09:22→21:17)
[2019-06-29] MEDS: MULTIVIT/CA CARB/B CMPLX/FA TAB GTB (09:22)
[2019-06-29] MEDS: ENOXAPARIN 30 MG/0.3 ML SYG SC (09:24)
[2019-06-29] MEDS: BALSAM PERU/CASTOR OIL 60 GM TUBE TOP (09:29)
[2019-06-29] MEDS: AZTREONAM 1 GM/NS (PMX) 50 ML IVPB ×2 (09:29→21:21)
[2019-06-29] MEDS: DAKINS 0.0125%(1/40) 473 ML SOLUTION TP (09:29)
[2019-06-29] MEDS ORDERED: VANCOMYCIN 1 GM 250 ML IVPB (15:00)
[2019-06-30] MEDS: LEVALBUTEROL (NEB) 0.63 MG/3 ML AMP HHN ×4 (03:13→19:22)
[2019-06-30 06:20] LABS: ABNORMAL IP MESSAGE 1; HEMATOCRIT 25.9 % (37.0-47.0); HEMOGLOBIN 7.7 g/dl (12.0-16.0); MEAN CORPUSCULAR HEMOGLOBIN 31.7 pg (29.0-33.0); MEAN CORPUSCULAR HGB CONC 29.7 g/dl (32.0-37.0); MEAN CORPUSCULAR VOLUME 106.6 fl (82.0-101.0); MEAN PLATELET VOLUME 9.8 fl (7.4-10.4); NUCLEATED RED BLOOD CELLS% 1.6 /100WBC (0.0-0.0); PLATELET COUNT 313 10^3/UL (140-415); RED BLOOD COUNT 2.43 10^6/ul (4.20-5.40); RED CELL DISTRIBUTION WIDTH 20.2 % (11.5-14.5)
[2019-06-30 06:20] LABS: WHITE BLOOD COUNT 7.6 10^3/ul (4.8-10.8)
[2019-06-30 06:27] LABS: ADD MAN DIFF? YES; POSITIVE DIFF @See below
[2019-06-30] MEDS: PANTOPRAZOLE (EC) 40 MG TAB PO (06:51)
[2019-06-30 07:03] LABS: ANION GAP 7 (5-13); CALCIUM 8.5 mg/dl (8.4-10.2); CARBON DIOXIDE 29 mmol/L (21-31); CHLORIDE 107 mmol/L (97-110); CREATININE 1.98 mg/dl (0.44-1.00); GLUCOSE 115 mg/dl (70-220); MAGNESIUM 1.8 mg/dl (1.7-2.5); PHOSPHORUS 2.9 mg/dl (2.5-4.9); POTASSIUM 3.8 mmol/L (3.5-5.1); SODIUM 143 mmol/L (135-144)
[2019-06-30 07:39] LABS: BLOOD UREA NITROGEN 135 mg/dl (7-20)
[2019-06-30 07:52] LABS: ANISOCYTOSIS 1+ (0-0); BAND NEUTROPHILS #M 0.2 10^3/ul (0.0-0.6); BAND NEUTROPHILS % (M) 3 % (0-4); BASOPHILS % (M) 1 % (0-2); EOSINOPHILS % (M) 7 % (0-7); ERYTHROBLAST% (NRBC) (M) 1 % (0-0); LYMPHOCYTES #M 1.3 10^3/ul (0.8-2.9); LYMPHOCYTES % (M) 18 % (15-51); METAMYELOCYTES %M 1 % (0-0); MONOCYTE #M 0.2 10^3/ul (0.3-0.9); MONOCYTES % (M) 3 % (0-11); MYELOCYTES #M 0.3 10^3/ul (0.0-0.0); MYELOCYTES % (M) 4 % (0-0); PLATELET ESTIMATE NORMAL; POLYCHROMASIA 3+ (0-0); SEG NEUT #M 4.8 10^3/ul (1.6-7.5); SEGMENTED NEUTROPHILS (M) % 63 % (39-77); SMUDGE%M 5 % (0-0)
[2019-06-30] MEDS: IPRATROPIUM (NEB) 0.5 MG/2.5 ML AMP HHN ×3 (07:55→19:22)
[2019-06-30] MEDS: BUDESONIDE (NEB) 0.5MG/2ML AMP HHN ×2 (07:55→19:22)
[2019-06-30] MEDS: BALSAM PERU/CASTOR OIL 60 GM TUBE TOP (09:35)
[2019-06-30] MEDS: LEVETIRACETAM (100 MG/ML) 5ML CUP GTB ×2 (09:35→21:14)
[2019-06-30] MEDS: FERROUS SULFATE 60 MG/ML 5ML CUP GTB (09:35)
[2019-06-30] MEDS: NEUTRA-PHOS 250 MG PACKET GTB ×2 (09:35→21:17)
[2019-06-30] MEDS: MULTIVIT/CA CARB/B CMPLX/FA TAB GTB (09:36)
[2019-06-30] MEDS: METOPROLOL 25 MG TAB GTB ×2 (09:36→21:22)
[2019-06-30] MEDS: FLUCONAZOLE 200 MG TAB GTB (09:37)
[2019-06-30] MEDS: DAKINS 0.0125%(1/40) 473 ML SOLUTION TP (09:37)
[2019-06-30] MEDS: ENOXAPARIN 30 MG/0.3 ML SYG SC (10:03)
[2019-06-30] MEDS: AZTREONAM 1 GM/NS (PMX) 50 ML IVPB ×2 (11:46→21:12)
[2019-06-30] MEDS: ACETAMINOPHEN 325 MG TAB PO (21:24)
[2019-07-01] MEDS: LEVALBUTEROL (NEB) 0.63 MG/3 ML AMP HHN ×4 (01:19→19:28)
[2019-07-01] MEDS: PANTOPRAZOLE (EC) 40 MG TAB PO (05:49)
[2019-07-01] MEDS: IPRATROPIUM (NEB) 0.5 MG/2.5 ML AMP HHN ×3 (07:51→19:28)
[2019-07-01] MEDS: BUDESONIDE (NEB) 0.5MG/2ML AMP HHN ×2 (07:52→19:28)
[2019-07-01] MEDS: FERROUS SULFATE 60 MG/ML 5ML CUP GTB (09:46)
[2019-07-01] MEDS: FLUCONAZOLE 200 MG TAB GTB (09:46)
[2019-07-01] MEDS: MULTIVIT/CA CARB/B CMPLX/FA TAB GTB (09:46)
[2019-07-01] MEDS: AZTREONAM 1 GM/NS (PMX) 50 ML IVPB ×2 (09:46→21:29)
[2019-07-01] MEDS: LEVETIRACETAM (100 MG/ML) 5ML CUP GTB ×2 (09:46→21:31)
[2019-07-01] MEDS: METOPROLOL 25 MG TAB GTB ×2 (09:47→21:33)
[2019-07-01] MEDS: NEUTRA-PHOS 250 MG PACKET GTB ×2 (09:47→21:31)
[2019-07-01] MEDS: BALSAM PERU/CASTOR OIL 60 GM TUBE TOP (09:48)
[2019-07-01] MEDS: DAKINS 0.0125%(1/40) 473 ML SOLUTION TP (09:48)
[2019-07-01] MEDS: ENOXAPARIN 30 MG/0.3 ML SYG SC (09:58)
[2019-07-02] MEDS: LEVALBUTEROL (NEB) 0.63 MG/3 ML AMP HHN ×4 (01:26→19:24)
[2019-07-02] MEDS: PANTOPRAZOLE (EC) 40 MG TAB PO (05:18)
[2019-07-02] MEDS: IPRATROPIUM (NEB) 0.5 MG/2.5 ML AMP HHN ×3 (07:36→19:24)
[2019-07-02 08:20] LABS: ANION GAP 4 (5-13); CALCIUM 8.7 mg/dl (8.4-10.2); CARBON DIOXIDE 32 mmol/L (21-31); CHLORIDE 109 mmol/L (97-110); CREATININE 1.79 mg/dl (0.44-1.00); GLUCOSE 131 mg/dl (70-220); POTASSIUM 3.4 mmol/L (3.5-5.1); SODIUM 145 mmol/L (135-144)
[2019-07-02 08:27] LABS: BLOOD UREA NITROGEN 125 mg/dl (7-20)
[2019-07-02] MEDS: BUDESONIDE (NEB) 0.5MG/2ML AMP HHN ×2 (09:17→19:24)
[2019-07-02] MEDS: MULTIVIT/CA CARB/B CMPLX/FA TAB GTB (10:22)
[2019-07-02] MEDS: FLUCONAZOLE 200 MG TAB GTB (10:23)
[2019-07-02] MEDS: LEVETIRACETAM (100 MG/ML) 5ML CUP GTB ×2 (10:23→21:09)
[2019-07-02] MEDS: FERROUS SULFATE 60 MG/ML 5ML CUP GTB (10:23)
[2019-07-02] MEDS: METOPROLOL 25 MG TAB GTB ×2 (10:24→21:10)
[2019-07-02] MEDS: AZTREONAM 1 GM/NS (PMX) 50 ML IVPB ×2 (10:31→21:10)
[2019-07-02] MEDS: ENOXAPARIN 30 MG/0.3 ML SYG SC (10:37)
[2019-07-02] MEDS: BALSAM PERU/CASTOR OIL 60 GM TUBE TOP (13:14)
[2019-07-02] MEDS: DAKINS 0.0125%(1/40) 473 ML SOLUTION TP (13:14)
[2019-07-02] MEDS: NEUTRA-PHOS 250 MG PACKET GTB ×2 (13:14→21:10)
[2019-07-02] MEDS: COLISTIMETHATE (25 MG/ML INHAL SYG) NEB (20:00)
[2019-07-03] MEDS: LEVALBUTEROL (NEB) 0.63 MG/3 ML AMP HHN ×4 (01:06→19:15)
[2019-07-03 05:32] LABS: ADD MAN DIFF? NO
[2019-07-03 05:45] LABS: ABNORMAL IP MESSAGE 1; BASOPHILS % 0.2 % (0.0-2.0); EOSINOPHILS # 0.8 10^3/ul (0.0-0.5); EOSINOPHILS % 6.6 % (0.0-7.0); HEMOGLOBIN 7.8 g/dl (12.0-16.0); LYMPHOCYTES # 1.4 10^3/ul (0.8-2.9); LYMPHOCYTES % 11.3 % (15.0-51.0); MEAN CORPUSCULAR HEMOGLOBIN 31.2 pg (29.0-33.0); MEAN CORPUSCULAR HGB CONC 28.9 g/dl (32.0-37.0); MEAN PLATELET VOLUME 9.7 fl (7.4-10.4); MONOCYTE # 0.5 10^3/ul (0.3-0.9); MONOCYTES % 3.7 % (0.0-11.0); NEUTROPHILS % 73.7 % (39.0-77.0); NUCLEATED RED BLOOD CELLS # 0.1 10^3/ul (0.0-0.0); NUCLEATED RED BLOOD CELLS% 0.4 /100WBC (0.0-0.0); PLATELET COUNT 249 10^3/UL (140-415); RED CELL DISTRIBUTION WIDTH 20.8 % (11.5-14.5)
[2019-07-03 05:45] LABS: WHITE BLOOD COUNT 12.3 10^3/ul (4.8-10.8)
[2019-07-03 05:54] LABS: POSITIVE DIFF @See below
[2019-07-03] MEDS: PANTOPRAZOLE (EC) 40 MG TAB PO (06:03)
[2019-07-03 06:09] LABS: ANION GAP 7 (5-13); CALCIUM 8.6 mg/dl (8.4-10.2); CARBON DIOXIDE 30 mmol/L (21-31); CHLORIDE 110 mmol/L (97-110); CREATININE 1.73 mg/dl (0.44-1.00); GLUCOSE 131 mg/dl (70-220); MAGNESIUM 1.7 mg/dl (1.7-2.5); PHOSPHORUS 3.6 mg/dl (2.5-4.9); POTASSIUM 3.3 mmol/L (3.5-5.1); SODIUM 147 mmol/L (135-144)
[2019-07-03 07:43] LABS: BLOOD UREA NITROGEN 124 mg/dl (7-20)
[2019-07-03] MEDS: IPRATROPIUM (NEB) 0.5 MG/2.5 ML AMP HHN ×3 (08:38→19:15)
[2019-07-03] MEDS: BUDESONIDE (NEB) 0.5MG/2ML AMP HHN ×2 (08:38→19:15)
[2019-07-03] MEDS: COLISTIMETHATE (25 MG/ML INHAL SYG) NEB ×2 (08:59→19:15)
[2019-07-03] MEDS: MULTIVIT/CA CARB/B CMPLX/FA TAB GTB (10:20)
[2019-07-03] MEDS: NEUTRA-PHOS 250 MG PACKET GTB ×2 (10:21→21:14)
[2019-07-03] MEDS: LEVETIRACETAM (100 MG/ML) 5ML CUP GTB ×2 (10:21→21:14)
[2019-07-03] MEDS: METOPROLOL 25 MG TAB GTB ×2 (10:21→21:14)
[2019-07-03] MEDS: FERROUS SULFATE 60 MG/ML 5ML CUP GTB (10:21)
[2019-07-03] MEDS: POTASSIUM CHLORIDE (SR) 20 MEQ TAB PO (10:21)
[2019-07-03] MEDS: BALSAM PERU/CASTOR OIL 60 GM TUBE TOP (10:23)
[2019-07-03] MEDS: DAKINS 0.0125%(1/40) 473 ML SOLUTION TP (10:23)
[2019-07-03] MEDS: ENOXAPARIN 30 MG/0.3 ML SYG SC (10:43)
[2019-07-03] MEDS: AZTREONAM 1 GM/NS (PMX) 50 ML IVPB ×2 (11:17→21:14)
[2019-07-04] MEDS: LEVALBUTEROL (NEB) 0.63 MG/3 ML AMP HHN ×4 (01:25→19:29)
[2019-07-04] MEDS: PANTOPRAZOLE (EC) 40 MG TAB PO (06:52)
[2019-07-04] MEDS: IPRATROPIUM (NEB) 0.5 MG/2.5 ML AMP HHN ×3 (08:24→19:29)
[2019-07-04] MEDS: BUDESONIDE (NEB) 0.5MG/2ML AMP HHN ×2 (08:25→19:29)
[2019-07-04] MEDS: COLISTIMETHATE (25 MG/ML INHAL SYG) NEB ×2 (08:35→19:29)
[2019-07-04 08:41] LABS: ADD MAN DIFF? NO
[2019-07-04 08:44] LABS: BASOPHIL # 0.1 10^3/ul (0.0-0.1); BASOPHILS % 0.3 % (0.0-2.0); EOSINOPHILS # 0.6 10^3/ul (0.0-0.5); EOSINOPHILS % 3.9 % (0.0-7.0); HEMATOCRIT 26.6 % (37.0-47.0); HEMOGLOBIN 7.8 g/dl (12.0-16.0); LYMPHOCYTES # 1.5 10^3/ul (0.8-2.9); LYMPHOCYTES % 9.4 % (15.0-51.0); MEAN CORPUSCULAR HEMOGLOBIN 31.8 pg (29.0-33.0); MEAN CORPUSCULAR HGB CONC 29.3 g/dl (32.0-37.0); MEAN CORPUSCULAR VOLUME 108.6 fl (82.0-101.0); MEAN PLATELET VOLUME 9.9 fl (7.4-10.4); MONOCYTE # 0.5 10^3/ul (0.3-0.9); MONOCYTES % 3.2 % (0.0-11.0); NEUTROPHIL # 12.7 10^3/ul (1.6-7.5); NEUTROPHILS % 79.5 % (39.0-77.0); NUCLEATED RED BLOOD CELLS% 0.2 /100WBC (0.0-0.0); PLATELET COUNT 282 10^3/UL (140-415); RED BLOOD COUNT 2.45 10^6/ul (4.20-5.40); RED CELL DISTRIBUTION WIDTH 20.3 % (11.5-14.5)
[2019-07-04 09:07] LABS: ANION GAP 8 (5-13); CALCIUM 8.5 mg/dl (8.4-10.2); CARBON DIOXIDE 29 mmol/L (21-31); CHLORIDE 111 mmol/L (97-110); CREATININE 1.67 mg/dl (0.44-1.00); GLUCOSE 125 mg/dl (70-220); MAGNESIUM 1.5 mg/dl (1.7-2.5); PHOSPHORUS 3.8 mg/dl (2.5-4.9); POTASSIUM 4.1 mmol/L (3.5-5.1); SODIUM 148 mmol/L (135-144)
[2019-07-04 09:14] LABS: BLOOD UREA NITROGEN 122 mg/dl (7-20)
[2019-07-04] MEDS: NEUTRA-PHOS 250 MG PACKET GTB ×2 (10:00→20:29)
[2019-07-04] MEDS: FERROUS SULFATE 60 MG/ML 5ML CUP GTB (10:00)
[2019-07-04] MEDS: MULTIVIT/CA CARB/B CMPLX/FA TAB GTB (10:00)
[2019-07-04] MEDS: METOPROLOL 25 MG TAB GTB (10:00)
[2019-07-04] MEDS: LEVETIRACETAM (100 MG/ML) 5ML CUP GTB ×2 (10:00→20:29)
[2019-07-04] MEDS: ENOXAPARIN 30 MG/0.3 ML SYG SC (10:15)
[2019-07-04] MEDS: BALSAM PERU/CASTOR OIL 60 GM TUBE TOP (10:41)
[2019-07-04] MEDS: AZTREONAM 1 GM/NS (PMX) 50 ML IVPB ×2 (10:41→20:29)
[2019-07-04] MEDS: DAKINS 0.0125%(1/40) 473 ML SOLUTION TP (10:41)
[2019-07-04] MEDS ORDERED: VANCOMYCIN IV PER PHARMACY XX (11:00)
[2019-07-04] MEDS: FLUCONAZOLE 100 MG TAB GTB (12:08)
[2019-07-04] MEDS: metroNIDAZOLE 500 MG/NS (PMX) 100 ML IVPB ×2 (12:13→21:29)
[2019-07-04] MEDS: VANCOMYCIN 1.5 GM/NS 250 ML 250 ML IVPB (17:36)
[2019-07-04] MEDS: EPOETIN ALFA-EPBX (NON-ESRD 10,000 UNIT/ML VIAL SC (17:39)
[2019-07-04] MEDS: METOPROLOL 50 MG TAB GTB (20:30)
[2019-07-05] MEDS: LEVALBUTEROL (NEB) 0.63 MG/3 ML AMP HHN ×4 (01:44→19:32)
[2019-07-05] MEDS: metroNIDAZOLE 500 MG/NS (PMX) 100 ML IVPB ×3 (05:42→21:17)
[2019-07-05] MEDS: PANTOPRAZOLE (EC) 40 MG TAB PO (05:42)
[2019-07-05 05:45] LABS: ADD MAN DIFF? NO
[2019-07-05 05:49] LABS: ABNORMAL IP MESSAGE 1; BASOPHIL # 0.1 10^3/ul (0.0-0.1); BASOPHILS % 0.3 % (0.0-2.0); EOSINOPHILS # 1.1 10^3/ul (0.0-0.5); HEMOGLOBIN 7.8 g/dl (12.0-16.0); LYMPHOCYTES # 1.5 10^3/ul (0.8-2.9); LYMPHOCYTES % 8.1 % (15.0-51.0); MEAN CORPUSCULAR HEMOGLOBIN 31.7 pg (29.0-33.0); MEAN CORPUSCULAR HGB CONC 28.9 g/dl (32.0-37.0); MEAN CORPUSCULAR VOLUME 109.8 fl (82.0-101.0); MONOCYTE # 0.6 10^3/ul (0.3-0.9); MONOCYTES % 3.3 % (0.0-11.0); NEUTROPHIL # 14.9 10^3/ul (1.6-7.5); NEUTROPHILS % 80.8 % (39.0-77.0); NUCLEATED RED BLOOD CELLS% 0.1 /100WBC (0.0-0.0); PLATELET COUNT 239 10^3/UL (140-415); RED BLOOD COUNT 2.46 10^6/ul (4.20-5.40); RED CELL DISTRIBUTION WIDTH 20.3 % (11.5-14.5)
[2019-07-05 05:49] LABS: WHITE BLOOD COUNT 18.4 10^3/ul (4.8-10.8)
[2019-07-05 05:57] LABS: POSITIVE DIFF @See below
[2019-07-05 06:43] LABS: ANION GAP 8 (5-13); BLOOD UREA NITROGEN 119 mg/dl (7-20); CALCIUM 8.3 mg/dl (8.4-10.2); CARBON DIOXIDE 27 mmol/L (21-31); CHLORIDE 111 mmol/L (97-110); CREATININE 1.51 mg/dl (0.44-1.00); GLUCOSE 130 mg/dl (70-220); MAGNESIUM 1.5 mg/dl (1.7-2.5); PHOSPHORUS 4.7 mg/dl (2.5-4.9); SODIUM 146 mmol/L (135-144)
[2019-07-05] MEDS: MAGNESIUM SULFATE 2 GM/50 ML 50 ML IVPB (08:37)
[2019-07-05] MEDS: FERROUS SULFATE 60 MG/ML 5ML CUP GTB (08:38)
[2019-07-05] MEDS: LEVETIRACETAM (100 MG/ML) 5ML CUP GTB ×2 (08:38→20:35)
[2019-07-05] MEDS: NEUTRA-PHOS 250 MG PACKET GTB ×2 (08:39→20:35)
[2019-07-05] MEDS: AZTREONAM 1 GM/NS (PMX) 50 ML IVPB ×2 (08:39→20:34)
[2019-07-05] MEDS: MULTIVIT/CA CARB/B CMPLX/FA TAB GTB (08:39)
[2019-07-05] MEDS: POTASSIUM CHLORIDE 20 MEQ POWDER FOR ORAL SOLN GTB (08:39)
[2019-07-05] MEDS: METOPROLOL 50 MG TAB GTB ×2 (08:39→20:35)
[2019-07-05] MEDS: FLUCONAZOLE 100 MG TAB GTB (08:39)
[2019-07-05] MEDS: DAKINS 0.0125%(1/40) 473 ML SOLUTION TP (08:40)
[2019-07-05] MEDS: BALSAM PERU/CASTOR OIL 60 GM TUBE TOP (08:40)
[2019-07-05] MEDS: BUDESONIDE (NEB) 0.5MG/2ML AMP HHN ×2 (08:42→19:32)
[2019-07-05] MEDS: COLISTIMETHATE (25 MG/ML INHAL SYG) NEB ×2 (08:42→19:32)
[2019-07-05] MEDS: IPRATROPIUM (NEB) 0.5 MG/2.5 ML AMP HHN ×3 (08:42→19:32)
[2019-07-05] MEDS: ENOXAPARIN 30 MG/0.3 ML SYG SC (08:48)
[2019-07-06] MEDS: LEVALBUTEROL (NEB) 0.63 MG/3 ML AMP HHN ×4 (01:38→19:43)
[2019-07-06] MEDS: VANCOMYCIN 1 GM 250 ML IVPB (02:10)
[2019-07-06] MEDS: PANTOPRAZOLE (EC) 40 MG TAB PO (05:27)
[2019-07-06] MEDS: metroNIDAZOLE 500 MG/NS (PMX) 100 ML IVPB ×3 (05:27→21:31)
[2019-07-06 05:45] LABS: ADD MAN DIFF? NO
[2019-07-06 05:48] LABS: WHITE BLOOD COUNT 17.5 10^3/ul (4.8-10.8)
[2019-07-06 05:48] LABS: ABNORMAL IP MESSAGE 1; BASOPHIL # 0.1 10^3/ul (0.0-0.1); BASOPHILS % 0.3 % (0.0-2.0); EOSINOPHILS # 1.4 10^3/ul (0.0-0.5); EOSINOPHILS % 7.9 % (0.0-7.0); HEMATOCRIT 25.8 % (37.0-47.0); HEMOGLOBIN 7.4 g/dl (12.0-16.0); LYMPHOCYTES # 1.1 10^3/ul (0.8-2.9); LYMPHOCYTES % 6.2 % (15.0-51.0); MEAN CORPUSCULAR HEMOGLOBIN 31.5 pg (29.0-33.0); MEAN CORPUSCULAR HGB CONC 28.7 g/dl (32.0-37.0); MEAN CORPUSCULAR VOLUME 109.8 fl (82.0-101.0); MEAN PLATELET VOLUME 10.2 fl (7.4-10.4); MONOCYTE # 0.5 10^3/ul (0.3-0.9); MONOCYTES % 2.7 % (0.0-11.0); NEUTROPHIL # 14.1 10^3/ul (1.6-7.5); NEUTROPHILS % 81.1 % (39.0-77.0); NUCLEATED RED BLOOD CELLS% 0.2 /100WBC (0.0-0.0); PLATELET COUNT 282 10^3/UL (140-415); RED BLOOD COUNT 2.35 10^6/ul (4.20-5.40); RED CELL DISTRIBUTION WIDTH 20.7 % (11.5-14.5)
[2019-07-06 06:06] LABS: POSITIVE DIFF @See below
[2019-07-06 06:20] LABS: ANION GAP 7 (5-13); BLOOD UREA NITROGEN 109 mg/dl (7-20); CALCIUM 8.6 mg/dl (8.4-10.2); CARBON DIOXIDE 28 mmol/L (21-31); CHLORIDE 113 mmol/L (97-110); CREATININE 1.65 mg/dl (0.44-1.00); GLUCOSE 131 mg/dl (70-220); MAGNESIUM 1.9 mg/dl (1.7-2.5); PHOSPHORUS 5.3 mg/dl (2.5-4.9); POTASSIUM 4.4 mmol/L (3.5-5.1); SODIUM 148 mmol/L (135-144)
[2019-07-06] MEDS: FERROUS SULFATE 60 MG/ML 5ML CUP GTB (08:10)
[2019-07-06] MEDS: FLUCONAZOLE 100 MG TAB GTB (08:10)
[2019-07-06] MEDS: MULTIVIT/CA CARB/B CMPLX/FA TAB GTB (08:10)
[2019-07-06] MEDS: NEUTRA-PHOS 250 MG PACKET GTB ×2 (08:10→21:30)
[2019-07-06] MEDS: METOPROLOL 50 MG TAB GTB ×2 (08:10→21:31)
[2019-07-06] MEDS: LEVETIRACETAM (100 MG/ML) 5ML CUP GTB ×2 (08:10→21:30)
[2019-07-06] MEDS: DAKINS 0.0125%(1/40) 473 ML SOLUTION TP ×2 (08:11→21:31)
[2019-07-06] MEDS: AZTREONAM 1 GM/NS (PMX) 50 ML IVPB (08:11)
[2019-07-06] MEDS: BALSAM PERU/CASTOR OIL 60 GM TUBE TOP (08:11)
[2019-07-06] MEDS: ENOXAPARIN 30 MG/0.3 ML SYG SC (08:20)
[2019-07-06] MEDS: IPRATROPIUM (NEB) 0.5 MG/2.5 ML AMP HHN ×3 (08:58→19:43)
[2019-07-06] MEDS: BUDESONIDE (NEB) 0.5MG/2ML AMP HHN ×2 (08:58→19:43)
[2019-07-06] MEDS: COLISTIMETHATE (25 MG/ML INHAL SYG) NEB ×2 (09:04→19:43)
[2019-07-06] MEDS ORDERED: AMIKACIN IV PER PHARMACY XX (11:30)
[2019-07-06] MEDS ORDERED: AMIKACIN 400 MG in DEXTROSE 5% 100 ML IVPB (13:00)
[2019-07-06] MEDS: AMIKACIN 400 MG in DEXTROSE 5% 100 ML IVPB (14:11)
[2019-07-07] MEDS: LEVALBUTEROL (NEB) 0.63 MG/3 ML AMP HHN ×4 (01:28→19:34)
[2019-07-07] MEDS: PANTOPRAZOLE (EC) 40 MG TAB PO (05:53)
[2019-07-07] MEDS: metroNIDAZOLE 500 MG/NS (PMX) 100 ML IVPB ×3 (05:53→22:26)
[2019-07-07 06:49] LABS: ANION GAP 7 (5-13); BLOOD UREA NITROGEN 109 mg/dl (7-20); CALCIUM 8.5 mg/dl (8.4-10.2); CARBON DIOXIDE 27 mmol/L (21-31); CHLORIDE 116 mmol/L (97-110); CREATININE 1.74 mg/dl (0.44-1.00); GLUCOSE 121 mg/dl (70-220); MAGNESIUM 1.9 mg/dl (1.7-2.5); POTASSIUM 4.1 mmol/L (3.5-5.1); SODIUM 150 mmol/L (135-144)
[2019-07-07] MEDS: IPRATROPIUM (NEB) 0.5 MG/2.5 ML AMP HHN ×3 (08:14→19:34)
[2019-07-07] MEDS: COLISTIMETHATE (25 MG/ML INHAL SYG) NEB ×2 (08:15→19:35)
[2019-07-07] MEDS: BUDESONIDE (NEB) 0.5MG/2ML AMP HHN ×2 (08:15→19:35)
[2019-07-07] MEDS: MULTIVIT/CA CARB/B CMPLX/FA TAB GTB (08:42)
[2019-07-07] MEDS: LEVETIRACETAM (100 MG/ML) 5ML CUP GTB ×2 (08:42→22:24)
[2019-07-07] MEDS: METOPROLOL 50 MG TAB GTB ×2 (08:42→22:24)
[2019-07-07] MEDS: NEUTRA-PHOS 250 MG PACKET GTB ×2 (08:42→22:24)
[2019-07-07] MEDS: FERROUS SULFATE 60 MG/ML 5ML CUP GTB (08:42)
[2019-07-07] MEDS: DEXTROSE 5% 1,000 ML IV (08:42)
[2019-07-07] MEDS: FLUCONAZOLE 100 MG TAB GTB (08:43)
[2019-07-07] MEDS: BALSAM PERU/CASTOR OIL 60 GM TUBE TOP (08:43)
[2019-07-07] MEDS: DAKINS 0.0125%(1/40) 473 ML SOLUTION TP ×2 (08:43→22:26)
[2019-07-07] MEDS: ENOXAPARIN 30 MG/0.3 ML SYG SC (09:02)
[2019-07-07 14:39] LABS: OSMOLALITY,URINE 403 mOsm/kg (250-1200)
[2019-07-08] MEDS: LEVALBUTEROL (NEB) 0.63 MG/3 ML AMP HHN ×4 (01:30→20:00)
[2019-07-08] MEDS: AMIKACIN 400 MG in DEXTROSE 5% 100 ML IVPB (03:32)
[2019-07-08] MEDS: DEXTROSE 5% 1,000 ML IV (03:35)
[2019-07-08 05:26] LABS: ADD MAN DIFF? NO
[2019-07-08 05:39] LABS: ABNORMAL IP MESSAGE 1; BASOPHILS % 0.2 % (0.0-2.0); EOSINOPHILS # 1.7 10^3/ul (0.0-0.5); EOSINOPHILS % 12.8 % (0.0-7.0); HEMATOCRIT 24.7 % (37.0-47.0); LYMPHOCYTES # 1.3 10^3/ul (0.8-2.9); LYMPHOCYTES % 9.7 % (15.0-51.0); MEAN CORPUSCULAR HEMOGLOBIN 31.7 pg (29.0-33.0); MEAN CORPUSCULAR HGB CONC 28.3 g/dl (32.0-37.0); MEAN CORPUSCULAR VOLUME 111.8 fl (82.0-101.0); MEAN PLATELET VOLUME 10.7 fl (7.4-10.4); MONOCYTE # 0.4 10^3/ul (0.3-0.9); MONOCYTES % 3.1 % (0.0-11.0); NEUTROPHIL # 9.5 10^3/ul (1.6-7.5); NEUTROPHILS % 73.4 % (39.0-77.0); NUCLEATED RED BLOOD CELLS # 0.1 10^3/ul (0.0-0.0); NUCLEATED RED BLOOD CELLS% 0.4 /100WBC (0.0-0.0); PLATELET COUNT 250 10^3/UL (140-415); RED BLOOD COUNT 2.21 10^6/ul (4.20-5.40); RED CELL DISTRIBUTION WIDTH 20.3 % (11.5-14.5)
[2019-07-08 05:50] LABS: ANION GAP 8 (5-13); BLOOD UREA NITROGEN 112 mg/dl (7-20); CALCIUM 8.2 mg/dl (8.4-10.2); CARBON DIOXIDE 26 mmol/L (21-31); CHLORIDE 111 mmol/L (97-110); CREATININE 1.61 mg/dl (0.44-1.00); GLUCOSE 117 mg/dl (70-220); MAGNESIUM 1.7 mg/dl (1.7-2.5); POTASSIUM 3.7 mmol/L (3.5-5.1); SODIUM 145 mmol/L (135-144)
[2019-07-08 06:18] LABS: POSITIVE DIFF @See below
[2019-07-08] MEDS: metroNIDAZOLE 500 MG/NS (PMX) 100 ML IVPB ×3 (06:30→21:33)
[2019-07-08] MEDS: PANTOPRAZOLE (EC) 40 MG TAB PO (06:31)
[2019-07-08] MEDS: IPRATROPIUM (NEB) 0.5 MG/2.5 ML AMP HHN ×3 (08:39→20:08)
[2019-07-08] MEDS: BUDESONIDE (NEB) 0.5MG/2ML AMP HHN ×2 (08:40→20:08)
[2019-07-08] MEDS: COLISTIMETHATE (25 MG/ML INHAL SYG) NEB ×2 (08:40→20:08)
[2019-07-08] MEDS: FERROUS SULFATE 60 MG/ML 5ML CUP GTB (08:58)
[2019-07-08] MEDS: LEVETIRACETAM (100 MG/ML) 5ML CUP GTB ×2 (08:58→21:32)
[2019-07-08] MEDS: MULTIVIT/CA CARB/B CMPLX/FA TAB GTB (08:59)
[2019-07-08] MEDS: FLUCONAZOLE 100 MG TAB GTB (08:59)
[2019-07-08] MEDS: NEUTRA-PHOS 250 MG PACKET GTB ×2 (08:59→21:33)
[2019-07-08] MEDS: METOPROLOL 50 MG TAB GTB ×2 (08:59→21:33)
[2019-07-08] MEDS: DAKINS 0.0125%(1/40) 473 ML SOLUTION TP ×2 (09:00→21:33)
[2019-07-08] MEDS: BALSAM PERU/CASTOR OIL 60 GM TUBE TOP (09:00)
[2019-07-08] MEDS: ENOXAPARIN 30 MG/0.3 ML SYG SC (09:35)
[2019-07-08 12:54] LABS: IMMEDIATE SPIN CROSSMATCH 1 1
[2019-07-08] MEDS: ACETAMINOPHEN 325 MG TAB PO (13:50)
[2019-07-09] MEDS: LEVALBUTEROL (NEB) 0.63 MG/3 ML AMP HHN ×4 (01:52→20:04)
[2019-07-09] MEDS: PANTOPRAZOLE (EC) 40 MG TAB PO (05:28)
[2019-07-09] MEDS: metroNIDAZOLE 500 MG/NS (PMX) 100 ML IVPB ×3 (05:29→21:54)
[2019-07-09] MEDS: DEXTROSE 5% 1,000 ML IV (05:29)
[2019-07-09 05:54] LABS: ADD MAN DIFF? NO
[2019-07-09 06:04] LABS: WHITE BLOOD COUNT 8.8 10^3/ul (4.8-10.8)
[2019-07-09 06:04] LABS: BASOPHILS % 0.2 % (0.0-2.0); EOSINOPHILS # 1.5 10^3/ul (0.0-0.5); EOSINOPHILS % 17.5 % (0.0-7.0); HEMATOCRIT 28.5 % (37.0-47.0); HEMOGLOBIN 8.3 g/dl (12.0-16.0); LYMPHOCYTES # 1.3 10^3/ul (0.8-2.9); LYMPHOCYTES % 15.1 % (15.0-51.0); MEAN CORPUSCULAR HEMOGLOBIN 30.4 pg (29.0-33.0); MEAN CORPUSCULAR HGB CONC 29.1 g/dl (32.0-37.0); MEAN CORPUSCULAR VOLUME 104.4 fl (82.0-101.0); MEAN PLATELET VOLUME 10.3 fl (7.4-10.4); MONOCYTE # 0.3 10^3/ul (0.3-0.9); MONOCYTES % 3.2 % (0.0-11.0); NEUTROPHIL # 5.5 10^3/ul (1.6-7.5); NEUTROPHILS % 63.1 % (39.0-77.0); NUCLEATED RED BLOOD CELLS% 0.2 /100WBC (0.0-0.0); PLATELET COUNT 236 10^3/UL (140-415); RED BLOOD COUNT 2.73 10^6/ul (4.20-5.40); RED CELL DISTRIBUTION WIDTH 20.7 % (11.5-14.5)
[2019-07-09 06:36] LABS: ANION GAP 9 (5-13); BLOOD UREA NITROGEN 104 mg/dl (7-20); CALCIUM 7.9 mg/dl (8.4-10.2); CARBON DIOXIDE 23 mmol/L (21-31); CHLORIDE 105 mmol/L (97-110); CREATININE 1.52 mg/dl (0.44-1.00); GLUCOSE 101 mg/dl (70-220); POTASSIUM 3.9 mmol/L (3.5-5.1); SODIUM 137 mmol/L (135-144)
[2019-07-09] MEDS: COLISTIMETHATE (25 MG/ML INHAL SYG) NEB ×2 (08:32→20:04)
[2019-07-09] MEDS: BUDESONIDE (NEB) 0.5MG/2ML AMP HHN ×2 (08:32→20:04)
[2019-07-09] MEDS: IPRATROPIUM (NEB) 0.5 MG/2.5 ML AMP HHN ×3 (08:32→20:04)
[2019-07-09] MEDS: FLUCONAZOLE 100 MG TAB GTB (10:31)
[2019-07-09] MEDS: MULTIVIT/CA CARB/B CMPLX/FA TAB GTB (10:31)
[2019-07-09] MEDS: NEUTRA-PHOS 250 MG PACKET GTB ×2 (10:31→21:53)
[2019-07-09] MEDS: FERROUS SULFATE 60 MG/ML 5ML CUP GTB (10:31)
[2019-07-09] MEDS: LEVETIRACETAM (100 MG/ML) 5ML CUP GTB ×2 (10:32→21:53)
[2019-07-09] MEDS: BALSAM PERU/CASTOR OIL 60 GM TUBE TOP (10:33)
[2019-07-09] MEDS: DAKINS 0.0125%(1/40) 473 ML SOLUTION TP ×2 (10:33→21:54)
[2019-07-09] MEDS: METOPROLOL 50 MG TAB GTB ×2 (10:43→21:54)
[2019-07-09] MEDS: ENOXAPARIN 30 MG/0.3 ML SYG SC (12:16)
[2019-07-09] MEDS: AMIKACIN 400 MG in DEXTROSE 5% 100 ML IVPB (13:42)
[2019-07-09 16:51] LABS: AMIKACIN TROUGH 10.8 mg/L (4.0-8.0)
[2019-07-09 19:16] LABS: AMIKACIN PEAK 13.5 mg/L (20.0-30.0)
[2019-07-10] MEDS: LEVALBUTEROL (NEB) 0.63 MG/3 ML AMP HHN ×4 (02:20→19:30)
[2019-07-10] MEDS: LANSOPRAZOLE (SOLTAB) 30 MG TAB GTB (05:19)
[2019-07-10] MEDS: metroNIDAZOLE 500 MG/NS (PMX) 100 ML IVPB ×3 (05:20→22:06)
[2019-07-10 05:50] LABS: ADD MAN DIFF? NO
[2019-07-10 05:57] LABS: BASOPHILS % 0.5 % (0.0-2.0); EOSINOPHILS # 1.1 10^3/ul (0.0-0.5); EOSINOPHILS % 12.7 % (0.0-7.0); HEMATOCRIT 29.7 % (37.0-47.0); HEMOGLOBIN 8.8 g/dl (12.0-16.0); LYMPHOCYTES # 0.7 10^3/ul (0.8-2.9); LYMPHOCYTES % 8.5 % (15.0-51.0); MEAN CORPUSCULAR HEMOGLOBIN 31.4 pg (29.0-33.0); MEAN CORPUSCULAR HGB CONC 29.6 g/dl (32.0-37.0); MEAN CORPUSCULAR VOLUME 106.1 fl (82.0-101.0); MEAN PLATELET VOLUME 10.6 fl (7.4-10.4); MONOCYTE # 0.3 10^3/ul (0.3-0.9); NEUTROPHIL # 6.4 10^3/ul (1.6-7.5); NEUTROPHILS % 74.1 % (39.0-77.0); PLATELET COUNT 261 10^3/UL (140-415); RED CELL DISTRIBUTION WIDTH 19.8 % (11.5-14.5)
[2019-07-10 05:57] LABS: WHITE BLOOD COUNT 8.6 10^3/ul (4.8-10.8)
[2019-07-10 07:26] LABS: ANION GAP 8 (5-13); BLOOD UREA NITROGEN 104 mg/dl (7-20); CALCIUM 8.1 mg/dl (8.4-10.2); CARBON DIOXIDE 24 mmol/L (21-31); CHLORIDE 106 mmol/L (97-110); CREATININE 1.49 mg/dl (0.44-1.00); GLUCOSE 117 mg/dl (70-220); MAGNESIUM 1.6 mg/dl (1.7-2.5); PHOSPHORUS 5.2 mg/dl (2.5-4.9); SODIUM 138 mmol/L (135-144)
[2019-07-10] MEDS: IPRATROPIUM (NEB) 0.5 MG/2.5 ML AMP HHN ×3 (07:42→19:30)
[2019-07-10] MEDS: BUDESONIDE (NEB) 0.5MG/2ML AMP HHN ×2 (07:43→19:30)
[2019-07-10] MEDS: COLISTIMETHATE (25 MG/ML INHAL SYG) NEB ×2 (07:43→19:31)
[2019-07-10] MEDS: METOPROLOL 50 MG TAB GTB ×2 (09:00→21:14)
[2019-07-10] MEDS: FERROUS SULFATE 60 MG/ML 5ML CUP GTB (09:26)
[2019-07-10] MEDS: LEVETIRACETAM (100 MG/ML) 5ML CUP GTB ×2 (09:26→21:14)
[2019-07-10] MEDS: NEUTRA-PHOS 250 MG PACKET GTB ×2 (09:26→21:14)
[2019-07-10] MEDS: FLUCONAZOLE 100 MG TAB GTB (09:26)
[2019-07-10] MEDS: MULTIVIT/CA CARB/B CMPLX/FA TAB GTB (09:26)
[2019-07-10] MEDS: BALSAM PERU/CASTOR OIL 60 GM TUBE TOP (09:27)
[2019-07-10] MEDS: DAKINS 0.0125%(1/40) 473 ML SOLUTION TP ×2 (09:27→21:14)
[2019-07-10] MEDS: ENOXAPARIN 30 MG/0.3 ML SYG SC (09:38)
[2019-07-10] MEDS: MAGNESIUM SULFATE 1 GM/D5W 100 ML IVPB (14:13)
[2019-07-11] MEDS: LEVALBUTEROL (NEB) 0.63 MG/3 ML AMP HHN ×4 (01:53→19:54)
[2019-07-11] MEDS: metroNIDAZOLE 500 MG/NS (PMX) 100 ML IVPB ×3 (05:59→21:14)
[2019-07-11] MEDS: LANSOPRAZOLE (SOLTAB) 30 MG TAB GTB (05:59)
[2019-07-11 06:20] LABS: ADD MAN DIFF? NO
[2019-07-11 06:33] LABS: WHITE BLOOD COUNT 6.1 10^3/ul (4.8-10.8)
[2019-07-11 06:33] LABS: BASOPHILS % 0.3 % (0.0-2.0); EOSINOPHILS # 0.8 10^3/ul (0.0-0.5); EOSINOPHILS % 12.5 % (0.0-7.0); HEMOGLOBIN 9.2 g/dl (12.0-16.0); LYMPHOCYTES # 0.8 10^3/ul (0.8-2.9); LYMPHOCYTES % 12.9 % (15.0-51.0); MEAN CORPUSCULAR HEMOGLOBIN 31.2 pg (29.0-33.0); MEAN CORPUSCULAR HGB CONC 29.7 g/dl (32.0-37.0); MEAN CORPUSCULAR VOLUME 105.1 fl (82.0-101.0); MONOCYTE # 0.2 10^3/ul (0.3-0.9); MONOCYTES % 2.5 % (0.0-11.0); NEUTROPHIL # 4.2 10^3/ul (1.6-7.5); NEUTROPHILS % 69.8 % (39.0-77.0); PLATELET COUNT 250 10^3/UL (140-415); RED BLOOD COUNT 2.95 10^6/ul (4.20-5.40); RED CELL DISTRIBUTION WIDTH 20.2 % (11.5-14.5)
[2019-07-11 06:40] LABS: ANION GAP 8 (5-13); BLOOD UREA NITROGEN 95 mg/dl (7-20); CALCIUM 7.5 mg/dl (8.4-10.2); CARBON DIOXIDE 23 mmol/L (21-31); CHLORIDE 109 mmol/L (97-110); CREATININE 1.21 mg/dl (0.44-1.00); GLUCOSE 106 mg/dl (70-220); POTASSIUM 4.3 mmol/L (3.5-5.1); SODIUM 140 mmol/L (135-144)
[2019-07-11 08:01] LABS: MAGNESIUM 1.7 mg/dl (1.7-2.5)
[2019-07-11] MEDS: IPRATROPIUM (NEB) 0.5 MG/2.5 ML AMP HHN ×3 (08:21→19:54)
[2019-07-11] MEDS: COLISTIMETHATE (25 MG/ML INHAL SYG) NEB (08:21)
[2019-07-11] MEDS: BUDESONIDE (NEB) 0.5MG/2ML AMP HHN ×2 (08:21→19:54)
[2019-07-11] MEDS: MULTIVIT/CA CARB/B CMPLX/FA TAB GTB (08:46)
[2019-07-11] MEDS: METOPROLOL 50 MG TAB GTB ×2 (08:46→21:13)
[2019-07-11] MEDS: FLUCONAZOLE 100 MG TAB GTB (08:46)
[2019-07-11] MEDS: LEVETIRACETAM (100 MG/ML) 5ML CUP GTB ×2 (08:47→21:13)
[2019-07-11] MEDS: NEUTRA-PHOS 250 MG PACKET GTB ×2 (08:53→21:13)
[2019-07-11] MEDS: BALSAM PERU/CASTOR OIL 60 GM TUBE TOP (08:53)
[2019-07-11] MEDS: DAKINS 0.0125%(1/40) 473 ML SOLUTION TP ×2 (08:53→21:14)
[2019-07-11] MEDS: FERROUS SULFATE 60 MG/ML 5ML CUP GTB (08:53)
[2019-07-11] MEDS: ENOXAPARIN 30 MG/0.3 ML SYG SC (09:20)
[2019-07-11] MEDS: EPOETIN ALFA-EPBX (NON-ESRD 10,000 UNIT/ML VIAL SC (18:18)
[2019-07-11] MEDS: AMIKACIN 400 MG in DEXTROSE 5% 100 ML IVPB (23:51)
[2019-07-12] MEDS: LEVALBUTEROL (NEB) 0.63 MG/3 ML AMP HHN ×3 (01:30→13:40)
[2019-07-12] MEDS: NEOMYC/POLYMYX/BACIT 30 GM OINT TOP ×2 (02:34→09:29)
[2019-07-12] MEDS: LANSOPRAZOLE (SOLTAB) 30 MG TAB GTB (05:48)
[2019-07-12] MEDS: metroNIDAZOLE 500 MG/NS (PMX) 100 ML IVPB ×2 (05:48→14:27)
[2019-07-12 06:02] LABS: ADD MAN DIFF? NO
[2019-07-12 06:09] LABS: WHITE BLOOD COUNT 9.4 10^3/ul (4.8-10.8)
[2019-07-12 06:09] LABS: BASOPHILS % 0.2 % (0.0-2.0); EOSINOPHILS # 1.5 10^3/ul (0.0-0.5); EOSINOPHILS % 16.4 % (0.0-7.0); HEMATOCRIT 28.9 % (37.0-47.0); HEMOGLOBIN 8.6 g/dl (12.0-16.0); LYMPHOCYTES # 1.1 10^3/ul (0.8-2.9); LYMPHOCYTES % 11.8 % (15.0-51.0); MEAN CORPUSCULAR HGB CONC 29.8 g/dl (32.0-37.0); MEAN CORPUSCULAR VOLUME 104.3 fl (82.0-101.0); MEAN PLATELET VOLUME 9.9 fl (7.4-10.4); MONOCYTE # 0.3 10^3/ul (0.3-0.9); MONOCYTES % 3.4 % (0.0-11.0); NEUTROPHIL # 6.2 10^3/ul (1.6-7.5); NEUTROPHILS % 66.3 % (39.0-77.0); PLATELET COUNT 352 10^3/UL (140-415); RED BLOOD COUNT 2.77 10^6/ul (4.20-5.40); RED CELL DISTRIBUTION WIDTH 20.3 % (11.5-14.5)
[2019-07-12 07:12] LABS: ANION GAP 8 (5-13); BLOOD UREA NITROGEN 84 mg/dl (7-20); CALCIUM 8.1 mg/dl (8.4-10.2); CARBON DIOXIDE 24 mmol/L (21-31); CHLORIDE 110 mmol/L (97-110); CREATININE 1.31 mg/dl (0.44-1.00); GLUCOSE 119 mg/dl (70-220); POTASSIUM 3.9 mmol/L (3.5-5.1); SODIUM 142 mmol/L (135-144)
[2019-07-12] MEDS: IPRATROPIUM (NEB) 0.5 MG/2.5 ML AMP HHN ×2 (08:00→13:40)
[2019-07-12] MEDS: BUDESONIDE (NEB) 0.5MG/2ML AMP HHN (09:00)
[2019-07-12] MEDS: FERROUS SULFATE 60 MG/ML 5ML CUP GTB (09:26)
[2019-07-12] MEDS: MULTIVIT/CA CARB/B CMPLX/FA TAB GTB (09:27)
[2019-07-12] MEDS: NEUTRA-PHOS 250 MG PACKET GTB (09:27)
[2019-07-12] MEDS: LEVETIRACETAM (100 MG/ML) 5ML CUP GTB (09:27)
[2019-07-12] MEDS: FLUCONAZOLE 100 MG TAB GTB (09:27)
[2019-07-12] MEDS: BALSAM PERU/CASTOR OIL 60 GM TUBE TOP (09:28)
[2019-07-12] MEDS: METOPROLOL 50 MG TAB GTB (09:28)
[2019-07-12] MEDS: DAKINS 0.0125%(1/40) 473 ML SOLUTION TP (09:29)
[2019-07-12] MEDS: ENOXAPARIN 30 MG/0.3 ML SYG SC (09:49)
== END 2019-07-12 17:26 | DRG 682 ==
LOC: E/R 13:25 → 6WM 17:10
PROC: 30233N1 Transfusion of Nonautologous Red Blood Cells into Peripheral Vein, Percutaneous Approach (ICD-10-PCS; principal; 2019-06-24)
PROC: 5A1955Z Respiratory Ventilation, Greater than 96 Consecutive Hours (ICD-10-PCS; 2019-07-04)
DX: N17.0 Acute kidney failure with tubular necrosis (principal); I50.33 Acute on chronic diastolic (congestive) heart failure; L89.154 Pressure ulcer of sacral region, stage 4; G92 Toxic encephalopathy; J18.9 Pneumonia, unspecified organism; K68.12 Psoas muscle abscess; A41.9 Sepsis, unspecified organism; I13.0 Hypertensive heart and chronic kidney disease with heart failure and stage 1 through stage 4 chronic kidney disease, or unspecified chronic kidney disease; Z99.11 Dependence on respirator [ventilator] status; E87.2 Acidosis; B37.41 Candidal cystitis and urethritis; N39.0 Urinary tract infection, site not specified; R40.3 Persistent vegetative state; J96.10 Chronic respiratory failure, unspecified whether with hypoxia or hypercapnia; N18.3 Chronic kidney disease, stage 3 (moderate); J44.9 Chronic obstructive pulmonary disease, unspecified; J84.10 Pulmonary fibrosis, unspecified; E87.5 Hyperkalemia; R13.10 Dysphagia, unspecified; D64.9 Anemia, unspecified; I25.10 Atherosclerotic heart disease of native coronary artery without angina pectoris; G40.909 Epilepsy, unspecified, not intractable, without status epilepticus; Z93.1 Gastrostomy status; E86.0 Dehydration; I48.2 Chronic atrial fibrillation; Z87.891 Personal history of nicotine dependence; R21 Rash and other nonspecific skin eruption; Z22.322 Carrier or suspected carrier of Methicillin resistant Staphylococcus aureus; J40 Bronchitis, not specified as acute or chronic
CPT/HCPCS: 36430; 36600; 71045; 76775; 80048; 80053; 80150; 80162; 81001; 81003; 82043; 82550; 82553; 82803; 83036; 83605; 83735; 83935; 84100; 84155; 84300; 84484; 85025; 86850; 86900; 86901; 86920; 87040-91; 87070; 87081; 87086; 89220; 93005; 93306; 94002; 94003; 94640; 94664; 96361; 96365; 99285-25